=== PATIENT | male | born 1970 | race Caucasian/White ===

== ENCOUNTER 2019-07-16 05:51 | Inpatient (IN) ==
[2019-07-16 06:23] LABS: Basophils # (auto) 0.04 K/uL (0-0.2); Basophils % (auto) 0.3 %; Eosinophils # (auto) 0.34 K/uL (0-0.5); Eosinophils % (auto) 2.9 %; Hematocrit (blood only) 55.4 % (42-52); Hemoglobin 19.8 g/dL (14.0-18.0); Immature Granulocytes # (auto) 0.07 K/uL (0.00-0.02); Immature Granulocytes % (auto) 0.6 %; Lymphocytes # (auto) 2.91 K/uL (1.2-3.4); Lymphocytes % (auto) 24.9 %; Mean Corpuscular Hemoglobin 33.5 pg (25-34); Mean Corpuscular Volume 93.7 fL (80-100); Mean Platelet Volume 9.4 fL (7.4-10.4); Monocytes # (auto) 1.07 K/uL (0.11-0.59); Monocytes % (auto) 9.1 %; Neutrophils # (auto) 7.27 K/uL (1.4-6.5); Neutrophils % (auto) 62.2 %; Platelet Count 222 K/uL (130-400); RDW Coefficient of Variation 13.9 % (11.5-14.5); RDW Standard Deviation 47.1 fL (36.4-46.3); Red Blood Count 5.91 M/uL (4.7-6.1)
[2019-07-16 06:24] LABS: Mean Corpuscular Hgb Conc 35.7 g/dL (32-36)
[2019-07-16 06:27] LABS: iSTAT Creatinine 0.9 mg/dl (0.6-1.3); iSTAT Hemoglobin 20.1 g/dl (14.0-18.0); iSTAT Ionized Calcium 1.16 mmol/l (1.12-1.32); iSTAT Potassium 4.1 mEq/L (3.3-5.0)
[2019-07-16 06:34] LABS: Partial Thromboplastin Ratio 1.3; Partial Thromboplastin Time 36.1 Seconds (21.0-31.0); Prothrombin Time 10.1 Seconds (9.0-12.0)
--- NOTE | 2019-07-16 06:34 | CT Scan Report ---
CT head/brain wo con CLINICAL HISTORY: 48 years-old Male with Stroke evaluation . Acute strokelike symptoms TECHNIQUE: Multiple axial CT images of the head were obtained without contrast. A dose lowering tech nique was utilized adhering to the principles of ALARA. CT DOSE: 687.98 mGy.cm COMPARISON: Head CT 05/21/2019 FINDINGS: No acute intracranial hemorrhage, midline shift, intracranial mass, hydrocephalus, territorial ischem ia or abnormal extra-axial collection. Mild patchy white matter hypodensities are again noted within the subcortical and periventricular distributions. The calvarium is intact. The paranasal sinuses, mastoid air cells, and middle ear cavities are clear . IMPRESSION: 1. No acute intracranial abnormality. 2. Patchy white matter hypodensities may reflect chronic microvascular ischemic disease. Correlate cl inically. The above report was generated using voice recognition software. It may contain grammatical, syntax o r spelling errors. Electronically signed by: Uvaldo Diaz M.D. 07/16/2019 6:33 AM
[2019-07-16 06:46] LABS: Alanine Aminotransferase 22 U/L (12-78); Albumin Level 3.9 gm/dl (3.4-5.0); Aspartate Aminotransferase 23 U/L (15-37); BUN Creatinine Ratio 16.2 (10-20); Blood Urea Nitrogen 17 mg/dl (7-18); Calcium 8.8 mg/dl (8.5-10.1); Carbon Dioxide 26 mmol/L (21-32); Chloride 106 mmol/L (98-107); Creatinine Clr Calc Pharmacy 111.8 ml/min; Est GFR (Non-African American) 87.1; Glucose 102 mg/dl (70-99); Magnesium 1.9 mg/dl (1.8-2.4); Sodium 138 mmol/L (136-145)
[2019-07-16 06:51] LABS: Alkaline Phosphatase 75 U/L (45-117); Bilirubin,Total 0.6 mg/dl (0.2-1); Globulin 3.9 gm/dl (2.5-4.0); Total Protein 7.8 gm/dl (6.4-8.2); Troponin I < 0.015 ng/ml (0-0.045)
[2019-07-16] MEDS ORDERED: CLOPIDOGREL BISULFATE 300 MG TAB PO STA (07:03)
[2019-07-16] MEDS ORDERED: ASPIRIN 81 MG CHEW PO STA (07:03)
[2019-07-16] MEDS ORDERED: SODIUM CHLORIDE 0.9% 500 ML IV SCH (07:15)
--- NOTE | 2019-07-16 07:34 | Emergency Department Note ---
Entered by Skip Rhodes acting as a scribe for Soco Harvey DO History of Present Illness General Chief complaint: Neuro Symptoms/Deficit Stated complaint: NUMBNESS LFT SIDE,BALANCE OFF Time Seen by Provider: 07/16/19 06:01 Source: patient History of Present Illness Onset (ago): day(s) (today at 0500) Location: face Pain Consistency: + constant Quality: + other (facial droop) Associated symptoms: + other (Positive for left arm numbness/weakness and difficulty balancing. Negative for difficulty swallowing. ) The patient is a 48 year old male who presents to the emergency department with complaints of a constant facial droop beginning at 0500 today. The patient states that he developed left arm numbness and weakness at 1300 yesterday while he was at work. He notes that his left arm numbness and weakness improved by the time he went to bed last night at 2000. He reports that he woke up this morning at 0500 with a facial droop. The patient states that he also had difficulty balancing at that time. He denies any difficulty swallowing his saliva. He notes that he does not have a previous history of strokes, but he reports that he has a family history of strokes. The patient states that he takes a baby aspirin. Home Medications Home Medications Medication Instructions Recorded Confirmed Type aspirin 81 mg PO QAM 05/21/19 07/16/19 History atorvastatin 10 mg PO HS 05/21/19 07/16/19 History citalopram 20 mg PO QAM 05/21/19 07/16/19 History ibuprofen 200 mg PO Q6H PRN 05/21/19 07/16/19 History lisinopril 20 mg PO QAM 05/21/19 07/16/19 History trazodone 150 mg PO HS 05/21/19 07/16/19 History Allergies Allergy/AdvReac Type Severity Reaction Status Date / Time No Known Allergies Allergy Mild Verified 07/16/19 06:22 Past Med/Surg History Medical History History of ETOH abuse Tobacco abuse Depression with anxiety Insomnia Hyperlipidemia HTN (hypertension) Surgical History History of tonsillectomy and adenoidectomy History of esophagogastroduodenoscopy (EGD) Family History Father Stroke, Onset Age: 50 Coronary heart disease Diabetes Mother Cancer Social History Preferred Language: [place] Communication Ability: Effective City Library Director Required: No Beliefs That Will Affect Care: None marital status details: Engaged Current Living Situation: Significant Other current occupational status: 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 and A total of 10 systems reviewed and were otherwise negative Physical Exam Vital Signs Vital Signs - 24 hr 07/16/19 05:57 07/16/19 05:58 07/16/19 06:00 Temperature 36.6 C Temperature Source Oral Sepsis Recent Fever Within 48 Hours No Sepsis New/Unexplained Change in Mental Status No Sepsis Action Taken by Nursing No Action Required Pulse Rate 80 78 80 Pulse Rate [Bilateral] Pulse Rate from SpO2 Sensor 78 79 Pulse Rhythm Regular Pulse Rhythm [Bilateral] Pulse Strength Normal Pulse Strength [Bilateral] Respiratory Rate 18 23 20 Respiratory Effort / Characteristics Non-Labored Spontaneous Respiratory Depth Normal Respiratory Pattern Regular Blood Pressure 160/95 H 160/95 H 163/101 H Blood Pressure [Right Arm] Blood Pressure Mean 116 116 121 Blood Pressure Mean [Right Arm] Blood Pressure Position Lying Blood Pressure Position [Right Arm] Pulse Oximetry 98 96 97 Oxygen Delivery Method Room Air 07/16/19 06:01 07/16/19 06:21 07/16/19 06:30 Temperature Temperature Source Sepsis Recent Fever Within 48 Hours Sepsis New/Unexplained Change in Mental Status Sepsis Action Taken by Nursing Pulse Rate 83 79 90 Pulse Rate [Bilateral] Pulse Rate from SpO2 Sensor 81 81 89 Pulse Rhythm Pulse Rhythm [Bilateral] Pulse Strength Pulse Strength [Bilateral] Respiratory Rate 18 26 H 21 Respiratory Effort / Characteristics Respiratory Depth Respiratory Pattern Blood Pressure 171/102 H 165/142 H Blood Pressure [Right Arm] Blood Pressure Mean 125 149 Blood Pressure Mean [Right Arm] Blood Pressure Position Blood Pressure Position [Right Arm] Pulse Oximetry 97 96 96 Oxygen Delivery Method 07/16/19 06:31 07/16/19 06:32 07/16/19 07:00 Temperature Temperature Source Sepsis Recent Fever Within 48 Hours Sepsis New/Unexplained Change in Mental Status Sepsis Action Taken by Nursing Pulse Rate 83 88 Pulse Rate [Bilateral] 81 Pulse Rate from SpO2 Sensor 83 Pulse Rhythm Pulse Rhythm [Bilateral] Regular Pulse Strength Pulse Strength [Bilateral] Normal Respiratory Rate 19 18 20 Respiratory Effort / Characteristics Non-Labored Spontaneous Respiratory Depth Normal Respiratory Pattern Regular Blood Pressure 164/107 H Blood Pressure [Right Arm] 164/107 H Blood Pressure Mean 126 Blood Pressure Mean [Right Arm] 126 Blood Pressure Position Blood Pressure Position [Right Arm] Lying Pulse Oximetry 96 97 Oxygen Delivery Method Room Air 07/16/19 07:13 07/16/19 07:30 Temperature Temperature Source Sepsis Recent Fever Within 48 Hours Sepsis New/Unexplained Change in Mental Status Sepsis Action Taken by Nursing Pulse Rate 91 H 83 Pulse Rate [Bilateral] Pulse Rate from SpO2 Sensor 91 H 83 Pulse Rhythm Pulse Rhythm [Bilateral] Pulse Strength Pulse Strength [Bilateral] Respiratory Rate 16 15 Respiratory Effort / Characteristics Respiratory Depth Respiratory Pattern Blood Pressure 148/95 H 153/90 H Blood Pressure [Right Arm] Blood Pressure Mean 112 111 Blood Pressure Mean [Right Arm] Blood Pressure Position Blood Pressure Position [Right Arm] Pulse Oximetry 94 97 Oxygen Delivery Method HEENT: Head - normocephalic and atraumatic. Pupils are equal, round, and reactive to light. Extraocular eye muscles are intact and sclera are anicteric. Ears - bilaterally patent canals with noninjected tympanic membranes and no evidence of hemotympanum. Nose - moist nasal mucosa without discharge. Mouth - moist buccal mucosa. Oropharynx is nonerythematous and there is no tonsillar exudate or edema noted. Obvious droop to left side of mouth. Neck: Supple; no JVD, nuchal rigidity, cervical lymphadenopathy, or auscultated bruits. Heart: Regular rate and rhythm. There is a normal S1 and S2 with no murmurs, clicks, or gallops appreciated. Lungs: Clear to auscultation bilaterally with no wheezes, rales, or rhonchi. Abdomen: Soft, completely nontender, nondistended, with good bowel sounds. There are no palpable pulsatile masses or hepatosplenomegaly. There is no guarding, rigidity, or rebound noted. Extremities: No evidence of cyanosis, clubbing, or edema. There are easily palpable peripheral pulses. Neuro: The patient is awake and alert, oriented to day, time, and place. Cranial nerves 2-12 intact except for left-sided mouth droop. 4/5 muscle weakness in left arm and left leg. Pedal push and pull - left weaker than right. Course 0603: The patient was evaluated in room A9. A complete history and physical examination were performed. Nursing notes and previous electronic medical records were reviewed. IV lock was established and labs were drawn as above. A stroke alert was called. The patient went for a stat CAT scan of the brain. 0622: I discussed the patient's case with Hetal Olivas. 0645: The patient's last known well was 1999. The patient was evaluated by Dr. Kwan through the tele stroke cart. 0655: I rediscussed the patient's case with Dr. Kwan. She recommends oral Plavix, MRI, and admission. 0700: Upon reevaluation, the patient is stable. I discussed the findings and the treatment plan with the patient. He expresses agreement and understanding. I spoke with Dr. Trinidad of the [facility]. The patient will be evaluated for further management. 0702: I rediscussed the patient's case with Dr. Kwan. She recommends loading Plavix, continuing aspirin, and allowing the patient's blood pressure to be somewhat elevated. Consultations Consultation #1: I discussed the patient's case with Dr. Aquiles Limon Hetal. 0655: I rediscussed the patient's case with Dr. Kwan. She recommends oral Plavix, MRI, and admission. Time: 06:22 Consultation #2: I reviewed the patient's case with Dr. Trinidad - [facility]. He will evaluate the patient for further management. Time: 07:00 Administered Medications Atorvastatin Calcium (Lipitor) 80 mg PO HS CAIO Stop: 08/15/19 20:59 Last Admin: 07/16/19 20:38 Dose: 80 mg Documented by: [id number] Citalopram Hydrobromide (Celexa) 20 mg PO QAM CAIO Stop: 08/15/19 09:54 Last Admin: 07/16/19 11:26 Dose: Not Given Documented by: [id number] Ioversol (Optiray 320 125ml) 120 ml IV ONCE PRN PRN Reason: Interaction Checking Stop: 07/20/19 14:08 Last Admin: 07/16/19 14:10 Dose: 120 ml Documented by: [id number] Miscellaneous (Remove Nicoderm Patch) 1 ea N/A CAIO Stop: 08/15/19 20:59 Last Admin: 07/16/19 20:38 Dose: 1 ea Documented by: [id number] Nicotine (Nicoderm Cq) 21 mg TD QAM CAIO Stop: 08/15/19 09:54 Last Admin: 07/16/19 11:26 Dose: 21 mg Documented by: [id number] Trazodone HCl (Desyrel) 150 mg PO HS CAIO Stop: 08/15/19 20:59 Last Admin: 07/16/19 20:38 Dose: 150 mg Documented by: [id number] Discontinued Medications Aspirin (Aspirin Chew) 81 mg PO NOW STA Stop: 07/16/19 07:04 Last Admin: 07/16/19 07:22 Dose: 81 mg Documented by: [id number] Aspirin (Ecotrin Ectab) 81 mg PO QA CAIO Stop: 08/15/19 09:54 Last Admin: 07/16/19 10:24 Dose: Not Given Documented by: [id number] Clopidogrel Bisulfate (Plavix) 300 mg PO NOW STA Stop: 07/16/19 07:04 Last Admin: 07/16/19 07:25 Dose: 300 mg Documented by: [id number] Sodium Chloride (Nss) 500 mls @ 125 mls/hr IV .Q4H CAIO Stop: 08/15/19 07:14 Last Infusion: 07/16/19 10:24 Dose: 0 mls/hr Documented by: [id number] Admin: 07/16/19 07:24 Dose: 125 mls/hr Documented by: [id number] Medical Decision Making Differential Diagnosis Differential diagnoses include: TIA, CVA, and migraine. Medical Records Attestation: I reviewed the patient's medical records. Home Medications Current Medication List: was personally reviewed by me Laboratory Data Attestation: I reviewed the patient's lab results. Result diagrams: 07/16/19 15:56 07/16/19 06:09 Lab Results 07/16/19 07/16/19 07/16/19 Range/Units 06:07 06:09 06:09 WBC 11.70 H (4.8-10.8) K/uL RBC 5.91 (4.7-6.1) M/uL Hgb 19.8 H (14.0-18.0) g/dL POC Hgb (14.0-18.0) g/dl Hct 55.4 H (42-52) % POC Hct (42-52) % MCV 93.7 (80-100) fL MCH 33.5 (25-34) pg MCHC 35.7 (32-36) g/dL RDW Std Deviation 47.1 H (36.4-46.3) fL RDW Coeff of Chandra 13.9 (11.5-14.5) % Plt Count 222 (130-400) K/uL MPV 9.4 (7.4-10.4) fL Immature Gran % (Auto) 0.6 % Neut % (Auto) 62.2 % Lymph % (Auto) 24.9 % Banks % (Auto) 9.1 % Eos % (Auto) 2.9 % Baso % (Auto) 0.3 % Immature Gran # (Auto) 0.07 H (0.00-0.02) K/uL Neut # (Auto) 7.27 H (1.4-6.5) K/uL Lymph # (Auto) 2.91 (1.2-3.4) K/uL Banks # (Auto) 1.07 H (0.11-0.59) K/uL Eos # (Auto) 0.34 (0-0.5) K/uL Baso # (Auto) 0.04 (0-0.2) K/uL PT 10.1 (9.0-12.0) Seconds INR 1.0 (0.9-1.1) APTT 36.1 H (21.0-31.0) Seconds PTT Ratio 1.3 POC Sodium (135-144) mEq/L Sodium (136-145) mmol/L POC Potassium (3.3-5.0) mEq/L Potassium (3.5-5.1) mmol/L POC Chloride (101-112) mEq/L Chloride (98-107) mmol/L Carbon Dioxide (21-32) mmol/L POC Total CO2 (24-31) mEq/l Anion Gap (3-11) POC Anion Gap (16-25) mmol/L POC BUN (7-18) mg/dl BUN (7-18) mg/dl Creatinine (0.6-1.4) mg/dl POC Creatinine (0.6-1.3) mg/dl Est Cr Clr Drug Dosing ml/min Est GFR ( Amer) Est GFR (Non-Af Amer) BUN/Creatinine Ratio (10-20) Glucose (70-99) mg/dl POC Glucose 121 H (70-99) POC Glucose (other) (70-99) mg/dl Calcium (8.5-10.1) mg/dl POC Ioniz Calcium Leti (1.12-1.32) mmol/l Magnesium (1.8-2.4) mg/dl Total Bilirubin (0.2-1) mg/dl AST (15-37) U/L ALT (12-78) U/L Alkaline Phosphatase (45-117) U/L Troponin I (0-0.045) ng/ml Total Protein (6.4-8.2) gm/dl Albumin (3.4-5.0) gm/dl Globulin (2.5-4.0) gm/dl Albumin/Globulin Ratio (0.9-2) TSH (0.300-4.500) uIu/ml Blood Type Antibody Screen 07/16/19 07/16/19 07/16/19 Range/Units 06:09 06:09 06:15 WBC (4.8-10.8) K/uL RBC (4.7-6.1) M/uL Hgb (14.0-18.0) g/dL POC Hgb 20.1 H* (14.0-18.0) g/dl Hct (42-52) % POC Hct 59 H (42-52) % MCV (80-100) fL MCH (25-34) pg MCHC (32-36) g/dL RDW Std Deviation (36.4-46.3) fL RDW Coeff of Chandra (11.5-14.5) % Plt Count (130-400) K/uL MPV (7.4-10.4) fL Immature Gran % (Auto) % Neut % (Auto) % Lymph % (Auto) % Banks % (Auto) % Eos % (Auto) % Baso % (Auto) % Immature Gran # (Auto) (0.00-0.02) K/uL Neut # (Auto) (1.4-6.5) K/uL Lymph # (Auto) (1.2-3.4) K/uL Banks # (Auto) (0.11-0.59) K/uL Eos # (Auto) (0-0.5) K/uL Baso # (Auto) (0-0.2) K/uL PT (9.0-12.0) Seconds INR (0.9-1.1) APTT (21.0-31.0) Seconds PTT Ratio POC Sodium 140 (135-144) mEq/L Sodium 138 (136-145) mmol/L POC Potassium 4.1 (3.3-5.0) mEq/L Potassium 4.0 (3.5-5.1) mmol/L POC Chloride 103 (101-112) mEq/L Chloride 106 (98-107) mmol/L Carbon Dioxide 26 (21-32) mmol/L POC Total CO2 25 (24-31) mEq/l Anion Gap 6.0 (3-11) POC Anion Gap 17.0 (16-25) mmol/L POC BUN 18 (7-18) mg/dl BUN 17 (7-18) mg/dl Creatinine 1.02 (0.6-1.4) mg/dl POC Creatinine 0.9 (0.6-1.3) mg/dl Est Cr Clr Drug Dosing 111.8 ml/min Est GFR ( Amer) 101.0 Est GFR (Non-Af Amer) 87.1 BUN/Creatinine Ratio 16.2 (10-20) Glucose 102 H (70-99) mg/dl POC Glucose (70-99) POC Glucose (other) 107 H (70-99) mg/dl Calcium 8.8 (8.5-10.1) mg/dl POC Ioniz Calcium Leti 1.16 (1.12-1.32) mmol/l Magnesium 1.9 (1.8-2.4) mg/dl Total Bilirubin 0.6 (0.2-1) mg/dl AST 23 (15-37) U/L ALT 22 (12-78) U/L Alkaline Phosphatase 75 (45-117) U/L Troponin I < 0.015 (0-0.045) ng/ml Total Protein 7.8 (6.4-8.2) gm/dl Albumin 3.9 (3.4-5.0) gm/dl Globulin 3.9 (2.5-4.0) gm/dl Albumin/Globulin Ratio 1.0 (0.9-2) TSH 2.740 (0.300-4.500) uIu/ml Blood Type Antibody Screen 07/16/19 07/16/19 Range/Units 06:26 06:55 WBC (4.8-10.8) K/uL RBC (4.7-6.1) M/uL Hgb (14.0-18.0) g/dL POC Hgb (14.0-18.0) g/dl Hct (42-52) % POC Hct (42-52) % MCV (80-100) fL MCH (25-34) pg MCHC (32-36) g/dL RDW Std Deviation (36.4-46.3) fL RDW Coeff of Chandra (11.5-14.5) % Plt Count (130-400) K/uL MPV (7.4-10.4) fL Immature Gran % (Auto) % Neut % (Auto) % Lymph % (Auto) % Banks % (Auto) % Eos % (Auto) % Baso % (Auto) % Immature Gran # (Auto) (0.00-0.02) K/uL Neut # (Auto) (1.4-6.5) K/uL Lymph # (Auto) (1.2-3.4) K/uL Banks # (Auto) (0.11-0.59) K/uL Eos # (Auto) (0-0.5) K/uL Baso # (Auto) (0-0.2) K/uL PT (9.0-12.0) Seconds INR (0.9-1.1) APTT (21.0-31.0) Seconds PTT Ratio POC Sodium (135-144) mEq/L Sodium (136-145) mmol/L POC Potassium (3.3-5.0) mEq/L Potassium (3.5-5.1) mmol/L POC Chloride (101-112) mEq/L Chloride (98-107) mmol/L Carbon Dioxide (21-32) mmol/L POC Total CO2 (24-31) mEq/l Anion Gap (3-11) POC Anion Gap (16-25) mmol/L POC BUN (7-18) mg/dl BUN (7-18) mg/dl Creatinine (0.6-1.4) mg/dl POC Creatinine (0.6-1.3) mg/dl Est Cr Clr Drug Dosing ml/min Est GFR ( Amer) Est GFR (Non-Af Amer) BUN/Creatinine Ratio (10-20) Glucose (70-99) mg/dl POC Glucose (70-99) POC Glucose (other) (70-99) mg/dl Calcium (8.5-10.1) mg/dl POC Ioniz Calcium Leti (1.12-1.32) mmol/l Magnesium (1.8-2.4) mg/dl Total Bilirubin (0.2-1) mg/dl AST (15-37) U/L ALT (12-78) U/L Alkaline Phosphatase (45-117) U/L Troponin I (0-0.045) ng/ml Total Protein (6.4-8.2) gm/dl Albumin (3.4-5.0) gm/dl Globulin (2.5-4.0) gm/dl Albumin/Globulin Ratio (0.9-2) TSH (0.300-4.500) uIu/ml Blood Type Cancelled O Positive Antibody Screen Cancelled NEGATIVE Imaging Data Radiologist's Impression: Radiology results as stated below per my review and the radiologist's interpretation: CT HEAD: Left frontal white matter hypodensity possibly representing chronic small vessel ischemic change. No intracranial hemorrhage, mass effect, or edema. No evolving territorial infarction. Radiologist: Wilberto Redd MD. ECG Data Attestation: I personally reviewed and interpreted this ECG as follows: Indication: weakness Rate (beats per minute): 79 Rhythm: normal sinus Findings: no PAC and no PVC Additional Comments: Biphasic T wave in V6, no ischemia. Blood Pressure Blood Pressure Findings: Elevated blood pressure Blood Pressure Disposition: further management by hospitalist ROSEANNE Narrative The patient is a 48 year old male who presents to the emergency department with complaints of a constant facial droop beginning at 0500 when he woke up. Last known well time was 8 PM last night. The patient's neurological presentation is consistent with an acute stroke. Initial CT scan of the brain showed no obvious hemorrhage or stroke. The patient was outside the window for TPA use. [facility] tele-stroke recommended admission to the hospital with further MRI/MRA evaluation of the brain. They also suggested continuing oral low-dose aspirin along with Plavix. They also suggested IV hydration and allowing the patient's blood pressure to ride somewhat elevated. I discussed the case with the hospitalist and they will evaluate the patient for further management. Impression & Plan Stroke Critical Care Time Critical Care Time: Yes (I have personally spent greater than 30 minutes of critical care time in the direct management of this patient. This includes bedside care, interpretation of diagnostic studies, and testing, discussion with consultants, patient, and family members, and other required patient management activities. This 30 minutes is in excess of all separately billable procedures.) Total Critical Care Time: 30 I have personally spent greater than 30 minutes of critical care time in the direct management of this patient. This includes bedside care, interpretation of diagnostic studies, and testing, discussion with consultants, patient, and family members, and other required patient management activities. This 30 minutes is in excess of all separately billable procedures. Discharge Plan Visit Data *Final* Discharge Date/Time: 07/16/19 08:57 Chief Complaint: Neuro Symptoms/Deficit Stated Complaint: NUMBNESS LFT SIDE,BALANCE OFF ED Provider: Soco Harvey Discharge Problem: Stroke Patient Disposition: Admitted As Inpatient Discharge Instructions Interventions: ED Discharge Assessment Last Done: 07/16/19 08:57 Discharge Problem: Stroke Qualifiers: CVA mechanism: unspecified Qualified Code(s): I63.9 - Cerebral infarction, unspecified The scribe's documentation has been prepared under my direction and personally reviewed by me in its entirety. I confirm that the note above accurately reflects all work, treatment, procedures, and medical decision making performed by me.
--- NOTE | 2019-07-16 08:16 | History & Physical Report ---
Date of Service July 16, 2019 Assessment & Plan (1) Stroke-like symptoms: This is a 48-year-old male who has significant PMH of HTN, HLD, tobacco abuse, depression with anxiety, insomnia, history of alcohol abuse who presents to [facility] ED secondary to strokelike symptoms x12 hours. In ED initial work up revealed elevated H/H at 19.8 and 55.4, WBC 11.7 Pt with L sided facial droop, LUE/LLE weakness/numbness Stroke alert called CT head negative for acute abnormality but revealed patchy white matter hypodensities may reflect chronic microvascular ischemic disease Pt on ASA 81mg daily, plavix started admit to PCU obtain MRI w/o contrast echocardiogram to r/o PFO US of carotid fasting lipid panel and A1C neurology consulted continue ASA, Add plavix 75mg daily increased atorvastatin from 10mg daily to 40mg daily consider hypercoag panel, work up for PCV given elevated H/H will await neurology input PT/OT/ST encourage smoking cessation repeat cbc, retic ct and lyme screen at 3pm (2) HTN (hypertension): allow for permissive HTN initial 24-48hrs hold lisinopril for now (3) Hyperlipidemia: Increase atorvastatin from 10 mg daily to 40 mg daily Fasting lipid panel in a.m. (4) Tobacco abuse: Nicotine patch Smoking cessation encouraged (5) Depression with anxiety: Continue citalopram Mood stable (6) Insomnia: Continue trazodone at bedtime (7) DVT prophylaxis: SCD/TEDS for now Disposition: admit to PCU, case management consulted Follow up: PCP Dr. Stevenson upon discharge Patient was seen and examined in collaboration with Dr. Mejia, please see addendum History of Present Illness Chief Complaint: Strokelike symptoms x12 hours. Primary Care Provider: Dr. Stevenson This is a 48-year-old male who has significant PMH of HTN, HLD, tobacco abuse, depression with anxiety, insomnia, history of alcohol abuse who presents to [facility] ED secondary to strokelike symptoms x12 hours. Alicia is at bedside. Symptoms initially started last evening when he had sensation of left arm numbness. He proceeded to bed. When he woke up this morning and tried to get out of bed he stumbled and fell. No injuries. Had left-sided upper and lower extremity numbness along with weakness, noticed left facial droop and slurring of speech. Denies any recent illness, fever, chills, sweats, lightheadedness, dizziness, change in vision or hearing, chest pain, shortness of breath, palpitations, cough, nausea, vomiting, diarrhea, dysuria, increased urgency or frequency with urination, melena, hematochezia. He does have history of syncope in the past and was last seen in ED approximately 1 month ago. He also elicits he can cough so hard he just, "blacks out." Is outdoors, but denies any known tick bites. He is a current pack-a-day smoker for the past 30 years. He does drink a significant amount of caffeine starting with a monster energy drink in the morning along with multiple sweet teas throughout the day. He denies any illicit drug use. Denies any personal or family history of DVT/PE or clotting disorder. He does have family history of CVA in his father. His father had multiple CVAs starting in his 50s. He is unsure of cause of CVA. 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 Allergies Allergy/AdvReac Type Severity Reaction Status Date / Time No Known Allergies Allergy Mild Verified 07/16/19 06:22 Home Medications Home Medications Medication Instructions Recorded Confirmed Type aspirin 81 mg PO QAM 05/21/19 07/16/19 History atorvastatin 10 mg PO HS 05/21/19 07/16/19 History citalopram 20 mg PO QAM 05/21/19 07/16/19 History ibuprofen 200 mg PO Q6H PRN 05/21/19 07/16/19 History lisinopril 20 mg PO QAM 05/21/19 07/16/19 History trazodone 150 mg PO HS 05/21/19 07/16/19 History Past Med/Surg History Medical History History of ETOH abuse Tobacco abuse Depression with anxiety Insomnia Hyperlipidemia HTN (hypertension) Surgical History History of tonsillectomy and adenoidectomy History of esophagogastroduodenoscopy (EGD) Family History Father Stroke, Onset Age: 50 Coronary heart disease Diabetes Mother Cancer Social History Preferred Language: Sami Communication Ability: Effective Ware Dresser Required: No Beliefs That Will Affect Care: None marital status details: Engaged Current Living Situation: Significant Other current occupational status: 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 Other Information That Helps Us Care for You: No Feels Safe at Home: Yes Safety Concerns: Feels Safe At This Time Smoking Status: Current every day smoker Tobacco Type: cigarettes ; Years Smoked: 30 ; Cigarettes Per Day: 20 ; Tobacco Cessation Education Requested by Patient: No Hx Alcohol Use: Yes Alcohol Intake Frequency Comment: former hx of ETOH abuse, quit 2006 Hx Substance Use: No Review of Systems Review of Systems: All systems reviewed & are unremarkable except as noted in HPI & below Physical Exam Physical Exam: Constitutional: WD/WN, vitals as above, NAD, sitting up in bed, pleasant, conversing easily Head: Normocephalic, Atraumatic Eyes: PERRL, conjunctivae normal, anicteric sclerae ENMT: external ear and nose normal, oropharynx normal, patient with left tongue deviation Neck: trachea midline, no thyromegaly normal visual inspection Respiratory: normal respiratory effort, lungs clear to auscultation, no wheeze, rales, rhonchi. Normal insp/exp effort, no accessory muscle use Cardiovascular: RRR, no murmur, no edema Vessels: no JVD or carotid bruit Chest: normal inspection of chest Abdomen: Protuberant firm abdomen, normal bowel sounds, nontender, no hepatosplenomegaly Musculoskeletal: no cyanosis or clubbing, extremities motor strength 4/5 left upper and lower extremity, 5/5 right upper and lower extremity, wireline field operator strength diminished on the left Skin: no rashes, warm and dry normal turgor Neurologic: PERRL, EOMI, accommodation nl, left-sided facial droop, left tongue deviation but is able to return to midline, minimal dysarthria. Dysphagia screen passed. Psychiatric: A+Ox3, euthymic affect Lymphatic: no cervical or axillary lymphadenopathy : deferred Results & Data Vital Signs (Past 12 Hours) Vital Signs Temp Pulse Pulse Resp BP BP Pulse Ox 07/16/19 07:30 83 15 153/90 H 97 07/16/19 07:13 91 H 16 148/95 H 94 07/16/19 07:00 88 20 07/16/19 06:32 81 18 164/107 H 97 07/16/19 06:31 83 19 164/107 H 96 07/16/19 06:30 90 21 165/142 H 96 07/16/19 06:21 79 26 H 171/102 H 96 07/16/19 06:01 83 18 97 07/16/19 06:00 80 20 163/101 H 97 07/16/19 05:58 78 23 160/95 H 96 07/16/19 05:57 36.6 C 80 18 160/95 H 98 Laboratory Results Short CBC 07/16/19 Range/Units 06:09 WBC 11.70 H (4.8-10.8) K/uL Hgb 19.8 H (14.0-18.0) g/dL Hct 55.4 H (42-52) % Plt Count 222 (130-400) K/uL BMP 07/16/19 06:09 Sodium 138 Potassium 4.0 Chloride 106 Carbon Dioxide 26 BUN 17 Creatinine 1.02 Glucose 102 H Calcium 8.8 Cardiac Enzymes 07/16/19 Range/Units 06:09 Troponin I < 0.015 (0-0.045) ng/ml Liver Function 07/16/19 Range/Units 06:09 Total Bilirubin 0.6 (0.2-1) mg/dl AST 23 (15-37) U/L ALT 22 (12-78) U/L Alkaline Phosphatase 75 (45-117) U/L Albumin 3.9 (3.4-5.0) gm/dl Diagnostic Findings Head CT: IMPRESSION: 1. No acute intracranial abnormality. 2. Patchy white matter hypodensities may reflect chronic microvascular ischemic disease. Correlate clinically. Medications Administered Short CBC 07/16/19 Range/Units 06:09 WBC 11.70 H (4.8-10.8) K/uL Hgb 19.8 H (14.0-18.0) g/dL Hct 55.4 H (42-52) % Plt Count 222 (130-400) K/uL BMP 07/16/19 06:09 Sodium 138 Potassium 4.0 Chloride 106 Carbon Dioxide 26 BUN 17 Creatinine 1.02 Glucose 102 H Calcium 8.8 Cardiac Enzymes 07/16/19 Range/Units 06:09 Troponin I < 0.015 (0-0.045) ng/ml Liver Function 07/16/19 Range/Units 06:09 Total Bilirubin 0.6 (0.2-1) mg/dl AST 23 (15-37) U/L ALT 22 (12-78) U/L Alkaline Phosphatase 75 (45-117) U/L Albumin 3.9 (3.4-5.0) gm/dl ECG Rate (beats per minute): 79 Rhythm: normal sinus Code Status & VTE Plan Code Status Full Code VTE Prophylaxis Plan VTE Prophylaxis will be ordered: Yes Supervising Physician Co-Signing Physician Notes I have seen and examined the patient with physician judicial administrative assistant and would like to comment that this is a young 48 year old male with past medical history of father with stroke around age early 50s, and patient is a tobacco user, 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 patient was outside of the window for TPA. Initial head CT with No acute intracranial abnormality and Patchy white matter hypodensities may reflect chronic microvascular ischemic disease. but given on physical exam of left sided facial droop which is very apparent, and mild left upper/lower extremity weakness (other exam findings of normal extraoccular movements, normal pupils and normal reaction to light, no tongue deviations, clear lung auscultation, regular heart rate and rhythm), the patient's STROKE-LIKE SYMPTOMS is likely to be an actual STROKE. currently patient had echocardiogram performed in the ED with results pending to investigate whether there is atrial septal defect. patient is to get brain MRI being going up to [facility]. patient to get carotid imaging agree with patient being started on combination of clopidogrel with his home dose aspirin. will seen the lipid panels and HbA1c but atorvastatin to be increased from 10 mg daily to 40 mg for now monitor the blood pressure and allow for permissive hypertensive but will aim to get goal blood pressure of under 140/90 later in hospital stay in management f the HYPERTENSION discussed with patient about TOBACCO ABUSE and the need for patient to quit to prevent recurrent neurological symptoms of cardiac disease. patient offered nicotine patch will seek formal neurology consultation. patient will need also PT/OT evaluations agree with other assessment and plans as documented by physician asssitant
[2019-07-16] MEDS ORDERED: ONDANSETRON INJ 2 MG/ML 2 ML VIAL IV PRN (09:55)
[2019-07-16] MEDS ORDERED: ACETAMINOPHEN 325 MG TAB PO PRN ×2 (09:55→16:34)
[2019-07-16] MEDS ORDERED: MAGNESIUM HYDROXIDE SUSP 30 ML UDC PO PRN (09:55)
[2019-07-16] MEDS ORDERED: POLYETHYLENE (MIRALAX) 17 GM PACK PO PRN (09:55)
[2019-07-16] MEDS ORDERED: ALUMINUM/MAGNESIUM SUSP 30 ML UDC PO PRN (09:55)
[2019-07-16] MEDS ORDERED: PHARMACIST DISCHARGE MED REC CONSULT PRN (09:55)
[2019-07-16] MEDS ORDERED: ASPIRIN 81 MG ECTAB PO SCH (09:55)
--- NOTE | 2019-07-16 10:06 | Magnetic Resonance Report ---
MR brain wo con HISTORY: 48 years-old Male CVA . Strokelike symptoms with left-sided weakness COMPARISON: Head CT 07/16/2019 TECHNIQUE: Multiplanar multisequence MRI of the brain was obtained without the use of IV contrast FINDINGS: Microfiche Camera Operator localizer images demonstrate no gross extracranial abnormality. Motion degraded exam. Patchy sanchez bcentimeter foci of restricted diffusion noted within the watershed distribution of the right centrum semiovale, measuring up to approximately 3.6 cm in AP dimension with decreased signal on ADC map and slightly increased T2/flair signal. Linear focus of restricted diffusion is noted within the right p arieto-occipital distribution on image 11 of series 4. There is no acute intracranial hemorrhage, mid line shift, abnormal extra-axial collection, hydrocephalus or intracranial mass. Moderate patchy T2/F LAIR hyperintensities of the white matter are noted with cortically based increased T2/FLAIR signal n oted within the left frontal lobe suggestive of remote insult. Major flow voids at the level the skull base appear patent. Mastoid air cells are clear. Mild mucosal thickening of the paranasal sinuses. The skull, orbits and soft tissues are unremarkable. IMPRESSION: 1. Motion degraded exam. 2. Multiple foci of restricted diffusion within the right frontal lobe, predominantly involving the w atershed distribution of the centrum semiovale are noted with additional subcentimeter focus within t he right parieto-occipital distribution compatible with areas of acute infarct. 3. Moderate patchy T2/FLAIR hyperintensities of the white matter are suggestive of probable chronic m icrovascular ischemic disease, advanced for patient stated age. Underlying vasculitis or demyelinatin g process are also differential considerations. Correlate clinically. The above report was generated using voice recognition software. It may contain grammatical, syntax o r spelling errors. Electronically signed by: Uvaldo Diaz M.D. 07/16/2019 10:04 AM
--- NOTE | 2019-07-16 10:56 | Neurology Consultation ---
Date of Consultation July 16, 2019 Assessment & Plan (1) Hyperlipidemia: (2) Acute right MCA stroke: Mr. Moyer is a 48 year old male with Hx of HTN, HLD, and chronic smoker on ASA admitted with left sided weakness / facial droop, ataxia and dysarthria secondary to an acute embolic right hemispheric ischemic stroke in the setting of severe right carotid stenosis . CTA neck shows severe carotid stenosis bilateral at the carotid bulbs. - Patient outside the window for IV TPA. NIHSS 5. - Recommend ASA and PLavix 75 mg daily for now - Recommend Lipitor 80 mg daily - Permissive hypertension for now, Avoid hypotension - Vascular surgery consulted this afternoon. Appreciate input / recommendations. Will defer on transfer to tertiary facility at this time. - TTE showed Atrial septal aneurysm with small hemodynamically insignificant shunt. Closure not currently indicated per report. Cardiology recommends antiplatelet therapy for secondary stroke prevention. - Please check HA1c, TSH, and Lipid panel - Telemetry - PT/OT (3) Embolic stroke: (4) Left hemiparesis: (5) Dysarthria: (6) Carotid stenosis, bilateral: History of Present Illness Attending Physician: Mikal Mejia MD History of Present Illness Mr. Moyer is a 48 year old male with Hx of HTN, HLD, PPD smoker, history of alcohol abuse (remission) and anxiety/depression who presented to the ED with complaint left sided numbness and weakness and slurred speech. Symptoms started last evening prior to going to sleep with left arm numbness. He woke this morning and noted left upper and lower extremity weakness, facial droop, and slurred speech. No history of prior stroke or WI. No known Afib. He is a current pack-a-day smoker for the past 30 years. He denies any illicit drug use. Denies any personal or family history of DVT/PE or clotting disorder. He does have family history of CVA in his father. He is on ASA at home. Allergies Allergy/AdvReac Type Severity Reaction Status Date / Time No Known Allergies Allergy Mild Verified 07/16/19 06:22 Home Medications Home Medications Medication Instructions Recorded Confirmed Type aspirin 81 mg PO QAM 05/21/19 07/16/19 History atorvastatin 10 mg PO HS 05/21/19 07/16/19 History citalopram 20 mg PO QAM 05/21/19 07/16/19 History ibuprofen 200 mg PO Q6H PRN 05/21/19 07/16/19 History lisinopril 20 mg PO QAM 05/21/19 07/16/19 History trazodone 150 mg PO HS 05/21/19 07/16/19 History Patient History Medical History History of ETOH abuse Tobacco abuse Depression with anxiety Insomnia Hyperlipidemia HTN (hypertension) Surgical History History of tonsillectomy and adenoidectomy History of esophagogastroduodenoscopy (EGD) Family History Father Stroke, Onset Age: 50 Coronary heart disease Diabetes Mother Cancer Social History Preferred Language: Central African Communication Ability: Effective Clinical Statistics Manager Required: No Beliefs That Will Affect Care: None marital status details: Engaged Current Living Situation: Significant Other current occupational status: 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 Other Information That Helps Us Care for You: No Feels Safe at Home: Yes Safety Concerns: Feels Safe At This Time Smoking Status: Current every day smoker Tobacco Type: cigarettes ; Years Smoked: 30 ; Cigarettes Per Day: 20 ; Tobacco Cessation Education Requested by Patient: No Hx Alcohol Use: Yes Alcohol Intake Frequency Comment: former hx of ETOH abuse, quit 2006 Hx Substance Use: No Physical Exam Physical Exam: EXAM: Constitutional: appears acutely ill, older than stated age Head and Face: normocephalic and atraumatic Eyes: normal lids, normal conjunctiva Neck: supple Respiratory: normal effort Cardiovascular: normal pulses Abdomen: non distended Skin: no rashes, lesions, or ulcers noted Psychiatric: normal judgement and insight, normal mood and normal affect NEUROLOGIC EXAMINATION: Appearance: no acute distress Orientation: awake, alert and oriented x 3 Mental Status: alert Memory: registration 3/3 and recall 3/3 Attention: normal Knowledge: appropriate Language: no aphasia Speech: no dysarthria Cranial Nerves: CN 2 - no visual defect on confrontation and pupils round, equal, reactive to light CN 3, 4, 6 - extra-ocular movements intact and no nystagmus CN 5 - facial sensation intact CN 7 - left facial droop CN 8 - intact hearing CN 9, 10 - palate symmetric CN 11 - good shoulder shrug CN 12 - tongue deviates to the left Gait: deferred due to left sided weakness Coordination: mild ataxia with finger to nose on the left Sensory: sensory changes in left arm Muscle Tone: normal Muscle exam: 5/5 throughout except mild left bicep flexion weakness (4+/5) Reflexes: left toe is up going Results & Data Vital Signs (Past 12 Hours) Vital Signs Temp Pulse Pulse Resp BP BP Pulse Ox 07/16/19 09:55 36.3 C L 79 80 18 151/103 H 97 07/16/19 09:00 80 16 145/88 H 96 07/16/19 08:32 78 15 07/16/19 08:31 78 19 112/74 07/16/19 08:30 79 16 07/16/19 08:11 77 20 152/98 H 07/16/19 08:00 77 14 152/98 H 07/16/19 07:30 83 15 153/90 H 97 07/16/19 07:13 91 H 16 148/95 H 94 07/16/19 07:00 88 20 07/16/19 06:32 81 18 164/107 H 97 07/16/19 06:31 83 19 164/107 H 96 07/16/19 06:30 90 21 165/142 H 96 07/16/19 06:21 79 26 H 171/102 H 96 07/16/19 06:01 83 18 97 07/16/19 06:00 80 20 163/101 H 97 07/16/19 05:58 78 23 160/95 H 96 07/16/19 05:57 36.6 C 80 18 160/95 H 98 Laboratory Results BMP Normal UA - No UTI Diagnostic Findings MRI brain : Multiple foci of restricted diffusion within the right frontal lobe, predominantly involving the watershed distribution of the centrum semiovale are noted with additional subcentimeter focus within the right parieto-occipital distribution compatible with areas of acute infarct. Moderate patchy T2/FLAIR hyperintensities of the white matter are suggestive of probable chronic microvascular ischemic disease, advanced for patient stated age. Underlying vasculitis or demyelinating process are also differential considerations. Correlate clinically. CT head: No acute intracranial abnormality. Patchy white matter hypodensities may reflect chronic microvascular ischemic disease. CTA head and neck:1. Severe mixed plaque of the left carotid bulb results in greater than 90% luminal narrowing with only trickle flow noted within the proximal cervical segment left ICA with diminished flow throughout the remainder of the left ICA course. 2. Severe mixed plaque of the right carotid bulb results in occlusion versus greater than 90% luminal narrowing of the right ICA at its origin with scattered areas of trickle flow noted throughout the course of the right ICA. Reconstitution of flow at the cavernous segment. The above report was generated using voice recognition software. It may contain grammatical, syntax or spelling errors. TTE: LV is normal in size. EF>70%. Atrial septal aneurysm noted with small hemodynamically insignificant shunt. Closure not currently indicated. No valve abnormalities.
[2019-07-16] MEDS: NICOTINE 21 MG/24 HR TDSY TD SCH (11:26)
[2019-07-16] MEDS: CITALOPRAM 20 MG TAB PO SCH (11:26)
[2019-07-16] MEDS ORDERED: OPTIRAY 320 125ml IV PRN (14:09)
--- NOTE | 2019-07-16 14:41 | CT Scan Report ---
CT angio head w con, CT angio neck with con CLINICAL HISTORY: 48 years-old Male with right MCA stroke. Acute strokelike symptoms COMPARISON STUDY: Brain MRI of same day TECHNIQUE: Following the IV administration of 120 cc of Optiray 320, CT angiogram of the head and nec k was performed from the thoracic aortic arch to the skull apex. Images are reviewed in the axial, sa gittal, and coronal planes. 3-D MIPS images are created and assessed. IV contrast was administered wi thout complication. All measurements were obtained according to NASCET criteria. A dose lowering tech nique was utilized adhering to the principles of ALARA. CT DOSE: 784.69 mGy.cm FINDINGS: Imaged pulmonary arterial tree appears unremarkable. Mixed plaque of the thoracic aortic arch. Patenc y of the imaged bilateral subclavian arteries. Bilateral common carotid arteries are widely patent. S evere mixed plaque of the left carotid bulb results in greater than 90% luminal narrowing with only t rickle flow noted at the level the proximal left ICA, for example please see image 313 of series 4. T here is diminished flow throughout the remainder of the left ICA distal to the area of high-grade cristal nosis with multifocal areas of luminal narrowing seen within the cavernous and clinoid segments on th e left. The left external carotid artery is widely patent. Severe mixed plaque of the right carotid bulb results in high-grade stenosis versus occlusion at the origin of the external carotid artery with the remainder of the right external carotid artery appeari ng patent. There is occlusion versus greater than 90% luminal narrowing of the right ICA beginning at the level of the carotid bulb with a few minimal areas of trickle flow noted throughout the right IC A. Reconstitution of flow is noted within the cavernous segment right ICA with air is diminished flow . The bilateral middle and left anterior cerebral arteries are widely patent and unremarkable. Diminu tive right A1 segment is likely on a developmental basis. Dominant left vertebral artery is widely patent and unremarkable. Calcified plaque at the origin of t he right vertebral artery without high-grade stenosis. Patent basilar and bilateral posterior cerebra l arteries. No dissection or aneurysm identified. Cerebral venous sinuses are unremarkable and patent . Mild bilateral bronchial wall thickening with emphysema. Partial effacement of the left vallecula be secondary to secretions. There is no adenopathy. Bones appear intact. Multilevel degenerative changes of the spine. IMPRESSION: 1. Severe mixed plaque of the left carotid bulb results in greater than 90% luminal narrowing with on ly trickle flow noted within the proximal cervical segment left ICA with diminished flow throughout t he remainder of the left ICA course. 2. Severe mixed plaque of the right carotid bulb results in occlusion versus greater than 90% luminal narrowing of the right ICA at its origin with scattered areas of trickle flow noted throughout the c ourse of the right ICA. Reconstitution of flow at the cavernous segment. 3. Unremarkable vertebrobasilar system. 4. No aneurysm or dissection. 5. Emphysema. The above report was generated using voice recognition software. It may contain grammatical, syntax o r spelling errors. Electronically signed by: Uvaldo Diaz M.D. 07/16/2019 2:40 PM
--- NOTE | 2019-07-16 15:37 | Ultrasound Report ---
US carotid doppler BI CLINICAL HISTORY: 48 years-old Male presenting with CVA like sx, left-sided symptoms, CTA with high-g rade stenosis, evaluate for hemodynamic severity. TECHNIQUE: Real-time grayscale and color and spectral Doppler ultrasound imaging of the bilateral car otid arteries was performed. Stenosis measurements were based on NASCET-like criteria (distal lumen d iameter as the denominator for stenosis measurement). COMPARISON: CT neck from earlier today. FINDINGS: RIGHT: Common carotid artery (CCA): Severely diminished flow though the vessel appears patent. Loss of diast olic flow. Atherosclerosis at the carotid bulb. Peak systolic velocity (PSV) 35 cm/s. Internal carotid artery (ICA): Diffusely occluded. No demonstrable flow. PSV 0 cm/s. End diastolic ve locity (EDV) 0 cm/s. ICA/CCA (systolic) ratio: 0. External carotid artery (ECA): Hyperdynamic flow with a waveform that mirrors the expected internal c arotid artery distribution waveform. PSV 252 cm/s focally at the origin and PSV 80 cm/s immediately d istally. Reversal of flow is evident in a branch of the ECA. LEFT: CCA: Patent. PSV 73 cm/s. ICA: Diffusely occluded. PSV 0 cm/s. EDV 0 cm/s. ICA/CCA (systolic) ratio: 0. ECA: Proximal atherosclerotic plaque with focal stenosis. PSV 215 cm/s at the site of stenosis and PS V to 121 cm/s immediately distally. Bilateral antegrade flow within the vertebral arteries. Blood pressure: Brachial: Right: 153/90 mmHg, Left: 164/107 mmHg. Reference ranges: Stenosis measurements are compared to reference velocity parameters by the Society of Radiologists in Ultrasound (SRU) consensus and Sonographic NASCET index (S-NASCET). * SRU Primary parameters: ICA PSV <125 cm/s = normal or less than 50% stenosis; ICA PSV 125-230 cm/s = 50-69% stenosis; ICA PSV >230 cm/s = greater than or equal to 70% stenosis. * SRU Additional parameters: ICA/CCA PSV ratio <2 = normal or less than 50% stenosis; ratio 2-4 = 5 0-69% stenosis; ratio >4 = greater than or equal to 70% stenosis. ICA EDV <40 cm/s = normal or less t vela 50% stenosis; ICA EDV 40-100 cm/s = 50-69% stenosis; ICA EDV >100 cm/s = greater than or equal to 70% stenosis. * S-NASCET parameters: Deceleration spectral broadening + PSV <125 cm/s = less than 50% stenosis; pa nsystolic spectral broadening + PSV <125 cm/s = 16-49% stenosis; pansystolic spectral broadening + PS V >125 cm/s + EDV <110 cm/s or ICA/CCA PSV ratio 2-4 = 50-69% stenosis; pansystolic spectral broadeni ng + PSV >270 cm/s OR EDV >110 cm/s OR ICA/CCA PSV ratio >4 = 70-79% stenosis; EDV >140 cm/s = 80-99% stenosis. IMPRESSION: 1. Occluded internal carotid arteries bilaterally. 2. ICA-type waveform in the right ECA with reversal of flow in a branch vessel suggesting collateral ization/parasitization of a branch of the right ECA to supply the distal recannulated right ICA at th e level of the skull base as demonstrated on CTA neck. 3. Severe stenosis of the bilateral proximal/origins of the ECAs. This is more severe on the right. Electronically signed by: Cristóbal Jimenez M.D. 07/16/2019 3:35 PM
[2019-07-16 16:11] LABS: Basophils # (auto) 0.03 K/uL (0-0.2); Basophils % (auto) 0.3 %; Eosinophils # (auto) 0.35 K/uL (0-0.5); Eosinophils % (auto) 3.2 %; Hematocrit (blood only) 53.5 % (42-52); Hemoglobin 18.9 g/dL (14.0-18.0); Immature Granulocytes # (auto) 0.04 K/uL (0.00-0.02); Immature Granulocytes % (auto) 0.4 %; Lymphocytes # (auto) 3.07 K/uL (1.2-3.4); Lymphocytes % (auto) 28.2 %; Mean Corpuscular Hemoglobin 32.9 pg (25-34); Mean Corpuscular Hgb Conc 35.3 g/dL (32-36); Mean Corpuscular Volume 93.2 fL (80-100); Mean Platelet Volume 9.3 fL (7.4-10.4); Monocytes # (auto) 1.01 K/uL (0.11-0.59); Monocytes % (auto) 9.3 %; Neutrophils # (auto) 6.37 K/uL (1.4-6.5); Neutrophils % (auto) 58.6 %; Platelet Count 202 K/uL (130-400); RDW Coefficient of Variation 13.8 % (11.5-14.5); RDW Standard Deviation 46.8 fL (36.4-46.3); Red Blood Count 5.74 M/uL (4.7-6.1); Reticulocyte % 1.9 % (0.5-2.0); Reticulocytes # 0.11 10^6/uL (0.02-0.10); White Blood Count 10.87 K/uL (4.8-10.8)
--- NOTE | 2019-07-16 16:27 | Consultation ---
Date of Consultation July 16, 2019 Assessment & Plan (1) Carotid artery occlusion with cerebral infarction: In reviewing the CTA and ultrasound the right carotid artery appears to be occluded however there is notation in the report that there may be a trickle of flow through this area. The left carotid appears occluded on CTA. This point I believe better imaging is needed. I recommend a carotid arteriogram. This was discussed with the patient and his . I have discussed the risks options and benefits of the procedure with the patient. The patient understands the risks options and benefits and agrees to the procedure. We will plan on doing the carotid arteriogram in the a.m. Further treatment will be determined by the results of the angiogram peer Thank you very much for letting us participate in the care of this patient. History of Present Illness Reason for Consultation: Right hemispheric CVA Attending Physician: Mikal Mejia MD History of Present Illness This is a 48-year-old gentleman who was in his usual state of good health until yesterday when he developed paresthesias of the left arm and left leg. Today this progressed to weakness in his left arm left leg with slurred speech and facial droop. He claims this is the first time this is happened to his left arm and leg. He denies any previous instances of one-sided weakness slurred speech or paresthesias. He denies any symptoms like this involving his right side in the past. He is a smoker. He denies any cardiac history of arrhythmias. He does have a family history of CVA in his father. There are no clotting disorders in his family that he knows of. Allergies Allergy/AdvReac Type Severity Reaction Status Date / Time No Known Allergies Allergy Mild Verified 07/16/19 06:22 Home Medications Home Medications Medication Instructions Recorded Confirmed Type aspirin 81 mg PO QAM 05/21/19 07/16/19 History atorvastatin 10 mg PO HS 05/21/19 07/16/19 History citalopram 20 mg PO QAM 05/21/19 07/16/19 History ibuprofen 200 mg PO Q6H PRN 05/21/19 07/16/19 History lisinopril 20 mg PO QAM 05/21/19 07/16/19 History trazodone 150 mg PO HS 05/21/19 07/16/19 History Patient History Medical History History of ETOH abuse Tobacco abuse Depression with anxiety Insomnia Hyperlipidemia HTN (hypertension) Surgical History History of tonsillectomy and adenoidectomy History of esophagogastroduodenoscopy (EGD) Family History Father Stroke, Onset Age: 50 Coronary heart disease Diabetes Mother Cancer Social History Preferred Language: [place] Communication Ability: Effective Medical Laboratory Technical Officer Required: No Beliefs That Will Affect Care: None marital status details: Engaged Current Living Situation: Significant Other current occupational status: 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 Other Information That Helps Us Care for You: No Feels Safe at Home: Yes Safety Concerns: Feels Safe At This Time Smoking Status: Current every day smoker Tobacco Type: cigarettes ; Years Smoked: 30 ; Cigarettes Per Day: 20 ; Tobacco Cessation Education Requested by Patient: No Hx Alcohol Use: Yes Alcohol Intake Frequency Comment: former hx of ETOH abuse, quit 2006 Hx Substance Use: No Review of Systems Review of Systems: All systems reviewed & are unremarkable except as noted in HPI & below Physical Exam Constitutional: WD/WN, vitals as above Neck: trachea midline Respiratory: normal respiratory effort; no respiratory distress Cardiovascular: Rate/Rhythm: regular rate and regular rhythm Vessels: femoral pulses present, posterior tibial pulses present, dorsalis pedis pulses present and radial pulses present; no carotid bruit Extremities: normal capillary refill Gastrointestinal (Abdomen): Inspection/Auscultation: abdomen normal to inspection Percussion/Palpation: abdomen soft; abdomen nontender Musculoskeletal: Extremities: extremities normal to inspection and + abnormal strength (Is slight weakness to the left side when compared to the right.) Gait: normal gait Neurologic: CN's II-XI intact bilaterally, moves all extremities (Left is slightly weaker than the right.) and + focal motor deficit (Left side) Speech / Cognition: + abnormal speech (His speech is slightly abnormal according to his but is improved remarkably since his CVA this morning.) Motor/Sensory: normal movement Gait: no ataxic gait Psychiatric: Orientation: alert and oriented x 3 Results & Data Vital Signs (Past 12 Hours) Vital Signs Temp Pulse Pulse Resp BP BP Pulse Ox 07/16/19 15:33 36.5 C 80 20 144/94 H 96 07/16/19 12:26 36.4 C L 79 18 146/86 H 93 07/16/19 09:55 36.3 C L 79 80 18 151/103 H 97 07/16/19 09:00 80 16 145/88 H 96 07/16/19 08:32 78 15 07/16/19 08:31 78 19 112/74 07/16/19 08:30 79 16 07/16/19 08:11 77 20 152/98 H 07/16/19 08:00 77 14 152/98 H 07/16/19 07:30 83 15 153/90 H 97 07/16/19 07:13 91 H 16 148/95 H 94 07/16/19 07:00 88 20 07/16/19 06:32 81 18 164/107 H 97 07/16/19 06:31 83 19 164/107 H 96 07/16/19 06:30 90 21 165/142 H 96 07/16/19 06:21 79 26 H 171/102 H 96 07/16/19 06:01 83 18 97 07/16/19 06:00 80 20 163/101 H 97 07/16/19 05:58 78 23 160/95 H 96 07/16/19 05:57 36.6 C 80 18 160/95 H 98
[2019-07-16 17:02] LABS: Lyme Ab IgM w/WB Rflx Negative (Negative)
[2019-07-16 17:10] LABS: Lyme Ab IgG w/WB Rflx Positive (Negative)
[2019-07-16] MEDS: ATORVASTATIN 40 MG TAB PO SCH (20:38)
[2019-07-16] MEDS ORDERED: TRAZODONE HCL 50 MG TAB PO SCH (21:00)
[2019-07-16] MEDS ORDERED: ATORVASTATIN 40 MG TAB PO SCH (21:00)
[2019-07-17] MEDS ORDERED: CEFAZOLIN 2000MG 2,000 MG/15 ML SYR IV SCH (06:00)
[2019-07-17] MEDS ORDERED: SODIUM CHLORIDE 0.9% 1000ML 1,000 ML IV SCH ×2 (06:00→09:21)
[2019-07-17 06:36] LABS: Basophils # (auto) 0.03 K/uL (0-0.2); Basophils % (auto) 0.3 %; Eosinophils # (auto) 0.41 K/uL (0-0.5); Eosinophils % (auto) 3.5 %; Hematocrit (blood only) 54.4 % (42-52); Hemoglobin 19.8 g/dL (14.0-18.0); Immature Granulocytes # (auto) 0.05 K/uL (0.00-0.02); Immature Granulocytes % (auto) 0.4 %; Lymphocytes # (auto) 2.78 K/uL (1.2-3.4); Lymphocytes % (auto) 23.7 %; Mean Corpuscular Hemoglobin 33.4 pg (25-34); Mean Corpuscular Hgb Conc 36.4 g/dL (32-36); Mean Corpuscular Volume 91.9 fL (80-100); Mean Platelet Volume 9.2 fL (7.4-10.4); Monocytes # (auto) 0.97 K/uL (0.11-0.59); Monocytes % (auto) 8.3 %; Neutrophils # (auto) 7.47 K/uL (1.4-6.5); Neutrophils % (auto) 63.8 %; Platelet Count 211 K/uL (130-400); RDW Coefficient of Variation 13.6 % (11.5-14.5); RDW Standard Deviation 45.8 fL (36.4-46.3); Red Blood Count 5.92 M/uL (4.7-6.1); White Blood Count 11.71 K/uL (4.8-10.8)
[2019-07-17 07:12] LABS: BUN Creatinine Ratio 12.5 (10-20); Calcium 8.8 mg/dl (8.5-10.1); Creatinine Clr Calc Pharmacy 129.7 ml/min; Est GFR (Non-African American) 101.8; Potassium 4.2 mmol/L (3.5-5.1)
--- NOTE | 2019-07-17 07:20 | History & Physical Bridge Note ---
Date of Service July 17, 2019 History & Physical Bridge Note Patient for carotid angio today. I have discussed the risks options and benefits of the procedure with the patient. The patient understands the risks options and benefits and agrees to the procedure. I have examined the patient, reviewed the History & Physical and in the interval since the performance of the History & Physical I have noted the following changes of clinical significance: no changes noted
[2019-07-17 07:25] LABS: Estimated Average Glucose 114 mg/dl; Hemoglobin A1C 5.6 % (4.5-5.6)
[2019-07-17] MEDS ORDERED: LIDOCAINE HCL 1% 20 ML VIAL ONE (07:34)
[2019-07-17] MEDS ORDERED: HEPARIN SOD (PORCINE) 1000 UNIT/ML 10 ML VIAL ONE (08:10)
[2019-07-17] MEDS ORDERED: fentaNYL citrate 100 MCG/2 ML VIAL ONE (08:10)
[2019-07-17] MEDS ORDERED: MIDAZOLAM HCL 1 MG/ML 2ML VIAL ONE (08:10)
[2019-07-17] MEDS ORDERED: VISIPAQUE IV PRN (08:59)
[2019-07-17] MEDS ORDERED: CLOPIDOGREL BISULFATE 75 MG TAB PO SCH (09:00)
--- NOTE | 2019-07-17 09:05 | Post Operative Brief Note ---
Immediate Post Op Note v1 Date of Surgery July 17, 2019 Pre & Post Diagnosis Operation Date: 07/17/19 08:15 Pre-Op Diagnosis: Carotid artery occlusion with cerebral infarction Post-Op Diagnosis: Carotid artery occlusion with cerebral infarction I identified the patient and participated in the time-out.: Yes Procedure Operation Date: 07/17/19 08:15 Actual Procedures p Bilateral Carotid Angiogram,Arch Aortagram, Ultrasound Localization of Right Femoral Artery, Mechanical Closure of Right Femoral Artery(Bilateral) - Vaughn George MD Surgeon Vaughn George MD Halftone Operator MD Martina Estimated Blood Loss 10 Findings Consistent with Post-Op Diagnosis Anesthesia Type Local Complications none Disposition Accompanied Patient To Recovery: No Disposition: Recovery Room
--- NOTE | 2019-07-17 09:07 | Communication Note ---
Date of Service: July 17, 2019 Patient with bilateral internal carotid artery occlusion. No flow was seen into the internal caroitd from the common carotid on both sides. No intervention needed. Would treat with antiplatelets, statin, and smoking cessation.
[2019-07-17] MEDS: CITALOPRAM 20 MG TAB PO SCH (09:22)
[2019-07-17] MEDS: NICOTINE 21 MG/24 HR TDSY TD SCH (09:23)
--- NOTE | 2019-07-17 09:41 | Procedure Note ---
Angiogram Post Procedure Fluoroscopy Time (minutes): 2.5 Radiation (mGy): 98 Contrast: 40 Post Operative Report Pre & Post Diagnosis Operation Date: 07/17/19 08:15 Pre-Op Diagnosis: Carotid artery occlusion with cerebral infarction Post-Op Diagnosis: Carotid artery occlusion with cerebral infarction Procedure Operation Date: 07/17/19 08:15 Actual Procedures p Bilateral Carotid Angiogram,Arch Aortagram, Ultrasound Localization of Right Femoral Artery, Mechanical Closure of Right Femoral Artery - Vaughn George MD Surgeon Dr. Doris Dye MD Crop Or Grain Farmer MD Martina Estimated Blood Loss 10 Findings See Below Arch angiogram showed a patent innominate artery, left carotid artery and left subclavian artery. A right carotid angiogram revealed an occluded right internal carotid artery with a patent external carotid artery. A left carotid angiogram revealed an occluded left internal carotid artery with patent external carotid artery. Specimens None Anesthesia Type Local Complications none Disposition Accompanied Patient To Recovery: Yes Disposition: Recovery Room Indications Patient presented with a stroke and a CTA was inadequate to evaluate whether there is flow through the internal carotid arteries. Description of Procedure The patient was brought to the angio suite and correctly identified. The patient was placed supine on the angiography table. The right groin was prepped and draped in a sterile fashion. Following the administration of lidocaine , the right common femoral artery was accessed using a 18 gauge needle and ultrasound guidance. A J wire was threaded and the 11 blade was used to make a krishna in the skin. Following that a 5 Albanian sheath was advanced over the J-wire after the axis needle was removed. 035 angled glide wire was then advanced into the abdominal aorta and Taken all the way up into the aortic arch. The C arm was placed in a 19 degree EMA. A long pigtail catheter was then advanced over the wire into the aortic arch. A limited thoracic aortogram was completed. This thoracic aortogram revealed a patent innominate artery a patent left common carotid artery and a patent left subclavian artery. The angled glide wire was then reintroduced and the pigtail was exchanged with a JB2 catheter over the a ngled glide wire. The Glidewire was then removed. The JB2 catheter was then pulled back and allowed to select the innominate artery. The angled Glidewire was then advanced and selected the right common carotid artery. A right carotid angiogram was then completed. This showed flow in the right common carotid artery and right external carotid artery but no flow in the right internal carotid artery. The JB2 catheter was then pulled back into the aortic arch and selected the left common carotid artery. The JB2 catheter was then advanced over the angled Glidewire and advanced into the left common carotid artery. A left common carotid artery angiogram was then completed which revealed a patent left common carotid artery a patent left external carotid artery and a occluded left internal carotid artery. At this time the JB2 catheter was withdrawn out of the patient's body. Attention was then turned to the right groin. A right sheath a gram was obtained revealing the puncture was in the right common femoral artery over the right femoral head. Through the 5 Albanian sheath a short J-wire was introduced and the 5 Albanian sheath was exchanged with a 6 Albanian Star close dilator and sheath. The Star close device was then deployed. Following the 1 through 4 steps. Upon removal of the closure device the patient had a hemostatic right groin. Pressure was held over the right groin for 5 minutes. A sterile dressing was then applied over the right groin. The patient tolerated the procedure well and was taken back to recovery area in a flat position. Dr. George was present for the entirety of the procedure. I attest to the content of the Intraoperative Record and any orders documented therein. Any exceptions are noted below.
--- NOTE | 2019-07-17 11:25 | Hospitalist Progress Note ---
Date of Service July 17, 2019 Assessment & Plan (1) Acute right MCA stroke: 48 year old male admitted with left sided weakness / facial droop, ataxia and dysarthria secondary to an acute right hemispheric ischemic stroke in the setting of severe right carotid stenosis -patient was outside of the window for TPA -continue aspirin 81 mg daily and clopidogrel (Plavix) 75 mg daily, atorvastatin 80 mg daily -CTA neck suggested severe carotid stenosis bilateral at the carotid bulbs -Patient had angiogram performed by vascular surgery on 07/17/19 and No flow was seen into the internal carotid from the common carotid on both sides -Because of bilateral carotid artery occlusion rather than stenosis, patient is not candidate for vascular interventions such as Carotid endarterectomy -TTE showed Atrial septal aneurysm with small hemodynamically insignificant shunt and Closure not currently indicated per report. Cardiology recommends antiplatelet therapy for secondary stroke prevention. -at this point the evaluations suggest that the cause of the stroke is from hypoperfusion from lack of carotid blood flow rather than an embolic source -PT/OT evaluations -further neurology recommendations appreciated -Patient has appointments made for primary care doctor 07/24/2019 11:00 AM Pr bear Stevenson MD Department [facility] and neurology clinic 07/30/2019 1:40 PM Provider Keena Chandler MD Department Neurology [facility] (2) Carotid artery occlusion with cerebral infarction: -Patient had angiogram performed by vascular surgery on 07/17/19 and No flow was seen into the internal carotid from the common carotid on both sides -Because of bilateral carotid artery occlusion rather than stenosis, patient is not candidate for vascular interventions such as Carotid endarterectomy -Patient on IV fluids after angiogram -monitor renal function (3) HTN (hypertension): -lisinopril 20 mg daily resumed on 07/17/19 -will likely need further adjustments of anti-hypertensives once off IV fluids (4) Hyperlipidemia: -lipid panel with LDL of 94 -atorvastatin 80 mg daily as per recent neurology recommendations (5) Tobacco abuse: -counseled on smoking cessation -Nicotine patch (6) Depression with anxiety: -mood is stable -Continue home dose citalopram (7) Insomnia: -Continue home dose trazodone at bedtime DVT ppx: SCDs while inpatient Subjective Patient seen and examined laying flat on the bed and getting IV fluids after the angiogram of the neck. Patient's blood pressure noted to be elevated. no dizziness. no lightheadedness. no chest pain. no shortness of breath. no vomiting Physical Exam Constitutional: comfortable Eyes: PERRL, conjunctivae normal, anicteric sclerae EOM intact bilaterally ENMT: external ear and nose normal, oropharynx normal Neck: normal visual inspection Respiratory: normal respiratory effort, lungs clear to auscultation Cardiovascular: Rate/Rhythm: regular rate and regular rhythm Gastrointestinal (Abdomen): normal bowel sounds, soft, nontender, no hepatosplenomegaly Musculoskeletal: Head/Neck/Chest: normocephalic and head atraumatic Neurologic: PERRL, EOMI, accommodation nl, no face palsy, no dysarthria Psychiatric: A+Ox3, euthymic affect Results & Data Vital Signs (Past 12 Hours) Vital Signs Temp Pulse Pulse Resp BP Pulse Ox 07/17/19 11:23 36.4 C L 91 H 16 170/121 H 96 07/17/19 09:20 75 18 146/98 H 93 07/17/19 08:53 74 15 152/106 H 93 07/17/19 08:48 74 15 150/109 H 92 07/17/19 08:43 74 15 159/112 H 93 07/17/19 08:38 77 15 163/107 H 93 07/17/19 08:33 77 15 159/110 H 93 07/17/19 08:28 70 14 160/105 H 94 07/17/19 08:18 70 14 159/106 H 95 07/17/19 07:50 36.6 C 77 16 147/96 H 94 07/17/19 07:00 99 H 07/17/19 03:20 36.5 C 83 18 179/93 H 95 07/17/19 00:22 36.5 C 82 18 144/88 H 94
[2019-07-17] MEDS ORDERED: LISINOPRIL 20 MG TAB PO STA (12:03)
--- NOTE | 2019-07-17 14:09 | Neurology Progress Note ---
Date of Service July 17, 2019 Assessment & Plan (1) Carotid artery occlusion with cerebral infarction: 1. bilateral carotid stenosis - medical management 2. plavix 75 mg and aspirin 81 mg daily for now 3. arthrosclerotic plaque - Lipitor 80 mg daily 4. blood pressure - slowly reduce blood pressure to high normal tensive 5. life style changes discussed smoking cessation, caffeine use needs limited 6. PT/OT speech for discharge needs 7. referral as outpatient to neurovascular for 2nd opinion and options follow up neurology in 4-6 weeks Keena Auguste PAC schedule Supervising Physician Co-Signing Physician Notes I have seen and discussed above patient with Dr Keena Chandler, neurology. Pt seen and examined. Pt with angiographically proven bl carotid occlusion with R MCA-TANNER watershed infarct, intact post circ and COW on CTA Exam notable for flattened L NLF, mild L arm weakness.. Imp R MCA/TANNER infarct. REc risk mod, smoking cessation, avoidance of hypotension, dual antiplt tx. I doubt that vascu lar interventional NS would offer a vascular bypass but consider and opinion post-dc provided pt remains without recurrent events. LEO Chandler MD Parmjit Ward is a 48 year old male with PMH -HTN, HLD, tobacco abuse, depression with anxiety, insomnia, history of alcohol abuse who presented with stroke-like symptoms x12 hours. The symptoms started in his left arm with numbness the night prior to arrival. The next morning he woke and was unable to get himself out of bed. he then had left-sided upper and lower extremity numbness along with weakness, noticed left facial droop and slurring of speech. He can cough so hard he just, "blacks out." He is a at least a PPD smoker for the past 30 years. He does drink a significant amount of caffeine starting with a monster energy drink in the morning along with multiple sweet teas throughout the day. His father has a history of CVA with started in his 50s. Yesterday he had a angiogram by Dr George which revealed a bilateral ICA occlusion. Today he is doing better. He states he has been up and walking around. he states he is planning on stopping cigarette smoking. denies CP, SOB, abdominal pain, +improving one sided weakness, and slurred speech. Physical Exam Physical Exam: Gen: alert NAD lungs course breath sounds CV RRR left sided facial droop left tongue deviation, slurring of speech slight pronator drift on left hand operations engineer biceps triceps right 5/5, left 4+/5, able to tandem walk without assistance dysmetric left with rapid movements Results & Data Vital Signs (Past 12 Hours) Vital Signs Temp Pulse Pulse Resp BP Pulse Ox 07/17/19 11:23 36.4 C L 91 H 16 170/121 H 96 07/17/19 09:20 75 18 146/98 H 93 07/17/19 09:19 71 07/17/19 08:53 74 15 152/106 H 93 07/17/19 08:48 74 15 150/109 H 92 07/17/19 08:43 74 15 159/112 H 93 07/17/19 08:38 77 15 163/107 H 93 07/17/19 08:33 77 15 159/110 H 93 07/17/19 08:28 70 14 160/105 H 94 07/17/19 08:18 70 14 159/106 H 95 07/17/19 07:50 36.6 C 77 16 147/96 H 94 07/17/19 07:00 99 H 07/17/19 03:20 36.5 C 83 18 179/93 H 95 Laboratory Results Abnormal lab results 07/16/19 07/16/19 07/17/19 Range/Units 15:56 15:56 06:28 WBC 10.87 H 11.71 H (4.8-10.8) K/uL Hgb 18.9 H 19.8 H (14.0-18.0) g/dL Hct 53.5 H 54.4 H (42-52) % MCHC 36.4 H (32-36) g/dL RDW Std Deviation 46.8 H (36.4-46.3) fL Immature Gran # (Auto) 0.04 H 0.05 H (0.00-0.02) K/uL Neut # (Auto) 7.47 H (1.4-6.5) K/uL Evans # (Auto) 1.01 H 0.97 H (0.11-0.59) K/uL Reticulocyte # 0.11 H (0.02-0.10) 10^6/uL Glucose (70-99) mg/dl Lyme Disease IgG Ab Positive A (Negative) 07/17/19 Range/Units 06:28 WBC (4.8-10.8) K/uL Hgb (14.0-18.0) g/dL Hct (42-52) % MCHC (32-36) g/dL RDW Std Deviation (36.4-46.3) fL Immature Gran # (Auto) (0.00-0.02) K/uL Neut # (Auto) (1.4-6.5) K/uL Evans # (Auto) (0.11-0.59) K/uL Reticulocyte # (0.02-0.10) 10^6/uL Glucose 101 H (70-99) mg/dl Lyme Disease IgG Ab (Negative) Diagnostic Findings MRI brain - Multiple foci of restricted diffusion within the right frontal lobe, predominantly involving the watershed distribution of the centrum semiovale are noted with additional subcentimeter focus within the right parieto-occipital distribution compatible with areas of acute infarct. Moderate patchy T2/FLAIR hyperintensities of the white matter are suggestive of probable chronic microvascular ischemic disease, advanced for patient stated age. Underlying vasculitis or demyelinating process are also differential considerations. CTA head/neck - Severe mixed plaque of the left carotid bulb results in greater than 90% luminal narrowing with only trickle flow noted within the proximal cervical segment left ICA with diminished flow throughout the remainder of the left ICA course. . Severe mixed plaque of the right carotid bulb results in occlusion versus greater than 90% luminal narrowing of the right ICA at its origin with scattered areas of trickle flow noted throughout the course of the right ICA. Reconstitution of flow at the cavernous segment. Unremarkable vertebrobasilar system. No aneurysm or dissection. Emphysema.
[2019-07-17 16:40] LABS: BUN Creatinine Ratio 11.8 (10-20); Calcium 8.6 mg/dl (8.5-10.1); Creatinine Clr Calc Pharmacy 121.5 ml/min; Est GFR (Non-African American) 94.9; Potassium 3.7 mmol/L (3.5-5.1)
[2019-07-17] MEDS: ATORVASTATIN 40 MG TAB PO SCH (17:20)
[2019-07-17] MEDS ORDERED: STROKE PATIENT DISCHARGE STA (17:31)
--- NOTE | 2019-07-17 17:33 | Discharge Summary ---
Date of Service July 17, 2019 Admission HPI Per Admitting Provider This is a 48-year-old male who has significant PMH of HTN, HLD, tobacco abuse, depression with anxiety, insomnia, history of alcohol abuse who presents to [facility] ED secondary to strokelike symptoms x12 hours. Alicia is at bedside. Symptoms initially started last evening when he had sensation of left arm numbness. He proceeded to bed. When he woke up this morning and tried to get out of bed he stumbled and fell. No injuries. Had left-sided upper and lower extremity numbness along with weakness, noticed left facial droop and slurring of speech. Denies any recent illness, fever, chills, sweats, lightheadedness, dizziness, change in vision or hearing, chest pain, shortness of breath, palpitations, cough, nausea, vomiting, diarrhea, dysuria, increased urgency or frequency with urination, melena, hematochezia. He does have history of syncope in the past and was last seen in ED approximately 1 month ago. He also elicits he can cough so hard he just, "blacks out." Is outdoors, but denies any known tick bites. He is a current pack-a-day smoker for the past 30 years. He does drink a significant amount of caffeine starting with a monster energy drink in the morning along with multiple sweet teas throughout the day. He denies any illicit drug use. Denies any personal or family history of DVT/PE or clotting disorder. He does have family history of CVA in his father. His father had multiple CVAs starting in his 50s. He is unsure of cause of CVA. 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 Admission Exam Per Admitting Provider Constitutional: WD/WN, vitals as above, NAD, sitting up in bed, pleasant, conversing easily Head: Normocephalic, Atraumatic Eyes: PERRL, conjunctivae normal, anicteric sclerae ENMT: external ear and nose normal, oropharynx normal, patient with left tongue deviation Neck: trachea midline, no thyromegaly normal visual inspection Respiratory: normal respiratory effort, lungs clear to auscultation, no wheeze, rales, rhonchi. Normal insp/exp effort, no accessory muscle use Cardiovascular: RRR, no murmur, no edema Vessels: no JVD or carotid bruit Chest: normal inspection of chest Abdomen: Protuberant firm abdomen, normal bowel sounds, nontender, no hepatosplenomegaly Musculoskeletal: no cyanosis or clubbing, extremities motor strength 4/5 left upper and lower extremity, 5/5 right upper and lower extremity, cutch cleaner strength diminished on the left Skin: no rashes, warm and dry normal turgor Neurologic: PERRL, EOMI, accommodation nl, left-sided facial droop, left tongue deviation but is able to return to midline, minimal dysarthria. Dysphagia screen passed. Psychiatric: A+Ox3, euthymic affect Lymphatic: no cervical or axillary lymphadenopathy : deferred Principal Diagnosis Acute right MCA stroke (residual left sided facial droop and weakness of extremities), Carotid artery occlusion with cerebral infarction (bilateral carotid artery occlusion), Hypertension, Hyperlipidemia, Polycythemia Discharge Exam Constitutional comfortable Eyes PERRL, conjunctivae normal, anicteric sclerae EOM intact bilaterally ENMT external ear and nose normal, oropharynx normal Neck normal visual inspection Respiratory normal respiratory effort, lungs clear to auscultation Cardiovascular Rate/Rhythm: regular rate and regular rhythm Gastrointestinal (Abdomen) normal bowel sounds, soft, nontender, no hepatosplenomegaly Musculoskeletal Head/Neck/Chest: normocephalic and head atraumatic Neurologic CN's II-XI intact bilaterally (residual left sided facial droop and weakness of extremities) Psychiatric A+Ox3, euthymic affect Discharge Data Allergies Allergy/AdvReac Type Severity Reaction Status Date / Time No Known Allergies Allergy Mild Verified 07/16/19 06:22 Consultations 07/16/19 07:02 ED Decision to Admit Stat 07/16/19 07:56 Consult Neurology Routine 07/16/19 09:55 Consult Case Management - Discharge Planning Routine 07/16/19 14:49 Consult Vascular Surgery Routine Procedures Performed Operation Date: 07/17/19 08:15 Actual Procedures p Bilateral Carotid Angiogram,Arch Aortagram, Ultrasound Localization of Right Femoral Artery, Mechanical Closure of Right Femoral Artery(Bilateral) - Vaughn George MD Ordered Studies 07/16/19 06:12 CT head/brain wo con Urgent 07/16/19 07:56 US carotid doppler BI Routine 07/16/19 07:57 MR brain wo con Urgent 07/16/19 11:14 CT angio head w con Routine CT angio neck with con Routine 07/16/19 16:38 EV angio carotid cereb BI Routine 07/17/19 07:23 US guide vascular access Routine 07/17/19 08:00 EV angio aortic arch Routine Hospital Course (1) Acute right MCA stroke: 48 year old male admitted with left sided weakness / facial droop, ataxia and dysarthria secondary to an acute right hemispheric ischemic stroke in the setting of severe right carotid stenosis -patient was outside of the window for TPA -continue aspirin 81 mg daily and clopidogrel (Plavix) 75 mg daily, atorvastatin 80 mg daily -CTA neck suggested severe carotid stenosis bilateral at the carotid bulbs -Patient had angiogram performed by vascular surgery on 07/17/19 and No flow was seen into the internal carotid from the common carotid on both sides -Because of bilateral carotid artery occlusion rather than stenosis, patient is not candidate for vascular interventions such as Carotid endarterectomy -TTE showed Atrial septal aneurysm with small hemodynamically insignificant shunt and Closure not currently indicated per report. Cardiology recommends antiplatelet therapy for secondary stroke prevention. -at this point the evaluations suggest that the cause of the stroke is from hypoperfusion from lack of carotid blood flow rather than an embolic source -PT/OT evaluations were completed -patient's blood pressure were elevated with IV fluids after angiogram with improvements of blood pressure with lisinopril 10 mg and off IV fluids -neurology recommendations of maintaining high normotensive blood pressures -Discharge Instructions were discussed extensively with patient (Patient diagnosed with acute right MCA stroke and has residual left sided facial droop and weakness of extremities. Patient does not have swallowing problems and able to ambulate. Patient will be given outpatient Physical therapy, occupational therapy, and speech therapy prescriptions Patient may request outpatient referral from primary care doctor if any second opinion sought for the bilateral artery occlusion (such as neurovascular for 2nd opinion and options) but vascular Dr. George does not recommend any surgical interventions at this time given complete occlusions as confirmed by angiogram and recommended medical management. Discharge Medication of atorvastatin 80 mg daily and nicotine patch, and lisinopril 10 mg daily, aspirin 81 mg daily, clopidogrel 75 mg daily (Plavix) sent electronically to [facility] [address], [place] [address] Patient recommended to monitor blood pressure and keep it high normotensive. He was explained that by most medical guidelines a normal blood pressure is 140/90. Patient reports he has blood pressure cuff at home for self monitoring Patient has Polycythemia (high hematocrit in the 50s) likely from smoking. Patient advised to quit smoking and use nicotine patch for stroke recurrence prevention Patient has appointments made for primary care doctor 07/24/2019 11:00 AM Provider Kris Stevenson MD Department [facility] and neurology clinic 07/30/2019 1:40 PM Provider Keena Chandler MD Department Neurology [facility] Risk Factors for Stroke: You can reduce your chances of stroke by working with your medical provider to adopt a healthy lifestyle. Some specific ways to lower your chance of stroke are: * If you are a smoker, now is the time to stop smoking cigarettes * If you are diabetic, improve the control of your blood sugars * Avoid excessive amounts of alcohol * Control high blood pressure * Lose weight if you are overweight * Be sure to lead an active lifestyle * Eat a healthy diet low in salt, cholesterol and fat You should know about other risk factors for stroke that you are unable to control. These include: * Age 55 years or older * Male gender * Certain racial groups: , or / * Family History of Stroke, Mini stroke or Heart Attack * Sickle Cell Disease Follow Up: It is important for you to keep your follow up appointments with your medical provider. Who to Call and When: Medical Emergencies: Call 911 immediately if you experience any of the following warning signs and symptoms of Stroke: * Sudden numbness or weakness of the face, arm or leg, especially on one side of the body * Sudden confusion, trouble speaking or understanding * Sudden trouble seeing in one or both eyes * Sudden trouble walking, dizziness, loss of balance or coordination * Sudden severe headache with no cause Do not delay calling 911 if you experience any warning signs or symptoms of a stroke. Delay in seeking medical attention may affect what treatments can be given to you.) . (2) Carotid artery occlusion with cerebral infarction: -Patient had angiogram performed by vascular surgery on 07/17/19 and No flow was seen into the internal carotid from the common carotid on both sides -Because of bilateral carotid artery occlusion rather than stenosis, patient is not candidate for vascular interventions such as Carotid endarterectomy (3) HTN (hypertension): -on admission, blood pressure medications wer held to maintain good cerebral perfusion after stroke diagnosis -patient's blood pressure were elevated with IV fluids after angiogram with improvements of blood pressure with lisinopril 10 mg and off IV fluids -neurology recommendations of maintaining high normotensive blood pressures -discharge on lisinopril 10 mg daily (4) Hyperlipidemia: -lipid panel with LDL of 94 -atorvastatin 80 mg daily as per recent neurology recommendations (5) Tobacco abuse: -counseled on smoking cessation -Nicotine patch (6) Polycythemia: -Patient has Polycythemia (high hematocrit in the 50s) likely from smoking. Patient advised to quit smoking and use nicotine patch for stroke recurrence prevention (7) Depression with anxiety: -mood is stable -Continue home dose citalopram (8) Insomnia: -Continue home dose trazodone at bedtime DVT ppx: SCDs while inpatient Total Time Total Time Spent Total Time Spent (In Minutes): 40 minutes Total Time Includes: Examination of the Patient, Discharge Planning, Medication Reconciliation and Communication With Other Providers Discharge Plan Discharge Items Patient Disposition: Home - Self-Care Reason For Visit: CVA LIKE SX Discharge Diagnosis: Acute right MCA stroke (residual left sided facial droop and weakness of ex tremities), Carotid artery occlusion with cerebral infarction (bilateral carotid artery occlusion), Hypertension, Hyperlipidemia, Polycythemia Condition on Discharge: Good Activity: Per Instructions section Lifting: Gradually increase as tolerated Exercise/Sports: Gradually increase as tolerated Weightbearing: Full weightbearing Non-emergency contact: Primary Care Provider and Neurologist Call non-emergency contact if: you have any medication questions Follow-up/Referrals: PCP,NO [Primary Care Provider] - Diet: Heart Healthy Addtl Attending Provider Instructions: Patient diagnosed with acute right MCA stroke and has residual left sided facial droop and weakness of extremities. Patient does not have swallowing problems and able to ambulate. Patient will be given outpatient Physical therapy, occupational therapy, and speech therapy prescriptions Patient may request outpatient referral from primary care doctor if any second opinion sought for the bilateral artery occlusion (such as neurovascular for 2nd opinion and options) but vascular Dr. George does not recommend any surgical interventions at this time given complete occlusions as confirmed by angiogram and recommended medical management. Discharge Medication of atorvastatin 80 mg daily and nicotine patch, and lisinopril 10 mg daily, aspirin 81 mg daily, clopidogrel 75 mg daily (Plavix) sent electronically to [facility] [id number], [place] [address] Patient recommended to monitor blood pressure and keep it high normotensive. He was explained that by most medical guidelines a normal blood pressure is 140/90. Patient reports he has blood pressure cuff at home for self monitoring Patient has Polycythemia (high hematocrit in the 50s) likely from smoking. Patient advised to quit smoking and use nicotine patch for stroke recurrence prevention Patient has appointments made for primary care doctor 07/24/2019 11:00 AM Provider Kris Stevenson MD Department [facility] and neurology clinic 07/30/2019 1:40 PM Provider Keena Chandler MD Department Neurology [facility] [employer] Provider Instructions: Discharge Stroke Instructions Risk Factors for Stroke: You can reduce your chances of stroke by working with your medical provider to adopt a healthy lifestyle. Some specific ways to lower your chance of stroke are: * If you are a smoker, now is the time to stop smoking cigarettes * If you are diabetic, improve the control of your blood sugars * Avoid excessive amounts of alcohol * Control high blood pressure * Lose weight if you are overweight * Be sure to lead an active lifestyle * Eat a healthy diet low in salt, cholesterol and fat You should know about other risk factors for stroke that you are unable to control. These include: * Age 55 years or older * Male gender * Certain racial groups: , or / * Family History of Stroke, Mini stroke or Heart Attack * Sickle Cell Disease Follow Up: It is important for you to keep your follow up appointments with your medical provider. Who to Call and When: Medical Emergencies: Call 911 immediately if you experience any of the following warning signs and symptoms of Stroke: * Sudden numbness or weakness of the face, arm or leg, especially on one side of the body * Sudden confusion, trouble speaking or understanding * Sudden trouble seeing in one or both eyes * Sudden trouble walking, dizziness, loss of balance or coordination * Sudden severe headache with no cause Do not delay calling 911 if you experience any warning signs or symptoms of a stroke. Delay in seeking medical attention may affect what treatments can be given to you. . Pending Studies at Discharge: No Stand-Alone Forms: Medications to Prevent Stroke, [facility] Medications and DC Order Prescriptions: New nicotine [Nicoderm CQ] 21 mg/24 hr Patch 24 Hour 21 mg transdermal QAM 30 Days Qty: 30 RF: 0 atorvastatin 40 mg Tablet 80 mg PO DAILY 30 Days Qty: 60 RF: 0 lisinopril 10 mg Tablet 10 mg PO QAM 30 Days Qty: 30 RF: 0 clopidogrel 75 mg Tablet 75 mg PO QAM 30 Days Qty: 30 RF: 0 aspirin 81 mg tablet,delayed release (DR/EC) 81 mg PO DAILY 30 Days Qty: 30 RF: 0 Continued citalopram 20 mg tablet 20 mg PO QAM RF: 0 trazodone 150 mg tablet 150 mg PO HS RF: 0 ibuprofen 200 mg Tablet 200 mg PO Q6H PRN (Reason: Pain) RF: 0 Discontinued atorvastatin 10 mg tablet 10 mg PO HS RF: 0 lisinopril 20 mg tablet 20 mg PO QAM RF: 0 aspirin 81 mg Tablet,Delayed Release (Dr/Ec) 81 mg PO QAM RF: 0 Discharge Orders: Discharge Order (Routine); Ordered 07/17/19 Ordered By: Mikal Mejia Admission Data Admit Date/Time: 07/16/19 07:56 Attending Provider: Mikal Mejia Admit Provider: Mikal Mejia Primary Care Provider: PCP,NO Other Providers: Alphonso Trinidad ; Juwan Preciado Eugene J
--- NOTE | 2019-07-17 20:58 | Pharmacy Report ---
Pharmacist Stroke Counseling - Date of Service July 17, 2019 - Scope: Pharmacy has been consulted to provide medication discharge counseling for this patient admitted with [ischemic stroke] [hemorrhagic stroke] [transient ischemic attack] as per the Pharmacist Discharge Counseling for Stroke Patients Prot ocol. - Medications on Discharge: Home Medications Medication Instructions Recorded Confirmed citalopram 20 mg PO QAM 05/21/19 07/16/19 ibuprofen 200 mg PO Q6H PRN 05/21/19 07/16/19 trazodone 150 mg PO HS 05/21/19 07/16/19 New Rx's Medication Instructions Recorded aspirin 81 mg PO DAILY 30 Days #30 tab 07/17/19 atorvastatin 80 mg PO DAILY 30 Days #60 tab 07/17/19 clopidogrel 75 mg PO QAM 30 Days #30 tab 07/17/19 lisinopril 10 mg PO QAM 30 Days #30 tab 07/17/19 nicotine [Nicoderm CQ] 21 mg TRANSDERMAL QAM 30 Days #30 07/17/19 ea - Action: The above medications, specifically ones for stroke treatment/prophylaxis, have been reviewed in detail with the patient and/or patient denial management representative(s) prior to discharge. This includes indication, common adverse reactions, drug interactions, and medication administration. Medication counseling has been employed using the teach-back method to ensure understanding. - Outcome: The patient and/or patient denial management representative(s) have demonstrated understanding of the medications. Please note, they are aware that the pharmacist will call them within 72 hours post-discharge to confirm that the appropriate medications are being taken and answer any further medication related questions the patient might have at that time. Contact information Individual to be contacted: Ed Phone number: [phone] Best time to call: anytime Additional comments: I reviewed new medication doses and side effects. Patient has taken both aspirin and atorvastatin in the past without any problems. Advised him about increased risk of bleeding if he is to have a dental or medical procedure in the future and reinforced the importance of discussing these medications with the interventionalist at the time of the procedure. Also advised the patient that his lisinopril dose was reduced from 20 mg to 10 mg daily. Patient denied having questions. Thank you for allowing pharmacy to be involved in the care of this patient. Please call [phone] with any additional questions
[2019-07-18] MEDS ORDERED: ASPIRIN 81 MG ECTAB PO SCH (09:00)
[2019-07-18] MEDS ORDERED: LISINOPRIL 10 MG TAB PO SCH (09:00)
[2019-07-18] MEDS ORDERED: LISINOPRIL 20 MG TAB PO SCH (09:00)
--- NOTE | 2019-07-20 13:51 | Pharmacy Report ---
Pharmacist Post D/C Phone Note - Phone Note: Date of phone call: July 20, 2019. Individual with whom pharmacist spoke to: JESSENIA MATHEWS The following questions were reviewed during the phone call with responses listed below each: Can you tell me the medications that you are currently taking as well as when and how you take each medication? -See Table Below When have you missed any doses of your medications? - Only missed nicotine patch b/c he has yet to pick this up What side effects are you having from your medications, specifically, the new medications you were started on? - None. No bleeding noted. No muscle pains. He has not been checking his BP so I advised him to do so with the change in his BP medication. What questions do you have about your medications? - Patient asked if he should increase his dose of CoQ10 (which he was taking while on a statin but not listed on his med list). I advised him that there would be no need to increase. What problems are you having obtaining your medications? - None. Will plan to garbage pick up man nicotine patch When is your next appointment with your primary care doctor? - Saturday, 07/22 Additional comments: - Patient reports weakness is improving - I discussed minimizing ibuprofen usage since he's on 2 antiplatelet medications. He only takes this prn. I also discussed that APAP would be a safer alternative. As per the Pharmacist Discharge Counseling for Stroke Patients Protocol, this phone call has been completed within 72 hours of discharge. Thank you for allowing us to be involved in the care of this patient. - Home Medications: Home Medications Medication Instructions Recorded Confirmed citalopram 20 mg PO QAM 05/21/19 07/16/19 ibuprofen 200 mg PO Q6H PRN 05/21/19 07/16/19 trazodone 150 mg PO HS 05/21/19 07/16/19 New Rx's Medication Instructions Recorded aspirin 81 mg PO DAILY 30 Days #30 tab 07/17/19 atorvastatin 80 mg PO DAILY 30 Days #60 tab 07/17/19 clopidogrel 75 mg PO QAM 30 Days #30 tab 07/17/19 lisinopril 10 mg PO QAM 30 Days #30 tab 07/17/19 nicotine [Nicoderm CQ] 21 mg TRANSDERMAL QAM 30 Days #30 07/17/19 ea Note: patient also takes CoQ10 daily
[2019-07-22 09:36] LABS: 18KDIGG Band NONREACTIVE (NONREACTIVE); 23KDIGG Band NONREACTIVE (NONREACTIVE); 23KDIGM Band NONREACTIVE (NONREACTIVE); 28KDIGG Band REACTIVE (NONREACTIVE); 30KDIGG Band NONREACTIVE (NONREACTIVE); 39KDIGG Band NONREACTIVE (NONREACTIVE); 39KDIGM Band NONREACTIVE (NONREACTIVE); 41KDIGG Band REACTIVE (NONREACTIVE); 41KDIGM Band NONREACTIVE (NONREACTIVE); 45KDIGG Band REACTIVE (NONREACTIVE); 58KDIGG Band NONREACTIVE (NONREACTIVE); 66KDIGG Band REACTIVE (NONREACTIVE); 93KDIGG Band NONREACTIVE (NONREACTIVE); Lyme Antibodies, WB IgG NEGATIVE (NEGATIVE); Lyme Antibodies, WB IgM NEGATIVE (NEGATIVE)
== END 2019-07-17 18:30 | disposition home or self-care (01) | DRG 64 ==
LOC: ED 05:51 → 2S 07:56

== ENCOUNTER 2021-12-05 10:58 | Inpatient (IN) ==
[2021-12-05] MEDS ORDERED: SODIUM CHLORIDE 0.9% 1000ML 2,000 ML IV ONE (11:26)
--- NOTE | 2021-12-05 11:35 | Emergency Department Note ---
Impression & Plan Dizziness, Acute hypotension, Tachycardia, Acute hyponatremia ED Provider Note NAME: JESSENIA MATHEWS Jr AGE: 51 SEX: M : 1970 ARRIVES VIA: Walk-In INFORMANT: Patient ED PROVIDER(S): Jayesh Hinojosa DO CHIEF COMPLAINT: dizzy with leg cramps HPI: Patient is a 51-year-old male who presents to the ER for feeling dizzy for the past month off and on. He notes this generally occurs when he is up standing. He is also having cramps in his bilateral calves the past several weeks. Over the past 24 to 48 hours she started having chest pain on the left side of his chest when he gets these dizzy episodes. He does not believe he gets short of breath. No belly pain, nausea, vomiting, and diarrhea. He just has chronic abdominal achiness secondary to his ulcerative colitis. He recently just got back to work. Patient denies swelling of calves, recent trips, history of immobilization or recent surgery, prior history of DVT, hemoptysis, history of malignancy, and history of smoking. ROS: See above HPI for pertinent positives & negatives. A total of 10 systems reviewed and were otherwise negative. PAST MEDICAL HISTORY:See Below PAST SURGICAL HISTORY:See Below FAMILY HISTORY:See Below SOCIAL HISTORY:See Below HOME MEDICATIONS:See Below ALLERGIES:See Below VITALS:See Below PHYSICAL EXAMINATION: GENERAL: Sitting up in bed, alert, well appearing, well nourished, no distress, non-toxic EYE EXAM: normal conjunctiva. PERRL and EOM's grossly intact. OROPHARYNX: no exudate, no erythema, lips, buccal mucosa, and tongue normal and mucous membranes are moist NECK: supple, no nuchal rigidity, no adenopathy, non-tender LUNGS: Clear to auscultation. Normal chest wall mechanics HEART: tachy, S1 normal and S2 normal ABDOMEN: abdomen soft, non-tender, normo-active bowel sounds, no masses, no rebound or guarding. UPPER EXTREMITIES: upper extremities are grossly normal. LOWER EXTREMITIES: No pitting edema. NEURO EXAM: Normal sensorium, cranial nerves II-XII grossly intact, normal speech, no gross weakness of arms, no gross weakness of legs. MEDICAL DECISION MAKING: Patient is a 51-year-old male who presents the ER for the above-stated complaint. IV was established blood was obtained. Labs show no significant leukocytosis. Mild anemia at 11.2 which is actually better than previous. Sodium was low at 128. LFTs bilirubin was unremarkable. Troponin negative. TSH was unremarkable. UA was clean. CT angio of the chest was performed due to the tachycardia and hypotension was unremarkable. He was given 2 L IV fluids. Systolic pressures trended up and heart rate trended down to low 100s. Due to the symptomatic dizziness, atrial tachycardia as well as hypertension he was discussed with the hospitalist for further evaluation. Triage Nursing notes reviewed. Limited review of prior medical records performed Vital Signs: reviewed and remarkable for hypotension and tachy Differential diagnosis: Differential diagnosis includes etiologies such as benign positional vertigo, dehydration, hypovolemia, anemia, tumor, infection, hypoglycemia, electrolyte abnormalities, cardiac sources, intracerebral event, toxicologic, neurological, as well as others were entertained. ER treatment provided: See below Diagnostics interpreted by me: ECG: Sinus rhythm rate of 115 Left axis No PVCs QTC 420 T wave flattening in aVL Q wave in lead III Cardiac Monitoring: An order was placed for continuous cardiac monitoring. The monitor shows a rate of 110 with sinus rhythm. Laboratory studies: As stated above and show below. Imaging studies: CT angio of the chest was negative CT abdomen pelvis showed possible ileus D/w hospitalist for further evaluation Procedures: none Critical Care: None Past Med/Surg History Medical History (Updated 12/05/21 @ 16:47 by Jayesh Hinojosa DO) Anxiety Blood in stool Colitis History of COVID-19 10/17/21 AT [place] ([place] SYMPTOMS) ED FOR BLOOD IN STOOL History of stroke History of tobacco use 30 pack years, quit in 2019 HTN (hypertension) Hyperlipidemia Insomnia Stroke X 2 IN 2019>TREATED AT [facility]>MINOR SPEECH DEFECITS Ulcerative colitis Dx in Sep 2021 Surgical History H/O carotid endarterectomy RT/LEFT History of esophagogastroduodenoscopy (EGD) History of tonsillectomy and adenoidectomy History of tooth extraction Family History Father Diabetes Coronary heart disease Stroke, Onset Age: 50 Mother Cancer Other No family history of adverse response to anesthesia Denies family history of History of blood clotting disorder Social History Smoking Status: Never smoker Tobacco Type: Cigarettes Years Smoked: 30; Cigarettes Per Day: 20; Number of Years Since Quit: 2; Second Hand Exposure: No; Hx Alcohol Use: No (H/o alcohol dependence; quit in 2006) Hx Substance Use: No Preferred Language: Turkmen Communication Ability: Effective Music Director Required: No Beliefs That Will Affect Care: None marital status details: Engaged Current Living Situation: Significant Other current occupational status: 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 Feels Safe at Home: Yes Assistive Devices: Denture - Upper and Denture - Lower Allergies Allergies Allergy/AdvReac Type Severity Reaction Status Date / Time No Known Allergies Allergy Mild Verified 12/05/21 12:57 Home Meds Home Medications Medication Instructions Recorded Confirmed citalopram 20 mg tablet 40 mg PO QAM 05/21/19 12/05/21 trazodone 150 mg tablet 150 mg PO HS 05/21/19 12/05/21 aspirin 81 mg tablet,delayed 81 mg PO QAM 10/30/21 12/05/21 release atorvastatin 40 mg tablet 40 mg PO HS 10/30/21 12/05/21 lisinopril 10 mg tablet 10 mg PO QAM 10/30/21 12/05/21 buspirone 5 mg tablet 5 mg PO BID 12/05/21 12/05/21 dicyclomine 10 mg capsule 10 mg PO TID 12/05/21 12/05/21 ergocalciferol (vitamin D2) 1,250 50,000 unit PO WK 12/05/21 12/05/21 mcg (50,000 unit) capsule mesalamine 800 mg tablet,delayed 1,600 mg PO TID 12/05/21 12/05/21 release prednisone 10 mg tablet 10 mg PO .TAPER 12/05/21 12/05/21 Previous Rx's Medication Instructions Recorded Saccharomyces boulardii 250 mg 250 mg PO BID #20 cap 10/17/21 capsule (Florastor) Results & Data (ED) Vital Signs Vital Signs - 24 hr 12/05/21 11:01 12/05/21 11:28 12/05/21 11:29 Temperature 36.9 C Temperature Source Temporal Artery Scan Pulse Rate 128 H 111 H 107 H Pulse Rate [Radial] Pulse Rate from SpO2 Sensor 112 H 107 H Respiratory Rate 18 21 18 Blood Pressure 79/52 L 76/55 L 73/49 L Blood Pressure [Right Arm] Blood Pressure Mean 61 62 57 Blood Pressure Mean [Right Arm] Blood Pressure Position [Right Arm] Pulse Oximetry 96 97 96 Oxygen Delivery Method Room Air Room Air Sepsis Recent Fever Within 48 Hours No Sepsis New/Unexplained Change in Mental Status No Sepsis Action Taken by Nursing No Action Required 12/05/21 11:30 12/05/21 11:48 12/05/21 11:52 Temperature Temperature Source Pulse Rate 107 H 101 H Pulse Rate [Radial] Pulse Rate from SpO2 Sensor 107 H 102 H 102 H Respiratory Rate 16 Blood Pressure 87/50 L 81/55 L 93/58 L Blood Pressure [Right Arm] Blood Pressure Mean 62 63 69 Blood Pressure Mean [Right Arm] Blood Pressure Position [Right Arm] Pulse Oximetry 96 95 95 Oxygen Delivery Method Room Air Room Air Room Air Sepsis Recent Fever Within 48 Hours Sepsis New/Unexplained Change in Mental Status Sepsis Action Taken by Nursing 12/05/21 11:53 12/05/21 12:00 12/05/21 12:29 Temperature Temperature Source Pulse Rate 100 H 107 H Pulse Rate [Radial] 103 H Pulse Rate from SpO2 Sensor 101 H Respiratory Rate 20 22 Blood Pressure 94/56 L 114/63 Blood Pressure [Right Arm] 93/58 L Blood Pressure Mean 68 80 Blood Pressure Mean [Right Arm] 69 Blood Pressure Position [Right Arm] Lying Pulse Oximetry 95 92 99 Oxygen Delivery Method Room Air Room Air Room Air Sepsis Recent Fever Within 48 Hours Sepsis New/Unexplained Change in Mental Status Sepsis Action Taken by Nursing 12/05/21 13:00 12/05/21 13:15 12/05/21 13:30 Temperature Temperature Source Pulse Rate 109 H 111 H 109 H Pulse Rate [Radial] Pulse Rate from SpO2 Sensor 107 H 112 H 111 H Respiratory Rate 13 15 22 Blood Pressure 105/52 L 100/69 119/80 Blood Pressure [Right Arm] Blood Pressure Mean 69 79 93 Blood Pressure Mean [Right Arm] Blood Pressure Position [Right Arm] Pulse Oximetry 94 97 92 Oxygen Delivery Method Room Air Room Air Room Air Sepsis Recent Fever Within 48 Hours Sepsis New/Unexplained Change in Mental Status Sepsis Action Taken by Nursing 12/05/21 13:45 12/05/21 14:00 12/05/21 14:15 Temperature Temperature Source Pulse Rate 111 H 111 H 109 H Pulse Rate [Radial] Pulse Rate from SpO2 Sensor 108 H 110 H 108 H Respiratory Rate 16 18 12 Blood Pressure 110/61 130/72 106/68 Blood Pressure [Right Arm] Blood Pressure Mean 77 91 80 Blood Pressure Mean [Right Arm] Blood Pressure Position [Right Arm] Pulse Oximetry 92 92 95 Oxygen Delivery Method Room Air Room Air Room Air Sepsis Recent Fever Within 48 Hours Sepsis New/Unexplained Change in Mental Status Sepsis Action Taken by Nursing Laboratory Data Result diagrams: 12/05/21 11:30 12/05/21 11:30 Lab Results 12/05/21 12/05/21 12/05/21 Range/Units 11:30 11:30 11:30 WBC 7.47 (4.8-10.8) K/uL RBC 3.92 L (4.7-6.1) M/uL Hgb 11.2 L (14.0-18.0) g/dL POC Hgb (14.0-18.0) g/dl Hct 36.2 L (42-52) % POC Hct (42-52) % MCV 92.3 (80-100) fL MCH 28.6 (25-34) pg MCHC 30.9 L (32-36) g/dL RDW Std Deviation 61.2 H (36.4-46.3) fL RDW Coeff of Chandra 18.0 H (11.5-14.5) % Plt Count 370 (130-400) K/uL MPV 8.1 (7.4-10.4) fL Immature Gran % (Auto) 0.3 % Neut % (Auto) 64.9 % Lymph % (Auto) 16.7 % [place] % (Auto) 17.7 % Eos % (Auto) 0.4 % Baso % (Auto) 0.0 % Neut # (Auto) 4.85 (1.4-6.5) K/uL Lymph # (Auto) 1.25 (1.2-3.4) K/uL [place] # (Auto) 1.32 H (0.11-0.59) K/uL Eos # (Auto) 0.03 (0-0.5) K/uL Baso # (Auto) 0.00 (0-0.2) K/uL Immature Gran # (Auto) 0.02 (0.00-0.02) K/uL POC Sodium (135-144) mmol/L Sodium 128 L (136-145) mmol/L POC Potassium (3.3-5.0) mmol/L Potassium 4.4 (3.5-5.1) mmol/L POC Chloride (101-112) mmol/L Chloride 92 L (98-107) mmol/L Carbon Dioxide 26 (21-32) mmol/L POC Total CO2 (24-31) mmol/L Anion Gap 10 (3-11) POC Anion Gap (16-25) mmol/L POC BUN (7-18) mg/dl BUN 22 (6-23) mg/dl Creatinine 1.45 H (0.6-1.4) mg/dl POC Creatinine (0.6-1.3) mg/dl Est Cr Clr Drug Dosing 76.0 ml/min Est GFR ( Amer) 64.6 ml/min Est GFR (Non-Af Amer) 55.8 ml/min BUN/Creatinine Ratio 15.2 (10-20) Glucose 96 (70-99(Fasting)) mg/dl POC Glucose (other) (70-99) mg/dl Osmolality (280-300) mOsm/kg POC Lactic Acid Pipe (0.90-1.70) mmol/L Lactate (0.4-2.0) mmol/L Calcium 8.4 L (8.5-10.1) mg/dl POC Ioniz Calcium Leti (1.12-1.32) mmol/l Magnesium 1.7 (1.7-2.4) mg/dl Total Bilirubin 0.5 (0.2-1.0) mg/dl AST 16 (13-39) U/L ALT 12 (7-52) U/L Alkaline Phosphatase 54 (34-104) U/L Troponin I < 0.03 (0-0.04) ng/ml Total Protein 7.0 (6.0-8.3) gm/dl Albumin 3.5 (3.4-5.0) gm/dl Globulin 3.5 (2.5-4.0) gm/dl Albumin/Globulin Ratio 1.0 (0.9-2) Lipase 11 (11-82) U/L Procalcitonin (0-0.5) ng/ml TSH (0.300-4.500) uIu/ml Urine Color Urine Appearance (Clear) Urine pH (4.5-7.5) Ur Specific [place] (1.000-1.030) Urine Protein (Negative) Urine Glucose (UA) (Negative) Urine Ketones (Negative) Urine Blood (Negative) Urine Nitrite (Negative) Urine Bilirubin (Negative) Urine Urobilinogen (Negative) Ur Leukocyte Esterase (Negative) Urine Osmolality (500-800) mOsm/kg Ur Random Sodium mmol/L SARS-CoV-2, RNA, NAAT (NEGATIVE) 12/05/21 12/05/21 12/05/21 Range/Units 11:37 11:43 12:39 WBC (4.8-10.8) K/uL RBC (4.7-6.1) M/uL Hgb (14.0-18.0) g/dL POC Hgb 13.3 L (14.0-18.0) g/dl Hct (42-52) % POC Hct 39 L (42-52) % MCV (80-100) fL MCH (25-34) pg MCHC (32-36) g/dL RDW Std Deviation (36.4-46.3) fL RDW Coeff of Chandra (11.5-14.5) % Plt Count (130-400) K/uL MPV (7.4-10.4) fL Immature Gran % (Auto) % Neut % (Auto) % Lymph % (Auto) % [place] % (Auto) % Eos % (Auto) % Baso % (Auto) % Neut # (Auto) (1.4-6.5) K/uL Lymph # (Auto) (1.2-3.4) K/uL [place] # (Auto) (0.11-0.59) K/uL Eos # (Auto) (0-0.5) K/uL Baso # (Auto) (0-0.2) K/uL Immature Gran # (Auto) (0.00-0.02) K/uL POC Sodium 128 L (135-144) mmol/L Sodium (136-145) mmol/L POC Potassium 4.5 (3.3-5.0) mmol/L Potassium (3.5-5.1) mmol/L POC Chloride 93 L (101-112) mmol/L Chloride (98-107) mmol/L Carbon Dioxide (21-32) mmol/L POC Total CO2 30 (24-31) mmol/L Anion Gap (3-11) POC Anion Gap 11.0 L (16-25) mmol/L POC BUN 26 H (7-18) mg/dl BUN (6-23) mg/dl Creatinine (0.6-1.4) mg/dl POC Creatinine 1.5 H (0.6-1.3) mg/dl Est Cr Clr Drug Dosing ml/min Est GFR ( Amer) ml/min Est GFR (Non-Af Amer) ml/min BUN/Creatinine Ratio (10-20) Glucose (70-99(Fasting)) mg/dl POC Glucose (other) 103 H (70-99) mg/dl Osmolality (280-300) mOsm/kg POC Lactic Acid Pipe 4.36 H (0.90-1.70) mmol/L Lactate (0.4-2.0) mmol/L Calcium (8.5-10.1) mg/dl POC Ioniz Calcium Leti 1.16 (1.12-1.32) mmol/l Magnesium (1.7-2.4) mg/dl Total Bilirubin (0.2-1.0) mg/dl AST (13-39) U/L ALT (7-52) U/L Alkaline Phosphatase (34-104) U/L Troponin I (0-0.04) ng/ml Total Protein (6.0-8.3) gm/dl Albumin (3.4-5.0) gm/dl Globulin (2.5-4.0) gm/dl Albumin/Globulin Ratio (0.9-2) Lipase (11-82) U/L Procalcitonin (0-0.5) ng/ml TSH (0.300-4.500) uIu/ml Urine Color Urine Appearance (Clear) Urine pH (4.5-7.5) Ur Specific [place] (1.000-1.030) Urine Protein (Negative) Urine Glucose (UA) (Negative) Urine Ketones (Negative) Urine Blood (Negative) Urine Nitrite (Negative) Urine Bilirubin (Negative) Urine Urobilinogen (Negative) Ur Leukocyte Esterase (Negative) Urine Osmolality (500-800) mOsm/kg Ur Random Sodium mmol/L SARS-CoV-2, RNA, NAAT NEGATIVE (NEGATIVE) 12/05/21 12/05/21 12/05/21 Range/Units 14:04 14:04 14:04 WBC (4.8-10.8) K/uL RBC (4.7-6.1) M/uL Hgb (14.0-18.0) g/dL POC Hgb (14.0-18.0) g/dl Hct (42-52) % POC Hct (42-52) % MCV (80-100) fL MCH (25-34) pg MCHC (32-36) g/dL RDW Std Deviation (36.4-46.3) fL RDW Coeff of Chandra (11.5-14.5) % Plt Count (130-400) K/uL MPV (7.4-10.4) fL Immature Gran % (Auto) % Neut % (Auto) % Lymph % (Auto) % [place] % (Auto) % Eos % (Auto) % Baso % (Auto) % Neut # (Auto) (1.4-6.5) K/uL Lymph # (Auto) (1.2-3.4) K/uL [place] # (Auto) (0.11-0.59) K/uL Eos # (Auto) (0-0.5) K/uL Baso # (Auto) (0-0.2) K/uL Immature Gran # (Auto) (0.00-0.02) K/uL POC Sodium (135-144) mmol/L Sodium (136-145) mmol/L POC Potassium (3.3-5.0) mmol/L Potassium (3.5-5.1) mmol/L POC Chloride (101-112) mmol/L Chloride (98-107) mmol/L Carbon Dioxide (21-32) mmol/L POC Total CO2 (24-31) mmol/L Anion Gap (3-11) POC Anion Gap (16-25) mmol/L POC BUN (7-18) mg/dl BUN (6-23) mg/dl Creatinine (0.6-1.4) mg/dl POC Creatinine (0.6-1.3) mg/dl Est Cr Clr Drug Dosing ml/min Est GFR ( Amer) ml/min Est GFR (Non-Af Amer) ml/min BUN/Creatinine Ratio (10-20) Glucose (70-99(Fasting)) mg/dl POC Glucose (other) (70-99) mg/dl Osmolality (280-300) mOsm/kg POC Lactic Acid Pipe (0.90-1.70) mmol/L Lactate 1.2 (0.4-2.0) mmol/L Calcium (8.5-10.1) mg/dl POC Ioniz Calcium Leti (1.12-1.32) mmol/l Magnesium (1.7-2.4) mg/dl Total Bilirubin (0.2-1.0) mg/dl AST (13-39) U/L ALT (7-52) U/L Alkaline Phosphatase (34-104) U/L Troponin I (0-0.04) ng/ml Total Protein (6.0-8.3) gm/dl Albumin (3.4-5.0) gm/dl Globulin (2.5-4.0) gm/dl Albumin/Globulin Ratio (0.9-2) Lipase (11-82) U/L Procalcitonin 0.10 (0-0.5) ng/ml TSH 1.579 (0.300-4.500) uIu/ml Urine Color Urine Appearance (Clear) Urine pH (4.5-7.5) Ur Specific [place] (1.000-1.030) Urine Protein (Negative) Urine Glucose (UA) (Negative) Urine Ketones (Negative) Urine Blood (Negative) Urine Nitrite (Negative) Urine Bilirubin (Negative) Urine Urobilinogen (Negative) Ur Leukocyte Esterase (Negative) Urine Osmolality (500-800) mOsm/kg Ur Random Sodium mmol/L SARS-CoV-2, RNA, NAAT (NEGATIVE) 12/05/21 12/05/21 12/05/21 Range/Units 14:04 14:04 14:04 WBC (4.8-10.8) K/uL RBC (4.7-6.1) M/uL Hgb (14.0-18.0) g/dL POC Hgb (14.0-18.0) g/dl Hct (42-52) % POC Hct (42-52) % MCV (80-100) fL MCH (25-34) pg MCHC (32-36) g/dL RDW Std Deviation (36.4-46.3) fL RDW Coeff of Chandra (11.5-14.5) % Plt Count (130-400) K/uL MPV (7.4-10.4) fL Immature Gran % (Auto) % Neut % (Auto) % Lymph % (Auto) % [place] % (Auto) % Eos % (Auto) % Baso % (Auto) % Neut # (Auto) (1.4-6.5) K/uL Lymph # (Auto) (1.2-3.4) K/uL [place] # (Auto) (0.11-0.59) K/uL Eos # (Auto) (0-0.5) K/uL Baso # (Auto) (0-0.2) K/uL Immature Gran # (Auto) (0.00-0.02) K/uL POC Sodium (135-144) mmol/L Sodium (136-145) mmol/L POC Potassium (3.3-5.0) mmol/L Potassium (3.5-5.1) mmol/L POC Chloride (101-112) mmol/L Chloride (98-107) mmol/L Carbon Dioxide (21-32) mmol/L POC Total CO2 (24-31) mmol/L Anion Gap (3-11) POC Anion Gap (16-25) mmol/L POC BUN (7-18) mg/dl BUN (6-23) mg/dl Creatinine (0.6-1.4) mg/dl POC Creatinine (0.6-1.3) mg/dl Est Cr Clr Drug Dosing ml/min Est GFR ( Amer) ml/min Est GFR (Non-Af Amer) ml/min BUN/Creatinine Ratio (10-20) Glucose (70-99(Fasting)) mg/dl POC Glucose (other) (70-99) mg/dl Osmolality 279 L (280-300) mOsm/kg POC Lactic Acid Pipe (0.90-1.70) mmol/L Lactate (0.4-2.0) mmol/L Calcium (8.5-10.1) mg/dl POC Ioniz Calcium Leti (1.12-1.32) mmol/l Magnesium (1.7-2.4) mg/dl Total Bilirubin (0.2-1.0) mg/dl AST (13-39) U/L ALT (7-52) U/L Alkaline Phosphatase (34-104) U/L Troponin I (0-0.04) ng/ml Total Protein (6.0-8.3) gm/dl Albumin (3.4-5.0) gm/dl Globulin (2.5-4.0) gm/dl Albumin/Globulin Ratio (0.9-2) Lipase (11-82) U/L Procalcitonin (0-0.5) ng/ml TSH (0.300-4.500) uIu/ml Urine Color Urine Appearance (Clear) Urine pH (4.5-7.5) Ur Specific [place] (1.000-1.030) Urine Protein (Negative) Urine Glucose (UA) (Negative) Urine Ketones (Negative) Urine Blood (Negative) Urine Nitrite (Negative) Urine Bilirubin (Negative) Urine Urobilinogen (Negative) Ur Leukocyte Esterase (Negative) Urine Osmolality 200 L (500-800) mOsm/kg Ur Random Sodium 36 mmol/L SARS-CoV-2, RNA, NAAT (NEGATIVE) 12/05/21 Range/Units 14:04 WBC (4.8-10.8) K/uL RBC (4.7-6.1) M/uL Hgb (14.0-18.0) g/dL POC Hgb (14.0-18.0) g/dl Hct (42-52) % POC Hct (42-52) % MCV (80-100) fL MCH (25-34) pg MCHC (32-36) g/dL RDW Std Deviation (36.4-46.3) fL RDW Coeff of Chandra (11.5-14.5) % Plt Count (130-400) K/uL MPV (7.4-10.4) fL Immature Gran % (Auto) % Neut % (Auto) % Lymph % (Auto) % [place] % (Auto) % Eos % (Auto) % Baso % (Auto) % Neut # (Auto) (1.4-6.5) K/uL Lymph # (Auto) (1.2-3.4) K/uL [place] # (Auto) (0.11-0.59) K/uL Eos # (Auto) (0-0.5) K/uL Baso # (Auto) (0-0.2) K/uL Immature Gran # (Auto) (0.00-0.02) K/uL POC Sodium (135-144) mmol/L Sodium (136-145) mmol/L POC Potassium (3.3-5.0) mmol/L Potassium (3.5-5.1) mmol/L POC Chloride (101-112) mmol/L Chloride (98-107) mmol/L Carbon Dioxide (21-32) mmol/L POC Total CO2 (24-31) mmol/L Anion Gap (3-11) POC Anion Gap (16-25) mmol/L POC BUN (7-18) mg/dl BUN (6-23) mg/dl Creatinine (0.6-1.4) mg/dl POC Creatinine (0.6-1.3) mg/dl Est Cr Clr Drug Dosing ml/min Est GFR ( Amer) ml/min Est GFR (Non-Af Amer) ml/min BUN/Creatinine Ratio (10-20) Glucose (70-99(Fasting)) mg/dl POC Glucose (other) (70-99) mg/dl Osmolality (280-300) mOsm/kg POC Lactic Acid Pipe (0.90-1.70) mmol/L Lactate (0.4-2.0) mmol/L Calcium (8.5-10.1) mg/dl POC Ioniz Calcium Leti (1.12-1.32) mmol/l Magnesium (1.7-2.4) mg/dl Total Bilirubin (0.2-1.0) mg/dl AST (13-39) U/L ALT (7-52) U/L Alkaline Phosphatase (34-104) U/L Troponin I (0-0.04) ng/ml Total Protein (6.0-8.3) gm/dl Albumin (3.4-5.0) gm/dl Globulin (2.5-4.0) gm/dl Albumin/Globulin Ratio (0.9-2) Lipase (11-82) U/L Procalcitonin (0-0.5) ng/ml TSH (0.300-4.500) uIu/ml Urine Color Yellow Urine Appearance Clear (Clear) Urine pH 6.0 (4.5-7.5) Ur Specific [place] 1.018 (1.000-1.030) Urine Protein Negative (Negative) Urine Glucose (UA) Negative (Negative) Urine Ketones Negative (Negative) Urine Blood Negative (Negative) Urine Nitrite Negative (Negative) Urine Bilirubin Negative (Negative) Urine Urobilinogen Negative (Negative) Ur Leukocyte Esterase Negative (Negative) Urine Osmolality (500-800) mOsm/kg Ur Random Sodium mmol/L SARS-CoV-2, RNA, NAAT (NEGATIVE) Administered Medications Discontinued Medications Sodium Chloride (Nss 1000ml) 2,000 mls @ 999 mls/hr IV .Q2H1M ONE Stop: 12/05/21 13:26 Last Infusion: 12/05/21 13:47 Dose: 0 mls/hr Documented by: [id number] Admin: 12/05/21 11:46 Dose: 999 mls/hr Documented by: [id number] Ioversol (Optiray 320 125ml) 119 ml IV ONCE ONE Stop: 12/05/21 12:24 Last Admin: 12/05/21 12:23 Dose: 119 ml Documented by: [id number] Ioversol (Optiray 320 125ml) 120 ml IV ONCE ONE Stop: 12/05/21 12:31 Last Admin: 12/05/21 12:25 Dose: 120 ml Documented by: [id number] Imaging Data Radiologist's Impression: Chest CTA 12/05/21 11:26 CT angio chest PE protocol CLINICAL HISTORY: near syn syncope hypertension and tachycardia TECHNIQUE: Multidetector row helical CT of the chest was performed with angiographic protocol. Coronal and sagittal reformations were obtained. Coronal and sagittal MIPS were obtained from the axial data set and were submitted for review. Automated dose lowering techniques and/or adjustment according to patient size were utilized for this exam. Comparison: Comparison is made to chest one view 12/17/2021 FINDINGS: Lungs and pleura: Atelectasis versus scarring is seen in the dependent portions of the lungs. Heart and pericardium: Heart size is normal. No pericardial effusion. Vessels: The pulmonary trunk is enlarged measuring 31 mm. Moderate atherosclerotic disease is seen. Mediastinum and lauro: Unremarkable. Chest wall and lower neck: Unremarkable. Abdomen: A hypodensity is seen in the liver which may represent a cyst. Bones: Degenerative changes in the thoracic spine. IMPRESSION: No evidence of pulmonary embolism. ACT 112: Negative or not required by law. Electronically signed by: Carlos You M.D. 12/05/2021 12:39 PM Chest X-Ray 12/05/21 11:26 XR chest 1V portable HISTORY: 51 years-old Male Chest Pain acute atypical chest pain with sepsis COMPARISON: Chest radiograph 05/21/2019 TECHNIQUE: Portable AP view of the chest FINDINGS: The cardiac mediastinal and hilar silhouettes are within normal limits. No pneumothorax, pleural effusion, overt pulmonary edema or airspace consolidation typical for pneumonia. Mild chronic interstitial coarsening of the lung bases. The bones appear grossly intact. Partially imaged surgical clips of the right neck. IMPRESSION: No acute process. ACT 112: Negative or not required by law. The above report was generated using voice recognition software. It may contain grammatical, syntax or spelling errors. Electronically signed by: Zhao Diaz M.D. 12/05/2021 12:01 PM Abdomen/Pelvis CT 12/05/21 11:[address] WITH IV CONTRAST HISTORY: Acute abdominal pain with hypotension hypotension and tachy TECHNIQUE: Multiaxial CT images of the abdomen and pelvis were performed following the IV administration of 120 cc of Optiray, A dose lowering technique was utilized adhering to the principles of ALARA. COMPARISON STUDY: CTA chest of same day, CT abdomen pelvis 10/17/2021, 10/05/2006. FINDINGS: Coronary artery calcifications. Trace pericardial effusion. Mild bibasilar atelectasis. No pneumatosis or pneumoperitoneum. Unremarkable spleen, pancreas, gallbladder and adrenal glands. Patent portal vein. Focal fatty infiltration of the central liver is new from the comparison study. 4 mm nonobstructing calculus of the inferior pole right kidney. Additional 4 mm nonobstructing calculus is noted within the inferior pole left kidney. Bilateral renal cysts measure up to 7.2 cm. No ureteral calculi or hydronephrosis. Bladder wall thickening with partial distention. Calcifications of the prostate. A fat filled right inguinal hernia is suggested. Atherosclerosis of the aorta without aneurysm. No pathologically enlarged lymph nodes. No bowel obstruction. Circumferential wall thickening with mucosal hyperemia and pericolonic stranding is again noted which extends from the cecum through the rectum. The fragments are noted within the right hemicolon. Noninflamed appendix. A few mildly dilated loops of small bowel are noted within central abdomen with air-fluid levels measuring up to 3.67 m. No transition point. Tiny fat filled periumbilical hernia. Degenerative changes of the spine, pelvis and hips. IMPRESSION: 1. Circumferential wall thickening is again noted extending from the cecum through the rectum compatible with a nonspecific pancolitis with proctitis. Similar findings have been present on numerous prior studies dating back to 2006. Chronic inflammatory bowel disease such as ulcerative colitis is the primary differential consideration. 2. Scattered small bowel air-fluid levels with a few mildly dilated small bowel loops are suggestive of ileus. Partial small bowel obstruction considered less likely. 3. Normal appendix. 4. Nonobstructing bilateral nephrolithiasis. 5. Additional findings as above. ACT 112: Negative or not required by law. The above report was generated using voice recognition software. It may contain grammatical, syntax or spelling errors. Electronically signed by: Zhao Diaz M.D. 12/05/2021 1:11 PM Discharge Plan Visit Data Chief Complaint: Dizziness Stated Complaint: LIGHTHEADED, DIZZY ED Provider: Jayesh Hinojosa Discharge Problem: Dizziness, Acute hypotension, Tachycardia, Acute hyponatremia Patient Disposition: Admitted As Inpatient Discharge Instructions Interventions: ED Discharge Assessment Last Done: 12/05/21 15:24
[2021-12-05 11:54] LABS: Hematocrit (blood only) 36.2 % (42-52); Hemoglobin 11.2 g/dL (14.0-18.0); Mean Corpuscular Hemoglobin 28.6 pg (25-34); Mean Corpuscular Hgb Conc 30.9 g/dL (32-36); Mean Corpuscular Volume 92.3 fL (80-100); Mean Platelet Volume 8.1 fL (7.4-10.4); Platelet Count 370 K/uL (130-400); RDW Standard Deviation 61.2 fL (36.4-46.3); Red Blood Count 3.92 M/uL (4.7-6.1); White Blood Count 7.47 K/uL (4.8-10.8)
[2021-12-05 11:56] LABS: iSTAT Creatinine 1.5 mg/dl (0.6-1.3); iSTAT Hemoglobin 13.3 g/dl (14.0-18.0); iSTAT Ionized Calcium 1.16 mmol/l (1.12-1.32); iSTAT Potassium 4.5 mmol/L (3.3-5.0)
--- NOTE | 2021-12-05 12:03 | XRay Report ---
XR chest 1V portable HISTORY: 51 years-old Male Chest Pain acute atypical chest pain with sepsis COMPARISON: Chest radiograph 05/21/2019 TECHNIQUE: Portable AP view of the chest FINDINGS: The cardiac mediastinal and hilar silhouettes are within normal limits. No pneumothorax, pleural effu jack, overt pulmonary edema or airspace consolidation typical for pneumonia. Mild chronic interstitia l coarsening of the lung bases. The bones appear grossly intact. Partially imaged surgical clips of t he right neck. IMPRESSION: No acute process. ACT 112: Negative or not required by law. The above report was generated using voice recognition software. It may contain grammatical, syntax o r spelling errors. Electronically signed by: Zhao Diaz M.D. 12/05/2021 12:01 PM
[2021-12-05 12:13] LABS: Eosinophils # (auto) 0.03 K/uL (0-0.5); Eosinophils % (auto) 0.4 %; Immature Granulocytes # (auto) 0.02 K/uL (0.00-0.02); Immature Granulocytes % (auto) 0.3 %; Lymphocytes # (auto) 1.25 K/uL (1.2-3.4); Lymphocytes % (auto) 16.7 %; Monocytes # (auto) 1.32 K/uL (0.11-0.59); Monocytes % (auto) 17.7 %; Neutrophils # (auto) 4.85 K/uL (1.4-6.5); Neutrophils % (auto) 64.9 %
[2021-12-05 12:18] LABS: Alanine Aminotransferase 12 U/L (7-52); Albumin Level 3.5 gm/dl (3.4-5.0); Alkaline Phosphatase 54 U/L (34-104); Anion Gap 10 (3-11); Aspartate Aminotransferase 16 U/L (13-39); BUN Creatinine Ratio 15.2 (10-20); Bilirubin,Total 0.5 mg/dl (0.2-1.0); Blood Urea Nitrogen 22 mg/dl (6-23); Calcium 8.4 mg/dl (8.5-10.1); Carbon Dioxide 26 mmol/L (21-32); Chloride 92 mmol/L (98-107); Est GFR (African American) 64.6 ml/min; Est GFR (Non-African American) 55.8 ml/min; Globulin 3.5 gm/dl (2.5-4.0); Glucose 96 mg/dl (70-99(Fasting)); Lipase 11 U/L (11-82); Potassium 4.4 mmol/L (3.5-5.1); Sodium 128 mmol/L (136-145)
[2021-12-05 12:19] LABS: Troponin I < 0.03 ng/ml (0-0.04)
[2021-12-05] MEDS ORDERED: OPTIRAY 320 125ml IV ONE ×2 (12:23→12:30)
--- NOTE | 2021-12-05 12:40 | CT Scan Report ---
CT angio chest PE protocol CLINICAL HISTORY: near syn syncope hypertension and tachycardia TECHNIQUE: Multidetector row helical CT of the chest was performed with angiographic protocol. Nguyễn l and sagittal reformations were obtained. Coronal and sagittal MIPS were obtained from the axial mariya a set and were submitted for review. Automated dose lowering techniques and/or adjustment according to patient size were utilized for this exam. Comparison: Comparison is made to chest one view 12/17/2021 FINDINGS: Lungs and pleura: Atelectasis versus scarring is seen in the dependent portions of the lungs. Heart and pericardium: Heart size is normal. No pericardial effusion. Vessels: The pulmonary trunk is enlarged measuring 31 mm. Moderate atherosclerotic disease is seen. Mediastinum and lauro: Unremarkable. Chest wall and lower neck: Unremarkable. Abdomen: A hypodensity is seen in the liver which may represent a cyst. Bones: Degenerative changes in the thoracic spine. IMPRESSION: No evidence of pulmonary embolism. ACT 112: Negative or not required by law. Electronically signed by: Carlos You M.D. 12/05/2021 12:39 PM
--- NOTE | 2021-12-05 13:12 | CT Scan Report ---
ABDOMEN AND PELVIS CT WITH IV CONTRAST HISTORY: Acute abdominal pain with hypotension hypotension and tachy TECHNIQUE: Multiaxial CT images of the abdomen and pelvis were performed following the IV administrat ion of 120 cc of Optiray, A dose lowering technique was utilized adhering to the principles of ALARA . COMPARISON STUDY: CTA chest of same day, CT abdomen pelvis 10/17/2021, 10/05/2006. FINDINGS: Coronary artery calcifications. Trace pericardial effusion. Mild bibasilar atelectasis. No pneumatosi s or pneumoperitoneum. Unremarkable spleen, pancreas, gallbladder and adrenal glands. Patent portal v ein. Focal fatty infiltration of the central liver is new from the comparison study. 4 mm nonobstructing calculus of the inferior pole right kidney. Additional 4 mm nonobstructing calcul us is noted within the inferior pole left kidney. Bilateral renal cysts measure up to 7.2 cm. No uret eral calculi or hydronephrosis. Bladder wall thickening with partial distention. Calcifications of th e prostate. A fat filled right inguinal hernia is suggested. Atherosclerosis of the aorta without ane urysm. No pathologically enlarged lymph nodes. No bowel obstruction. Circumferential wall thickening with mucosal hyperemia and pericolonic strandin g is again noted which extends from the cecum through the rectum. The fragments are noted within the right hemicolon. Noninflamed appendix. A few mildly dilated loops of small bowel are noted within julian tral abdomen with air-fluid levels measuring up to 3.67 m. No transition point. Tiny fat filled periu mbilical hernia. Degenerative changes of the spine, pelvis and hips. IMPRESSION: 1. Circumferential wall thickening is again noted extending from the cecum through the rectum compati ble with a nonspecific pancolitis with proctitis. Similar findings have been present on numerous prio r studies dating back to 2006. Chronic inflammatory bowel disease such as ulcerative colitis is the p rimary differential consideration. 2. Scattered small bowel air-fluid levels with a few mildly dilated small bowel loops are suggestive of ileus. Partial small bowel obstruction considered less likely. 3. Normal appendix. 4. Nonobstructing bilateral nephrolithiasis. 5. Additional findings as above. ACT 112: Negative or not required by law. The above report was generated using voice recognition software. It may contain grammatical, syntax o r spelling errors. Electronically signed by: Zhao Diaz M.D. 12/05/2021 1:11 PM
--- NOTE | 2021-12-05 13:43 | History & Physical Report ---
Date of Service December 05, 2021 Assessment & Plan (1) Dizziness: Plan: This is a 51yo M with a PMH of HTN, dyslipidemia, ulcerative colitis, alcohol dependence in remission, depression, history of tobacco use and other medical problems who presents with dizziness and near syncope x 2 days. In setting of diarrhea, dehydration and deconditioning from recent illness Obtain orthostatics, fall precautions, continue IV fluid resuscitation, PT/OT eval when appropriate (2) SIRS (systemic inflammatory response syndrome): Plan: Hypotensive, tachycardic in setting of inflammatory response 2/2 UC, recent c diff infection Afebrile, no leukocytosis, lactate WNL, procal pending CTA chest without evidence of PE. CXR without acute abdnormality. CT a/p re- demonstrating pancolitis Vital signs improving with IV fluids. Continue to monitor (3) Ulcerative colitis: Plan: Diagnosed with Ulcerative Colitis 2 months ago and is following with [facility] Current regimen is prednisone 30 mg daily and mesalamine 1600 mg TID. Also dx and treated for CMV infection and C diff within last 6 weeks Repeat stool culture and c diff pending Discussed with GI, who will evaluate patient. Recommend bowel rest. Appreciate recs for IV steroids and abx (4) Hyponatremia: Plan: Initial sodium 128 in setting of hypotonic hypovolemia.Serum osm low. Awaiting urine osm and sodium - follow (5) Acute kidney injury: Plan: Cr 1.45 (baseline ~ 0.9) in setting of dehydration, recent vanco course for c diff Holding lisinopril, continue volume resuscitation Daily BMP (6) Clostridium difficile colitis: Plan: Dx in mid-October, completed 10 d treatment. Continuing to have diarrhea. Repeat c diff pending. Contact precautions for now (7) History of stroke: Plan: In 2019. Mild residual dysphagia. Patient currently on aspirin and statin (8) Depression with anxiety: Plan: Continue buspar, citalopram, trazodone (9) HTN (hypertension): Plan: Holding lisinopril in setting of hypotension, MARIANELA (10) Hyperlipidemia: Plan: Continue statin DVT Ppx: SCDs for now in setting of rectal bleeding Code status: FULL PCP: Aleta Dispo: Admitted to [facility] Patient seen in collaboration with Dr. Pappas. Please see addendum. History of Present Illness Chief Complaint: dizziness Primary Care Provider: Mallory River DO This is a 51yo M with a PMH of HTN, dyslipidemia, ulcerative colitis, alcohol dependence in remission, depression, history of tobacco use and other medical problems who presents with dizziness and near syncope x 2 days. Was diagnosed with Ulcerative Colitis 2 months ago and is following with [facility]. Current regimen is prednisone 30 mg daily and mesalamine 1600 mg TID. Underwent colonoscopy Nov 03 of this year demonstrating UC with pathology showing CMV that was treated with anti-viral. Also found to be c diff positive in mid- October and prescribed 10 day course of PO vanc. Has continued to have loose stool but improved until 2 days ago, when he endorses 4-5 episodes of bloody diarrhea. Recently returned to work at [employer] 2 days ago after a few weeks off and has become dizzy with prolonged standing. First notes lightheadedness followed by visual changes particularly in left eye for a few minutes before resolving. Also endorses associated central chest pressure described as tightness that last for a few minutes and resolves when he sits down. Denies any radiation of chest pain to jaw or arms. No diaphoresis, nausea or vomiting. No focal weakness,speech or swallowing issues or difficulty with ambulation. Does endorse 4-5 episodes of bloody diarrhea yesterday prior to feeling lightheaded at work. Has been drinking [employer] life water. Only other new medication is BuSpar 5 mg twice daily. Does endorse episode of unwitnessed syncope 2 weeks ago at home. Denies any head trauma. Has not recurred. No fever, chills, headache, palpitations, shortness of breath, nausea, vomiting, abdominal pain, dysuria or constipation. Allergies Allergy/AdvReac Type Severity Reaction Status Date / Time No Known Allergies Allergy Mild Verified 12/05/21 12:57 Home Medications Medication Instructions Recorded Confirmed Type citalopram 20 mg tablet 40 mg PO QAM 05/21/19 12/05/21 History trazodone 150 mg tablet 150 mg PO HS 05/21/19 12/05/21 History Saccharomyces boulardii 250 mg 250 mg PO BID #20 cap 10/17/21 12/05/21 Rx capsule (Florastor) aspirin 81 mg tablet,delayed 81 mg PO QAM 10/30/21 12/05/21 History release atorvastatin 40 mg tablet 40 mg PO HS 10/30/21 12/05/21 History lisinopril 10 mg tablet 10 mg PO QAM 10/30/21 12/05/21 History buspirone 5 mg tablet 5 mg PO BID 12/05/21 12/05/21 History dicyclomine 10 mg capsule 10 mg PO TID 12/05/21 12/05/21 History ergocalciferol (vitamin D2) 1,250 50,000 unit PO WK 12/05/21 12/05/21 History mcg (50,000 unit) capsule mesalamine 800 mg tablet,delayed 1,600 mg PO TID 12/05/21 12/05/21 History release prednisone 10 mg tablet 10 mg PO .TAPER 12/05/21 12/05/21 History Past Med/Surg History Medical History (Updated 12/05/21 @ 14:49 by Yesi Rodriguez PA-C) Anxiety Blood in stool Colitis History of COVID-19 10/17/21 AT [facility] (NO SYMPTOMS) ED FOR BLOOD IN STOOL History of stroke History of tobacco use 30 pack years, quit in 2019 HTN (hypertension) Hyperlipidemia Insomnia Stroke X 2 IN 2019>TREATED AT [facility]>MINOR SPEECH DEFECITS Ulcerative colitis Dx in Sep 2021 Surgical History H/O carotid endarterectomy RT/LEFT History of esophagogastroduodenoscopy (EGD) History of tonsillectomy and adenoidectomy History of tooth extraction Family History Father Diabetes Coronary heart disease Stroke, Onset Age: 50 Mother Cancer Other No family history of adverse response to anesthesia Denies family history of History of blood clotting disorder Social History Smoking Status: Never smoker Tobacco Type: Cigarettes Years Smoked: 30; Cigarettes Per Day: 20; Number of Years Since Quit: 2; Second Hand Exposure: No; Hx Alcohol Use: No (H/o alcohol dependence; quit in 2006) Hx Substance Use: No Preferred Language: Maori Communication Ability: Effective Language Arts Teacher Required: No Beliefs That Will Affect Care: None marital status details: Engaged Current Living Situation: Significant Other current occupational status: 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 Physical Exam Physical Exam: Please see Dr. Pappas's addendum for physical exam details. Results & Data Results & Data ([facility]) Vital Signs (Past 12 Hours) Vital Signs Temp Pulse Pulse Resp BP BP Pulse Ox 12/05/21 12:29 107 H 114/63 99 12/05/21 12:00 100 H 22 94/56 L 92 12/05/21 11:53 103 H 20 93/58 L 95 12/05/21 11:52 101 H 93/58 L 95 12/05/21 11:48 81/55 L 95 12/05/21 11:30 107 H 16 87/50 L 96 12/05/21 11:29 107 H 18 73/49 L 96 12/05/21 11:28 111 H 21 76/55 L 97 12/05/21 11:01 36.9 C 128 H 18 79/52 L 96 Laboratory Results Short CBC 12/05/21 Range/Units 11:30 WBC 7.47 (4.8-10.8) K/uL Hgb 11.2 L (14.0-18.0) g/dL Hct 36.2 L (42-52) % Plt Count 370 (130-400) K/uL BMP 12/05/21 11:30 Sodium 128 L Potassium 4.4 Chloride 92 L Carbon Dioxide 26 BUN 22 Creatinine 1.45 H Glucose 96 Calcium 8.4 L Cardiac Enzymes 12/05/21 Range/Units 11:30 Troponin I < 0.03 (0-0.04) ng/ml Liver Function 12/05/21 Range/Units 11:30 Total Bilirubin 0.5 (0.2-1.0) mg/dl AST 16 (13-39) U/L ALT 12 (7-52) U/L Alkaline Phosphatase 54 (34-104) U/L Albumin 3.5 (3.4-5.0) gm/dl Urine 12/05/21 Range/Units 14:04 Urine Color Yellow Urine Appearance Clear (Clear) Urine pH 6.0 (4.5-7.5) Ur Specific [place] 1.018 (1.000-1.030) Urine Protein Negative (Negative) Urine Glucose (UA) Negative (Negative) Diagnostic Findings Chest CTA 12/05/21 11:26 CT angio chest PE protocol CLINICAL HISTORY: near syn syncope hypertension and tachycardia TECHNIQUE: Multidetector row helical CT of the chest was performed with angiographic protocol. Coronal and sagittal reformations were obtained. Coronal and sagittal MIPS were obtained from the axial data set and were submitted for review. Automated dose lowering techniques and/or adjustment according to patient size were utilized for this exam. Comparison: Comparison is made to chest one view 12/17/2021 FINDINGS: Lungs and pleura: Atelectasis versus scarring is seen in the dependent portions of the lungs. Heart and pericardium: Heart size is normal. No pericardial effusion. Vessels: The pulmonary trunk is enlarged measuring 31 mm. Moderate atherosclerotic disease is seen. Mediastinum and lauro: Unremarkable. Chest wall and lower neck: Unremarkable. Abdomen: A hypodensity is seen in the liver which may represent a cyst. Bones: Degenerative changes in the thoracic spine. IMPRESSION: No evidence of pulmonary embolism. ACT 112: Negative or not required by law. Electronically signed by: Carlos You M.D. 12/05/2021 12:39 PM Chest X-Ray 12/05/21 11:26 XR chest 1V portable HISTORY: 51 years-old Male Chest Pain acute atypical chest pain with sepsis COMPARISON: Chest radiograph 05/21/2019 TECHNIQUE: Portable AP view of the chest FINDINGS: The cardiac mediastinal and hilar silhouettes are within normal limits. No pneumothorax, pleural effusion, overt pulmonary edema or airspace consolidation typical for pneumonia. Mild chronic interstitial coarsening of the lung bases. The bones appear grossly intact. Partially imaged surgical clips of the right neck. IMPRESSION: No acute process. ACT 112: Negative or not required by law. The above report was generated using voice recognition software. It may contain grammatical, syntax or spelling errors. Electronically signed by: Zhao Diaz M.D. 12/05/2021 12:01 PM Abdomen/Pelvis CT 12/05/21 11:[address] WITH IV CONTRAST HISTORY: Acute abdominal pain with hypotension hypotension and tachy TECHNIQUE: Multiaxial CT images of the abdomen and pelvis were performed following the IV administration of 120 cc of Optiray, A dose lowering technique was utilized adhering to the principles of ALARA. COMPARISON STUDY: CTA chest of same day, CT abdomen pelvis 10/17/2021, 10/05/2006. FINDINGS: Coronary artery calcifications. Trace pericardial effusion. Mild bibasilar atelectasis. No pneumatosis or pneumoperitoneum. Unremarkable spleen, pancreas, gallbladder and adrenal glands. Patent portal vein. Focal fatty infiltration of the central liver is new from the comparison study. 4 mm nonobstructing calculus of the inferior pole right kidney. Additional 4 mm nonobstructing calculus is noted within the inferior pole left kidney. Bilateral renal cysts measure up to 7.2 cm. No ureteral calculi or hydronephrosis. Bladder wall thickening with partial distention. Calcifications of the prostate. A fat filled right inguinal hernia is suggested. Atherosclerosis of the aorta without aneurysm. No pathologically enlarged lymph nodes. No bowel obstruction. Circumferential wall thickening with mucosal hyperemia and pericolonic stranding is again noted which extends from the cecum through the rectum. The fragments are noted within the right hemicolon. Noninflamed appendix. A few mildly dilated loops of small bowel are noted within central abdomen with air-fluid levels measuring up to 3.67 m. No transition point. Tiny fat filled periumbilical hernia. Degenerative changes of the spine, pelvis and hips. IMPRESSION: 1. Circumferential wall thickening is again noted extending from the cecum through the rectum compatible with a nonspecific pancolitis with proctitis. Similar findings have been present on numerous prior studies dating back to 2006. Chronic inflammatory bowel disease such as ulcerative colitis is the primary differential consideration. 2. Scattered small bowel air-fluid levels with a few mildly dilated small bowel loops are suggestive of ileus. Partial small bowel obstruction considered less likely. 3. Normal appendix. 4. Nonobstructing bilateral nephrolithiasis. 5. Additional findings as above. ACT 112: Negative or not required by law. The above report was generated using voice recognition software. It may contain grammatical, syntax or spelling errors. Electronically signed by: Zhao Diaz M.D. 12/05/2021 1:11 PM Supervising Physician Co-Signing Physician Notes Attending addendum: The patient was seen and examined in emergency room. He has been complaining of diarrhea with occasional bleeding and dizziness cathy ecially with ambulation for about 1 week. He also complains to have some visual symptoms involving left eye and very nonspecific weakness involving the right upper extremity for about same period of time. He was noted to have CT findings of ulcerative colitis and the findings were noted to be in 2006 but the patient says that he is ulcerative colitis was diagnosed in September and he has been on mesalamine and prednisone. He was recently diagnosed with CMV colitis and treated with antiviral and also has C. difficile colitis with ongoing treatment with vancomycin. In the ER he was noted to be hypotensive with tachycardia and elevated lactate and sodium level is noted to be 128. He received intravenous fluid and has been feeling better. On examination Lying in bed with minimal distress Hemodynamically stable with tachycardia at around 107 Chestclear to auscultate bilaterally HeartS1, S2, regular Abdomendistended, soft, mildly tender with normal bowel sound Extremitiesno edema. No evidence of arthritis CNSalert, awake and oriented x3. No focal sensory or motor deficit appreciated No extra intestinal findings on examination His admission labs, imaging studies reviewed Has flareup of ulcerative colitis with hyponatremia and dizziness secondary to hypotension Recent C. difficile colitis we will recheck C. difficile toxins and stool culture GI consulted Agree with assessment and plan as outlined above by TREMAYNE Haque Dr
[2021-12-05 14:24] LABS: Appearance Urine Clear (Clear); Bilirubin Urine Negative (Negative); Blood Urine Negative (Negative); Color Urine Yellow; Glucose Urine UA Negative (Negative); Ketones Urine Negative (Negative); Leukocyte Esterase Urine Negative (Negative); Nitrite Urine Negative (Negative); Protein Urine Negative (Negative); Specific Gravity Urine 1.018 (1.000-1.030); Urobilinogen Urine Negative (Negative)
--- NOTE | 2021-12-05 15:51 | Electrocardiogram Report ---
Test Reason : Blood Pressure : / mmHG Vent. Rate : 115 BPM Atrial Rate : 115 BPM P-R Int : 146 ms QRS Dur : 088 ms QT Int : 304 ms P-R-T Axes : 067 006 066 degrees QTc Int : 420 ms Sinus tachycardia Left atrial enlargement Low voltage QRS Borderline ECG When compared with ECG of 30-OCT-2021 07:03, Nonspecific T wave abnormality no longer evident in Lateral leads Confirmed by Misbah Seymour ([id number]) on 12/05/2021 3:51:20 PM Referred By: ED Confirmed By:Misbah Seymour
[2021-12-05] MEDS ORDERED: ONDANSETRON INJ 2 MG/ML 2 ML VIAL IV PRN (15:53)
[2021-12-05] MEDS: SODIUM CHLORIDE 0.9% 1000ML 1,000 ML IV SCH (16:30)
[2021-12-05] MEDS ORDERED: methylPREDNISolone 20 MG in SYRINGE 0 ML IV ONE (16:45)
[2021-12-05] MEDS: DICYCLOMINE HCL 10 MG CAP PO SCH (16:56)
[2021-12-05 18:37] LABS: BUN Creatinine Ratio 16.9 (10-20); Calcium 8.8 mg/dl (8.5-10.1); Creatinine Clr Calc Pharmacy 123.9 ml/min; Est GFR (African American) 115.6 ml/min; Est GFR (Non-African American) 99.7 ml/min; Magnesium 1.7 mg/dl (1.7-2.4); Phosphorus 4.5 mg/dl (2.5-4.9); Potassium 4.2 mmol/L (3.5-5.1)
[2021-12-05] MEDS: SACCHAROMYCES BOULARDII 250 MG CAP PO SCH (22:05)
[2021-12-05] MEDS: traZODone HCL 50 MG TAB PO SCH (22:06)
[2021-12-05] MEDS: MESALAMINE 800 MG TABCR PO SCH (22:06)
[2021-12-05] MEDS: ATORVASTATIN 40 MG TAB PO SCH (22:07)
[2021-12-05] MEDS: busPIRone 5 MG TAB PO SCH (22:07)
[2021-12-05 22:49] LABS: Cdiff Antigen Negative; Cdiff Toxin A+B Negative Cdiff Toxin (Negative)
[2021-12-06] MEDS: SODIUM CHLORIDE 0.9% 1000ML 1,000 ML IV SCH ×2 (00:10→14:28)
[2021-12-06 03:51] LABS: Adenovirus F 40/41 PCR Not Detected (NotDetected); Astrovirus PCR Not Detected (NotDetected); Campylobacter PCR Not Detected (NotDetected); Cryptosporidium PCR Not Detected (NotDetected); Cyclospora cayetanensis PCR Not Detected (NotDetected); Entamoeba histolytica PCR Not Detected (NotDetected); Enteroaggregative E.coli(EAEC) Not Detected (NotDetected); Enteropathogenic E.coli (EPEC) Not Detected (NotDetected); Enterotoxigenic E.coli (ETEC) Not Detected (NotDetected); Giardia lamblia PCR Not Detected (NotDetected); Plesiomonas shigelloides PCR Not Detected (NotDetected); Rotavirus A PCR Not Detected (NotDetected); Salmonella PCR Not Detected (NotDetected); Sapovirus PCR Not Detected (NotDetected); Shiga-like Toxin E.coli (STEC) Not Detected (NotDetected); Shigella/Enteroinvasive E.coli Not Detected (NotDetected); Vibrio cholerae PCR Not Detected (NotDetected); Vibrio species PCR Not Detected (NotDetected); Yersinia enterocolitica PCR Not Detected (NotDetected)
[2021-12-06 05:07] LABS: Cdiff Antigen Positive; Cdiff Toxin A+B Negative Cdiff Toxin (Negative)
[2021-12-06 05:09] LABS: Norovirus GI/GII PCR DETECTED (NotDetected)
[2021-12-06 08:15] LABS: Hematocrit (blood only) 36.1 % (42-52); Hemoglobin 11.1 g/dL (14.0-18.0); Mean Corpuscular Hemoglobin 28.8 pg (25-34); Mean Corpuscular Hgb Conc 30.7 g/dL (32-36); Mean Corpuscular Volume 93.5 fL (80-100); Mean Platelet Volume 8.1 fL (7.4-10.4); Platelet Count 335 K/uL (130-400); RDW Coefficient of Variation 18.3 % (11.5-14.5); RDW Standard Deviation 63.1 fL (36.4-46.3); Red Blood Count 3.86 M/uL (4.7-6.1); White Blood Count 7.07 K/uL (4.8-10.8)
[2021-12-06] MEDS: busPIRone 5 MG TAB PO SCH ×2 (08:21→20:50)
[2021-12-06] MEDS: ASPIRIN 81 MG ECTAB PO SCH (08:21)
[2021-12-06] MEDS: CITALOPRAM 40 MG TAB PO SCH (08:22)
[2021-12-06] MEDS: DICYCLOMINE HCL 10 MG CAP PO SCH ×3 (08:22→16:24)
[2021-12-06] MEDS: SACCHAROMYCES BOULARDII 250 MG CAP PO SCH ×2 (08:23→20:50)
[2021-12-06] MEDS: MESALAMINE 800 MG TABCR PO SCH ×3 (08:23→20:50)
[2021-12-06 08:32] LABS: BUN Creatinine Ratio 17.7 (10-20); Calcium 8.2 mg/dl (8.5-10.1); Creatinine Clr Calc Pharmacy 137.3 ml/min; Est GFR (African American) 121.4 ml/min; Est GFR (Non-African American) 104.7 ml/min
--- NOTE | 2021-12-06 10:27 | Gastrointestinal Consultation ---
Date of Consultation December 06, 2021 Assessment & Plan (1) Ulcerative colitis: (2) Clostridium difficile colitis: (3) Norovirus: 51-year-old male recently diagnosed with severe ulcerative with pancolitis, on prednisone taper and mesalamine 3 times daily, also had positive CMV treated with Valcyte, and C. difficile treated with 10 days of vancomycin last month. He had been improving clinically, however worsened earlier this week with more diarrhea, bloody bowel movements, also developed dizziness, presyncope and chest discomfort. Admitted yesterday, had hypotension, tachycardia in the ER, has improved clinically with IVF. Labs are stable today. Overnight found to be positive for both C. difficile and norovirus. Pt feels better today; is hungry and would like to eat something. On exam abd soft, nontender, nondistended. - Can start clear liquids as tolerated - Will need to treat C. difficile with prolonged taper of vancomycin as follows: 125 mg orally 4 times daily for 10 to 14 days, then 125 mg orally 2 times daily for 7 days, then 125 mg orally once daily for 7 days, then 125 mg orally every 2 to 3 days for 6 weeks Recommend supportive care for norovirus symptoms - Continue prednisone 30 mg dose, continue taper as prescribed Continue mesalamine 3 times daily Follow-up with GI as planned on 12/22/2021. Thank you for allowing us to participate in the care of this patient. Please call with any acute changes, questions or concerns. Please see addendum below with additional recommendation from my supervising physician. Supervising Physician Co-Signing Physician Notes I have seen and examined the patient with Kelsey Layton PA-C whose note reflects our findings except as noted. Patient with UC and history of recent C diff. Now gene positive, toxin negative for C diff. Norovirus is positive. Continue with steroid taper and supportive care. History of Present Illness Reason for Consultation: UC Requesting Physician: Yesi Rodriguez PA-C Attending Physician: Cristopher Bennett MD History of Present Illness This is a 51-year-old male with history of HTN, EtOH dependence in remission, carotid artery occlusion with cerebral infarction 2018, TALI, dyslipidemia, tobacco use, recently diagnosed severe ulcerative pancolitis by colonoscopy on 11/03/2021, also had positive CMV treated with Valcyte at that time, and also was positive for C. difficile on 11/17, completed 10 days of vancomycin therapy as an outpatient. He has been started on mesalamine 1600 mg 3 times daily and is also on a prednisone taper, currently on 30 mg daily p.o. as an outpatient. He had noticed improve in his GI symptoms - not as severe as they were; was having approximately 3 BMs per day (improved from 6+), they were loose/maybe semiformed, bleeding was improving. Earlier this week he began to notice dizziness, lightheadedness, was having some chest discomfort at work. He also noticed his bowel movements got worse, with more frequent diarrhea, hematochezia , and stool was very foul-smelling. On arrival to the ER, was noted to be hypotensive with systolics in the 70s, tachycardic, labs with hyponatremia and MARIANELA. No leukocytosis or drop in hemoglobin. He improved with IVF. CTAP with pancolitis as demonstrated on previous imaging, possible mild ileus. Given dose of IV steroids. Overnight, stool positive for C. difficile and norovirus. He feels better with the IVF. Had about 3 loose, bloody BMs overnight. Na improved to 133, HGB stable at 11.1. Still has mild tachycardia, normal BP. Denies lightheadedness, dizziness, presyncope or chest pain. He has general abd achiness from UC but denies abd pain, n/v, GERD, melena, hematemesis, fever, chills, CP today, cough. He is compliant w/ OP regimen of steroid + Mesalamine. Allergies Allergy/AdvReac Type Severity Reaction Status Date / Time No Known Allergies Allergy Mild Verified 12/05/21 12:57 Home Medications Medication Instructions Recorded Confirmed Type citalopram 20 mg tablet 40 mg PO QAM 05/21/19 12/05/21 History trazodone 150 mg tablet 150 mg PO HS 05/21/19 12/05/21 History Saccharomyces boulardii 250 mg 250 mg PO BID #20 cap 10/17/21 12/05/21 Rx capsule (Florastor) aspirin 81 mg tablet,delayed 81 mg PO QAM 10/30/21 12/05/21 History release atorvastatin 40 mg tablet 40 mg PO HS 10/30/21 12/05/21 History lisinopril 10 mg tablet 10 mg PO QAM 10/30/21 12/05/21 History buspirone 5 mg tablet 5 mg PO BID 12/05/21 12/05/21 History dicyclomine 10 mg capsule 10 mg PO TID 12/05/21 12/05/21 History ergocalciferol (vitamin D2) 1,250 50,000 unit PO WK 12/05/21 12/05/21 History mcg (50,000 unit) capsule mesalamine 800 mg tablet,delayed 1,600 mg PO TID 12/05/21 12/05/21 History release prednisone 10 mg tablet 10 mg PO .TAPER 12/05/21 12/05/21 History Patient History Medical History (Updated 12/06/21 @ 10:22 by Hermila Layton PA-C) Anxiety Blood in stool Colitis History of COVID-19 10/17/21 AT [facility] (NO SYMPTOMS) ED FOR BLOOD IN STOOL History of stroke History of tobacco use 30 pack years, quit in 2019 HTN (hypertension) Hyperlipidemia Insomnia Stroke X 2 IN 2019>TREATED AT [facility]>MINOR SPEECH DEFECITS Ulcerative colitis Dx in Sep 2021 Surgical History H/O carotid endarterectomy RT/LEFT History of esophagogastroduodenoscopy (EGD) History of tonsillectomy and adenoidectomy History of tooth extraction Family History Father Diabetes Coronary heart disease Stroke, Onset Age: 50 Mother Cancer Other No family history of adverse response to anesthesia Denies family history of History of blood clotting disorder Social History Smoking Status: Former smoker Tobacco Type: Cigarettes Years Smoked: 30; Cigarettes Per Day: 20; Number of Years Since Quit: 2; Second Hand Exposure: No; Do You Dip or Chew Tobacco: No; Tobacco Cessation Education Requested by Patient: No Hx Alcohol Use: No Hx Substance Use: No Preferred Language: Hungarian Communication Ability: Effective Child Care Center Administrator Required: No Beliefs That Will Affect Care: None marital status details: Engaged Current Living Situation: Significant Other current occupational status: 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 Other Information That Helps Us Care for You: No Feels Safe at Home: Yes Safety Concerns: Feels Safe At This Time Assistive Devices: None Review of Systems Review of Systems: All systems reviewed & are unremarkable except as noted in HPI & below Physical Exam Constitutional: WD/WN, vitals as above Respiratory: normal respiratory effort, lungs clear to auscultation Cardiovascular: RRR, no murmur, no edema Gastrointestinal (Abdomen): + hyperactive BS, soft, nontender, nondistended Skin: no rashes, warm and dry Psychiatric: A+Ox3, euthymic affect Results & Data ([facility]) Vital Signs (Past 12 Hours) Vital Signs Temp Pulse Pulse Resp BP Pulse Ox 12/06/21 07:17 37.0 C 110 H 16 140/88 92 12/06/21 07:00 95 H 12/06/21 03:09 37.1 C 91 H 18 104/64 95 12/06/21 00:00 93 H 12/05/21 22:40 37.2 C 97 H 18 115/72 95 Laboratory Results 12/06/21 12/06/21 12/06/21 Range/Units 07:48 07:48 02:20 WBC 7.07 (4.8-10.8) K/uL RBC 3.86 L (4.7-6.1) M/uL Hgb 11.1 L (14.0-18.0) g/dL POC Hgb (14.0-18.0) g/dl Hct 36.1 L (42-52) % POC Hct (42-52) % MCV 93.5 (80-100) fL MCH 28.8 (25-34) pg MCHC 30.7 L (32-36) g/dL RDW Std Deviation 63.1 H (36.4-46.3) fL RDW Coeff of Chandra 18.3 H (11.5-14.5) % Plt Count 335 (130-400) K/uL MPV 8.1 (7.4-10.4) fL Immature Gran % (Auto) % Neut % (Auto) % Lymph % (Auto) % Bath % (Auto) % Eos % (Auto) % Baso % (Auto) % Neut # (Auto) (1.4-6.5) K/uL Lymph # (Auto) (1.2-3.4) K/uL Bath # (Auto) (0.11-0.59) K/uL Eos # (Auto) (0-0.5) K/uL Baso # (Auto) (0-0.2) K/uL Immature Gran # (Auto) (0.00-0.02) K/uL POC Sodium (135-144) mmol/L Sodium 133 L (136-145) mmol/L POC Potassium (3.3-5.0) mmol/L Potassium 4.0 (3.5-5.1) mmol/L POC Chloride (101-112) mmol/L Chloride 98 (98-107) mmol/L Carbon Dioxide 30 (21-32) mmol/L POC Total CO2 (24-31) mmol/L Anion Gap 5 (3-11) POC Anion Gap (16-25) mmol/L POC BUN (7-18) mg/dl BUN 14 (6-23) mg/dl Creatinine 0.79 (0.6-1.4) mg/dl POC Creatinine (0.6-1.3) mg/dl Est Cr Clr Drug Dosing 137.3 ml/min Est GFR ( Amer) 121.4 ml/min Est GFR (Non-Af Amer) 104.7 ml/min BUN/Creatinine Ratio 17.7 (10-20) Glucose 77 (70-99(Fasting)) mg/dl POC Glucose (other) (70-99) mg/dl Osmolality (280-300) mOsm/kg POC Lactic Acid Pipe (0.90-1.70) mmol/L Lactate (0.4-2.0) mmol/L Calcium 8.2 L (8.5-10.1) mg/dl POC Ioniz Calcium Leti (1.12-1.32) mmol/l Phosphorus (2.5-4.9) mg/dl Magnesium (1.7-2.4) mg/dl Total Bilirubin (0.2-1.0) mg/dl AST (13-39) U/L ALT (7-52) U/L Alkaline Phosphatase (34-104) U/L Troponin I (0-0.04) ng/ml Total Protein (6.0-8.3) gm/dl Albumin (3.4-5.0) gm/dl Globulin (2.5-4.0) gm/dl Albumin/Globulin Ratio (0.9-2) Lipase (11-82) U/L Procalcitonin (0-0.5) ng/ml TSH (0.300-4.500) uIu/ml Urine Color Urine Appearance (Clear) Urine pH (4.5-7.5) Ur Specific [place] (1.000-1.030) Urine Protein (Negative) Urine Glucose (UA) (Negative) Urine Ketones (Negative) Urine Blood (Negative) Urine Nitrite (Negative) Urine Bilirubin (Negative) Urine Urobilinogen (Negative) Ur Leukocyte Esterase (Negative) Urine Osmolality (500-800) mOsm/kg Ur Random Sodium mmol/L Stl C. cayetanensis PCR Not Detected (NotDetected) Stool Rotavirus A PCR Not Detected (NotDetected) Stl Adenov F 40/41 PCR Not Detected (NotDetected) Stool Astrovirus (PCR) Not Detected (NotDetected) Stool Campylobacter PCR Not Detected (NotDetected) Stl C. diff Tox B Gene (Neg) Stl C.difficile Tox A&B Negative Cdiff Toxin (Negative) Stl C. diff Tox A/B PCR C.diff Gene Detected A (NotDetected) Stool Cryptosporidium PCR Not Detected (NotDetected) Stl E.coli Shiga Tox PCR Not Detected (NotDetected) Stl Enterotoxigenic E PCR Not Detected (NotDetected) Stool EPEC (PCR) Not Detected (NotDetected) Stool EAEC (PCR) Not Detected (NotDetected) Stl E. histolytica PCR Not Detected (NotDetected) Stool Giardia Lamblia PCR Not Detected (NotDetected) Stool Salmonella PCR Not Detected (NotDetected) Stool Sapovirus (PCR) Not Detected (NotDetected) Stl P. shigelloides PCR Not Detected (NotDetected) Stl Shigella/EIEC PCR Not Detected (NotDetected) St Y.enterocolitica PCR Not Detected (NotDetected) Stool Vibrio (PCR) Not Detected (NotDetected) Stl Vibrio cholerae PCR Not Detected (NotDetected) Stl Norovirus GI/GII PCR DETECTED A* (NotDetected) SARS-CoV-2, RNA, NAAT (NEGATIVE) 12/05/21 12/05/21 12/05/21 Range/Units 20:15 17:53 17:53 WBC (4.8-10.8) K/uL RBC (4.7-6.1) M/uL Hgb (14.0-18.0) g/dL POC Hgb (14.0-18.0) g/dl Hct (42-52) % POC Hct (42-52) % MCV (80-100) fL MCH (25-34) pg MCHC (32-36) g/dL RDW Std Deviation (36.4-46.3) fL RDW Coeff of Chandra (11.5-14.5) % Plt Count (130-400) K/uL MPV (7.4-10.4) fL Immature Gran % (Auto) % Neut % (Auto) % Lymph % (Auto) % Bath % (Auto) % Eos % (Auto) % Baso % (Auto) % Neut # (Auto) (1.4-6.5) K/uL Lymph # (Auto) (1.2-3.4) K/uL Bath # (Auto) (0.11-0.59) K/uL Eos # (Auto) (0-0.5) K/uL Baso # (Auto) (0-0.2) K/uL Immature Gran # (Auto) (0.00-0.02) K/uL POC Sodium (135-144) mmol/L Sodium Cancelled 132 L (136-145) mmol/L POC Potassium (3.3-5.0) mmol/L Potassium Cancelled 4.2 (3.5-5.1) mmol/L POC Chloride (101-112) mmol/L Chloride Cancelled 97 L (98-107) mmol/L Carbon Dioxide Cancelled 28 (21-32) mmol/L POC Total CO2 (24-31) mmol/L Anion Gap Cancelled 7 (3-11) POC Anion Gap (16-25) mmol/L POC BUN (7-18) mg/dl BUN Cancelled 15 (6-23) mg/dl Creatinine Cancelled 0.89 D (0.6-1.4) mg/dl POC Creatinine (0.6-1.3) mg/dl Est Cr Clr Drug Dosing Cancelled 123.9 ml/min Est GFR ( Amer) Cancelled 115.6 ml/min Est GFR (Non-Af Amer) Cancelled 99.7 ml/min BUN/Creatinine Ratio Cancelled 16.9 (10-20) Glucose Cancelled 88 (70-99(Fasting)) mg/dl POC Glucose (other) (70-99) mg/dl Osmolality (280-300) mOsm/kg POC Lactic Acid Pipe (0.90-1.70) mmol/L Lactate (0.4-2.0) mmol/L Calcium Cancelled 8.8 (8.5-10.1) mg/dl POC Ioniz Calcium Leti (1.12-1.32) mmol/l Phosphorus 4.5 (2.5-4.9) mg/dl Magnesium 1.7 (1.7-2.4) mg/dl Total Bilirubin (0.2-1.0) mg/dl AST (13-39) U/L ALT (7-52) U/L Alkaline Phosphatase (34-104) U/L Troponin I (0-0.04) ng/ml Total Protein (6.0-8.3) gm/dl Albumin (3.4-5.0) gm/dl Globulin (2.5-4.0) gm/dl Albumin/Globulin Ratio (0.9-2) Lipase (11-82) U/L Procalcitonin (0-0.5) ng/ml TSH (0.300-4.500) uIu/ml Urine Color Urine Appearance (Clear) Urine pH (4.5-7.5) Ur Specific [place] (1.000-1.030) Urine Protein (Negative) Urine Glucose (UA) (Negative) Urine Ketones (Negative) Urine Blood (Negative) Urine Nitrite (Negative) Urine Bilirubin (Negative) Urine Urobilinogen (Negative) Ur Leukocyte Esterase (Negative) Urine Osmolality (500-800) mOsm/kg Ur Random Sodium mmol/L Stl C. cayetanensis PCR (NotDetected) Stool Rotavirus A PCR (NotDetected) Stl Adenov F 40/41 PCR (NotDetected) Stool Astrovirus (PCR) (NotDetected) Stool Campylobacter PCR (NotDetected) Stl C. diff Tox B Gene Positive Cdiff Gene H (Neg) Stl C.difficile Tox A&B Negative Cdiff Toxin (Negative) Stl C. diff Tox A/B PCR (NotDetected) Stool Cryptosporidium PCR (NotDetected) Stl E.coli Shiga Tox PCR (NotDetected) Stl Enterotoxigenic E PCR (NotDetected) Stool EPEC (PCR) (NotDetected) Stool EAEC (PCR) (NotDetected) Stl E. histolytica PCR (NotDetected) Stool Giardia Lamblia PCR (NotDetected) Stool Salmonella PCR (NotDetected) Stool Sapovirus (PCR) (NotDetected) Stl P. shigelloides PCR (NotDetected) Stl Shigella/EIEC PCR (NotDetected) St Y.enterocolitica PCR (NotDetected) Stool Vibrio (PCR) (NotDetected) Stl Vibrio cholerae PCR (NotDetected) Stl Norovirus GI/GII PCR (NotDetected) SARS-CoV-2, RNA, NAAT (NEGATIVE) 12/05/21 12/05/21 12/05/21 Range/Units 14:04 14:04 14:04 WBC (4.8-10.8) K/uL RBC (4.7-6.1) M/uL Hgb (14.0-18.0) g/dL POC Hgb (14.0-18.0) g/dl Hct (42-52) % POC Hct (42-52) % MCV (80-100) fL MCH (25-34) pg MCHC (32-36) g/dL RDW Std Deviation (36.4-46.3) fL RDW Coeff of Chandra (11.5-14.5) % Plt Count (130-400) K/uL MPV (7.4-10.4) fL Immature Gran % (Auto) % Neut % (Auto) % Lymph % (Auto) % Bath % (Auto) % Eos % (Auto) % Baso % (Auto) % Neut # (Auto) (1.4-6.5) K/uL Lymph # (Auto) (1.2-3.4) K/uL Bath # (Auto) (0.11-0.59) K/uL Eos # (Auto) (0-0.5) K/uL Baso # (Auto) (0-0.2) K/uL Immature Gran # (Auto) (0.00-0.02) K/uL POC Sodium (135-144) mmol/L Sodium (136-145) mmol/L POC Potassium (3.3-5.0) mmol/L Potassium (3.5-5.1) mmol/L POC Chloride (101-112) mmol/L Chloride (98-107) mmol/L Carbon Dioxide (21-32) mmol/L POC Total CO2 (24-31) mmol/L Anion Gap (3-11) POC Anion Gap (16-25) mmol/L POC BUN (7-18) mg/dl BUN (6-23) mg/dl Creatinine (0.6-1.4) mg/dl POC Creatinine (0.6-1.3) mg/dl Est Cr Clr Drug Dosing ml/min Est GFR ( Amer) ml/min Est GFR (Non-Af Amer) ml/min BUN/Creatinine Ratio (10-20) Glucose (70-99(Fasting)) mg/dl POC Glucose (other) (70-99) mg/dl Osmolality (280-300) mOsm/kg POC Lactic Acid Pipe (0.90-1.70) mmol/L Lactate (0.4-2.0) mmol/L Calcium (8.5-10.1) mg/dl POC Ioniz Calcium Elti (1.12-1.32) mmol/l Phosphorus (2.5-4.9) mg/dl Magnesium (1.7-2.4) mg/dl Total Bilirubin (0.2-1.0) mg/dl AST (13-39) U/L ALT (7-52) U/L Alkaline Phosphatase (34-104) U/L Troponin I (0-0.04) ng/ml Total Protein (6.0-8.3) gm/dl Albumin (3.4-5.0) gm/dl Globulin (2.5-4.0) gm/dl Albumin/Globulin Ratio (0.9-2) Lipase (11-82) U/L Procalcitonin (0-0.5) ng/ml TSH (0.300-4.500) uIu/ml Urine Color Yellow Urine Appearance Clear (Clear) Urine pH 6.0 (4.5-7.5) Ur Specific [place] 1.018 (1.000-1.030) Urine Protein Negative (Negative) Urine Glucose (UA) Negative (Negative) Urine Ketones Negative (Negative) Urine Blood Negative (Negative) Urine Nitrite Negative (Negative) Urine Bilirubin Negative (Negative) Urine Urobilinogen Negative (Negative) Ur Leukocyte Esterase Negative (Negative) Urine Osmolality 200 L (500-800) mOsm/kg Ur Random Sodium 36 mmol/L Stl C. cayetanensis PCR (NotDetected) Stool Rotavirus A PCR (NotDetected) Stl Adenov F 40/41 PCR (NotDetected) Stool Astrovirus (PCR) (NotDetected) Stool Campylobacter PCR (NotDetected) Stl C. diff Tox B Gene (Neg) Stl C.difficile Tox A&B (Negative) Stl C. diff Tox A/B PCR (NotDetected) Stool Cryptosporidium PCR (NotDetected) Stl E.coli Shiga Tox PCR (NotDetected) Stl Enterotoxigenic E PCR (NotDetected) Stool EPEC (PCR) (NotDetected) Stool EAEC (PCR) (NotDetected) Stl E. histolytica PCR (NotDetected) Stool Giardia Lamblia PCR (NotDetected) Stool Salmonella PCR (NotDetected) Stool Sapovirus (PCR) (NotDetected) Stl P. shigelloides PCR (NotDetected) Stl Shigella/EIEC PCR (NotDetected) St Y.enterocolitica PCR (NotDetected) Stool Vibrio (PCR) (NotDetected) Stl Vibrio cholerae PCR (NotDetected) Stl Norovirus GI/GII PCR (NotDetected) SARS-CoV-2, RNA, NAAT (NEGATIVE) 12/05/21 12/05/21 12/05/21 Range/Units 14:04 14:04 14:04 WBC (4.8-10.8) K/uL RBC (4.7-6.1) M/uL Hgb (14.0-18.0) g/dL POC Hgb (14.0-18.0) g/dl Hct (42-52) % POC Hct (42-52) % MCV (80-100) fL MCH (25-34) pg MCHC (32-36) g/dL RDW Std Deviation (36.4-46.3) fL RDW Coeff of Chandra (11.5-14.5) % Plt Count (130-400) K/uL MPV (7.4-10.4) fL Immature Gran % (Auto) % Neut % (Auto) % Lymph % (Auto) % Bath % (Auto) % Eos % (Auto) % Baso % (Auto) % Neut # (Auto) (1.4-6.5) K/uL Lymph # (Auto) (1.2-3.4) K/uL Bath # (Auto) (0.11-0.59) K/uL Eos # (Auto) (0-0.5) K/uL Baso # (Auto) (0-0.2) K/uL Immature Gran # (Auto) (0.00-0.02) K/uL POC Sodium (135-144) mmol/L Sodium (136-145) mmol/L POC Potassium (3.3-5.0) mmol/L Potassium (3.5-5.1) mmol/L POC Chloride (101-112) mmol/L Chloride (98-107) mmol/L Carbon Dioxide (21-32) mmol/L POC Total CO2 (24-31) mmol/L Anion Gap (3-11) POC Anion Gap (16-25) mmol/L POC BUN (7-18) mg/dl BUN (6-23) mg/dl Creatinine (0.6-1.4) mg/dl POC Creatinine (0.6-1.3) mg/dl Est Cr Clr Drug Dosing ml/min Est GFR ( Amer) ml/min Est GFR (Non-Af Amer) ml/min BUN/Creatinine Ratio (10-20) Glucose (70-99(Fasting)) mg/dl POC Glucose (other) (70-99) mg/dl Osmolality 279 L (280-300) mOsm/kg POC Lactic Acid Pipe (0.90-1.70) mmol/L Lactate (0.4-2.0) mmol/L Calcium (8.5-10.1) mg/dl POC Ioniz Calcium Leti (1.12-1.32) mmol/l Phosphorus (2.5-4.9) mg/dl Magnesium (1.7-2.4) mg/dl Total Bilirubin (0.2-1.0) mg/dl AST (13-39) U/L ALT (7-52) U/L Alkaline Phosphatase (34-104) U/L Troponin I (0-0.04) ng/ml Total Protein (6.0-8.3) gm/dl Albumin (3.4-5.0) gm/dl Globulin (2.5-4.0) gm/dl Albumin/Globulin Ratio (0.9-2) Lipase (11-82) U/L Procalcitonin 0.10 (0-0.5) ng/ml TSH 1.579 (0.300-4.500) uIu/ml Urine Color Urine Appearance (Clear) Urine pH (4.5-7.5) Ur Specific [place] (1.000-1.030) Urine Protein (Negative) Urine Glucose (UA) (Negative) Urine Ketones (Negative) Urine Blood (Negative) Urine Nitrite (Negative) Urine Bilirubin (Negative) Urine Urobilinogen (Negative) Ur Leukocyte Esterase (Negative) Urine Osmolality (500-800) mOsm/kg Ur Random Sodium mmol/L Stl C. cayetanensis PCR (NotDetected) Stool Rotavirus A PCR (NotDetected) Stl Adenov F 40/41 PCR (NotDetected) Stool Astrovirus (PCR) (NotDetected) Stool Campylobacter PCR (NotDetected) Stl C. diff Tox B Gene (Neg) Stl C.difficile Tox A&B (Negative) Stl C. diff Tox A/B PCR (NotDetected) Stool Cryptosporidium PCR (NotDetected) Stl E.coli Shiga Tox PCR (NotDetected) Stl Enterotoxigenic E PCR (NotDetected) Stool EPEC (PCR) (NotDetected) Stool EAEC (PCR) (NotDetected) Stl E. histolytica PCR (NotDetected) Stool Giardia Lamblia PCR (NotDetected) Stool Salmonella PCR (NotDetected) Stool Sapovirus (PCR) (NotDetected) Stl P. shigelloides PCR (NotDetected) Stl Shigella/EIEC PCR (NotDetected) St Y.enterocolitica PCR (NotDetected) Stool Vibrio (PCR) (NotDetected) Stl Vibrio cholerae PCR (NotDetected) Stl Norovirus GI/GII PCR (NotDetected) SARS-CoV-2, RNA, NAAT (NEGATIVE) 12/05/21 12/05/21 12/05/21 Range/Units 14:04 12:39 11:43 WBC (4.8-10.8) K/uL RBC (4.7-6.1) M/uL Hgb (14.0-18.0) g/dL POC Hgb 13.3 L (14.0-18.0) g/dl Hct (42-52) % POC Hct 39 L (42-52) % MCV (80-100) fL MCH (25-34) pg MCHC (32-36) g/dL RDW Std Deviation (36.4-46.3) fL RDW Coeff of Chandra (11.5-14.5) % Plt Count (130-400) K/uL MPV (7.4-10.4) fL Immature Gran % (Auto) % Neut % (Auto) % Lymph % (Auto) % Bath % (Auto) % Eos % (Auto) % Baso % (Auto) % Neut # (Auto) (1.4-6.5) K/uL Lymph # (Auto) (1.2-3.4) K/uL Bath # (Auto) (0.11-0.59) K/uL Eos # (Auto) (0-0.5) K/uL Baso # (Auto) (0-0.2) K/uL Immature Gran # (Auto) (0.00-0.02) K/uL POC Sodium 128 L (135-144) mmol/L Sodium (136-145) mmol/L POC Potassium 4.5 (3.3-5.0) mmol/L Potassium (3.5-5.1) mmol/L POC Chloride 93 L (101-112) mmol/L Chloride (98-107) mmol/L Carbon Dioxide (21-32) mmol/L POC Total CO2 30 (24-31) mmol/L Anion Gap (3-11) POC Anion Gap 11.0 L (16-25) mmol/L POC BUN 26 H (7-18) mg/dl BUN (6-23) mg/dl Creatinine (0.6-1.4) mg/dl POC Creatinine 1.5 H (0.6-1.3) mg/dl Est Cr Clr Drug Dosing ml/min Est GFR ( Amer) ml/min Est GFR (Non-Af Amer) ml/min BUN/Creatinine Ratio (10-20) Glucose (70-99(Fasting)) mg/dl POC Glucose (other) 103 H (70-99) mg/dl Osmolality (280-300) mOsm/kg POC Lactic Acid Pipe (0.90-1.70) mmol/L Lactate 1.2 (0.4-2.0) mmol/L Calcium (8.5-10.1) mg/dl POC Ioniz Calcium Leti 1.16 (1.12-1.32) mmol/l Phosphorus (2.5-4.9) mg/dl Magnesium (1.7-2.4) mg/dl Total Bilirubin (0.2-1.0) mg/dl AST (13-39) U/L ALT (7-52) U/L Alkaline Phosphatase (34-104) U/L Troponin I (0-0.04) ng/ml Total Protein (6.0-8.3) gm/dl Albumin (3.4-5.0) gm/dl Globulin (2.5-4.0) gm/dl Albumin/Globulin Ratio (0.9-2) Lipase (11-82) U/L Procalcitonin (0-0.5) ng/ml TSH (0.300-4.500) uIu/ml Urine Color Urine Appearance (Clear) Urine pH (4.5-7.5) Ur Specific [place] (1.000-1.030) Urine Protein (Negative) Urine Glucose (UA) (Negative) Urine Ketones (Negative) Urine Blood (Negative) Urine Nitrite (Negative) Urine Bilirubin (Negative) Urine Urobilinogen (Negative) Ur Leukocyte Esterase (Negative) Urine Osmolality (500-800) mOsm/kg Ur Random Sodium mmol/L Stl C. cayetanensis PCR (NotDetected) Stool Rotavirus A PCR (NotDetected) Stl Adenov F 40/41 PCR (NotDetected) Stool Astrovirus (PCR) (NotDetected) Stool Campylobacter PCR (NotDetected) Stl C. diff Tox B Gene (Neg) Stl C.difficile Tox A&B (Negative) Stl C. diff Tox A/B PCR (NotDetected) Stool Cryptosporidium PCR (NotDetected) Stl E.coli Shiga Tox PCR (NotDetected) Stl Enterotoxigenic E PCR (NotDetected) Stool EPEC (PCR) (NotDetected) Stool EAEC (PCR) (NotDetected) Stl E. histolytica PCR (NotDetected) Stool Giardia Lamblia PCR (NotDetected) Stool Salmonella PCR (NotDetected) Stool Sapovirus (PCR) (NotDetected) Stl P. shigelloides PCR (NotDetected) Stl Shigella/EIEC PCR (NotDetected) St Y.enterocolitica PCR (NotDetected) Stool Vibrio (PCR) (NotDetected) Stl Vibrio cholerae PCR (NotDetected) Stl Norovirus GI/GII PCR (NotDetected) SARS-CoV-2, RNA, NAAT NEGATIVE (NEGATIVE) 12/05/21 12/05/21 12/05/21 Range/Units 11:37 11:30 11:30 WBC (4.8-10.8) K/uL RBC (4.7-6.1) M/uL Hgb (14.0-18.0) g/dL POC Hgb (14.0-18.0) g/dl Hct (42-52) % POC Hct (42-52) % MCV (80-100) fL MCH (25-34) pg MCHC (32-36) g/dL RDW Std Deviation (36.4-46.3) fL RDW Coeff of Chandra (11.5-14.5) % Plt Count (130-400) K/uL MPV (7.4-10.4) fL Immature Gran % (Auto) % Neut % (Auto) % Lymph % (Auto) % Bath % (Auto) % Eos % (Auto) % Baso % (Auto) % Neut # (Auto) (1.4-6.5) K/uL Lymph # (Auto) (1.2-3.4) K/uL Bath # (Auto) (0.11-0.59) K/uL Eos # (Auto) (0-0.5) K/uL Baso # (Auto) (0-0.2) K/uL Immature Gran # (Auto) (0.00-0.02) K/uL POC Sodium (135-144) mmol/L Sodium 128 L (136-145) mmol/L POC Potassium (3.3-5.0) mmol/L Potassium 4.4 (3.5-5.1) mmol/L POC Chloride (101-112) mmol/L Chloride 92 L (98-107) mmol/L Carbon Dioxide 26 (21-32) mmol/L POC Total CO2 (24-31) mmol/L Anion Gap 10 (3-11) POC Anion Gap (16-25) mmol/L POC BUN (7-18) mg/dl BUN 22 (6-23) mg/dl Creatinine 1.45 H (0.6-1.4) mg/dl POC Creatinine (0.6-1.3) mg/dl Est Cr Clr Drug Dosing 76.0 ml/min Est GFR ( Amer) 64.6 ml/min Est GFR (Non-Af Amer) 55.8 ml/min BUN/Creatinine Ratio 15.2 (10-20) Glucose 96 (70-99(Fasting)) mg/dl POC Glucose (other) (70-99) mg/dl Osmolality (280-300) mOsm/kg POC Lactic Acid Pipe 4.36 H (0.90-1.70) mmol/L Lactate (0.4-2.0) mmol/L Calcium 8.4 L (8.5-10.1) mg/dl POC Ioniz Calcium Leti (1.12-1.32) mmol/l Phosphorus (2.5-4.9) mg/dl Magnesium 1.7 (1.7-2.4) mg/dl Total Bilirubin 0.5 (0.2-1.0) mg/dl AST 16 (13-39) U/L ALT 12 (7-52) U/L Alkaline Phosphatase 54 (34-104) U/L Troponin I < 0.03 (0-0.04) ng/ml Total Protein 7.0 (6.0-8.3) gm/dl Albumin 3.5 (3.4-5.0) gm/dl Globulin 3.5 (2.5-4.0) gm/dl Albumin/Globulin Ratio 1.0 (0.9-2) Lipase 11 (11-82) U/L Procalcitonin (0-0.5) ng/ml TSH (0.300-4.500) uIu/ml Urine Color Urine Appearance (Clear) Urine pH (4.5-7.5) Ur Specific [place] (1.000-1.030) Urine Protein (Negative) Urine Glucose (UA) (Negative) Urine Ketones (Negative) Urine Blood (Negative) Urine Nitrite (Negative) Urine Bilirubin (Negative) Urine Urobilinogen (Negative) Ur Leukocyte Esterase (Negative) Urine Osmolality (500-800) mOsm/kg Ur Random Sodium mmol/L Stl C. cayetanensis PCR (NotDetected) Stool Rotavirus A PCR (NotDetected) Stl Adenov F 40/41 PCR (NotDetected) Stool Astrovirus (PCR) (NotDetected) Stool Campylobacter PCR (NotDetected) Stl C. diff Tox B Gene (Neg) Stl C.difficile Tox A&B (Negative) Stl C. diff Tox A/B PCR (NotDetected) Stool Cryptosporidium PCR (NotDetected) Stl E.coli Shiga Tox PCR (NotDetected) Stl Enterotoxigenic E PCR (NotDetected) Stool EPEC (PCR) (NotDetected) Stool EAEC (PCR) (NotDetected) Stl E. histolytica PCR (NotDetected) Stool Giardia Lamblia PCR (NotDetected) Stool Salmonella PCR (NotDetected) Stool Sapovirus (PCR) (NotDetected) Stl P. shigelloides PCR (NotDetected) Stl Shigella/EIEC PCR (NotDetected) St Y.enterocolitica PCR (NotDetected) Stool Vibrio (PCR) (NotDetected) Stl Vibrio cholerae PCR (NotDetected) Stl Norovirus GI/GII PCR (NotDetected) SARS-CoV-2, RNA, NAAT (NEGATIVE) 12/05/21 Range/Units 11:30 WBC 7.47 (4.8-10.8) K/uL RBC 3.92 L (4.7-6.1) M/uL Hgb 11.2 L (14.0-18.0) g/dL POC Hgb (14.0-18.0) g/dl Hct 36.2 L (42-52) % POC Hct (42-52) % MCV 92.3 (80-100) fL MCH 28.6 (25-34) pg MCHC 30.9 L (32-36) g/dL RDW Std Deviation 61.2 H (36.4-46.3) fL RDW Coeff of Chandra 18.0 H (11.5-14.5) % Plt Count 370 (130-400) K/uL MPV 8.1 (7.4-10.4) fL Immature Gran % (Auto) 0.3 % Neut % (Auto) 64.9 % Lymph % (Auto) 16.7 % Bath % (Auto) 17.7 % Eos % (Auto) 0.4 % Baso % (Auto) 0.0 % Neut # (Auto) 4.85 (1.4-6.5) K/uL Lymph # (Auto) 1.25 (1.2-3.4) K/uL Bath # (Auto) 1.32 H (0.11-0.59) K/uL Eos # (Auto) 0.03 (0-0.5) K/uL Baso # (Auto) 0.00 (0-0.2) K/uL Immature Gran # (Auto) 0.02 (0.00-0.02) K/uL POC Sodium (135-144) mmol/L Sodium (136-145) mmol/L POC Potassium (3.3-5.0) mmol/L Potassium (3.5-5.1) mmol/L POC Chloride (101-112) mmol/L Chloride (98-107) mmol/L Carbon Dioxide (21-32) mmol/L POC Total CO2 (24-31) mmol/L Anion Gap (3-11) POC Anion Gap (16-25) mmol/L POC BUN (7-18) mg/dl BUN (6-23) mg/dl Creatinine (0.6-1.4) mg/dl POC Creatinine (0.6-1.3) mg/dl Est Cr Clr Drug Dosing ml/min Est GFR ( Amer) ml/min Est GFR (Non-Af Amer) ml/min BUN/Creatinine Ratio (10-20) Glucose (70-99(Fasting)) mg/dl POC Glucose (other) (70-99) mg/dl Osmolality (280-300) mOsm/kg POC Lactic Acid Pipe (0.90-1.70) mmol/L Lactate (0.4-2.0) mmol/L Calcium (8.5-10.1) mg/dl POC Ioniz Calcium Leti (1.12-1.32) mmol/l Phosphorus (2.5-4.9) mg/dl Magnesium (1.7-2.4) mg/dl Total Bilirubin (0.2-1.0) mg/dl AST (13-39) U/L ALT (7-52) U/L Alkaline Phosphatase (34-104) U/L Troponin I (0-0.04) ng/ml Total Protein (6.0-8.3) gm/dl Albumin (3.4-5.0) gm/dl Globulin (2.5-4.0) gm/dl Albumin/Globulin Ratio (0.9-2) Lipase (11-82) U/L Procalcitonin (0-0.5) ng/ml TSH (0.300-4.500) uIu/ml Urine Color Urine Appearance (Clear) Urine pH (4.5-7.5) Ur Specific [place] (1.000-1.030) Urine Protein (Negative) Urine Glucose (UA) (Negative) Urine Ketones (Negative) Urine Blood (Negative) Urine Nitrite (Negative) Urine Bilirubin (Negative) Urine Urobilinogen (Negative) Ur Leukocyte Esterase (Negative) Urine Osmolality (500-800) mOsm/kg Ur Random Sodium mmol/L Stl C. cayetanensis PCR (NotDetected) Stool Rotavirus A PCR (NotDetected) Stl Adenov F 40/41 PCR (NotDetected) Stool Astrovirus (PCR) (NotDetected) Stool Campylobacter PCR (NotDetected) Stl C. diff Tox B Gene (Neg) Stl C.difficile Tox A&B (Negative) Stl C. diff Tox A/B PCR (NotDetected) Stool Cryptosporidium PCR (NotDetected) Stl E.coli Shiga Tox PCR (NotDetected) Stl Enterotoxigenic E PCR (NotDetected) Stool EPEC (PCR) (NotDetected) Stool EAEC (PCR) (NotDetected) Stl E. histolytica PCR (NotDetected) Stool Giardia Lamblia PCR (NotDetected) Stool Salmonella PCR (NotDetected) Stool Sapovirus (PCR) (NotDetected) Stl P. shigelloides PCR (NotDetected) Stl Shigella/EIEC PCR (NotDetected) St Y.enterocolitica PCR (NotDetected) Stool Vibrio (PCR) (NotDetected) Stl Vibrio cholerae PCR (NotDetected) Stl Norovirus GI/GII PCR (NotDetected) SARS-CoV-2, RNA, NAAT (NEGATIVE) Diagnostic Findings CTAP: Coronary artery calcifications. Trace pericardial effusion. Mild bibasilar atelectasis. No pneumatosis or pneumoperitoneum. Unremarkable spleen, pancreas, gallbladder and adrenal glands. Patent portal vein. Focal fatty infiltration of the central liver is new from the comparison study. 4 mm nonobstructing calculus of the inferior pole right kidney. Additional 4 mm nonobstructing calculus is noted within the inferior pole left kidney. Bilateral renal cysts measure up to 7.2 cm. No ureteral calculi or hydronephrosis. Bladder wall thickening with partial distention. Calcifications of the prostate. A fat filled right inguinal hernia is suggested. Atherosclerosis of the aorta without aneurysm. No pathologically enlarged lymph nodes. No bowel obstruction. Circumferential wall thickening with mucosal hyperemia and pericolonic stranding is again noted which extends from the cecum through the rectum. The fragments are noted within the right hemicolon. Noninflamed appendix. A few mildly dilated loops of small bowel are noted within central abdomen with air-fluid levels measuring up to 3.67 m. No transition point. Tiny fat filled periumbilical hernia. Degenerative changes of the spine, pelvis and hips. IMPRESSION: 1. Circumferential wall thickening is again noted extending from the cecum through the rectum compatible with a nonspecific pancolitis with proctitis. Similar findings have been present on numerous prior studies dating back to 2006. Chronic inflammatory bowel disease such as ulcerative colitis is the primary differential consideration. 2. Scattered small bowel air-fluid levels with a few mildly dilated small bowel loops are suggestive of ileus. Partial small bowel obstruction considered less likely. 3. Normal appendix. 4. Nonobstructing bilateral nephrolithiasis. 5. Additional findings as above. CTA: CLINICAL HISTORY: near syn syncope hypertension and tachycardia TECHNIQUE: Multidetector row helical CT of the chest was performed with angiographic protocol. Coronal and sagittal reformations were obtained. Coronal and sagittal MIPS were obtained from the axial data set and were submitted for review. Automated dose lowering techniques and/or adjustment according to patient size were utilized for this exam. Comparison: Comparison is made to chest one view 12/17/2021 FINDINGS: Lungs and pleura: Atelectasis versus scarring is seen in the dependent portions of the lungs. Heart and pericardium: Heart size is normal. No pericardial effusion. Vessels: The pulmonary trunk is enlarged measuring 31 mm. Moderate atherosclerotic disease is seen. Mediastinum and lauro: Unremarkable. Chest wall and lower neck: Unremarkable. Abdomen: A hypodensity is seen in the liver which may represent a cyst. Bones: Degenerative changes in the thoracic spine. IMPRESSION: No evidence of pulmonary embolism. CXR: The cardiac mediastinal and hilar silhouettes are within normal limits. No pneumothorax, pleural effusion, overt pulmonary edema or airspace consolidation typical for pneumonia. Mild chronic interstitial coarsening of the lung bases. The bones appear grossly intact. Partially imaged surgical clips of the right neck. IMPRESSION: No acute process.
[2021-12-06] MEDS ORDERED: predniSONE 10 MG TABLET PO SCH (11:00)
[2021-12-06] MEDS: ACETAMINOPHEN 325 MG TAB PO PRN ×2 (13:10→20:54)
[2021-12-06] MEDS ORDERED: MAGNESIUM SULFATE / D5W 1 GM/100 ML BAG IV ONE (14:00)
--- NOTE | 2021-12-06 14:12 | Hospitalist Progress Note ---
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 Dizziness #. Hyponatremia : Likely secondary to diarrhea and decreased p.o. intake #. Norovirus associated diarrhea Dizziness in the setting of diarrhea, dehydration and deconditioning from recent illness. Does not meet Sirs or sepsis criteria at presentation. Pro-José Miguel negative at presentation. Admitting sodium of 128. 12/06 orthostatic blood pressure positive. Patient reports improving diarrhea. Sodium level improving. Expect to improve with better p.o. intake. Pedialyte. IV fluid. Fall precaution. PT/OT when appropriate. Patient tachycardic secondary to volume depletion, continue telemetry, as needed metoprolol Patient is started on clear liquid diet, advance as tolerated. Continue to monitor electrolytes. #. Ulcerative colitis #. Presumed C. difficile: Patient positive for gene and negative for toxin, discussed with GI, no treatment for C. difficile at this time. Patient has history of ulcerative colitis, diagnosed 2 months ago. Follows [facility]. Is status post colonoscopy and biopsy November 03: Ulcerative colitis plus CMV infection, status post antiviral treatment. Found to be C. difficile positive in mid October and treated with 10-day course of p.o. Vanco. 12/06 stool studies reviewed. Admitting CTAP: Suggestive of nonspecific pancolitis with proctitis, similar to numerous prior studies dating back to 2006. Nonobstructing bilateral nephrolithiasis. Patient started on steroid taper regimen a month ago, continue with the same. Continue with mesalamine home dose. GI on board: Follow-up with GI as planned on 12/22/2021. Appreciate recommendations. #. Acute kidney injury Admitting creatinine of 1.45, in the setting of dehydration, resolved. #. Other chronic medical conditions: History of stroke [2019] with mild residual dysphagia, depression with anxiety, HTN, HLD Hold on HTN medication, resume when vitally stable. Continue with/resume home medication as and when appropriate. DVT Ppx: Heparin. Code status: FULL PCP: Aleta Dispo: Continue with med telemetry, expect discharge in next 2 days pending improvement in his vital status. Admission and Anticipated Discharge Date Admission Date: December 05, 2021 Subjective Patient seen and examined at bedside as a follow-up of hyponatremia, acute kidney injury and norovirus associated diarrhea. Patient lying in bed, NAD, no new acute events overnight. Patient remains tachycardic. Afebrile. Patient reports loose bowel movements improving. Denies any belly pain. Patient denies any fever/headache/chills/chest pain/palpitation/other review of symptoms. Patient will be started on clear liquid diet, advance as tolerated. Physical Exam Physical Exam: GENERAL: Alert and oriented x3. NAD, on RA. HEENT: No pallor, no icterus. Pupils equal, round and reactive to light. Oral mucosa moist. NECK: No JVD, no neck masses. HEART: S1 and S2 heard. Regular rhythm. Tachycardic. No murmur, no gallop. RESPIRATORY SYSTEM: Normal AP diameter. No accessory muscle use. No wheezing, no crackles. ABDOMEN: Soft, bowel sounds present, nontender, no distention. CENTRAL NERVOUS SYSTEM: No facial droop. Speech is clear. Obeys simple commands. Moves extremities. EXTREMITIES: No edema, no erythema seen. Results & Data Results & Data ([facility]) Vital Signs (Past 12 Hours) Vital Signs Temp Pulse Pulse Resp BP Pulse Ox 12/06/21 12:27 37.9 C H 139 H 20 122/82 95 12/06/21 07:17 37.0 C 110 H 16 140/88 92 12/06/21 07:00 95 H 12/06/21 03:09 37.1 C 91 H 18 104/64 95
[2021-12-06] MEDS: METOPROLOL TARTRATE 25 MG TAB PO PRN (15:35)
[2021-12-06] MEDS: ATORVASTATIN 40 MG TAB PO SCH (20:50)
[2021-12-06] MEDS: traZODone HCL 50 MG TAB PO SCH (20:50)
[2021-12-07] MEDS: SODIUM CHLORIDE 0.9% 1000ML 1,000 ML IV SCH ×2 (03:00→13:39)
[2021-12-07 07:30] LABS: Hematocrit (blood only) 34.3 % (42-52); Hemoglobin 10.4 g/dL (14.0-18.0); Mean Corpuscular Hemoglobin 28.3 pg (25-34); Mean Corpuscular Hgb Conc 30.3 g/dL (32-36); Mean Corpuscular Volume 93.2 fL (80-100); Mean Platelet Volume 8.2 fL (7.4-10.4); Platelet Count 306 K/uL (130-400); RDW Coefficient of Variation 17.4 % (11.5-14.5); RDW Standard Deviation 59.5 fL (36.4-46.3); Red Blood Count 3.68 M/uL (4.7-6.1); White Blood Count 5.66 K/uL (4.8-10.8)
[2021-12-07 07:59] LABS: Calcium 7.6 mg/dl (8.5-10.1); Creatinine Clr Calc Pharmacy 148.8 ml/min; Est GFR (African American) 125.4 ml/min; Est GFR (Non-African American) 108.2 ml/min; Magnesium 1.7 mg/dl (1.7-2.4); Phosphorus 3.2 mg/dl (2.5-4.9); Potassium 3.6 mmol/L (3.5-5.1)
[2021-12-07] MEDS: SACCHAROMYCES BOULARDII 250 MG CAP PO SCH ×2 (08:11→20:36)
[2021-12-07] MEDS: ASPIRIN 81 MG ECTAB PO SCH (08:12)
[2021-12-07] MEDS: MESALAMINE 800 MG TABCR PO SCH ×3 (08:12→20:36)
[2021-12-07] MEDS: busPIRone 5 MG TAB PO SCH ×2 (08:12→20:37)
[2021-12-07] MEDS: DICYCLOMINE HCL 10 MG CAP PO SCH ×3 (08:13→16:06)
[2021-12-07] MEDS: CITALOPRAM 40 MG TAB PO SCH (08:13)
[2021-12-07] MEDS ORDERED: POTASSIUM CHLORIDE CRTAB 20 MEQ TABCR PO STA (09:02)
[2021-12-07] MEDS ORDERED: MAGNESIUM SULFATE / D5W 1 GM/100 ML BAG IV ONE (09:15)
--- NOTE | 2021-12-07 09:32 | Gastroenterology Progress Note ---
Date of Service December 07, 2021 Assessment & Plan (1) Ulcerative colitis: (2) Norovirus: Plan: 51-year-old male recently diagnosed with severe ulcerative with pancolitis, on prednisone taper and mesalamine, positive CMV treated with Valcyte, and recent C. difficile treated with 10 days of vancomycin last month. Admitted after presenting w/ worsening diarrhea and presyncope; had tachycardia, hypotension. + For Norovirus. He is C diff gene positive, toxin negative. Labs are stable today, has hyponatremia and this appears chronic, anemia is stable. Pt feels slightly better today; tolerating clears; is hungry and would like to more. On exam abd soft, nontender. - Can advance to full liquids -> low-fiber/low residue as tolerated Recommend supportive care for norovirus symptoms - continue hydration - Continue prednisone 30 mg dose, continue taper as prescribed Continue mesalamine 3 times daily Follow-up with GI as planned on 12/22/2021. Thank you for allowing us to participate in the care of this patient. Please call with any acute changes, questions or concerns. Please see addendum below with additional recommendation from my supervising physician. Admission and Anticipated Discharge Date Admission Date: December 05, 2021 Subjective Patient seen and examined, chart reviewed. No acute events overnight. Had a slight temp of 37.9C and given dose of APAP at 8 PM, today is afebrile. He had 3 small bloody BMs overnight. Tolerating clears; hungry; wants to eat more. No change in chronic abd discomfort, no n/v, melena, bloating, chills, CP, SOB. + passing flatus. Review of Systems Review of Systems: All systems reviewed & are unremarkable except as noted in HPI & below Physical Exam Constitutional: WD/WN, vitals as above Respiratory: normal respiratory effort, lungs clear to auscultation Cardiovascular: RRR, no murmur, no edema Gastrointestinal (Abdomen): normal bowel sounds, soft, nontender, no hepatosplenomegaly Skin: no rashes, warm and dry Psychiatric: A+Ox3, euthymic affect Results & Data ([place]) Vital Signs (Past 12 Hours) Vital Signs Temp Pulse Pulse Pulse Resp BP Pulse Ox 12/07/21 07:02 37.2 C 108 H 16 129/77 93 12/07/21 03:05 37.3 C 94 H 18 107/66 96 12/07/21 00:00 108 H 12/06/21 23:10 37 C 103 H 16 108/67 92 Laboratory Results 12/07/21 12/07/21 12/07/21 Range/Units 07:08 07:08 07:08 WBC 5.66 (4.8-10.8) K/uL RBC 3.68 L (4.7-6.1) M/uL Hgb 10.4 L (14.0-18.0) g/dL Hct 34.3 L (42-52) % MCV 93.2 (80-100) fL MCH 28.3 (25-34) pg MCHC 30.3 L (32-36) g/dL RDW Std Deviation 59.5 H (36.4-46.3) fL RDW Coeff of Chandra 17.4 H (11.5-14.5) % Plt Count 306 (130-400) K/uL MPV 8.2 (7.4-10.4) fL Sodium 130 L (136-145) mmol/L Potassium 3.6 (3.5-5.1) mmol/L Chloride 97 L (98-107) mmol/L Carbon Dioxide 25 (21-32) mmol/L Anion Gap 8 (3-11) BUN 8 (6-23) mg/dl Creatinine 0.73 (0.6-1.4) mg/dl Est Cr Clr Drug Dosing 148.8 ml/min Est GFR ( Amer) 125.4 ml/min Est GFR (Non-Af Amer) 108.2 ml/min BUN/Creatinine Ratio 11.0 (10-20) Glucose 94 (70-99(Fasting)) mg/dl Calcium 7.6 L (8.5-10.1) mg/dl Phosphorus 3.2 D (2.5-4.9) mg/dl Magnesium 1.7 (1.7-2.4) mg/dl Procalcitonin Pending
--- NOTE | 2021-12-07 16:35 | Hospitalist Progress Note ---
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 Dizziness #. Hyponatremia : Likely secondary to diarrhea and decreased p.o. intake #. Norovirus associated diarrhea Dizziness in the setting of diarrhea, dehydration and deconditioning from recent illness. Does not meet Sirs or sepsis criteria at presentation. Pro-José Miguel negative at presentation. Admitting sodium of 128. 12/06 orthostatic blood pressure positive. Patient reports improving diarrhea. Sodium level slightly went down today. Expect to improve with better p.o. intake. Pedialyte. IV fluid. Fall precaution. PT/OT when appropriate. Patient tachycardic secondary to volume depletion, continue telemetry, as needed metoprolol Patient tolerating clear liquid, full liquid diet today, advance as tolerated. Continue to monitor electrolytes. #. Ulcerative colitis #. Presumed C. difficile: Patient positive for gene and negative for toxin, discussed with GI, no treatment for C. difficile at this time. Patient has history of ulcerative colitis, diagnosed 2 months ago. Follows [facility] GI. Is status post colonoscopy and biopsy November 03: Ulcerative colitis plus CMV infection, status post antiviral treatment. Found to be C. difficile positive in mid October and treated with 10-day course of p.o. Vanco. 12/06 stool studies reviewed. Admitting CTAP: Suggestive of nonspecific pancolitis with proctitis, similar to numerous prior studies dating back to 2006. Nonobstructing bilateral nephrolithiasis. Patient started on steroid taper regimen a month ago, continue with the same. Continue with mesalamine home dose. GI on board: Follow-up with GI as planned on 12/22/2021. Appreciate recommendations. #. Acute kidney injury Admitting creatinine of 1.45, in the setting of dehydration, resolved. #. Other chronic medical conditions: History of stroke [2019] with mild residual dysphagia, depression with anxiety, HTN, HLD Hold on HTN medication, resume when vitally stable. Continue with/resume home medication as and when appropriate. DVT Ppx: Heparin. Code status: FULL PCP: Aleta Dispo: Continue with med telemetry, expect discharge in next 2 days pending improvement in his vital status and diarrhea. Admission and Anticipated Discharge Date Admission Date: December 05, 2021 Subjective Patient seen and examined at bedside as a follow-up of hyponatremia, acute kidney injury and norovirus associated diarrhea. Patient lying in bed, NAD, no new acute events overnight. Patient had 3 diarrheal bowel movements overnight. Patient remains tachycardic. Afebrile. Loose bowel movement seems to be improving. Denies any belly pain, reports some belly discomfort which is chronic. Patient tolerating clear diet, will advance to full liquid. Patient denies any fever/headache/chills/chest pain/palpitation/other review of symptoms. Physical Exam Physical Exam: GENERAL: Alert and oriented x3. NAD, on RA. HEENT: No pallor, no icterus. Pupils equal, round and reactive to light. Oral mucosa moist. NECK: No JVD, no neck masses. HEART: S1 and S2 heard. Regular rhythm. Tachycardic. No murmur, no gallop. RESPIRATORY SYSTEM: Normal AP diameter. No accessory muscle use. No wheezing, no crackles. ABDOMEN: Soft, bowel sounds present, nontender, no distention. CENTRAL NERVOUS SYSTEM: No facial droop. Speech is clear. Obeys simple commands. Moves extremities. EXTREMITIES: No edema, no erythema seen. Results & Data Results & Data ([facility]) Vital Signs (Past 12 Hours) Vital Signs Temp Pulse Pulse Pulse Resp BP BP 12/07/21 16:19 113 H 12/07/21 16:00 36.5 C 115 H 18 128/81 12/07/21 12:00 37.7 C H 109 H 18 139/80 12/07/21 08:00 110 H 12/07/21 07:02 37.2 C 108 H 16 129/77 Pulse Ox 12/07/21 16:19 12/07/21 16:00 95 12/07/21 12:00 93 12/07/21 08:00 12/07/21 07:02 93
[2021-12-07] MEDS: ACETAMINOPHEN 325 MG TAB PO PRN (19:25)
[2021-12-07] MEDS: traZODone HCL 50 MG TAB PO SCH (20:35)
[2021-12-07] MEDS: HEPARIN SOD 5,000 UNIT/0.5 ML VIAL SQ SCH (20:37)
[2021-12-07] MEDS: ATORVASTATIN 40 MG TAB PO SCH (20:37)
[2021-12-08] MEDS: METOPROLOL TARTRATE 25 MG TAB PO PRN ×2 (00:51→08:32)
[2021-12-08] MEDS: SODIUM CHLORIDE 0.9% 1000ML 1,000 ML IV SCH ×2 (01:59→14:51)
[2021-12-08] MEDS: ASPIRIN 81 MG ECTAB PO SCH (08:31)
[2021-12-08] MEDS: CITALOPRAM 40 MG TAB PO SCH (08:31)
[2021-12-08] MEDS: SACCHAROMYCES BOULARDII 250 MG CAP PO SCH ×2 (08:31→20:15)
[2021-12-08] MEDS: HEPARIN SOD 5,000 UNIT/0.5 ML VIAL SQ SCH ×3 (08:31→20:16)
[2021-12-08] MEDS: ACETAMINOPHEN 325 MG TAB PO PRN ×2 (08:31→20:13)
[2021-12-08] MEDS: DICYCLOMINE HCL 10 MG CAP PO SCH ×3 (08:32→17:09)
[2021-12-08] MEDS: MESALAMINE 800 MG TABCR PO SCH ×3 (08:32→20:15)
[2021-12-08] MEDS: busPIRone 5 MG TAB PO SCH ×2 (08:32→20:16)
[2021-12-08 08:33] LABS: Hematocrit (blood only) 35.1 % (42-52); Hemoglobin 10.7 g/dL (14.0-18.0); Mean Corpuscular Hemoglobin 28.3 pg (25-34); Mean Corpuscular Hgb Conc 30.5 g/dL (32-36); Mean Corpuscular Volume 92.9 fL (80-100); Mean Platelet Volume 8.6 fL (7.4-10.4); Platelet Count 332 K/uL (130-400); RDW Coefficient of Variation 16.7 % (11.5-14.5); RDW Standard Deviation 56.8 fL (36.4-46.3); Red Blood Count 3.78 M/uL (4.7-6.1); White Blood Count 10.24 K/uL (4.8-10.8)
--- NOTE | 2021-12-08 08:48 | Gastroenterology Progress Note ---
Date of Service December 08, 2021 Assessment & Plan (1) Ulcerative colitis: (2) Norovirus: Plan: 51-year-old male recently diagnosed with severe ulcerative with pancolitis, on prednisone taper and mesalamine, was positive CMV treated with Valcyte, and recent C. difficile treated with 10 days of vancomycin last month. Admitted after presenting w/ worsening diarrhea and presyncope; had tachycardia, hypotension. + For Norovirus. He is C diff gene positive, toxin negative. Labs are stable today, has hyponatremia and this appears chronic, anemia is stable. Tolerating full liquids. On exam abd soft, nontender. Has had persistent low- grade temp, no leukocytosis. He has a mild tachycardia but this appears to be chronic going back to around Sep 2021. UC/BC pending. - C diff attempted to re-order however I am not able to given constraints of the computer; will add Flagyl 500 mg TID to cover for underlying secondary bacterial involvement given his temps and ongoing prednisone use (immunosuppressed) - Await UC/BC - Can continue full liquids -> then low-fiber/low residue as tolerated Continue IV hydration - Continue prednisone 30 mg dose, continue taper as prescribed Continue mesalamine 3 times daily Follow-up with GI as planned on 12/22/2021. Thank you for allowing us to participate in the care of this patient. Please call with any acute changes, questions or concerns. Please see addendum below with additional recommendation from my supervising physician. Admission and Anticipated Discharge Date Admission Date: December 05, 2021 Supervising Physician Co-Signing Physician Notes I performed a history and physical examination of the patient today, including specifically on physical exam - soft abdomen. I have discussed the patient's management with the advanced practitioner. Please refer to the nurse practitioner's note for the documented findings and plan of care. Patient with UC pancolitis on Steroids and Mesalamine, had CMV treated and now has Norovirus. Clinically improving. Would cover with Flagyl for now given pancolitis. Recall GI if needed. Subjective Patient seen and examined, chart reviewed. Pt w/ persistent low grade temps. No leukocytosis. Stools about the same, having loose stools mixed w/ blood. No worse than before. Chronic abd discomfort no worse. He is tolerating full liquid diet; needs lactose-free diet. No vomiting, nausea, hematemesis, melena, CP, SOB. Quit tobacco 2 years ago. No ETOH in > 10 years. Review of Systems Review of Systems: All systems reviewed & are unremarkable except as noted in HPI & below Physical Exam Constitutional: WD/WN, vitals as above Respiratory: normal respiratory effort, lungs clear to auscultation Cardiovascular: RRR, no murmur, no edema Gastrointestinal (Abdomen): normal bowel sounds, soft, nontender, no hepatospl enomegaly Skin: no rashes, warm and dry Psychiatric: A+Ox3, euthymic affect Results & Data ([facility]) Vital Signs (Past 12 Hours) Vital Signs Temp Pulse Pulse Resp BP BP Pulse Ox 12/08/21 08:00 39.5 C H 121 H 18 120/73 95 12/08/21 03:37 107 H 12/08/21 02:58 37.8 C H 110 H 18 122/80 92 12/08/21 00:51 128 H 155/90 H Laboratory Results 12/08/21 12/08/21 12/08/21 Range/Units 10:32 09:35 08:02 WBC 10.24 (4.8-10.8) K/uL RBC 3.78 L (4.7-6.1) M/uL Hgb 10.7 L (14.0-18.0) g/dL Hct 35.1 L (42-52) % MCV 92.9 (80-100) fL MCH 28.3 (25-34) pg MCHC 30.5 L (32-36) g/dL RDW Std Deviation 56.8 H (36.4-46.3) fL RDW Coeff of Chandra 16.7 H (11.5-14.5) % Plt Count 332 (130-400) K/uL MPV 8.6 (7.4-10.4) fL Sodium (136-145) mmol/L Potassium (3.5-5.1) mmol/L Chloride (98-107) mmol/L Carbon Dioxide (21-32) mmol/L Anion Gap (3-11) BUN (6-23) mg/dl Creatinine (0.6-1.4) mg/dl Est Cr Clr Drug Dosing ml/min Est GFR ( Amer) ml/min Est GFR (Non-Af Amer) ml/min BUN/Creatinine Ratio (10-20) Glucose (70-99(Fasting)) mg/dl Calcium (8.5-10.1) mg/dl Phosphorus (2.5-4.9) mg/dl Magnesium (1.7-2.4) mg/dl Procalcitonin 0.36 (0-0.5) ng/ml Urine Color Dark Yellow Urine Appearance Cloudy A (Clear) Urine pH 5.0 (4.5-7.5) Ur Specific Argyle 1.021 (1.000-1.030) Urine Protein Trace H (Negative) Urine Glucose (UA) 2+ H (Negative) Urine Ketones Trace H (Negative) Urine Blood Negative (Negative) Urine Nitrite Negative (Negative) Urine Bilirubin Negative (Negative) Urine Urobilinogen Negative (Negative) Ur Leukocyte Esterase 2+ H (Negative) Urine WBC (Auto) >30 H (0-5) /hpf Urine RBC (Auto) 0-4 (0-4) /hpf U Hyaline Cast (Auto) >30 H (0-5) /lpf U Epithel Cells (Auto) 0-5 (0-5) /lpf Urine Bacteria (Auto) Negative (Negative) Urine Mucus Present A (None Prsent) 12/08/21 Range/Units 08:02 WBC (4.8-10.8) K/uL RBC (4.7-6.1) M/uL Hgb (14.0-18.0) g/dL Hct (42-52) % MCV (80-100) fL MCH (25-34) pg MCHC (32-36) g/dL RDW Std Deviation (36.4-46.3) fL RDW Coeff of Chandra (11.5-14.5) % Plt Count (130-400) K/uL MPV (7.4-10.4) fL Sodium 129 L (136-145) mmol/L Potassium 3.6 (3.5-5.1) mmol/L Chloride 95 L (98-107) mmol/L Carbon Dioxide 27 (21-32) mmol/L Anion Gap 7 (3-11) BUN 5 L (6-23) mg/dl Creatinine 0.76 (0.6-1.4) mg/dl Est Cr Clr Drug Dosing 142.4 ml/min Est GFR ( Amer) 123.3 ml/min Est GFR (Non-Af Amer) 106.4 ml/min BUN/Creatinine Ratio 6.6 L (10-20) Glucose 115 H (70-99(Fasting)) mg/dl Calcium 7.8 L (8.5-10.1) mg/dl Phosphorus 2.7 (2.5-4.9) mg/dl Magnesium 1.7 (1.7-2.4) mg/dl Procalcitonin (0-0.5) ng/ml Urine Color Urine Appearance (Clear) Urine pH (4.5-7.5) Ur Specific Argyle (1.000-1.030) Urine Protein (Negative) Urine Glucose (UA) (Negative) Urine Ketones (Negative) Urine Blood (Negative) Urine Nitrite (Negative) Urine Bilirubin (Negative) Urine Urobilinogen (Negative) Ur Leukocyte Esterase (Negative) Urine WBC (Auto) (0-5) /hpf Urine RBC (Auto) (0-4) /hpf U Hyaline Cast (Auto) (0-5) /lpf U Epithel Cells (Auto) (0-5) /lpf Urine Bacteria (Auto) (Negative) Urine Mucus (None Prsent)
[2021-12-08 09:07] LABS: BUN Creatinine Ratio 6.6 (10-20); Calcium 7.8 mg/dl (8.5-10.1); Creatinine Clr Calc Pharmacy 142.4 ml/min; Est GFR (African American) 123.3 ml/min; Est GFR (Non-African American) 106.4 ml/min; Magnesium 1.7 mg/dl (1.7-2.4); Phosphorus 2.7 mg/dl (2.5-4.9); Potassium 3.6 mmol/L (3.5-5.1)
[2021-12-08] MEDS ORDERED: POTASSIUM CHLORIDE CRTAB 20 MEQ TABCR PO STA (09:24)
[2021-12-08] MEDS: SODIUM CHLORIDE 1 GM TABLET PO SCH ×2 (10:31→20:14)
[2021-12-08] MEDS: metroNIDAZOLE 500 MG TAB PO SCH ×3 (10:31→20:15)
[2021-12-08 10:59] LABS: Appearance Urine Cloudy (Clear); Bacteria Urine Automated Negative (Negative); Bilirubin Urine Negative (Negative); Blood Urine Negative (Negative); Color Urine Dark Yellow; Epithelial Cell Urine Auto 0-5 /lpf (0-5); Glucose Urine UA 2+ (Negative); Ketones Urine Trace (Negative); Leukocyte Esterase Urine 2+ (Negative); Nitrite Urine Negative (Negative); Protein Urine Trace (Negative); Specific Gravity Urine 1.021 (1.000-1.030); Urobilinogen Urine Negative (Negative); WBC Urine Automated >30 /hpf (0-5)
[2021-12-08 11:20] LABS: Cast Urine Automated >30 /lpf (0-5)
[2021-12-08 11:43] LABS: Mucus Urine Present (None Prsent)
[2021-12-08 11:44] LABS: RBC Urine Automated 0-4 /hpf (0-4)
--- NOTE | 2021-12-08 16:58 | Hospitalist Progress Note ---
Date of Service December 08, 2021 Assessment & Plan (1) Dizziness: (2) Norovirus: (3) Tachycardia: Plan: 51yo M with a PMH of HTN, dyslipidemia, ulcerative colitis, alcohol dependence in remission, depression, history of tobacco presented 12/05 with dizziness and near syncope x 2 days [employer]. He is being managed for the following: #. Dizziness #. Hyponatremia : Likely secondary to diarrhea and decreased p.o. intake #. Norovirus associated diarrhea Dizziness in the setting of diarrhea, dehydration and deconditioning from recent illness. Does not meet Sirs or sepsis criteria at presentation. Pro-José Miguel negative at presentation. Admitting sodium of 128. 12/06 orthostatic blood pressure positive. Patient reports improving diarrhea. Sodium level again went down today. Salt tab. Expect to improve with better p.o. intake. Pedialyte. IV fluid. Fall precaution. PT/OT when appropriate. Patient tachycardic secondary to volume depletion, continue telemetry, as needed metoprolol Patient tolerating full liquid diet today, advance as tolerated. Continue to monitor electrolytes. #. Likely Acute UTI Pt febrile over 12/06-12/07 12/08 UA s/o UTI, await Urine culture 12/08 blood culture, pending c/w rocephin 12/08 #. Ulcerative colitis #. Presumed C. difficile: Patient positive for gene and negative for toxin, discussed with GI, no treatment for C. difficile at this time. Patient has history of ulcerative colitis, diagnosed 2 months ago. Follows [facility] GI. Is status post colonoscopy and biopsy November 03: Ulcerative colitis plus CMV infection, status post antiviral treatment. Found to be C. difficile positive in mid October and treated with 10-day course of p.o. Vanco. 12/06 stool studies reviewed. Admitting CTAP: Suggestive of nonspecific pancolitis with proctitis, similar to numerous prior studies dating back to 2006. Nonobstructing bilateral nephrolithiasis. Patient started on steroid taper regimen a month ago, continue with the same. Continue with mesalamine home dose. GI on board: Follow-up with GI as planned on 12/22/2021. Appreciate recommendations. Flagyl initiated 12/08 #. Acute kidney injury Admitting creatinine of 1.45, in the setting of dehydration, resolved. #. Other chronic medical conditions: History of stroke [2019] with mild residual dysphagia, depression with anxiety, HTN, HLD Hold on HTN medication, resume when vitally stable. Continue with/resume home medication as and when appropriate. DVT Ppx: Heparin. Code status: FULL PCP: Aleta Dispo: Continue with med telemetry, expect discharge in next 2 days pending improvement in his vital status and diarrhea. Admission and Anticipated Discharge Date Admission Date: December 05, 2021 Subjective Patient seen and examined at bedside as a follow-up of hyponatremia, acute kidney injury and norovirus associated diarrhea. Patient lying in bed, NAD, no new acute events overnight. Patient had 3-4 diarrheal bowel movements overnight. Patient remains tachycardic. Febrile overnight Denies any belly pain, reports some belly discomfort which is chronic. Patient tolerating full liquid diet. Patient denies any fever/headache/chills/chest pain/palpitation/other review of symptoms. Physical Exam Physical Exam: GENERAL: Alert and oriented x3. NAD, on RA. HEENT: No pallor, no icterus. Pupils equal, round and reactive to light. Oral mucosa moist. NECK: No JVD, no neck masses. HEART: S1 and S2 heard. Regular rhythm. Tachycardic. No murmur, no gallop. RESPIRATORY SYSTEM: Normal AP diameter. No accessory muscle use. No wheezing, no crackles. ABDOMEN: Soft, bowel sounds present, nontender, no distention. CENTRAL NERVOUS SYSTEM: No facial droop. Speech is clear. Obeys simple commands. Moves extremities. EXTREMITIES: No edema, no erythema seen. Results & Data Results & Data ([facility]) Vital Signs (Past 12 Hours) Vital Signs Temp Pulse Resp BP Pulse Ox 12/08/21 15:27 36.9 C 97 H 18 136/87 95 12/08/21 11:38 37.6 C H 92 H 20 101/64 91 12/08/21 08:00 39.5 C H 121 H 18 120/73 95
[2021-12-08] MEDS: traZODone HCL 50 MG TAB PO SCH (20:14)
[2021-12-08] MEDS: ATORVASTATIN 40 MG TAB PO SCH (20:16)
[2021-12-09] MEDS: SODIUM CHLORIDE 0.9% 1000ML 1,000 ML IV SCH (03:14)
[2021-12-09 06:03] LABS: Hematocrit (blood only) 30.9 % (42-52); Hemoglobin 9.5 g/dL (14.0-18.0); Mean Corpuscular Hemoglobin 28.3 pg (25-34); Mean Corpuscular Hgb Conc 30.7 g/dL (32-36); Mean Platelet Volume 8.3 fL (7.4-10.4); Platelet Count 316 K/uL (130-400); RDW Coefficient of Variation 16.6 % (11.5-14.5); RDW Standard Deviation 55.6 fL (36.4-46.3); Red Blood Count 3.36 M/uL (4.7-6.1); White Blood Count 9.61 K/uL (4.8-10.8)
[2021-12-09 06:23] LABS: BUN Creatinine Ratio 7.2 (10-20); Calcium 8.3 mg/dl (8.5-10.1); Creatinine Clr Calc Pharmacy 156.8 ml/min; Est GFR (African American) 128.3 ml/min; Est GFR (Non-African American) 110.7 ml/min; Magnesium 1.7 mg/dl (1.7-2.4); Phosphorus 2.4 mg/dl (2.5-4.9); Potassium 3.3 mmol/L (3.5-5.1)
[2021-12-09] MEDS ORDERED: MAGNESIUM SULFATE / D5W 1 GM/100 ML BAG IV ONE (07:45)
[2021-12-09] MEDS: METOPROLOL TARTRATE 25 MG TAB PO PRN (08:55)
[2021-12-09] MEDS: POT PHOSPHATE MONOBASIC W/ SOD TAB PO SCH ×3 (08:55→16:48)
[2021-12-09] MEDS: MESALAMINE 800 MG TABCR PO SCH ×3 (08:56→20:50)
[2021-12-09] MEDS: POTASSIUM CHLORIDE CRTAB 20 MEQ TABCR PO SCH ×2 (08:56→09:56)
[2021-12-09] MEDS: busPIRone 5 MG TAB PO SCH ×2 (08:56→20:51)
[2021-12-09] MEDS: SACCHAROMYCES BOULARDII 250 MG CAP PO SCH ×2 (08:57→20:53)
[2021-12-09] MEDS: DICYCLOMINE HCL 10 MG CAP PO SCH ×3 (08:57→16:48)
[2021-12-09] MEDS: metroNIDAZOLE 500 MG TAB PO SCH ×3 (08:57→20:50)
[2021-12-09] MEDS: SODIUM CHLORIDE 1 GM TABLET PO SCH ×2 (08:57→20:49)
[2021-12-09] MEDS: ASPIRIN 81 MG ECTAB PO SCH (08:58)
[2021-12-09] MEDS: CITALOPRAM 40 MG TAB PO SCH (08:58)
[2021-12-09] MEDS: HEPARIN SOD 5,000 UNIT/0.5 ML VIAL SQ SCH ×2 (08:58→20:52)
[2021-12-09] MEDS: cefTRIAXone SODIUM 2,000 MG in DEXTROSE 5% 50 ML IV SCH (09:00)
[2021-12-09] MEDS: ACETAMINOPHEN 325 MG TAB PO PRN (11:47)
--- NOTE | 2021-12-09 19:30 | Hospitalist Progress Note ---
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 Dizziness #. Hyponatremia : Likely secondary to diarrhea and decreased p.o. intake #. Norovirus associated diarrhea Dizziness in the setting of diarrhea, dehydration and deconditioning from recent illness. Does not meet Sirs or sepsis criteria at presentation. Pro-José Miguel negative at presentation. Admitting sodium of 128. 12/06 orthostatic blood pressure positive. Patient reports improving diarrhea. Sodium level still low. Salt tab. Expect to improve with better p.o. intake. Pedialyte. ADAT. Fall precaution. PT/OT when appropriate. Patient tachycardic secondary to volume depletion, continue telemetry, as needed metoprolol Patient tolerating full liquid diet today, advance as tolerated. Continue to monitor electrolytes. #. Likely Acute UTI Pt febrile over 12/06-12/07 12/08 UA s/o UTI, await Urine culture 12/08 blood culture, pending c/w rocephin 12/09 #. Ulcerative colitis #. Presumed C. difficile: Patient positive for gene and negative for toxin, discussed with GI, no treatment for C. difficile at this time. Patient has history of ulcerative colitis, diagnosed 2 months ago. Follows [facility] GI. Is status post colonoscopy and biopsy November 03: Ulcerative colitis plus CMV infection, status post antiviral treatment. Found to be C. difficile positive in mid October and treated with 10-day course of p.o. Vanco. 12/06 stool studies reviewed. Admitting CTAP: Suggestive of nonspecific pancolitis with proctitis, similar to numerous prior studies dating back to 2006. Nonobstructing bilateral nephrolithiasis. Patient started on steroid taper regimen a month ago, continue with the same. Continue with mesalamine home dose. GI on board: Follow-up with GI as planned on 12/22/2021. Appreciate recommendations. Flagyl initiated 12/08 #. Acute kidney injury Admitting creatinine of 1.45, in the setting of dehydration, resolved. #. Other chronic medical conditions: History of stroke [2019] with mild residual dysphagia, depression with anxiety, HTN, HLD Hold on HTN medication, resume when vitally stable. Continue with/resume home medication as and when appropriate. DVT Ppx: Heparin. Code status: FULL PCP: Aleta Dispo: Continue with med telemetry, expect discharge in next 2 days pending improvement in his vital status and diarrhea. Admission and Anticipated Discharge Date Admission Date: December 05, 2021 Subjective Patient seen and examined at bedside as a follow-up of hyponatremia, acute kidn ey injury and norovirus associated diarrhea. Patient lying in bed, NAD, no new acute events overnight. Patient had 3-4 diarrheal bowel movements overnight with on/off blood which seems to be his bas vern per patient after diagnosis of UC. Patient remains tachycardic. Febrile overnight. Denies any belly pain, reports some belly discomfort which is chronic. Patient tolerating full liquid diet. Advance as tolerated. Patient denies any headache/chills/chest pain/palpitation/other review of symptoms. Physical Exam Physical Exam: GENERAL: Alert and oriented x3. NAD, on RA. HEENT: No pallor, no icterus. Pupils equal, round and reactive to light. Oral mucosa moist. NECK: No JVD, no neck masses. HEART: S1 and S2 heard. Regular rhythm. Tachycardic. No murmur, no gallop. RESPIRATORY SYSTEM: Normal AP diameter. No accessory muscle use. No wheezing, no crackles. ABDOMEN: Soft, bowel sounds present, nontender, no distention. CENTRAL NERVOUS SYSTEM: No facial droop. Speech is clear. Obeys simple commands. Moves extremities. EXTREMITIES: No edema, no erythema seen. Results & Data Results & Data ([facility]) Vital Signs (Past 12 Hours) Vital Signs Temp Pulse Pulse Resp BP Pulse Ox 12/09/21 18:32 36.9 C 85 22 107/68 95 12/09/21 15:24 36.6 C 93 H 20 106/70 96 12/09/21 12:28 38.1 C H 94 H 20 99/68 L 97 12/09/21 09:36 113 H 12/09/21 07:54 37.4 C 108 H 20 129/77 95
[2021-12-09] MEDS: traZODone HCL 50 MG TAB PO SCH (20:48)
[2021-12-09] MEDS: ATORVASTATIN 40 MG TAB PO SCH (20:52)
[2021-12-10 07:12] LABS: Hematocrit (blood only) 31.1 % (42-52); Hemoglobin 9.5 g/dL (14.0-18.0); Mean Corpuscular Hemoglobin 27.9 pg (25-34); Mean Corpuscular Hgb Conc 30.5 g/dL (32-36); Mean Corpuscular Volume 91.2 fL (80-100); Mean Platelet Volume 8.4 fL (7.4-10.4); Platelet Count 344 K/uL (130-400); RDW Coefficient of Variation 16.8 % (11.5-14.5); RDW Standard Deviation 57.1 fL (36.4-46.3); Red Blood Count 3.41 M/uL (4.7-6.1); White Blood Count 9.19 K/uL (4.8-10.8)
[2021-12-10 07:35] LABS: BUN Creatinine Ratio 8.5 (10-20); Calcium 7.3 mg/dl (8.5-10.1); Creatinine Clr Calc Pharmacy 152.7 ml/min; Est GFR (African American) 126.8 ml/min; Est GFR (Non-African American) 109.4 ml/min; Magnesium 1.8 mg/dl (1.7-2.4); Phosphorus 2.6 mg/dl (2.5-4.9); Potassium 3.1 mmol/L (3.5-5.1)
[2021-12-10] MEDS: SACCHAROMYCES BOULARDII 250 MG CAP PO SCH ×2 (07:39→20:05)
[2021-12-10] MEDS: busPIRone 5 MG TAB PO SCH ×2 (07:39→20:05)
[2021-12-10] MEDS: metroNIDAZOLE 500 MG TAB PO SCH ×3 (07:40→20:07)
[2021-12-10] MEDS: MESALAMINE 800 MG TABCR PO SCH ×3 (07:40→20:05)
[2021-12-10] MEDS: CITALOPRAM 40 MG TAB PO SCH (07:40)
[2021-12-10] MEDS: SODIUM CHLORIDE 1 GM TABLET PO SCH ×2 (07:40→20:07)
[2021-12-10] MEDS: METOPROLOL TARTRATE 25 MG TAB PO PRN (07:40)
[2021-12-10] MEDS: ASPIRIN 81 MG ECTAB PO SCH (07:41)
[2021-12-10] MEDS: DICYCLOMINE HCL 10 MG CAP PO SCH ×3 (07:41→15:46)
[2021-12-10] MEDS: cefTRIAXone SODIUM 2,000 MG in DEXTROSE 5% 50 ML IV SCH (07:42)
[2021-12-10] MEDS: HEPARIN SOD 5,000 UNIT/0.5 ML VIAL SQ SCH ×2 (07:42→20:07)
[2021-12-10] MEDS: POTASSIUM CHLORIDE CRTAB 20 MEQ TABCR PO SCH ×2 (10:40→12:31)
--- NOTE | 2021-12-10 17:28 | Hospitalist Progress Note ---
Date of Service December 10, 2021 Assessment & Plan (1) Dizziness: (2) Norovirus: (3) Tachycardia: Plan: 51yo M with a PMH of HTN, dyslipidemia, ulcerative colitis, alcohol dependence in remission, depression, history of tobacco presented 12/05 with dizziness and near syncope x 2 days [employer]. He is being managed for the following: #. Dizziness #. Hyponatremia : Likely secondary to diarrhea and decreased p.o. intake #. Norovirus associated diarrhea Dizziness in the setting of diarrhea, dehydration and deconditioning from recent illness. Does not meet Sirs or sepsis criteria at presentation. Pro-José Miguel negative at presentation. Admitting sodium of 128. 12/06 orthostatic blood pressure positive. Patient reports improving diarrhea. Sodium level still low, closer to his baseline. Salt tab. Pedialyte. Fall precaution. PT/OT when appropriate. Patient tolerating regular diet. Continue to monitor electrolytes. #. Likely Acute UTI Pt febrile over 12/06-12/07 12/08 UA s/o UTI, await Urine culture 12/08 blood culture, pending c/w rocephin 12/09 #. Ulcerative colitis #. Presumed C. difficile: Patient positive for gene and negative for toxin, discussed with GI, no treatment for C. difficile at this time. Patient has history of ulcerative colitis, diagnosed 2 months ago. Follows [facility] GI. Is status post colonoscopy and biopsy November 03: Ulcerative colitis plus CMV infection, status post antiviral treatment. Found to be C. difficile positive in mid October and treated with 10-day course of p.o. Vanco. 12/06 stool studies reviewed. Admitting CTAP: Suggestive of nonspecific pancolitis with proctitis, similar to numerous prior studies dating back to 2006. Nonobstructing bilateral nephrolithiasis. Patient started on steroid taper regimen a month ago, continue with the same. Continue with mesalamine home dose. GI on board: Follow-up with GI as planned on 12/22/2021. Appreciate recommendations. Flagyl initiated 12/08 #. Acute kidney injury Admitting creatinine of 1.45, in the setting of dehydration, resolved. #. Other chronic medical conditions: History of stroke [2019] with mild residual dysphagia, depression with anxiety, HTN, HLD Hold on HTN medication, resume when vitally stable. Continue with/resume home medication as and when appropriate. DVT Ppx: Heparin. Code status: FULL PCP: Aleta Dispo: Continue with med telemetry, expect discharge in next 2 days pending improvement in his vital status and diarrhea. Admission and Anticipated Discharge Date Admission Date: December 05, 2021 Subjective Patient seen and examined at bedside as a follow-up of hyponatremia, acute kidney injury and norovirus associated diarrhea. Patient lying in bed, NAD, no new acute events overnight. Patient had 3-4 diarrheal bowel movements overnight with on/off blood which seems to be his baseline per patient after diagnosis of UC. Patient remains tachycardic. temperature getting better. Denies any belly pain, reports some belly discom fort which is chronic. Patient tolerating regular diet Patient denies any headache/chills/chest pain/palpitation/other review of symptoms. Physical Exam Physical Exam: GENERAL: Alert and oriented x3. NAD, on RA. HEENT: No pallor, no icterus. Pupils equal, round and reactive to light. Oral mucosa moist. NECK: No JVD, no neck masses. HEART: S1 and S2 heard. Regular rhythm. Tachycardic. No murmur, no gallop. RESPIRATORY SYSTEM: Normal AP diameter. No accessory muscle use. No wheezing, no crackles. ABDOMEN: Soft, bowel sounds present, nontender, no distention. CENTRAL NERVOUS SYSTEM: No facial droop. Speech is clear. Obeys simple commands. Moves extremities. EXTREMITIES: No edema, no erythema seen. Results & Data Results & Data ([facility]) Vital Signs (Past 12 Hours) Vital Signs Temp Pulse Pulse Resp BP BP Pulse Ox 12/10/21 15:13 36.9 C 96 H 20 113/73 96 12/10/21 15:10 103 H 12/10/21 12:10 37.1 C 98 H 20 123/72 92 12/10/21 07:31 107 H 12/10/21 05:44 37.1 C 107 H 18 125/82 96
[2021-12-10] MEDS: ACETAMINOPHEN 325 MG TAB PO PRN (19:20)
[2021-12-10] MEDS: traZODone HCL 50 MG TAB PO SCH (20:06)
[2021-12-10] MEDS: ATORVASTATIN 40 MG TAB PO SCH (20:06)
[2021-12-11] MEDS: SODIUM CHLORIDE 1 GM TABLET PO SCH ×2 (07:25→20:25)
[2021-12-11] MEDS: metroNIDAZOLE 500 MG TAB PO SCH ×3 (07:26→20:27)
[2021-12-11] MEDS: busPIRone 5 MG TAB PO SCH ×2 (07:26→20:26)
[2021-12-11] MEDS: MESALAMINE 800 MG TABCR PO SCH ×3 (07:27→20:29)
[2021-12-11] MEDS: ASPIRIN 81 MG ECTAB PO SCH (07:28)
[2021-12-11] MEDS: CITALOPRAM 40 MG TAB PO SCH (07:28)
[2021-12-11] MEDS: METOPROLOL TARTRATE 25 MG TAB PO PRN (07:30)
[2021-12-11] MEDS: DICYCLOMINE HCL 10 MG CAP PO SCH ×3 (07:32→16:47)
[2021-12-11] MEDS: SACCHAROMYCES BOULARDII 250 MG CAP PO SCH ×2 (07:33→20:26)
[2021-12-11] MEDS: HEPARIN SOD 5,000 UNIT/0.5 ML VIAL SQ SCH ×2 (07:33→20:31)
[2021-12-11] MEDS: cefTRIAXone SODIUM 2,000 MG in DEXTROSE 5% 50 ML IV SCH (07:34)
[2021-12-11 07:55] LABS: Hematocrit (blood only) 31.2 % (42-52); Hemoglobin 9.4 g/dL (14.0-18.0)
[2021-12-11 08:23] LABS: BUN Creatinine Ratio 8.3 (10-20); Calcium 7.3 mg/dl (8.5-10.1); Creatinine Clr Calc Pharmacy 180.7 ml/min; Est GFR (African American) 135.9 ml/min; Est GFR (Non-African American) 117.2 ml/min; Magnesium 1.6 mg/dl (1.7-2.4); Phosphorus 2.3 mg/dl (2.5-4.9); Potassium 3.4 mmol/L (3.5-5.1)
[2021-12-11] MEDS ORDERED: ERGOCALCIFEROL 50,000 UNITS 1250 MCG CAP PO SCH (09:00)
[2021-12-11] MEDS: POTASSIUM CHLORIDE CRTAB 20 MEQ TABCR PO SCH (10:39)
[2021-12-11] MEDS: MAGNESIUM OXIDE 400 MG TAB PO SCH ×2 (10:39→20:30)
--- NOTE | 2021-12-11 11:56 | Gastroenterology Progress Note ---
Date of Service December 11, 2021 Assessment & Plan (1) Ulcerative colitis: Plan: 51 year old male w/ severe ulcerative with pancolitis, on prednisone taper and mesalamine recent treated for CMV, c.diff and norovirus who notes about 5-7 loose, bloody BMs daily which is back to his baseline. Continue management per past consultations notes Can use 2g questran daily Updated his OP GI team who will discuss escalation of therapy next week at office appt Admission and Anticipated Discharge Date Admission Date: December 05, 2021 Supervising Physician Co-Signing Physician Notes Eating lunch Abd soft Agree with further plan of care as a drea. Subjective GI asked to re-evaluate for diarrhea. History of recently diagnosed UC, CMV colitis, C.diff colitis, admitted with norovirus. He has slowly improved but notes not full resolution of his symptoms. Denies abd pain but notes ongoing diarrhea, frequency and urgency. No black stools but persistent bloody stools. No fever, chills, CP, SOB Review of Systems Review of Systems: All systems reviewed & are unremarkable except as noted in HPI & below Physical Exam Constitutional: WD/WN, vitals as above Neck: trachea midline, no thyromegaly Respiratory: normal respiratory effort, lungs clear to auscultation Cardiovascular: Rate/Rhythm: regular rate and regular rhythm Gastrointestinal (Abdomen): normal bowel sounds, soft, nontender, no hepatosplenomegaly Skin: no rashes, warm and dry Results & Data ([facility]) Vital Signs (Past 12 Hours) Vital Signs Temp Pulse Pulse Pulse Resp BP Pulse Ox 12/11/21 07:40 37.3 C 98 H 20 128/80 96 12/11/21 06:55 112 H 12/11/21 03:50 37.4 C 98 H 20 144/79 H 96 Laboratory Results 12/11/21 12/11/21 Range/Units 07:28 07:28 Hgb 9.4 L (14.0-18.0) g/dL Hct 31.2 L (42-52) % Sodium 133 L (136-145) mmol/L Potassium 3.4 L (3.5-5.1) mmol/L Chloride 102 (98-107) mmol/L Carbon Dioxide 25 (21-32) mmol/L Anion Gap 6 (3-11) BUN 5 L (6-23) mg/dl Creatinine 0.60 (0.6-1.4) mg/dl Est Cr Clr Drug Dosing 180.7 ml/min Est GFR ( Amer) 135.9 ml/min Est GFR (Non-Af Amer) 117.2 ml/min BUN/Creatinine Ratio 8.3 L (10-20) Glucose 117 H (70-99(Fasting)) mg/dl Calcium 7.3 L (8.5-10.1) mg/dl Phosphorus 2.3 L (2.5-4.9) mg/dl Magnesium 1.6 L (1.7-2.4) mg/dl
[2021-12-11] MEDS: POT PHOSPHATE MONOBASIC W/ SOD TAB PO SCH ×3 (12:25→20:25)
[2021-12-11] MEDS ORDERED: POTASSIUM CHLORIDE CRTAB 20 MEQ TABCR PO ONE (13:00)
--- NOTE | 2021-12-11 17:32 | Hospitalist Progress Note ---
Date of Service December 11, 2021 Assessment & Plan (1) Dizziness: (2) Norovirus: (3) Tachycardia: Plan: 51yo M with a PMH of HTN, dyslipidemia, ulcerative colitis, alcohol dependence in remission, depression, history of tobacco presented 12/05 with dizziness and near syncope x 2 days [employer]. He is being managed for the following: #. Dizziness #. Hyponatremia : Likely secondary to diarrhea and decreased p.o. intake #. Norovirus associated diarrhea Dizziness in the setting of diarrhea, dehydration and deconditioning from recent illness. Does not meet Sirs or sepsis criteria at presentation. Pro-José Miguel negative at presentation. Admitting sodium of 128. 12/06 orthostatic blood pressure positive. Patient reports diarrhea closer to his baseline after diagnosis of UC. Sodium level improving, closer to his baseline. Salt tab. Pedialyte. Fall precaution. PT/OT when appropriate. Patient tolerating regular diet. Continue to monitor electrolytes. #. Likely Acute UTI Pt febrile over 12/06-12/07 12/08 UA s/o UTI, await Urine culture 12/08 blood culture, pending c/w rocephin 12/09 #. Ulcerative colitis #. Presumed C. difficile: Patient positive for gene and negative for toxin, discussed with GI, no treatment for C. difficile at this time. Patient has history of ulcerative colitis, diagnosed 2 months ago. Follows [facility] GI. Is status post colonoscopy and biopsy November 03: Ulcerative colitis plus CMV infection, status post antiviral treatment. Found to be C. difficile positive in mid October and treated with 10-day course of p.o. Vanco. 12/06 stool studies reviewed. Admitting CTAP: Suggestive of nonspecific pancolitis with proctitis, similar to numerous prior studies dating back to 2006. Nonobstructing bilateral nephrolithiasis. Patient started on steroid taper regimen a month ago, continue with the same. Continue with mesalamine home dose. GI on board: Follow-up with GI as planned on 12/22/2021. Appreciate recomme ndations. Flagyl initiated 12/08 D/W gi, c/w recent UC Mx recs, use questran, OP GI visit for eval of escalation of UC Mx. Quesetran 2 g/d #. Acute kidney injury Admitting creatinine of 1.45, in the setting of dehydration, resolved. #. Other chronic medical conditions: History of stroke [2019] with mild residual dysphagia, depression with anxiety, HTN, HLD Hold on HTN medication, resume when vitally stable. Continue with/resume home medication as and when appropriate. DVT Ppx: Heparin. Code status: FULL PCP: Aleta Dispo: Continue with med telemetry, likely DC collin. Admission and Anticipated Discharge Date Admission Date: December 05, 2021 Subjective Patient seen and examined at bedside as a follow-up of hyponatremia, acute kidney injury and norovirus associated diarrhea. Patient lying in bed, NAD, no new acute events overnight. Patient had 3-4 diarrheal bowel movements overnight with on/off blood which seems to be his baseline per patient after diagnosis of UC. Patient remains tachycardic. temperature getting better. Denies any belly pain, reports some belly discomfort which is chronic. Patient tolerating regular diet Patient denies any headache/chills/chest pain/palpitation/other review of symptoms. Physical Exam Physical Exam: GENERAL: Alert and oriented x3. NAD, on RA. HEENT: No pallor, no icterus. Pupils equal, round and reactive to light. Oral mucosa moist. NECK: No JVD, no neck masses. HEART: S1 and S2 heard. Regular rhythm. Tachycardic. No murmur, no gallop. RESPIRATORY SYSTEM: Normal AP diameter. No accessory muscle use. No wheezing, no crackles. ABDOMEN: Soft, bowel sounds present, nontender, no distention. CENTRAL NERVOUS SYSTEM: No facial droop. Speech is clear. Obeys simple commands. Moves extremities. EXTREMITIES: No edema, no erythema seen. Results & Data Results & Data ([facility]) Vital Signs (Past 12 Hours) Vital Signs Temp Pulse Pulse Resp BP Pulse Ox 12/11/21 15:41 37 C 96 H 18 130/83 93 12/11/21 15:18 94 H 12/11/21 12:00 37.5 C 96 H 20 117/79 95 12/11/21 07:40 37.3 C 98 H 20 128/80 96 12/11/21 06:55 112 H
[2021-12-11] MEDS: CHOLESTYRAMINE LIGHT 4 GM PKT PO SCH (18:41)
[2021-12-11] MEDS: traZODone HCL 50 MG TAB PO SCH (20:24)
[2021-12-11] MEDS: METOPROLOL TARTRATE 25 MG TAB PO SCH (20:27)
[2021-12-11] MEDS: ATORVASTATIN 40 MG TAB PO SCH (20:30)
[2021-12-12 07:39] LABS: Hematocrit (blood only) 29.4 % (42-52); Hemoglobin 9.2 g/dL (14.0-18.0)
[2021-12-12] MEDS: CHOLESTYRAMINE LIGHT 4 GM PKT PO SCH (07:56)
[2021-12-12] MEDS: SACCHAROMYCES BOULARDII 250 MG CAP PO SCH (07:57)
[2021-12-12] MEDS: MESALAMINE 800 MG TABCR PO SCH (07:57)
[2021-12-12] MEDS: HEPARIN SOD 5,000 UNIT/0.5 ML VIAL SQ SCH (07:57)
[2021-12-12] MEDS: METOPROLOL TARTRATE 25 MG TAB PO SCH (07:57)
[2021-12-12] MEDS: POTASSIUM CHLORIDE CRTAB 20 MEQ TABCR PO SCH (07:57)
[2021-12-12] MEDS: DICYCLOMINE HCL 10 MG CAP PO SCH (07:57)
[2021-12-12] MEDS: SODIUM CHLORIDE 1 GM TABLET PO SCH (07:57)
[2021-12-12] MEDS: ASPIRIN 81 MG ECTAB PO SCH (07:58)
[2021-12-12] MEDS: POT PHOSPHATE MONOBASIC W/ SOD TAB PO SCH (07:58)
[2021-12-12] MEDS: busPIRone 5 MG TAB PO SCH (07:58)
[2021-12-12] MEDS: MAGNESIUM OXIDE 400 MG TAB PO SCH (07:58)
[2021-12-12] MEDS: metroNIDAZOLE 500 MG TAB PO SCH (07:58)
[2021-12-12] MEDS: CITALOPRAM 40 MG TAB PO SCH (07:58)
[2021-12-12] MEDS: cefTRIAXone SODIUM 2,000 MG in DEXTROSE 5% 50 ML IV SCH (07:59)
[2021-12-12 08:42] LABS: BUN Creatinine Ratio 7.7 (10-20); Calcium 7.6 mg/dl (8.5-10.1); Creatinine Clr Calc Pharmacy 166.5 ml/min; Est GFR (African American) 131.5 ml/min; Est GFR (Non-African American) 113.4 ml/min; Magnesium 1.7 mg/dl (1.7-2.4); Phosphorus 2.4 mg/dl (2.5-4.9); Potassium 3.9 mmol/L (3.5-5.1)
--- NOTE | 2021-12-12 10:34 | Discharge Summary ---
Date of Service December 12, 2021 Admission HPI Per Admitting Provider This is a 51yo M with a PMH of HTN, dyslipidemia, ulcerative colitis, alcohol dependence in remission, depression, history of tobacco use and other medical problems who presents with dizziness and near syncope x 2 days. Was diagnosed with Ulcerative Colitis 2 months ago and is following with [facility] GI. Current regimen is prednisone 30 mg daily and mesalamine 1600 mg TID. Underwent colonoscopy Nov 03 of this year demonstrating UC with pathology showing CMV that was treated with anti-viral. Also found to be c diff positive in mid- October and prescribed 10 day course of PO vanc. Has continued to have loose st ool but improved until 2 days ago, when he endorses 4-5 episodes of bloody diarrhea. Recently returned to work at [employer] 2 days ago after a few weeks off and has become dizzy with prolonged standing. First notes lightheadedness followed by visual changes particularly in left eye for a few minutes before resolving. Also endorses associated central chest pressure described as tightness that last for a few minutes and resolves when he sits down. Denies any radiation of chest pain to jaw or arms. No diaphoresis, nausea or vomiting. No focal weakness,speech or swallowing issues or difficulty with ambulation. Does endorse 4-5 episodes of bloody diarrhea yesterday prior to feeling lightheaded at work. Has been drinking S[employer] life water. Only other new medication is BuSpar 5 mg twice daily. Does endorse episode of unwitnessed syncope 2 weeks ago at home. Denies any head trauma. Has not recurred. No fever, chills, headache, palpitations, shortness of breath, nausea, vomiting, abdominal pain, dysuria or constipation. Admission Exam Per Admitting Provider Lying in bed with minimal distress Hemodynamically stable with tachycardia at around 107 Chestclear to auscultate bilaterally HeartS1, S2, regular Abdomendistended, soft, mildly tender with normal bowel sound Extremitiesno edema. No evidence of arthritis CNSalert, awake and oriented x3. No focal sensory or motor deficit appreciated No extra intestinal findings on examination Principal Diagnosis Norovirus associated diarrhea Acute UTI Ulcerative colitis Discharge Exam GENERAL: Alert and oriented x3. NAD, on RA. HEENT: No pallor, no icterus. Pupils equal, round and reactive to light. Oral mucosa moist. NECK: No JVD, no neck masses. HEART: S1 and S2 heard. Regular rhythm and rate. No murmur, no gallop. RESPIRATORY SYSTEM: Normal AP diameter. No accessory muscle use. No wheezing, no crackles. ABDOMEN: Soft, bowel sounds present, nontender, no distention. CENTRAL NERVOUS SYSTEM: No facial droop. Speech is clear. Obeys simple commands. Moves extremities. EXTREMITIES: No edema, no erythema seen. 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 He was managed for the following: #. Dizziness #. Hyponatremia : Likely secondary to diarrhea and decreased p.o. intake #. Norovirus associated diarrhea Dizziness in the setting of diarrhea, dehydration and deconditioning from recent illness. Does not meet Sirs or sepsis criteria at presentation. Pro-José Miguel negative at presentation. Admitting sodium of 128. 12/06 orthostatic blood pressure positive. Patient reports diarrhea closer to his baseline after diagnosis of UC. Today reports not passing BM while passing urine, so pt feels better. Sodium level improving, closer to his baseline. Salt tab. Pedialyte. Fall precaution. Patient tolerating regular diet. Continue to monitor electrolytes as OP as discussed at the bedside. #. Likely Acute UTI Pt febrile over 12/06-12/07 12/08 UA s/o UTI, await Urine culture 12/08 blood culture, pending c/w rocephin 12/09 --> still with some pain when passing urine --> 2 more days of antibiotic upon DC, pyridium added. #. Ulcerative colitis #. Presumed C. difficile: Patient positive for gene and negative for toxin, discussed with GI, no treatment for C. difficile at this time. Patient has history of ulcerative colitis, diagnosed 2 months ago. Follows [facility] GI. Is status post colonoscopy and biopsy November 03: Ulcerative colitis plus CMV infection, status post antiviral treatment. Found to be C. difficile positive in mid October and treated with 10-day course of p.o. Vanco. 12/06 stool studies reviewed. Admitting CTAP: Suggestive of nonspecific pancolitis with proctitis, similar to numerous prior studies dating back to 2006. Nonobstructing bilateral nephrolithiasis. Patient started on steroid taper regimen a month ago, continue with the same. Continue with mesalamine home dose. GI on board: Follow-up with GI as planned on 12/22/2021. Appreciate recommendations. Flagyl initiated 12/08 D/W gi 12/11, c/w recent UC Mx recs, use questran, OP GI visit for eval of escalation of UC Mx. Quesetran 2 g/d #. Acute kidney injury Admitting creatinine of 1.45, in the setting of dehydration, resolved. #. Other chronic medical conditions: History of stroke [2019] with mild residual dysphagia, depression with anxiety, HTN, HLD Hold on HTN medication, resume when vitally stable. Continue with/resume home medication as and when appropriate. Code status: FULL PCP: Aleta Patient is being discharged to home with following instructions at the point of discharge: Follow-up with your PCP within a week time. Follow-up with your GI doctor next week for possible discussion of/evaluation of escalating your ulcerative colitis treatment. Continue with your steroid taper as discussed at the bedside which was recommended by your outpatient GI doctor. As discussed at the bedside, get your blood work CBC, BMP, magnesium and phosphorus done at day 3 and at day 7 upon discharge. You are being discharged with some magnesium/phosphorus and a small dose of potassium supplement. You will need to get in touch with your PCP for further evaluation/dose adjustment of the supplements as an outpatient. Since your heart rate was always elevated requiring multiple doses of as needed metoprolol, you have been started on a small dose of metoprolol. Since your sodium level was low during the hospital stay and you needed to be on sodium tablet, you are being discharged on sodium tablet, discuss with your primary care as an outpatient for further continuation/adjustment of your sodium tablet. Close follow-up with PCP for further evaluation of your supplements is necessary as their need might change with improvement in your diarrheal episodes/ulcerative colitis. You are being discharged on antibiotics for few days, probiotics added for the same duration. Take your medications as prescribed. Total Time Total Time Spent Total Time Spent (In Minutes): 40 Discharge Plan Discharge Items Patient Disposition: Home - Self-Care Reason For Visit: NEAR SYNCOPE, MARIANELA, HYPONATREMIA, UC Discharge Diagnosis: Norovirus associated diarrhea Acute UTI Ulcerative colitis Activity: Resume your previous activity Non-emergency contact: Primary Care Provider Call non-emergency contact if: you have any medication questions, your symptoms worsen and your temperature is above 101 Follow-up/Referrals: Mallory River DO [Primary Care Provider] - (Date & Time 12/14/2021 2:20 PM Provider Mallory River DO Department [facility] ) Bhakti Jacobson CRNP [Nurse Practitioner] - (Date & Time 12/22/2021 8:00 AM Provider AVINASH Scruggs Department Gastroenterology, [facility] ) Diet: Regular Addtl Attending Provider Instructions: Follow-up with your PCP within a week time. Follow-up with your GI doctor next week for possible discussion of/evaluation of escalating your ulcerative colitis treatment. Continue with your steroid taper as discussed at the bedside which was recommended by your outpatient GI doctor. As discussed at the bedside, get your blood work CBC, BMP, magnesium and phosphorus done at day 3 and at day 7 upon discharge. You are being discharged with some magnesium/phosphorus and a small dose of po tassium supplement. You will need to get in touch with your PCP for further evaluation/dose adjustment of the supplements as an outpatient. Since your heart rate was always elevated requiring multiple doses of as needed metoprolol, you have been started on a small dose of metoprolol. Since your sodium level was low during the hospital stay and you needed to be on sodium tablet, you are being discharged on sodium tablet, discuss with your primary care as an outpatient for further continuation/adjustment of your sodium tablet. Close follow-up with PCP for further evaluation of your supplements is necessary as their need might change with improvement in your diarrheal episodes/ulcerative colitis. You are being discharged on antibiotics for few days, probiotics added for the same duration. Take your medications as prescribed. Pending Studies at Discharge: Yes (12/08 blood culture final results.) Stand-Alone Forms: My [facility], Smoking Cessation Medications and DC Order Prescriptions: New metronidazole 500 mg Tablet 500 mg PO TID 3 Days Qty: 9 RF: 0 cholestyramine-aspartame [Cholestyramine Light] 4 gram Powder In Packet 2 g PO DAILY 15 Days Qty: 15 RF: 0 potassium chloride 20 mEq Tablet,Er Particles/Crystals 10 meq PO QAM 30 Days Qty: 15 RF: 0 Phospha 250 Neutral 250 mg Tablet 1 tab PO QID 15 Days Qty: 60 RF: 0 sodium chloride 1 gram Tablet 1 g PO BID 15 Days Qty: 30 RF: 0 magnesium oxide 400 mg (241.3 mg magnesium) Tablet 400 mg PO BID Qty: 60 RF: 0 metoprolol tartrate 25 mg tablet 12.5 mg PO BID Qty: 30 RF: 0 cefdinir 300 mg capsule 300 mg PO BID 2 Days Qty: 4 RF: 0 phenazopyridine [Pyridium] 100 mg tablet 100 mg PO PC Qty: 6 RF: 0 Continued citalopram 20 mg tablet 40 mg PO QAM RF: 0 trazodone 150 mg tablet 150 mg PO HS RF: 0 Saccharomyces boulardii [Florastor] 250 mg capsule 250 mg PO BID Qty: 20 RF: 0 atorvastatin 40 mg tablet 40 mg PO HS RF: 0 aspirin 81 mg Tablet,Delayed Release (Dr/Ec) 81 mg PO QAM RF: 0 lisinopril 10 mg tablet 10 mg PO QAM RF: 0 buspirone 5 mg tablet 5 mg PO BID RF: 0 prednisone 10 mg tablet 10 mg PO .TAPER RF: 0 ergocalciferol (vitamin D2) 1,250 mcg (50,000 unit) capsule 50,000 unit PO WK RF: 0 dicyclomine 10 mg capsule 10 mg PO TID RF: 0 mesalamine 800 mg tablet,delayed release (DR/EC) 1,600 mg PO TID RF: 0 Discharge Orders: Discharge Order (Routine); Ordered 12/12/21 Ordered By: Cristopher Bennett Admission Data Admit Date/Time: 12/05/21 14:18 Attending Provider: Cristopher Bennett Admit Provider: Andre Pappas Primary Care Provider: Mallory River Other Providers: Andre Pappas ; Lily Marie
== END 2021-12-12 10:55 | disposition home or self-care (01) | DRG 392 ==
LOC: ED 10:58 → 2W 14:18 → SUATTDRO 14:18 → 2W 15:24
DX: E87.1 Hypo-osmolality and hyponatremia; A08.11 Acute gastroenteropathy due to Norwalk agent; F41.8 Other specified anxiety disorders; I10 Essential (primary) hypertension; N39.0 Urinary tract infection, site not specified; E86.0 Dehydration; Z87.891 Personal history of nicotine dependence; Z83.3 Family history of diabetes mellitus; F10.21 Alcohol dependence, in remission; G47.00 Insomnia, unspecified; Z86.16 Personal history of COVID-19; E78.5 Hyperlipidemia, unspecified; N17.9 Acute kidney failure, unspecified; I69.391 Dysphagia following cerebral infarction; Z79.82 Long term (current) use of aspirin; K92.1 Melena; K51.90 Ulcerative colitis, unspecified, without complications

== ENCOUNTER 2022-12-12 14:52 | Inpatient (IN) ==
[2022-12-12] MEDS ORDERED: SODIUM CHLORIDE 0.9% 1000ML 1,000 ML IV STA (15:04)
--- NOTE | 2022-12-12 15:20 | Emergency Department Note ---
Impression & Plan Ulcerative colitis, Anemia, Acute GI bleeding, Near syncope, Hyponatremia ED Provider Note NAME: JESSENIA MATHEWS Jr AGE: 52 SEX: M : 1970 ARRIVES VIA: Ambulance INFORMANT: Patient, ED PROVIDER(S): Colten Meredith DO CHIEF COMPLAINT: GI bleed HPI: The patient is a 52-year-old male who presented to the emergency department for an evaluation of GI bleeding. The patient has a long history of ulcerative colitis. He was recently admitted to our facility for similar complaints. He did have stool studies. He is currently taking steroids. He also takes Humira. The patient was going to a follow-up appointment today when he had a syncopal episode. It is unclear if he completely lost consciousness but became very weak and dizzy. His blood pressure reportedly was 70 systolic. He was sent to the emergency department by ambulance for further evaluation. ROS: See above HPI for pertinent positives & negatives. A total of 10 systems reviewed and were otherwise negative. PAST MEDICAL HISTORY: See Below PAST SURGICAL HISTORY: See Below FAMILY HISTORY: See Below SOCIAL HISTORY: See Below HOME MEDICATIONS: See Below ALLERGIES: See Below VITALS: See Below PHYSICAL EXAMINATION: GENERAL: Patient is awake alert in no acute distress patient is resting comfortably and showing no signs of anxiety EYES: The conjunctivae are clear. The pupils are round and reactive. EARS, NOSE, MOUTH AND THROAT: The nose is without any evidence of any deformity. Mucous membranes are moist. Tongue is midline. NECK: The neck is nontender and supple. RESPIRATORY: Normal respiratory effort is noted there is no evidence of wheezing rhonchi or rales CARDIOVASCULAR: Regular rate and rhythm noted there no murmurs rubs or gallops normal S1 normal S2. GASTROINTESTINAL: The abdomen is soft and mildly distended. There is no specific guarding rigidity. Stool was grossly bloody. MUSCULOSKELETAL/EXTREMITIES: There is no evidence of gross deformity full range of motion is noted in the hips and shoulders. SKIN: There is no obvious evidence of any rash. There are no petechiae, pallor or cyanosis noted. NEUROLOGIC: Patient is awake alert and oriented x3 MEDICAL DECISION MAKING: The patient is a 52-year-old male who presented to the emergency department for an evaluation of GI bleeding as well as near syncope. The patient has a history of ulcerative colitis. He is on steroids as well as Humira. He had a recent admission at our facility. The patient went for a follow-up appointment with his GI doctor and was experiencing worsening symptoms. He had a near syncopal episode as well as significant GI bleeding. He was brought to the emergency department by ambulance. He did have initial hypotension reported by the prehospital personnel as well as initially in the emergency department. I discussed the patient's laboratory and radiographic studies with him. I discussed his condition with the on-call [facility] hospitalist. They have agreed to evaluate the patient in the emergency department for further management and disposition. The patient was typed and screened for possible blood transfusion. His hemoglobin did drop compared to his discharge hemoglobin but he did respond well to IV fluid resuscitation in the emergency department. Triage Nursing notes reviewed. Prior medical records reviewed Vital Signs: reviewed and remarkable for no significant abnormalities Differential diagnosis: Diverticulosis, AVM, coagulopathy, colitis, inflammatory bowel disease, malignancy, Bridget-Gaines tear, esophagitis, peptic ulcer disease, variceal bleed, gastritis, epistaxis, fissure, hemorrhoids, as well as other pathologies. ER treatment provided: See below Diagnostics interpreted by me: ECG: EKG was obtained in the emergency department. My interpretation is normal sinus rhythm at 96 bpm. There is no ectopy. There is no acute ST segment abnormalities noted. This was compared to a tracing from December 11, 2022. No changes were noted. Cardiac Monitoring: An order was placed for continuous cardiac monitoring. The monitor shows a rate of 90 bpm with sinus rhythm. Laboratory studies: As stated above and show below. Imaging studies: See below. Radiographic imaging was reviewed by myself Consultation(s): I discussed this case with Briseyda who is on-call for the Past Med/Surg History Medical History Anxiety Blood in stool Colitis History of COVID-19 10/17/21 AT [place] (NO SYMPTOMS) ED FOR BLOOD IN STOOL History of stroke History of tobacco use 30 pack years, quit in 2019 HTN (hypertension) Hyperlipidemia Insomnia Stroke X 2 IN 2019>TREATED AT [facility]>MINOR SPEECH DEFECITS Ulcerative colitis Dx in Sep 2021 Surgical History H/O carotid endarterectomy RT/LEFT History of esophagogastroduodenoscopy (EGD) History of tonsillectomy and adenoidectomy History of tooth extraction Family History Father Diabetes Coronary heart disease Stroke, Onset Age: 50 Mother Cancer Other No family history of adverse response to anesthesia Denies family history of History of blood clotting disorder Social History Smoking Status: Former smoker Tobacco Type: Cigarettes Cigarettes Per Day: 20; Second Hand Exposure: No; Hx Alcohol Use: No Hx Substance Use: No Preferred Language: Maldivian Communication Ability: Effective Electric Range Assembler Required: No Beliefs That Will Affect Care: None marital status details: Engaged Current Living Situation: Significant Other current occupational status: 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 Feels Safe at Home: Yes Assistive Devices: None Allergies Allergies Allergy/AdvReac Type Severity Reaction Status Date / Time No Known Allergies Allergy Mild Verified 12/12/22 16:46 Home Meds Home Medications Medication Instructions Recorded Confirmed trazodone 150 mg tablet 150 mg PO 05/21/19 12/12/22 aspirin 81 mg tablet,delayed 81 mg PO [facility] 10/30/21 12/12/22 release atorvastatin 40 mg tablet 40 mg PO 10/30/21 12/12/22 lisinopril 10 mg tablet 10 mg PO [facility] 10/30/21 12/12/22 buspirone 5 mg tablet 5 mg PO [facility] 12/05/21 12/12/22 dicyclomine 10 mg capsule 10 mg PO TID 12/05/21 12/12/22 adalimumab 40 mg/0.8 mL 40 mg subcut .EVERY 2 WEEKS 09/16/22 12/12/22 subcutaneous pen kit (Humira Pen) cholestyramine (with sugar) 4 gram 1 ea PO DAILY 09/16/22 12/12/22 powder for susp in a packet [id number] acid 300 1 tab PO DAILY 09/16/22 12/12/22 mcg-lycopene 600 mcg-lutein 300 mcg tablet (Centrum Silver Men) Lactobacillus acidophilus 10 10,000 mmu cells PO DAILY 12/12/22 12/12/22 billion cell capsule (Probiotic) citalopram 40 mg tablet 40 mg PO QAM 12/12/22 12/12/22 ferrous sulfate 325 mg (65 mg 325 mg PO DAILY 12/12/22 12/12/22 iron) tablet mesalamine 800 mg tablet,delayed 1,600 mg PO TID 12/12/22 12/12/22 release vancomycin 125 mg capsule See Rx Instructions .Route .COMPLEX 12/12/22 12/12/22 Results & Data (ED) Vital Signs Vital Signs - 24 hr 12/12/22 15:04 12/12/22 15:12 12/12/22 14:44 Temperature 36.9 C Temperature Source Oral Pulse Rate 98 H 98 H Pulse Rate [Apical] Pulse Rhythm Regular Pulse Rhythm [Apical] Pulse Strength Normal Pulse Strength [Apical] Respiratory Rate 15 Respiratory Effort / Characteristics Non-Labored Respiratory Depth Normal Respiratory Pattern Regular Blood Pressure 94/50 L Blood Pressure [Right Arm] Blood Pressure Mean 64 Blood Pressure Mean [Right Arm] Pulse Oximetry 100 99 Oxygen Delivery Method Room Air Room Air Sepsis Recent Fever Within 48 Hours No Sepsis New/Unexplained Change in Mental Status No Sepsis Action Taken by Nursing No Action Required 12/12/22 14:44 12/12/22 15:30 12/12/22 18:00 Temperature Temperature Source Pulse Rate 90 105 H Pulse Rate [Apical] 98 H Pulse Rhythm Pulse Rhythm [Apical] Regular Pulse Strength Pulse Strength [Apical] Normal Respiratory Rate 15 21 18 Respiratory Effort / Characteristics Non-Labored Respiratory Depth Normal Respiratory Pattern Regular Blood Pressure 101/84 99/57 L Blood Pressure [Right Arm] 94/50 L Blood Pressure Mean 89 71 Blood Pressure Mean [Right Arm] 64 Pulse Oximetry 99 100 Oxygen Delivery Method Room Air Room Air Sepsis Recent Fever Within 48 Hours Sepsis New/Unexplained Change in Mental Status Sepsis Action Taken by Nursing 12/12/22 18:58 Temperature Temperature Source Pulse Rate Pulse Rate [Apical] Pulse Rhythm Pulse Rhythm [Apical] Pulse Strength Pulse Strength [Apical] Respiratory Rate Respiratory Effort / Characteristics Respiratory Depth Respiratory Pattern Blood Pressure Blood Pressure [Right Arm] Blood Pressure Mean Blood Pressure Mean [Right Arm] Pulse Oximetry Oxygen Delivery Method Room Air Sepsis Recent Fever Within 48 Hours Sepsis New/Unexplained Change in Mental Status Sepsis Action Taken by Correction Medications Current Medication List: was personally reviewed by me Laboratory Data Attestation: I reviewed the patient's lab results. 12/12/22 15:10 12/12/22 15:10 Lab Results 12/12/22 12/12/22 12/12/22 Range/Units 15:04 15:04 15:07 WBC (4.8-10.8) K/ul RBC (4.70-6.10) M/uL Hgb (14.0-18.0) g/dl Hct (42.0-52.0) % MCV (80.0-100.0) fL MCH (25.0-34.0) pg MCHC (32.0-36.0) g/dL RDW Std Deviation (36.4-46.3) fL RDW Coeff of Chandra (11.5-14.5) % Plt Count (130-400) K/uL MPV (9.4-12.4) fL Immature Gran % (Auto) % Neut % (Auto) % Lymph % (Auto) % [place] % (Auto) % Eos % (Auto) % Baso % (Auto) % Neut # (Auto) (1.40-6.50) K/uL Lymph # (Auto) (1.2-3.4) K/uL [place] # (Auto) (0.11-0.59) K/uL Eos # (Auto) (0-0.50) K/uL Baso # (Auto) (0-0.2) K/uL Immature Gran # (Auto) (0.01-0.20) K/uL PT (9.0-12.0) Seconds INR (0.9-1.1) APTT (21.0-31.0) Seconds PTT Ratio Sodium (136-145) mmol/L Potassium Chloride (98-107) mmol/L Carbon Dioxide (21-32) mmol/L Anion Gap (3-11) BUN (6-23) mg/dl Creatinine (0.6-1.4) mg/dl Est Cr Clr Drug Dosing ml/min Est GFR ( Amer) ml/min Est GFR (Non-Af Amer) ml/min BUN/Creatinine Ratio (10-20) Glucose (70-99(Fasting)) mg/dl Calcium (8.5-10.1) mg/dl Total Bilirubin (0.2-1.0) mg/dl AST ALT (7-52) U/L Alkaline Phosphatase (34-104) U/L Troponin I High Sens (0-20) pg/ml Total Protein (6.0-8.3) gm/dl Albumin (3.4-5.0) gm/dl Globulin (2.5-4.0) gm/dl Albumin/Globulin Ratio (0.9-2) Lipase (11-82) U/L Stl C. cayetanensis PCR Not Detected (NotDetected) Stool Rotavirus A PCR Not Detected (NotDetected) Stl Adenov F 40/41 PCR Not Detected (NotDetected) Stool Astrovirus (PCR) Not Detected (NotDetected) Stool Campylobacter PCR Not Detected (NotDetected) Stl C. diff Tox B Gene Negative Cdiff Gene (Neg) Stool Cryptosporidium PCR Not Detected (NotDetected) Stl E.coli Shiga Tox PCR Not Detected (NotDetected) Stl Enterotoxigenic E PCR Not Detected (NotDetected) Stool EPEC (PCR) Not Detected (NotDetected) Stool EAEC (PCR) Not Detected (NotDetected) Stl E. histolytica PCR Not Detected (NotDetected) Stool Giardia Lamblia PCR Not Detected (NotDetected) Stool Salmonella PCR Not Detected (NotDetected) Stool Sapovirus (PCR) Not Detected (NotDetected) Stl P. shigelloides PCR Not Detected (NotDetected) Stl Shigella/EIEC PCR Not Detected (NotDetected) St Y.enterocolitica PCR Not Detected (NotDetected) Stool Vibrio (PCR) Not Detected (NotDetected) Stl Vibrio cholerae PCR Not Detected (NotDetected) Stl Norovirus GI/GII PCR Not Detected (NotDetected) SARS-CoV-2, RNA, NAAT NEGATIVE (NEGATIVE) Blood Type Antibody Screen 12/12/22 12/12/22 12/12/22 Range/Units 15:10 15:10 15:10 WBC 10.98 H (4.8-10.8) K/ul RBC 3.47 L (4.70-6.10) M/uL Hgb 8.3 L (14.0-18.0) g/dl Hct 28.5 L (42.0-52.0) % MCV 82.1 (80.0-100.0) fL MCH 23.9 L (25.0-34.0) pg MCHC 29.1 L (32.0-36.0) g/dL RDW Std Deviation 42.8 (36.4-46.3) fL RDW Coeff of Chandra 14.4 (11.5-14.5) % Plt Count 582 H (130-400) K/uL MPV 8.1 L (9.4-12.4) fL Immature Gran % (Auto) 0.4 % Neut % (Auto) 75.1 % Lymph % (Auto) 9.1 % [place] % (Auto) 13.8 % Eos % (Auto) 1.1 % Baso % (Auto) 0.5 % Neut # (Auto) 8.26 H (1.40-6.50) K/uL Lymph # (Auto) 1.00 L (1.2-3.4) K/uL [place] # (Auto) 1.51 H (0.11-0.59) K/uL Eos # (Auto) 0.12 (0-0.50) K/uL Baso # (Auto) 0.05 (0-0.2) K/uL Immature Gran # (Auto) 0.04 (0.01-0.20) K/uL PT 11.0 (9.0-12.0) Seconds INR 1.0 (0.9-1.1) APTT 24.6 (21.0-31.0) Seconds PTT Ratio 0.9 Sodium (136-145) mmol/L Potassium Chloride (98-107) mmol/L Carbon Dioxide (21-32) mmol/L Anion Gap (3-11) BUN (6-23) mg/dl Creatinine (0.6-1.4) mg/dl Est Cr Clr Drug Dosing ml/min Est GFR ( Amer) ml/min Est GFR (Non-Af Amer) ml/min BUN/Creatinine Ratio (10-20) Glucose (70-99(Fasting)) mg/dl Calcium (8.5-10.1) mg/dl Total Bilirubin (0.2-1.0) mg/dl AST ALT (7-52) U/L Alkaline Phosphatase (34-104) U/L Troponin I High Sens (0-20) pg/ml Total Protein (6.0-8.3) gm/dl Albumin (3.4-5.0) gm/dl Globulin (2.5-4.0) gm/dl Albumin/Globulin Ratio (0.9-2) Lipase (11-82) U/L Stl C. cayetanensis PCR (NotDetected) Stool Rotavirus A PCR (NotDetected) Stl Adenov F 40/41 PCR (NotDetected) Stool Astrovirus (PCR) (NotDetected) Stool Campylobacter PCR (NotDetected) Stl C. diff Tox B Gene (Neg) Stool Cryptosporidium PCR (NotDetected) Stl E.coli Shiga Tox PCR (NotDetected) Stl Enterotoxigenic E PCR (NotDetected) Stool EPEC (PCR) (NotDetected) Stool EAEC (PCR) (NotDetected) Stl E. histolytica PCR (NotDetected) Stool Giardia Lamblia PCR (NotDetected) Stool Salmonella PCR (NotDetected) Stool Sapovirus (PCR) (NotDetected) Stl P. shigelloides PCR (NotDetected) Stl Shigella/EIEC PCR (NotDetected) St Y.enterocolitica PCR (NotDetected) Stool Vibrio (PCR) (NotDetected) Stl Vibrio cholerae PCR (NotDetected) Stl Norovirus GI/GII PCR (NotDetected) SARS-CoV-2, RNA, NAAT (NEGATIVE) Blood Type O Positive Antibody Screen NEGATIVE 12/12/22 12/12/22 Range/Units 15:10 16:46 WBC (4.8-10.8) K/ul RBC (4.70-6.10) M/uL Hgb (14.0-18.0) g/dl Hct (42.0-52.0) % MCV (80.0-100.0) fL MCH (25.0-34.0) pg MCHC (32.0-36.0) g/dL RDW Std Deviation (36.4-46.3) fL RDW Coeff of Chandra (11.5-14.5) % Plt Count (130-400) K/uL MPV (9.4-12.4) fL Immature Gran % (Auto) % Neut % (Auto) % Lymph % (Auto) % [place] % (Auto) % Eos % (Auto) % Baso % (Auto) % Neut # (Auto) (1.40-6.50) K/uL Lymph # (Auto) (1.2-3.4) K/uL [place] # (Auto) (0.11-0.59) K/uL Eos # (Auto) (0-0.50) K/uL Baso # (Auto) (0-0.2) K/uL Immature Gran # (Auto) (0.01-0.20) K/uL PT (9.0-12.0) Seconds INR (0.9-1.1) APTT (21.0-31.0) Seconds PTT Ratio Sodium 129 L (136-145) mmol/L Potassium TNP 4.3 Chloride 98 (98-107) mmol/L Carbon Dioxide 21 (21-32) mmol/L Anion Gap 10 (3-11) BUN 6 (6-23) mg/dl Creatinine 1.20 (0.6-1.4) mg/dl Est Cr Clr Drug Dosing 90.7 ml/min Est GFR ( Amer) 80.7 ml/min Est GFR (Non-Af Amer) 69.6 ml/min BUN/Creatinine Ratio 5.0 L (10-20) Glucose 98 (70-99(Fasting)) mg/dl Calcium 8.7 (8.5-10.1) mg/dl Total Bilirubin 0.3 (0.2-1.0) mg/dl AST TNP 12 L ALT 10 (7-52) U/L Alkaline Phosphatase 53 (34-104) U/L Troponin I High Sens 10.2 (0-20) pg/ml Total Protein 7.2 (6.0-8.3) gm/dl Albumin 3.3 L (3.4-5.0) gm/dl Globulin 3.9 (2.5-4.0) gm/dl Albumin/Globulin Ratio 0.8 L (0.9-2) Lipase 4 L (11-82) U/L Stl C. cayetanensis PCR (NotDetected) Stool Rotavirus A PCR (NotDetected) Stl Adenov F 40/41 PCR (NotDetected) Stool Astrovirus (PCR) (NotDetected) Stool Campylobacter PCR (NotDetected) Stl C. diff Tox B Gene (Neg) Stool Cryptosporidium PCR (NotDetected) Stl E.coli Shiga Tox PCR (NotDetected) Stl Enterotoxigenic E PCR (NotDetected) Stool EPEC (PCR) (NotDetected) Stool EAEC (PCR) (NotDetected) Stl E. histolytica PCR (NotDetected) Stool Giardia Lamblia PCR (NotDetected) Stool Salmonella PCR (NotDetected) Stool Sapovirus (PCR) (NotDetected) Stl P. shigelloides PCR (NotDetected) Stl Shigella/EIEC PCR (NotDetected) St Y.enterocolitica PCR (NotDetected) Stool Vibrio (PCR) (NotDetected) Stl Vibrio cholerae PCR (NotDetected) Stl Norovirus GI/GII PCR (NotDetected) SARS-CoV-2, RNA, NAAT (NEGATIVE) Blood Type Antibody Screen Administered Medications Discontinued Medications Sodium Chloride (Nss 1000ml) 1,000 mls @ 999 mls/hr IV .Q1H1M STA Stop: 12/12/22 16:04 Last Infusion: 12/12/22 16:13 Dose: 0 mls/hr Documented By: OAPool Admin: 12/12/22 15:09 Dose: 999 mls/hr Documented By: OA Imaging Data Attestation: I personally reviewed and interpreted this imaging study as follows: My Impression: 1 view chest x-ray was obtained in the emergency department. My interpretation is no free air, no definite filtrate KUB was obtained in the emergency department. There were multiple dilated loops of small bowel. There is no definite obstruction or free air. Final report pending. Radiologist's Impression: Chest X-Ray 12/12/22 15:04 SINGLE VIEW CHEST CLINICAL HISTORY: GI bleeding. Atypical chest pain. FINDINGS: 2 AP, portable, supine chest radiographs are compared to study dated 12/11/2022 and correlated with chest CT dated 12/05/2021. The examination is d egraded by portable technique and apical lordotic positioning. The heart is enlarged note atherosclerotic calcification of the thoracic aorta. The pulmonary vasculature is noncongested. Emphysema and chronic interstitial thickening is similar to previous. There is mild bibasilar scarring/atelectasis. No airspace consolidation or large pleural effusion is identified. No pneumothorax is seen. The bony thorax is grossly intact. Surgical clips are seen in the right lower neck. IMPRESSION: Cardiomegaly and emphysema with no active disease in the chest. ACT 112: Negative or not required by law. Electronically signed by: Hernán Chi M.D. 12/12/2022 4:13 PM KUB X-Ray 12/12/22 15:04 KUB CLINICAL HISTORY: GI bleeding. Generalized abdominal pain. FINDINGS: 4 AP supine abdominal radiographs are correlated with abdominal CT dated 12/05/2021. Findings the colitis seen on the 12/05/2021 CT scan are not well visualized by x-ray. There is gaseous distention of the small bowel loops which measure up to 3.4 cm in diameter. This is similar to previous. No evidence of intraperitoneal free air is seen on these supine images. There are no abnormal abdominal calcifications. The bony structures appear intact. IMPRESSION: 1. Findings of a nonspecific colitis seen by CT on 12/05/2021 are not appreciated by x-ray. 2. There is gaseous distention of the small bowel loops. This is similar to previous and likely represents ileus. Obstruction is considered less likely and clinical correlation will be required. Electronically signed by: Hernán Chi M.D. 12/12/2022 4:23 PM Discharge Plan Visit Data Chief Complaint: Rectal Bleed Stated Complaint: RECTAL BLEED ED Provider: Colten Meredith Discharge Problem: Ulcerative colitis, Anemia, Acute GI bleeding, Near syncope, Hyponatremia Patient Disposition: Being Evaluated by Hospitalist Discharge Instructions Interventions: ED Discharge Assessment Last Done: 12/12/22 18:58 Forms Stand Alone Forms: My [facility] [employer] Prescriptions Prescriptions: No Action trazodone 150 mg tablet 150 mg PO HS atorvastatin 40 mg tablet 40 mg PO HS aspirin 81 mg Tablet,Delayed Release (Dr/Ec) 81 mg PO QAM Patient Comments: CURRENTLY ON HOLD lisinopril 10 mg tablet 10 mg PO QAM buspirone 5 mg tablet 5 mg PO AMHS dicyclomine 10 mg capsule 10 mg PO TID cholestyramine (with sugar) 4 gram powder in packet 1 ea PO DAILY Humira Pen 40 mg/0.8 mL Pen Injector Kit 40 mg SUBCUT .EVERY 2 WEEKS Rx Instructions: inject one - 40 mg/0.8 mL pen every 2 weeks Centrum Silver Men 300-600-300 mcg Tablet 1 tab PO DAILY citalopram 40 mg tablet 40 mg PO QAM vancomycin 125 mg capsule See Rx Instructions .ROUTE .COMPLEX Rx Instructions: 1 cap by mouth 4 times a day for 14 days,then take 1 cap for twice a day for 7 days,then 1 capsule daily for 7 days, then 1 capsule every other day for 14 days mesalamine 800 mg tablet,delayed release (DR/EC) 1,600 mg PO TID ferrous sulfate 325 mg (65 mg iron) Tablet 325 mg PO DAILY Probiotic 10 billion cell Capsule 10,000 mmu cells PO DAILY Referrals Referrals: Kris Stevenson MD [Primary Care Provider] -
[2022-12-12 15:38] LABS: Basophils # (auto) 0.05 K/uL (0-0.2); Basophils % (auto) 0.5 %; Eosinophils # (auto) 0.12 K/uL (0-0.50); Eosinophils % (auto) 1.1 %; Hematocrit (blood only) 28.5 % (42.0-52.0); Hemoglobin 8.3 g/dl (14.0-18.0); Immature Granulocytes # (auto) 0.04 K/uL (0.01-0.20); Immature Granulocytes % (auto) 0.4 %; Lymphocytes % (auto) 9.1 %; Mean Corpuscular Hemoglobin 23.9 pg (25.0-34.0); Mean Corpuscular Hgb Conc 29.1 g/dL (32.0-36.0); Mean Corpuscular Volume 82.1 fL (80.0-100.0); Mean Platelet Volume 8.1 fL (9.4-12.4); Monocytes # (auto) 1.51 K/uL (0.11-0.59); Monocytes % (auto) 13.8 %; Neutrophils # (auto) 8.26 K/uL (1.40-6.50); Neutrophils % (auto) 75.1 %; Platelet Count 582 K/uL (130-400); RDW Coefficient of Variation 14.4 % (11.5-14.5); RDW Standard Deviation 42.8 fL (36.4-46.3); Red Blood Count 3.47 M/uL (4.70-6.10); White Blood Count 10.98 K/ul (4.8-10.8)
[2022-12-12 16:01] LABS: Alanine Aminotransferase 10 U/L (7-52); Albumin Globulin Ratio 0.8 (0.9-2); Albumin Level 3.3 gm/dl (3.4-5.0); Alkaline Phosphatase 53 U/L (34-104); Anion Gap 10 (3-11); Bilirubin,Total 0.3 mg/dl (0.2-1.0); Blood Urea Nitrogen 6 mg/dl (6-23); Calcium 8.7 mg/dl (8.5-10.1); Carbon Dioxide 21 mmol/L (21-32); Chloride 98 mmol/L (98-107); Creatinine Clr Calc Pharmacy 90.7 ml/min; Est GFR (African American) 80.7 ml/min; Est GFR (Non-African American) 69.6 ml/min; Globulin 3.9 gm/dl (2.5-4.0); Glucose 98 mg/dl (70-99(Fasting)); Lipase 4 U/L (11-82); Sodium 129 mmol/L (136-145); Total Protein 7.2 gm/dl (6.0-8.3); Troponin I High Sensitivity 10.2 pg/ml (0-20)
[2022-12-12 16:06] LABS: Partial Thromboplastin Ratio 0.9; Partial Thromboplastin Time 24.6 Seconds (21.0-31.0)
--- NOTE | 2022-12-12 16:15 | XRay Report ---
SINGLE VIEW CHEST CLINICAL HISTORY: GI bleeding. Atypical chest pain. FINDINGS: 2 AP, portable, supine chest radiographs are compared to study dated 12/11/2022 and correlat ed with chest CT dated 12/05/2021. The examination is degraded by portable technique and apical lordoti c positioning. The heart is enlarged note atherosclerotic calcification of the thoracic aorta. The pu lmonary vasculature is noncongested. Emphysema and chronic interstitial thickening is similar to prev ious. There is mild bibasilar scarring/atelectasis. No airspace consolidation or large pleural effusi on is identified. No pneumothorax is seen. The bony thorax is grossly intact. Surgical clips are seen in the right lower neck. IMPRESSION: Cardiomegaly and emphysema with no active disease in the chest. ACT 112: Negative or not required by law. Electronically signed by: Hernán Chi M.D. 12/12/2022 4:13 PM
--- NOTE | 2022-12-12 16:24 | XRay Report ---
KUB CLINICAL HISTORY: GI bleeding. Generalized abdominal pain. FINDINGS: 4 AP supine abdominal radiographs are correlated with abdominal CT dated 12/05/2021. Findings the colitis seen on the 12/05/2021 CT scan are not well visualized by x-ray. There is gaseous distenti on of the small bowel loops which measure up to 3.4 cm in diameter. This is similar to previous. No e vidence of intraperitoneal free air is seen on these supine images. There are no abnormal abdominal c alcifications. The bony structures appear intact. IMPRESSION: 1. Findings of a nonspecific colitis seen by CT on 12/05/2021 are not appreciated by x-ray. 2. There is gaseous distention of the small bowel loops. This is similar to previous and likely repre sents ileus. Obstruction is considered less likely and clinical correlation will be required. Electronically signed by: Hernán Chi M.D. 12/12/2022 4:23 PM
[2022-12-12 16:52] LABS: Adenovirus F 40/41 PCR Not Detected (NotDetected); Astrovirus PCR Not Detected (NotDetected); Campylobacter PCR Not Detected (NotDetected); Cryptosporidium PCR Not Detected (NotDetected); Cyclospora cayetanensis PCR Not Detected (NotDetected); Entamoeba histolytica PCR Not Detected (NotDetected); Enteroaggregative E.coli(EAEC) Not Detected (NotDetected); Enteropathogenic E.coli (EPEC) Not Detected (NotDetected); Enterotoxigenic E.coli (ETEC) Not Detected (NotDetected); Giardia lamblia PCR Not Detected (NotDetected); Norovirus GI/GII PCR Not Detected (NotDetected); Plesiomonas shigelloides PCR Not Detected (NotDetected); Rotavirus A PCR Not Detected (NotDetected); Salmonella PCR Not Detected (NotDetected); Sapovirus PCR Not Detected (NotDetected); Shiga-like Toxin E.coli (STEC) Not Detected (NotDetected); Shigella/Enteroinvasive E.coli Not Detected (NotDetected); Vibrio cholerae PCR Not Detected (NotDetected); Vibrio species PCR Not Detected (NotDetected); Yersinia enterocolitica PCR Not Detected (NotDetected)
--- NOTE | 2022-12-12 17:22 | History & Physical Report ---
Date of Service December 12, 2022 Assessment & Plan (1) Ulcerative colitis: (2) Diarrhea: (3) Anemia: Plan: -Admit to PCU -KUB showing nonspecific colitis, gaseous distension of the small bowel, ? ileus? -Type and cross, blood consent obtained at bedside -Hemoglobin of 9.4 yesterday dropped 1 unit in 24 hours to 8.3 today. Recheck H&H at 2100. Last Hgb in Aug 2022 was > 12 -Stool PCR showed positive norovirus on 12/11, today is negative -C. difficile is negative, will continue p.o. vancomycin to complete the course. 125 mg daily until 12/15, then switch to every other day dosing times total of 7 doses to complete the course. -Continue mesalamine, cholecystectomy, Bentyl -Treat with 1 dose budesonide 9 mg now for acute flair. Pt is on humira as outpatient and started in Sep - last dose was 12/01, due again on 12/15 -Last colonoscopy was in Oct 2021 - will make NPO at midnight in case needs for scope, right now will allow clear liquid diet -GI consulted, patient was in their clinic when he had near syncopal event earlier today -Hold on antibiotics at this time due to currently treating c-diff (4) Dehydration: (5) Hyponatremia: Plan: -Noted hyponatremia, chronically like this, sodium 133, per outpatient med rec it appears that he should be on sodium chloride tabs twice daily however reports that he is not taking it. History of alcoholism, sober x15 years. - Continue NSS at 125 ml/hr (6) HTN (hypertension): Plan: - Hold BP medications (7) Hyperlipidemia: Plan: - Cont statin therapy (8) History of stroke: Plan: - in 2019, on baby aspirin daily which will hold in the setting of acute GI bleed DVT ppx: - teds, scds, no chemical anticoagulation in the setting of acute GI bleed CODE: Full code Dispo: From home, likely to remain in the hospital x 1-2 days A total of 77 minutes were spent with greater than 50% of that time face to face with the patient, personally reviewing all current laboratories, imaging studies, past medication reconciliation, outpatient chart review, and discussion with specialists to collaborate care for the patient with attending. Please see attending documentation for corrections and/or additions. History of Present Illness Chief Complaint: Lightheadedness, hypotensive, sent from GI clinic Primary Care Provider: Kris Stevenson MD This is a 52-year-old male with PMHx of CVA in 2019, no residual deficits, s/p bilateral carotid endarterectomy, kumar ulcerative colitis originally diagnosed in October 2021, history of C. difficile, HLD, HTN, psoriasis who presents to the ER after being seen in the GI clinic earlier this afternoon. He was recently seen in the ER yesterday due to increased loose diarrhea and bloody bowel movements, abdominal pain. Due to being mildly tachycardic HR 110, hypotensive 110/53, he was transferred by EMS to [facility] for treatment. His hemog lobin here is 8.3, and typically is above 12. SBP was initially in the 90s, and improved to 101/84 with 1 L NSS in the ER. Patient reports that he has never had any abdominal pain associated with ulcerative colitis issues. In the past few days he has had bowel movements which are bright red and bloody every 2 hours even throughout the night. He denies any nausea or vomiting. His p.o. intake has been very poor, last ate yesterday at lunchtime as he is fearful to eat anything due to quick GI output. He notes that he is even seeing mesalamine capsules in his stool. Admits to having lightheadedness whenever going from sitting to standing position, specifically today he was over in the GI clinic and attempted to get up from the waiting room and walked to the exam room however caught himself getting lightheaded and quickly sat down towards the ground and recovered. No LOC, no fall. He has never received a blood transfusion in the past and is agreeable to 1 today if needed. He did take his blood pressure medication this morning. Patient notes having some blurry vision earlier today. He admits to approximately losing 20 pounds in the past 1 year since ulcerative colitis diagnosis Social history: Quit smoking 3 years, smoked since age 17 x 2 ppd until he had a stroke. Alcohol use previously, 15 year sober in March 2023 Works at [employer] Hx: 3 uncles on his mother side from cancers, Fathers side with significant heart disease Allergies Allergy/AdvReac Type Severity Reaction Status Date / Time No Known Allergies Allergy Mild Verified 12/12/22 16:46 Home Medications Medication Instructions Recorded Confirmed Type trazodone 150 mg tablet 150 mg PO HS 05/21/19 12/12/22 History aspirin 81 mg tablet,delayed 81 mg PO QAM 10/30/21 12/12/22 History release atorvastatin 40 mg tablet 40 mg PO HS 10/30/21 12/12/22 History lisinopril 10 mg tablet 10 mg PO QAM 10/30/21 12/12/22 History buspirone 5 mg tablet 5 mg PO AMHS 12/05/21 12/12/22 History dicyclomine 10 mg capsule 10 mg PO TID 12/05/21 12/12/22 History adalimumab 40 mg/0.8 mL 40 mg subcut .EVERY 2 WEEKS 09/16/22 12/12/22 History subcutaneous pen kit (Humira Pen) cholestyramine (with sugar) 4 gram 1 ea PO DAILY 09/16/22 12/12/22 History powder for susp in a packet uslxsevt-[id number]-iutus acid 300 1 tab PO DAILY 09/16/22 12/12/22 History mcg-lycopene 600 mcg-lutein 300 mcg tablet (Centrum Silver Men) Lactobacillus acidophilus 10 10,000 mmu cells PO DAILY 12/12/22 12/12/22 History billion cell capsule (Probiotic) citalopram 40 mg tablet 40 mg PO QAM 12/12/22 12/12/22 History ferrous sulfate 325 mg (65 mg 325 mg PO DAILY 12/12/22 12/12/22 History iron) tablet mesalamine 800 mg tablet,delayed 1,600 mg PO TID 12/12/22 12/12/22 History release vancomycin 125 mg capsule See Rx Instructions .Route .COMPLEX 12/12/22 12/12/22 History Past Med/Surg History Medical History Anxiety Blood in stool Colitis History of COVID-19 10/17/21 AT [facility] (NO SYMPTOMS) ED FOR BLOOD IN STOOL History of stroke History of tobacco use 30 pack years, quit in 2019 HTN (hypertension) Hyperlipidemia Insomnia Stroke X 2 IN 2019>TREATED AT [facility]>MINOR SPEECH DEFECITS Ulcerative colitis Dx in Sep 2021 Surgical History H/O carotid endarterectomy RT/LEFT History of esophagogastroduodenoscopy (EGD) History of tonsillectomy and adenoidectomy History of tooth extraction Family History Father Diabetes Coronary heart disease Stroke, Onset Age: 50 Mother Cancer Other No family history of adverse response to anesthesia Denies family history of History of blood clotting disorder Social History Smoking Status: Former smoker Tobacco Type: Cigarettes Cigarettes Per Day: 20; Second Hand Exposure: No; Hx Alcohol Use: Yes Hx Substance Use: No Preferred Language: Bulgarian Communication Ability: Effective Honey Extractor Required: No Beliefs That Will Affect Care: None marital status details: Engaged Current Living Situation: Significant Other current occupational status: 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 Other Information That Helps Us Care for You: No Feels Safe at Home: Yes Safety Concerns: Feels Safe At This Time Assistive Devices: None Review of Systems Review of Systems: Constitutional: No fever, sweats or chills Eyes: No diplopia, + admits to occasional blurred vision recently ENT: normal hearing, no trouble swallowing Respiratory: No cough, sputum, dyspnea at rest or on exertion Cardiovascular: No chest pain, tightness or palpitations Abdomen: As per HPI Musculoskeletal: No joint pain, calf pain, swelling Neurologic: No weakness, numbness/tingling, or balance problems Psychiatric: No anxiety or depression Skin: No rash or itch Physical Exam Physical Exam: General: awake, alert, no apparent distress, BMI 31 Head: Normocephalic, atraumatic ENT: PERRL, EOMI, no pharyngeal exudate, + dentures, mucous membranes dry Chest: Clear to auscultation, on room air, no adventitious breath sounds Cardiac: Regular rate and rhythm, no murmur, no JVD, normal peripheral pulses, good capillary refill Abdominal: Hypoactive BS x 4 quadrants, soft, nondistended, nontender to palpation, no rebound or guarding Extremities: Normal inspection, no peripheral edema or erythema, calfs nontender to palpation Psych: Normal mood and affect Neuro: AAO x 3, strength intact bilaterally and rated 5/5, no motor deficits, speech is clear, no peripheral sensory deficits Results & Data Results & Data Vital Signs (Past 12 Hours) Vital Signs Temp Pulse Pulse Resp BP BP Pulse Ox 12/12/22 15:30 90 21 101/84 100 12/12/22 14:44 98 H 15 94/50 L 99 12/12/22 14:44 36.9 C 98 H 15 94/50 L 99 12/12/22 15:12 98 H 12/12/22 15:04 100 O2 Del Method 12/12/22 15:30 12/12/22 14:44 Room Air 12/12/22 14:44 Room Air 12/12/22 15:12 12/12/22 15:04 Room Air Laboratory Results 12/12/22 12/12/22 12/12/22 16:46 15:10 15:10 WBC RBC Hgb Hct MCV MCH MCHC RDW Std Deviation RDW Coeff of Chandra Plt Count MPV Immature Gran % (Auto) Neut % (Auto) Lymph % (Auto) [place] % (Auto) Eos % (Auto) Baso % (Auto) Neut # (Auto) Lymph # (Auto) [place] # (Auto) Eos # (Auto) Baso # (Auto) Immature Gran # (Auto) PT 11.0 INR 1.0 APTT 24.6 PTT Ratio 0.9 Sodium 129 L Potassium 4.3 TNP Chloride 98 Carbon Dioxide 21 Anion Gap 10 BUN 6 Creatinine 1.20 Est Cr Clr Drug Dosing 90.7 Est GFR ( Amer) 80.7 Est GFR (Non-Af Amer) 69.6 BUN/Creatinine Ratio 5.0 L Glucose 98 Calcium 8.7 Total Bilirubin 0.3 AST 12 L TNP ALT 10 Alkaline Phosphatase 53 Troponin I High Sens 10.2 Total Protein 7.2 Albumin 3.3 L Globulin 3.9 Albumin/Globulin Ratio 0.8 L Lipase 4 L Stl C. cayetanensis PCR Stool Rotavirus A PCR Stl Adenov F 40/41 PCR Stool Astrovirus (PCR) Stool Campylobacter PCR Stl C. diff Tox B Gene Stool Cryptosporidium PCR Stl E.coli Shiga Tox PCR Stl Enterotoxigenic E PCR Stool EPEC (PCR) Stool EAEC (PCR) Stl E. histolytica PCR Stool Giardia Lamblia PCR Stool Salmonella PCR Stool Sapovirus (PCR) Stl P. shigelloides PCR Stl Shigella/EIEC PCR St Y.enterocolitica PCR Stool Vibrio (PCR) Stl Vibrio cholerae PCR Stl Norovirus GI/GII PCR SARS-CoV-2, RNA, NAAT Blood Type Antibody Screen 12/12/22 12/12/22 12/12/22 15:10 15:10 15:07 WBC 10.98 H RBC 3.47 L Hgb 8.3 L Hct 28.5 L MCV 82.1 MCH 23.9 L MCHC 29.1 L RDW Std Deviation 42.8 RDW Coeff of Chandra 14.4 Plt Count 582 H MPV 8.1 L Immature Gran % (Auto) 0.4 Neut % (Auto) 75.1 Lymph % (Auto) 9.1 [place] % (Auto) 13.8 Eos % (Auto) 1.1 Baso % (Auto) 0.5 Neut # (Auto) 8.26 H Lymph # (Auto) 1.00 L [place] # (Auto) 1.51 H Eos # (Auto) 0.12 Baso # (Auto) 0.05 Immature Gran # (Auto) 0.04 PT INR APTT PTT Ratio Sodium Potassium Chloride Carbon Dioxide Anion Gap BUN Creatinine Est Cr Clr Drug Dosing Est GFR ( Amer) Est GFR (Non-Af Amer) BUN/Creatinine Ratio Glucose Calcium Total Bilirubin AST ALT Alkaline Phosphatase Troponin I High Sens Total Protein Albumin Globulin Albumin/Globulin Ratio Lipase Stl C. cayetanensis PCR Stool Rotavirus A PCR Stl Adenov F 40/41 PCR Stool Astrovirus (PCR) Stool Campylobacter PCR Stl C. diff Tox B Gene Stool Cryptosporidium PCR Stl E.coli Shiga Tox PCR Stl Enterotoxigenic E PCR Stool EPEC (PCR) Stool EAEC (PCR) Stl E. histolytica PCR Stool Giardia Lamblia PCR Stool Salmonella PCR Stool Sapovirus (PCR) Stl P. shigelloides PCR Stl Shigella/EIEC PCR St Y.enterocolitica PCR Stool Vibrio (PCR) Stl Vibrio cholerae PCR Stl Norovirus GI/GII PCR SARS-CoV-2, RNA, NAAT NEGATIVE Blood Type O Positive Antibody Screen NEGATIVE 12/12/22 12/12/22 15:04 15:04 WBC RBC Hgb Hct MCV MCH MCHC RDW Std Deviation RDW Coeff of Chandra Plt Count MPV Immature Gran % (Auto) Neut % (Auto) Lymph % (Auto) [place] % (Auto) Eos % (Auto) Baso % (Auto) Neut # (Auto) Lymph # (Auto) [place] # (Auto) Eos # (Auto) Baso # (Auto) Immature Gran # (Auto) PT INR APTT PTT Ratio Sodium Potassium Chloride Carbon Dioxide Anion Gap BUN Creatinine Est Cr Clr Drug Dosing Est GFR ( Amer) Est GFR (Non-Af Amer) BUN/Creatinine Ratio Glucose Calcium Total Bilirubin AST ALT Alkaline Phosphatase Troponin I High Sens Total Protein Albumin Globulin Albumin/Globulin Ratio Lipase Stl C. cayetanensis PCR Not Detected Stool Rotavirus A PCR Not Detected Stl Adenov F 40/41 PCR Not Detected Stool Astrovirus (PCR) Not Detected Stool Campylobacter PCR Not Detected Stl C. diff Tox B Gene Negative Cdiff Gene Stool Cryptosporidium PCR Not Detected Stl E.coli Shiga Tox PCR Not Detected Stl Enterotoxigenic E PCR Not Detected Stool EPEC (PCR) Not Detected Stool EAEC (PCR) Not Detected Stl E. histolytica PCR Not Detected Stool Giardia Lamblia PCR Not Detected Stool Salmonella PCR Not Detected Stool Sapovirus (PCR) Not Detected Stl P. shigelloides PCR Not Detected Stl Shigella/EIEC PCR Not Detected St Y.enterocolitica PCR Not Detected Stool Vibrio (PCR) Not Detected Stl Vibrio cholerae PCR Not Detected Stl Norovirus GI/GII PCR Not Detected SARS-CoV-2, RNA, NAAT Blood Type Antibody Screen Diagnostic Findings Chest X-Ray 12/12/22 15:04 SINGLE VIEW CHEST CLINICAL HISTORY: GI bleeding. Atypical chest pain. FINDINGS: 2 AP, portable, supine chest radiographs are compared to study dated 12/11/2022 and correlated with chest CT dated 12/05/2021. The examination is degraded by portable technique and apical lordotic positioning. The heart is enlarged note atherosclerotic calcification of the thoracic aorta. The pulmonary vasculature is noncongested. Emphysema and chronic interstitial thickening is similar to previous. There is mild bibasilar scarring/atelectasis. No airspace consolidation or large pleural effusion is identified. No pneumothorax is seen. The bony thorax is grossly intact. Surgical clips are seen in the right lower neck. IMPRESSION: Cardiomegaly and emphysema with no active disease in the chest. ACT 112: Negative or not required by law. Electronically signed by: Hernán hCi M.D. 12/12/2022 4:13 PM KUB X-Ray 12/12/22 15:04 KUB CLINICAL HISTORY: GI bleeding. Generalized abdominal pain. FINDINGS: 4 AP supine abdominal radiographs are correlated with abdominal CT dated 12/05/2021. Findings the colitis seen on the 12/05/2021 CT scan are not well visualized by x-ray. There is gaseous distention of the small bowel loops which measure up to 3.4 cm in diameter. This is similar to previous. No evidence of intraperitoneal free air is seen on these supine images. There are no abnormal abdominal calcifications. The bony structures appear intact. IMPRESSION: 1. Findings of a nonspecific colitis seen by CT on 12/05/2021 are not appreciated by x-ray. 2. There is gaseous distention of the small bowel loops. This is similar to previous and likely represents ileus. Obstruction is considered less likely and clinical correlation will be required. Electronically signed by: Hernán Chi M.D. 12/12/2022 4:23 PM Code Status & VTE Plan Code Status Full code-discussed with patient at bedside Supervising Physician Co-Signing Physician Notes Patient is a 52-year-old male with history of ulcerative colitis, C. difficile infection, CVA and other medical problems presents with history of worsening bloody diarrhea, abdominal pain. He was evaluated in GI clinic today for ongoing symptoms and was recommended to go to ED for further evaluation. Patie nt denied any chest pain, shortness of breath, fever, chills. He has been having recurrent bloody bowel movements every 2 hours. Please review HPI for complete details of presentation. He was found to be hypotensive while in ED, blood pressure improved with IV fluids. Chronic hyponatremia noted at 129. Imaging studies suggestive of possible ileus. Stool studies negative for C. difficile, PCR negative. On exam patient is moderately built and nourished, no apparent distress, normocephalic atraumatic, EOMI, normal breath sounds, clear to auscultation, S1-S2, no murmur, no pedal edema, abdomen soft, tender generalized, normal bowel sounds, alert, awake, oriented, grossly no focal deficits. Patient is admitted for management of ulcerative colitis flare, dehydration, chronic hyponatremia and, possible ileus. Stool studies negative for acute infection. Type and cross, hold PRBCs. Will monitor H&H and transfuse PRBCs as needed. Gentle IV fluids. Continue home p.o. vancomycin, mesalamine. Given a dose of budesonide. Consulted GI for further recommendations. Monitor sodium levels. I personally reviewed the record. Patient is interviewed and examined at bedside. Patient's care is coordinated with Emily Simeon PA-C. Please refer to the documentation above for details of patient's presentation and for discussion of other issues. (1) Ulcerative colitis Digestive disease complication type: with rectal bleeding Ulcerative colitis location: unspecified ulcerative colitis location Qualified Code(s): K51.911 - Ulcerative colitis, unspecified with rectal bleeding
[2022-12-12 17:39] LABS: Potassium 4.3 mmol/L (3.5-5.1)
[2022-12-12] MEDS ORDERED: ONDANSETRON INJ 2 MG/ML 2 ML VIAL IV PRN (19:36)
[2022-12-12] MEDS ORDERED: ACETAMINOPHEN 325 MG TAB PO PRN (19:36)
[2022-12-12] MEDS ORDERED: BUDESONIDE EC 3 MG CAP PO ONE (19:36)
[2022-12-12] MEDS ORDERED: SODIUM CHLORIDE 0.9% 250 ML IV PRN (19:36)
[2022-12-12] MEDS: SODIUM CHLORIDE 0.9% 1000ML 1,000 ML IV SCH (20:47)
[2022-12-12] MEDS: traZODone HCL 50 MG TAB PO SCH (20:48)
[2022-12-12] MEDS: ATORVASTATIN 40 MG TAB PO SCH (20:48)
[2022-12-12] MEDS: busPIRone 5 MG TAB PO SCH (20:48)
[2022-12-12] MEDS: MESALAMINE 800 MG TABCR PO SCH (20:49)
[2022-12-12] MEDS: DICYCLOMINE HCL 10 MG CAP PO SCH (21:14)
[2022-12-12 22:02] LABS: BUN Creatinine Ratio 5.8 (10-20); Calcium 8.4 mg/dl (8.5-10.1); Creatinine Clr Calc Pharmacy 102.7 ml/min; Est GFR (African American) 95.9 ml/min; Est GFR (Non-African American) 82.7 ml/min; Potassium 4.2 mmol/L (3.5-5.1)
[2022-12-12 22:05] LABS: Hematocrit (blood only) 27.9 % (42.0-52.0); Hemoglobin 8.3 g/dl (14.0-18.0)
[2022-12-13] MEDS: SODIUM CHLORIDE 0.9% 1000ML 1,000 ML IV SCH ×3 (04:27→22:04)
[2022-12-13 04:39] LABS: Hematocrit (blood only) 27.5 % (42.0-52.0); Hemoglobin 8.2 g/dl (14.0-18.0); Mean Corpuscular Hemoglobin 23.6 pg (25.0-34.0); Mean Corpuscular Hgb Conc 29.8 g/dL (32.0-36.0); Mean Corpuscular Volume 79.3 fL (80.0-100.0); Mean Platelet Volume 8.3 fL (9.4-12.4); Platelet Count 514 K/uL (130-400); RDW Coefficient of Variation 14.2 % (11.5-14.5); RDW Standard Deviation 40.6 fL (36.4-46.3); Red Blood Count 3.47 M/uL (4.70-6.10); White Blood Count 8.93 K/ul (4.8-10.8)
[2022-12-13 05:18] LABS: BUN Creatinine Ratio 5.6 (10-20); Calcium 8.3 mg/dl (8.5-10.1); Est GFR (African American) 114.7 ml/min; Phosphorus 4.1 mg/dl (2.5-4.9); Potassium 4.2 mmol/L (3.5-5.1)
[2022-12-13] MEDS: DICYCLOMINE HCL 10 MG CAP PO SCH ×3 (08:08→19:56)
--- NOTE | 2022-12-13 08:27 | Gastrointestinal Consultation ---
Date of Consultation December 13, 2022 Assessment & Plan (1) Ulcerative colitis: (2) Clostridium difficile colitis: Plan 1. CTAP w IV/oral contrast. 2. Solumedrol 20mg Q8hrs. Continue cholestyramine, mesalamine, vancomycin 125mg QD (tapering). 3. Appreciate primary hospitalists management of hypotension, tachycardia, hyponatremia. 4. OP colonoscopy for restaging - I spoke w our imaging scheduler today and was able to schedule this for SaturdayDecember 17 at [facility] OP endoscopy w Dr. Marie. Pt aware, given prep instructions and number to call if needs to reschedule. Supervising Physician Co-Signing Physician Notes I have seen and examined the patient with AVINASH Metcalf whose note reflects our findings and plan. patient with UC and recent C diff (treated with vanco taper) now admitted with significant diarrhea. C diff is negative ut NOROVIRUS is positive. Supportive care. Received a dose of IV steroids. Would treat now with IVF hydration and continue IBD medications. History of Present Illness Reason for Consultation: UC flare Requesting Physician: Briseyda Simeon PA-C Attending Physician: Ki Lentz MD History of Present Illness Mr. Ed Moyer is a 52 yr old male pt of Dr. Stevenson w a hx of HTN, Hyperlipidemia, CVA (2019, on [id number]), who was dx'ed with moderately severe UC in 2021 most recent scope at that time and is maintained on Humira, mesalamine, also w recurrent C-diff, most recently (+) in Oct 2022 on a long taper, then tested (-) x3 since that time, but diarrhea has persisted, passing liquid BMs w small amts of blood about every 2 hrs for a week. Mild diffuse abd pain. +Nausea/no vomiting. No fevers. Yesterday, in the GI office he was pale, tachycardic, hypotensive and EMS transported him to [facility] ED and he admitted to the ICU. Currently HR 100 - 110, anemic at 8.2, down from 9.1 earlier this month and 11 a year ago. he is mildly hyponatremic at 132, normotensive, receiving IV fluid, no CP or SOB, no O2 requirements. KUB w colitis, gaseous distention of the small bowel. Allergies Allergy/AdvReac Type Severity Reaction Status Date / Time No Known Allergies Allergy Mild Verified 12/12/22 16:46 Home Medications Medication Instructions Recorded Confirmed Type trazodone 150 mg tablet 150 mg PO HS 05/21/19 12/12/22 History aspirin 81 mg tablet,delayed 81 mg PO QAM 10/30/21 12/12/22 History release atorvastatin 40 mg tablet 40 mg PO HS 10/30/21 12/12/22 History lisinopril 10 mg tablet 10 mg PO QAM 10/30/21 12/12/22 History buspirone 5 mg tablet 5 mg PO AMHS 12/05/21 12/12/22 History dicyclomine 10 mg capsule 10 mg PO TID 12/05/21 12/12/22 History adalimumab 40 mg/0.8 mL 40 mg subcut .EVERY 2 WEEKS 09/16/22 12/12/22 History subcutaneous pen kit (Humira Pen) cholestyramine (with sugar) 4 gram 1 ea PO DAILY 09/16/22 12/12/22 History powder for susp in a packet iuboimto-buh-gitvd acid 300 1 tab PO DAILY 09/16/22 12/12/22 History mcg-lycopene 600 mcg-lutein 300 mcg tablet (Centrum Silver Men) Lactobacillus acidophilus 10 10,000 mmu cells PO DAILY 12/12/22 12/12/22 History billion cell capsule (Probiotic) citalopram 40 mg tablet 40 mg PO QAM 12/12/22 12/12/22 History ferrous sulfate 325 mg (65 mg 325 mg PO DAILY 12/12/22 12/12/22 History iron) tablet mesalamine 800 mg tablet,delayed 1,600 mg PO TID 12/12/22 12/12/22 History release vancomycin 125 mg capsule See Rx Instructions .Route .COMPLEX 12/12/22 12/12/22 History Patient History Medical History Anxiety Blood in stool Colitis History of COVID-19 10[place]17/21 AT [facility] ([place] [facility]MPTOMS) ED FOR BLOOD IN STOOL History of stroke History of tobacco use 30 pack years, quit in 2019 HTN (hypertension) Hyperlipidemia Insomnia Stroke X 2 IN 2019>TREATED AT [facility]>MINOR SPEECH DEFECITS Ulcerative colitis Dx in Sep 2021 Surgical History H/O carotid endarterectomy RT/LEFT History of esophagogastroduodenoscopy (EGD) History of tonsillectomy and adenoidectomy History of tooth extraction Family History Father Diabetes Coronary heart disease Stroke, Onset Age: 50 Mother Cancer Other No family history of adverse response to anesthesia Denies family history of History of blood clotting disorder Social History Smoking Status: Former smoker Tobacco Type: Cigarettes Cigarettes Per Day: 20; Second Hand Exposure: No; Hx Alcohol Use: Yes Hx Substance Use: No Preferred Language: Albanian Communication Ability: Effective Garment Form Assembler Required: No Beliefs That Will Affect Care: None marital status details: Engaged Current Living Situation: Significant Other current occupational status: 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 Other Information That Helps Us Care for You: No Feels Safe at Home: Yes Safety Concerns: Feels Safe At This Time Assistive Devices: None Review of Systems Review of Systems: ROS: Gen: +weakness, + weight loss No fevers Eyes: No eye redness, or pain, no recent vision changes Resp: No SOB, no cough Cardio: + rapid HRs; No irregular beats, no chest pain GI: As per HPI, otherwise (-) : Denies pain on urination Skin: No jaundice, itching or new rashes Physical Exam Constitutional: well developed, + ill appearing and cooperative; no acute distress Eyes: PERRL, conjunctivae normal, anicteric sclerae ENMT: external ear and nose normal, oropharynx normal Neck: trachea midline, no thyromegaly Respiratory: normal respiratory effort, lungs clear to auscultation Cardiovascular: RRR, no murmur, no edema Gastrointestinal (Abdomen): Inspection/Auscultation: abdomen normal to inspection and normal bowel sounds; abdomen not distended Percussion/Palpation: + abdomen tender (mild/diffuse) and abdomen soft; no guarding and no hepatosplenomegaly Musculoskeletal: no cyanosis or clubbing, extremities motor strength 5/5 Skin: no rashes, warm and dry Neurologic: PERRL, EOMI, accommodation nl, no face palsy, no dysarthria Psychiatric: A+Ox3, euthymic affect Lymphatic: no cervical or axillary lymphadenopathy Results & Data Vital Signs (Past 12 Hours) Vital Signs Temp Pulse Pulse Resp BP Pulse Ox O2 Del Method 12/13/22 07:41 Room Air 12/13/22 03:47 36.8 C 85 18 112/64 97 Room Air 12/13/22 00:29 102 H 12/12/22 21:36 37.0 C 96 H 18 110/60 98 Room Air Laboratory Results WBC 8.9, Hb 8.2, Hct 27, plts 514, Na 132, K 4.2, Cl 102, CO2 25, BUN 5, Cr 0.89, glucose 87 Diagnostic Findings KUB 12/12 1. Findings of a nonspecific colitis seen by CT on 12/05/2021 are not appreciated by x-ray. 2. There is gaseous distention of the small bowel loops. This is similar to previous and likely represents ileus. Obstruction is considered less likely and clinical correlation will be required. (1) Ulcerative colitis Digestive disease complication type: with rectal bleeding Ulcerative colitis location: unspecified ulcerative colitis location Qualified Code(s): K51.911 - Ulcerative colitis, unspecified with rectal bleeding
[2022-12-13] MEDS ORDERED: CHOLESTYRAMINE LIGHT 4 GM PKT PO SCH (09:00)
[2022-12-13] MEDS: MESALAMINE 800 MG TABCR PO SCH ×3 (09:24→19:55)
[2022-12-13] MEDS: busPIRone 5 MG TAB PO SCH ×2 (09:24→19:55)
[2022-12-13] MEDS: CEROVITE ADV FORMULA TAB PO SCH (09:24)
[2022-12-13] MEDS: CITALOPRAM 40 MG TAB PO SCH (09:24)
[2022-12-13] MEDS: FERROUS SULFATE 325 MG TAB PO SCH (09:25)
[2022-12-13] MEDS: RASPBERRY SYRUP 5 ML UDP PO SCH (09:25)
[2022-12-13] MEDS: ADVANCED PROBIOTIC 1250 MG CAPSULE PO SCH (09:25)
[2022-12-13] MEDS: VANCOMYCIN HCL 125 MG/2.5ML SOLN PO SCH (09:25)
[2022-12-13] MEDS ORDERED: OPTIRAY 350 100ml IV ONE (10:11)
--- NOTE | 2022-12-13 10:37 | Hospitalist Progress Note ---
Date of Service December 13, 2022 Assessment & Plan (1) Ulcerative colitis: (2) Diarrhea: (3) Anemia: Plan: Past medical history of kumar ulcerative colitis diagnosed in October 2021 on Humira every other week. History of C. difficile on tapering dose of vancomycin Sent from GI clinic due to lightheadedness. Symptoms of bloody bowel movements since last 2 to 3 weeks which increased recently. Hypotensive on presentation in ED; responded to fluids Hemoglobin 8.2 down from 9.7 on December 11. No leukocytosis PCR panel recently positive for norovirus on 12/11; GI PCR panel currently negative. Plan; Started on IV methylprednisolone 20 mg 3 times daily for ulcerative colitis flareup. CT abdomen and pelvis with IV/oral contrast Continue cholestyramine, mesalamine, vancomycin 125mg QD (tapering). Currently on vancomycin 125 mg daily until 12/15, then switch to every other day dosing times total of 7 doses to complete the course OP colonoscopy for restaging; is scheduled for December 17 at [facility]. (4) Dehydration: (5) Hyponatremia: Plan: -Noted hyponatremia, chronically like this, sodium 133, per outpatient med rec it appears that he should be on sodium chloride tabs twice daily however reports that he is not taking it. History of alcoholism, sober x15 years. - Continue NSS at 100ml/hr (6) HTN (hypertension): Plan: - Hold BP medications (7) Hyperlipidemia: Plan: - Cont statin therapy (8) History of stroke: Plan: - in 2019, on baby aspirin daily which will hold in the setting of acute GI bleed DVT ppx: - teds, scds, no chemical anticoagulation in the setting of acute GI bleed CODE: Full code Dispo: From home Admission and Anticipated Discharge Date Admission Date: December 12, 2022 Subjective Patient seen and examined at bedside. He is lying down on the bed comfortably; not in distress. He reports multiple bloody bowel movement overnight every 2 hours. Review of Systems Review of Systems: All systems reviewed & are unremarkable except as noted in Subjective Physical Exam Physical Exam: Constitutional: WD/WN, vitals as above, NAD, sitting up in bed, pleasant, conversing easily Respiratory: normal respiratory effort, lungs clear to auscultation, no wheeze, rales, rhonchi. Normal insp/exp effort, no accessory muscle use Cardiovascular: RRR, no murmur, no edema Vessels: no JVD or carotid bruit Chest: normal inspection of chest Abdomen: Mild tenderness present in periumbilical region. Musculoskeletal: no cyanosis or clubbing, extremities motor strength 5/5 Skin: no rashes, warm and dry normal turgor Neurologic: PERRL, EOMI, accommodation nl, no face palsy, no dysarthria CN's II- XI intact bilaterally and moves all extremities Psychiatric: A+Ox3, euthymic affect Lymphatic: no cervical or axillary lymphadenopathy : deferred Results & Data Results & Data Vital Signs (Past 12 Hours) Vital Signs Temp Pulse Pulse Resp BP Pulse Ox O2 Del Method 12/13/22 07:41 Room Air 12/13/22 03:47 36.8 C 85 18 112/64 97 Room Air 12/13/22 00:29 102 H Laboratory Results Laboratory Results WBC 8.93 K/ul (4.8-10.8) 12/13/22 04:19 RBC 3.47 M/uL (4.70-6.10) L 12/13/22 04:19 Hgb 8.2 g/dl (14.0-18.0) L 12/13/22 04:19 Hct 27.5 % (42.0-52.0) L 12/13/22 04:19 MCV 79.3 fL (80.0-100.0) L 12/13/22 04:19 MCH 23.6 pg (25.0-34.0) L 12/13/22 04:19 MCHC 29.8 g/dL (32.0-36.0) L 12/13/22 04:19 RDW Std Deviation 40.6 fL (36.4-46.3) 12/13/22 04:19 RDW Coeff of Chandra 14.2 % (11.5-14.5) 12/13/22 04:19 Plt Count 514 K/uL (130-400) H 12/13/22 04:19 MPV 8.3 fL (9.4-12.4) L 12/13/22 04:19 Immature Gran % (Auto) 0.4 % 12/12/22 15:10 Neut % (Auto) 75.1 % 12/12/22 15:10 Lymph % (Auto) 9.1 % 12/12/22 15:10 [place] % (Auto) 13.8 % 12/12/22 15:10 Eos % (Auto) 1.1 % 12/12/22 15:10 Baso % (Auto) 0.5 % 12/12/22 15:10 Neut # (Auto) 8.26 K/uL (1.40-6.50) H 12/12/22 15:10 Lymph # (Auto) 1.00 K/uL (1.2-3.4) L 12/12/22 15:10 [place] # (Auto) 1.51 K/uL (0.11-0.59) H 12/12/22 15:10 Eos # (Auto) 0.12 K/uL (0-0.50) 12/12/22 15:10 Baso # (Auto) 0.05 K/uL (0-0.2) 12/12/22 15:10 Immature Gran # (Auto) 0.04 K/uL (0.01-0.20) 12/12/22 15:10 PT 11.0 Seconds (9.0-12.0) 12/12/22 15:10 INR 1.0 (0.9-1.1) 12/12/22 15:10 APTT 24.6 Seconds (21.0-31.0) 12/12/22 15:10 PTT Ratio 0.9 12/12/22 15:10 Sodium 132 mmol/L (136-145) L 12/13/22 04:19 Potassium 4.2 mmol/L (3.5-5.1) 12/13/22 04:19 Chloride 102 mmol/L (98-107) 12/13/22 04:19 Carbon Dioxide 25 mmol/L (21-32) 12/13/22 04:19 Anion Gap 5 (3-11) 12/13/22 04:19 BUN 5 mg/dl (6-23) L 12/13/22 04:19 Creatinine 0.89 mg/dl (0.6-1.4) 12/13/22 04:19 Est Cr Clr Drug Dosing 120.0 ml/min 12/13/22 04:19 Est GFR ( Amer) 114.7 ml/min 12/13/22 04:19 Est GFR (Non-Af Amer) 99.0 ml/min 12/13/22 04:19 BUN/Creatinine Ratio 5.6 (10-20) L 12/13/22 04:19 Glucose 87 mg/dl (70-99(Fasting)) 12/13/22 04:19 Calcium 8.3 mg/dl (8.5-10.1) L 12/13/22 04:19 Phosphorus 4.1 mg/dl (2.5-4.9) 12/13/22 04:19 Magnesium 2.0 mg/dl (1.7-2.4) 12/13/22 04:19 Total Bilirubin 0.3 mg/dl (0.2-1.0) 12/12/22 15:10 AST 12 U/L (13-39) L 12/12/22 16:46 ALT 10 U/L (7-52) 12/12/22 15:10 Alkaline Phosphatase 53 U/L (34-104) 12/12/22 15:10 Troponin I High Sens 10.2 pg/ml (0-20) 12/12/22 15:10 Total Protein 7.2 gm/dl (6.0-8.3) 12/12/22 15:10 Albumin 3.3 gm/dl (3.4-5.0) L 12/12/22 15:10 Globulin 3.9 gm/dl (2.5-4.0) 12/12/22 15:10 Albumin/Globulin Ratio 0.8 (0.9-2) L 12/12/22 15:10 Lipase 4 U/L (11-82) L 12/12/22 15:10 Nasal Screen MRSA (PCR) Negative (Negative) 12/12/22 19:30 Stl C. cayetanensis PCR Not Detected (NotDetected) 12/12/22 15:04 Stool Rotavirus A PCR Not Detected (NotDetected) 12/12/22 15:04 Stl Adenov F 40/41 PCR Not Detected (NotDetected) 12/12/22 15:04 Stool Astrovirus (PCR) Not Detected (NotDetected) 12/12/22 15:04 Stool Campylobacter PCR Not Detected (NotDetected) 12/12/22 15:04 Stl C. diff Tox B Gene Negative Cdiff Gene (Neg) 12/12/22 15:04 Stool Cryptosporidium PCR Not Detected (NotDetected) 12/12/22 15:04 Stl E.coli Shiga Tox PCR Not Detected (NotDetected) 12/12/22 15:04 Stl Enterotoxigenic E PCR Not Detected (NotDetected) 12/12/22 15:04 Stool EPEC (PCR) Not Detected (NotDetected) 12/12/22 15:04 Stool EAEC (PCR) Not Detected (NotDetected) 12/12/22 15:04 Stl E. histolytica PCR Not Detected (NotDetected) 12/12/22 15:04 Stool Giardia Lamblia PCR Not Detected (NotDetected) 12/12/22 15:04 Stool Salmonella PCR Not Detected (NotDetected) 12/12/22 15:04 Stool Sapovirus (PCR) Not Detected (NotDetected) 12/12/22 15:04 Stl P. shigelloides PCR Not Detected (NotDetected) 12/12/22 15:04 Stl Shigella/EIEC PCR Not Detected (NotDetected) 12/12/22 15:04 St Y.enterocolitica PCR Not Detected (NotDetected) 12/12/22 15:04 Stool Vibrio (PCR) Not Detected (NotDetected) 12/12/22 15:04 Stl Vibrio cholerae PCR Not Detected (NotDetected) 12/12/22 15:04 Stl Norovirus GI/GII PCR Not Detected (NotDetected) 12/12/22 15:04 SARS-CoV-2, RNA, NAAT NEGATIVE (NEGATIVE) 12/12/22 15:07 Blood Type O Positive 12/12/22 15:10 Antibody Screen NEGATIVE 12/12/22 15:10 Impressions Chest X-Ray 12/12/22 15:04 SINGLE VIEW CHEST CLINICAL HISTORY: GI bleeding. Atypical chest pain. FINDINGS: 2 AP, portable, supine chest radiographs are compared to study dated 12/11/2022 and correlated with chest CT dated 12/05/2021. The examination is degraded by portable technique and apical lordotic positioning. The heart is enlarged note atherosclerotic calcification of the thoracic aorta. The pulmonary vasculature is noncongested. Emphysema and chronic interstitial thickening is similar to previous. There is mild bibasilar scarring/atelectasis. No airspace consolidation or large pleural effusion is identified. No pneumothorax is seen. The bony thorax is grossly intact. Surgical clips are seen in the right lower neck. IMPRESSION: Cardiomegaly and emphysema with no active disease in the chest. ACT 112: Negative or not required by law. Electronically signed by: Hernán Chi M.D. 12/12/2022 4:13 PM KUB X-Ray 12/12/22 15:04 KUB CLINICAL HISTORY: GI bleeding. Generalized abdominal pain. FINDINGS: 4 AP supine abdominal radiographs are correlated with abdominal CT dated 12/05/2021. Findings the colitis seen on the 12/05/2021 CT scan are not well visualized by x-ray. There is gaseous distention of the small bowel loops which measure up to 3.4 cm in diameter. This is similar to previous. No evidence of intraperitoneal free air is seen on these supine images. There are no abnormal abdominal calcifications. The bony structures appear intact. IMPRESSION: 1. Findings of a nonspecific colitis seen by CT on 12/05/2021 are not appreciated by x-ray. 2. There is gaseous distention of the small bowel loops. This is similar to previous and likely represents ileus. Obstruction is considered less likely and clinical correlation will be required. Electronically signed by: Hernán Chi M.D. 12/12/2022 4:23 PM (1) Ulcerative colitis Digestive disease complication type: with rectal bleeding Ulcerative colitis location: unspecified ulcerative colitis location Qualified Code(s): K51.911 - Ulcerative colitis, unspecified with rectal bleeding
--- NOTE | 2022-12-13 11:02 | CT Scan Report ---
ABDOMEN AND PELVIS CT WITH IV AND ORAL CONTRAST CT DOSE: 844.72 mGy.cm HISTORY: diarrhea, hx UC and C-diff TECHNIQUE: Multiaxial CT images of the abdomen and pelvis were performed following the use of intrave nous and oral contrast. A dose lowering technique was utilized adhering to the principles of ALARA. COMPARISON STUDY: Abdomen and pelvis CT 12/05/2021. FINDINGS: The lung bases are clear. No pneumoperitoneum. No pneumatosis. No acute fractures identifie d. The liver, pancreas, spleen, gallbladder, and adrenal glands unremarkable. The main portal vein is patent. Normal caliber abdominal aorta with moderate calcified plaque. There is a 4 mm stone within the lower pole of the right kidney, unchanged. No ureteral stones. No hydronephrosis. Bilateral renal hypodense lesions remain stable and likely represent cysts. The largest in the lower pole the left k idney measures 6.2 cm. No retroperitoneal or pelvic lymphadenopathy. The bladder is unremarkable. Mod erate circumferential thickening throughout the colon with pericolonic fat stranding and engorgement of the adjacent mesenteric vessels. This has slightly progressed in the interval and is consistent wi th a pancolitis. No evidence for a bowel obstruction. Normal appendix. IMPRESSION: 1. Progressive circumferential wall thickening seen throughout the colon consistent with a pancolitis . This likely corresponds to the patient's known history of ulcerative colitis. A superimposed infect ion would be difficult to exclude. 2. Normal appendix. 3. Stable right-sided nephrolithiasis. No hydronephrosis. ACT 112: Negative or not required by law. Electronically signed by: Dewayne Contreras M.D. 12/13/2022 11:00 AM
[2022-12-13] MEDS: CHOLESTYRAMINE LIGHT 4 GM PKT PO SCH (13:04)
[2022-12-13] MEDS ORDERED: methylPREDNISolone 20 MG in SYRINGE 0 ML IV SCH (14:00)
[2022-12-13] MEDS: traZODone HCL 50 MG TAB PO SCH (19:55)
[2022-12-13] MEDS: ATORVASTATIN 40 MG TAB PO SCH (19:55)
[2022-12-13 22:38] LABS: Appearance Urine Clear (Clear); Bilirubin Urine Negative (Negative); Blood Urine Negative (Negative); Color Urine Yellow; Glucose Urine UA Negative (Negative); Ketones Urine Negative (Negative); Leukocyte Esterase Urine Negative (Negative); Nitrite Urine Negative (Negative); Protein Urine Negative (Negative); Specific Gravity Urine 1.004 (1.000-1.030); Urobilinogen Urine Negative (Negative); pH Urine 5.5 (4.5-7.5)
[2022-12-14 06:43] LABS: Albumin Globulin Ratio 0.8 (0.9-2); Albumin Level 2.8 gm/dl (3.4-5.0); BUN Creatinine Ratio 4.7 (10-20); Bilirubin,Total 0.2 mg/dl (0.2-1.0); Calcium 8.1 mg/dl (8.5-10.1); Creatinine Clr Calc Pharmacy 126.9 ml/min; Est GFR (African American) 116.9 ml/min; Est GFR (Non-African American) 100.9 ml/min; Globulin 3.5 gm/dl (2.5-4.0); Potassium 3.7 mmol/L (3.5-5.1); Total Protein 6.3 gm/dl (6.0-8.3)
[2022-12-14 07:11] LABS: Basophils # (auto) 0.03 K/uL (0-0.2); Basophils % (auto) 0.4 %; Eosinophils # (auto) 0.23 K/uL (0-0.50); Eosinophils % (auto) 3.2 %; Hematocrit (blood only) 27.3 % (42.0-52.0); Hemoglobin 7.9 g/dl (14.0-18.0); Hypochromasia Present; Immature Granulocytes # (auto) 0.03 K/uL (0.01-0.20); Immature Granulocytes % (auto) 0.4 %; Lymphocytes # (auto) 1.37 K/uL (1.2-3.4); Lymphocytes % (auto) 19.3 %; Mean Corpuscular Hemoglobin 23.4 pg (25.0-34.0); Mean Corpuscular Hgb Conc 28.9 g/dL (32.0-36.0); Mean Corpuscular Volume 80.8 fL (80.0-100.0); Mean Platelet Volume 8.3 fL (9.4-12.4); Monocytes # (auto) 1.12 K/uL (0.11-0.59); Monocytes % (auto) 15.8 %; Neutrophils # (auto) 4.33 K/uL (1.40-6.50); Neutrophils % (auto) 60.9 %; Platelet Count 510 K/uL (130-400); Polychromasia 1+; RDW Coefficient of Variation 14.1 % (11.5-14.5); RDW Standard Deviation 41.4 fL (36.4-46.3); Red Blood Count 3.38 M/uL (4.70-6.10); White Blood Count 7.11 K/ul (4.8-10.8)
[2022-12-14] MEDS: RASPBERRY SYRUP 5 ML UDP PO SCH (09:05)
[2022-12-14] MEDS: FERROUS SULFATE 325 MG TAB PO SCH (09:06)
[2022-12-14] MEDS: CEROVITE ADV FORMULA TAB PO SCH (09:06)
[2022-12-14] MEDS: busPIRone 5 MG TAB PO SCH ×2 (09:06→19:39)
[2022-12-14] MEDS: CITALOPRAM 40 MG TAB PO SCH (09:06)
[2022-12-14] MEDS: ADVANCED PROBIOTIC 1250 MG CAPSULE PO SCH (09:06)
[2022-12-14] MEDS: MESALAMINE 800 MG TABCR PO SCH ×3 (09:07→19:40)
[2022-12-14] MEDS: DICYCLOMINE HCL 10 MG CAP PO SCH ×3 (09:07→19:39)
[2022-12-14] MEDS: CHOLESTYRAMINE LIGHT 4 GM PKT PO SCH (09:08)
[2022-12-14] MEDS: VANCOMYCIN HCL 125 MG/2.5ML SOLN PO SCH (09:10)
[2022-12-14] MEDS: SODIUM CHLORIDE 0.9% 1000ML 1,000 ML IV SCH (09:11)
[2022-12-14] MEDS ORDERED: methylPREDNISolone 20 MG in SYRINGE 0 ML IV SCH (10:00)
[2022-12-14] MEDS: methylPREDNISolone 20 MG in SYRINGE 0 ML IV SCH ×3 (10:25→21:21)
--- NOTE | 2022-12-14 12:13 | Gastroenterology Progress Note ---
Date of Service December 14, 2022 Assessment & Plan (1) Ulcerative colitis: Plan: Colitis more likely secondary to UC flare versus norovirus or C. difficile. (2) Clostridium difficile colitis: Plan 1. CTAP w IV/oral contrast. 2. Solumedrol 20mg Q8hrs. Continue cholestyramine, mesalamine, vancomycin 125mg QD (tapering). 3. At the time of discharge, please provide patient with a prescription for prednisone 40 mg daily for a week then 30 mg daily for a week then 25 mg daily for a week. Further prescription for the prednisone tapering can be given at the time of his office follow-up. 4. Continue vancomycin taper as previously prescribed. 5. 3. OP office visit w James Jacobson in the next month. Our machine silver stripper reach out to the patient to arrange. Initially at the time of this patient's admission, we had scheduled a colonoscopy for December 17, however because norovirus was positive and was canceled we will allow time for resolution of that issue then consider colonoscopy for restaging at the time of the outpatient office visit. Admission and Anticipated Discharge Date Admission Date: December 12, 2022 Supervising Physician Co-Signing Physician Notes I performed a history and physical examination of the patient today, including specifically on physical exam - soft abdomen. I have discussed the patient's management with the advanced practitioner. Please refer to the nurse practitioner's note for the documented findings and plan of care. Last yr had positive Norovirus and repeat now initially positive then negative. I highly doubt this is Norovirus related as it is not typically an enteroinvasive infection and should not cause rectal bleeding. This is likely a UC flare. Treat with IV steroids. Subjective 52 yr male UC since 2021, maintained on Humira/mesalamine. Admitted on 12/12 from the GI office for hypotension, tachycardia - resolved w IV fluids. In flare for approx 2 wks, passing a BM every 2-3 hrs, liquid w blood. Norovirus + on 12/12, (-) on 12/11. Of note also positive at time of dx in November 2022. Sl improvement in number and volume of BMs after receiving one dose of IV steroids yesterday. Review of Systems Review of Systems: ROS: Gen: +weakness (improving), + weight loss No fevers Eyes: No eye redness, or pain, no recent vision changes Resp: No SOB, no cough Cardio: No palpitations; No irregular beats, no chest pain GI: As per HPI, otherwise (-) : Denies pain on urination Skin: No jaundice, itching or new rashes Physical Exam Constitutional: well developed, + ill appearing and cooperative; no acute distress Eyes: PERRL, conjunctivae normal, anicteric sclerae ENMT: external ear and nose normal, oropharynx normal Neck: trachea midline, no thyromegaly Respiratory: normal respiratory effort, lungs clear to auscultation Cardiovascular: RRR, no murmur, no edema Gastrointestinal (Abdomen): Inspection/Auscultation: abdomen normal to inspection and normal bowel sounds; abdomen not distended Percussion/Palpation: + abdomen tender (mild/diffuse) and abdomen soft; no guarding and no hepatosplenomegaly Musculoskeletal: no cyanosis or clubbing, extremities motor strength 5/5 Skin: no rashes, warm and dry Neurologic: PERRL, EOMI, accommodation nl, no face palsy, no dysarthria Psychiatric: A+Ox3, euthymic affect Lymphatic: no cervical or axillary lymphadenopathy Results & Data Vital Signs (Past 12 Hours) Vital Signs Temp Pulse Pulse Resp BP Pulse Ox O2 Del Method 12/14/22 11:00 37.4 C 90 18 116/74 94 Room Air 12/14/22 08:00 96 H 12/14/22 08:46 37.0 C 104 H 19 126/75 95 Room Air 12/14/22 03:40 36.5 C 84 18 114/70 99 Room Air Laboratory Results WBC 7.11 Hb 7.9, HCT 27.3, PLT S510, NA 134, K3.7, Cl 102, CO2 22, BUN 4, CR 0.8. Diagnostic Findings CTAP w IV, oral 12/12/22: 1. Progressive circumferential wall thickening seen throughout the colon consistent with a pancolitis. This likely corresponds to the patient's known history of ulcerative colitis. A superimposed infection would be difficult to exclude. 2. Normal appendix. 3. Stable right-sided nephrolithiasis. No hydronephrosis. (1) Ulcerative colitis Digestive disease complication type: with rectal bleeding Ulcerative colitis location: unspecified ulcerative colitis location Qualified Code(s): K51.911 - Ulcerative colitis, unspecified with rectal bleeding
--- NOTE | 2022-12-14 15:18 | Hospitalist Progress Note ---
Date of Service December 14, 2022 Assessment & Plan (1) Ulcerative colitis: (2) Diarrhea: (3) Acute blood loss anemia: Plan: Past medical history of kumar ulcerative colitis diagnosed in October 2021 on Humira every other week. History of C. difficile on tapering dose of vancomycin Sent from GI clinic due to lightheadedness. Symptoms of bloody bowel movements since last 2 to 3 weeks which increased recently. Hypotensive on presentation in ED; responded to fluids downtrending hemoglobin No leukocytosis PCR panel recently positive for norovirus on 12/11; GI PCR panel currently negative. CT abdomen pelvis shows progressive circumferential wall thickening seen t hroughout the colon consistent with pancolitis Plan; Continue on on IV methylprednisolone 20 mg 3 times daily for ulcerative colitis flareup. As per GI, at the time of discharge patient to be placed on tapering dose of prednisone starting at 40 mg daily. Continue cholestyramine, mesalamine, vancomycin 125mg QD (tapering). Currently on vancomycin 125 mg daily until 12/15, then switch to every other day dosing times total of 7 doses to complete the course OP colonoscopy for restaging (4) Dehydration: (5) Hyponatremia: Plan: -Noted hyponatremia, chronically like this, sodium 133, per outpatient med rec it appears that he should be on sodium chloride tabs twice daily however reports that he is not taking it. History of alcoholism, sober x15 years. -Encourage oral fluid; restart IV fluids. (6) HTN (hypertension): Plan: - Hold BP medications (7) Hyperlipidemia: Plan: - Cont statin therapy (8) History of stroke: Plan: - in 2019, on baby aspirin daily which will hold in the setting of acute GI bleed DVT ppx: - teds, scds, no chemical anticoagulation in the setting of acute GI bleed CODE: Full code Dispo: From home Admission and Anticipated Discharge Date Admission Date: December 12, 2022 Subjective Patient seen and examined at bedside. He reports slight improvement in frequency of bowel movement. No complaints of abdominal pain at the present time. Hemodynamically stable; afebrile and saturating well on room air. Review of Systems Review of Systems: All systems reviewed & are unremarkable except as noted in Subjective Physical Exam Physical Exam: Constitutional: WD/WN, vitals as above, NAD, sitting up in bed, pleasant, conversing easily Respiratory: normal respiratory effort, lungs clear to auscultation, no wheeze, rales, rhonchi. Normal insp/exp effort, no accessory muscle use Cardiovascular: RRR, no murmur, no edema Vessels: no JVD or carotid bruit Chest: normal inspection of chest Abdomen: Soft, nontender Musculoskeletal: no cyanosis or clubbing, extremities motor strength 5/5 Skin: no rashes, warm and dry normal turgor Neurologic: PERRL, EOMI, accommodation nl, no face palsy, no dysarthria CN's II- XI intact bilaterally and moves all extremities Psychiatric: A+Ox3, euthymic affect Lymphatic: no cervical or axillary lymphadenopathy : deferred Results & Data Results & Data Vital Signs (Past 12 Hours) Vital Signs Temp Pulse Pulse Resp BP Pulse Ox O2 Del Method 12/14/22 11:00 37.4 C 90 18 116/74 94 Room Air 12/14/22 08:00 96 H 12/14/22 08:46 37.0 C 104 H 19 126/75 95 Room Air 12/14/22 03:40 36.5 C 84 18 114/70 99 Room Air Laboratory Results Laboratory Results WBC 7.11 K/ul (4.8-10.8) 12/14/22 05:42 RBC 3.38 M/uL (4.70-6.10) L 12/14/22 05:42 Hgb 7.9 g/dl (14.0-18.0) L 12/14/22 05:42 Hct 27.3 % (42.0-52.0) L 12/14/22 05:42 MCV 80.8 fL (80.0-100.0) 12/14/22 05:42 MCH 23.4 pg (25.0-34.0) L 12/14/22 05:42 MCHC 28.9 g/dL (32.0-36.0) L 12/14/22 05:42 RDW Std Deviation 41.4 fL (36.4-46.3) 12/14/22 05:42 RDW Coeff of Chandra 14.1 % (11.5-14.5) 12/14/22 05:42 Plt Count 510 K/uL (130-400) H 12/14/22 05:42 MPV 8.3 fL (9.4-12.4) L 12/14/22 05:42 Immature Gran % (Auto) 0.4 % 12/14/22 05:42 Neut % (Auto) 60.9 % 12/14/22 05:42 Lymph % (Auto) 19.3 % 12/14/22 05:42 [place] % (Auto) 15.8 % 12/14/22 05:42 Eos % (Auto) 3.2 % 12/14/22 05:42 Baso % (Auto) 0.4 % 12/14/22 05:42 Neut # (Auto) 4.33 K/uL (1.40-6.50) 12/14/22 05:42 Lymph # (Auto) 1.37 K/uL (1.2-3.4) 12/14/22 05:42 [place] # (Auto) 1.12 K/uL (0.11-0.59) H 12/14/22 05:42 Eos # (Auto) 0.23 K/uL (0-0.50) 12/14/22 05:42 Baso # (Auto) 0.03 K/uL (0-0.2) 12/14/22 05:42 Immature Gran # (Auto) 0.03 K/uL (0.01-0.20) 12/14/22 05:42 Polychromasia 1+ 12/14/22 05:42 Hypochromasia Present 12/14/22 05:42 PT 11.0 Seconds (9.0-12.0) 12/12/22 15:10 INR 1.0 (0.9-1.1) 12/12/22 15:10 APTT 24.6 Seconds (21.0-31.0) 12/12/22 15:10 PTT Ratio 0.9 12/12/22 15:10 Sodium 134 mmol/L (136-145) L 12/14/22 05:42 Potassium 3.7 mmol/L (3.5-5.1) 12/14/22 05:42 Chloride 102 mmol/L (98-107) 12/14/22 05:42 Carbon Dioxide 27 mmol/L (21-32) 12/14/22 05:42 Anion Gap 5 (3-11) 12/14/22 05:42 BUN 4 mg/dl (6-23) L 12/14/22 05:42 Creatinine 0.85 mg/dl (0.6-1.4) 12/14/22 05:42 Est Cr Clr Drug Dosing 126.9 ml/min 12/14/22 05:42 Est GFR ( Amer) 116.9 ml/min 12/14/22 05:42 Est GFR (Non-Af Amer) 100.9 ml/min 12/14/22 05:42 BUN/Creatinine Ratio 4.7 (10-20) L 12/14/22 05:42 Glucose 107 mg/dl (70-99(Fasting)) H 12/14/22 05:42 Calcium 8.1 mg/dl (8.5-10.1) L 12/14/22 05:42 Phosphorus 4.1 mg/dl (2.5-4.9) 12/13/22 04:19 Magnesium 2.0 mg/dl (1.7-2.4) 12/13/22 04:19 Total Bilirubin 0.2 mg/dl (0.2-1.0) 12/14/22 05:42 AST 11 U/L (13-39) L 12/14/22 05:42 ALT 5 U/L (7-52) L 12/14/22 05:42 Alkaline Phosphatase 45 U/L (34-104) 12/14/22 05:42 Troponin I High Sens 10.2 pg/ml (0-20) 12/12/22 15:10 Total Protein 6.3 gm/dl (6.0-8.3) 12/14/22 05:42 Albumin 2.8 gm/dl (3.4-5.0) L 12/14/22 05:42 Globulin 3.5 gm/dl (2.5-4.0) 12/14/22 05:42 Albumin/Globulin Ratio 0.8 (0.9-2) L 12/14/22 05:42 Lipase 4 U/L (11-82) L 12/12/22 15:10 Urine Color Yellow 12/13/22 Unknown Urine Appearance Clear (Clear) 12/13/22 Unknown Urine pH 5.5 (4.5-7.5) 12/13/22 Unknown Ur Specific [place] 1.004 (1.000-1.030) 12/13/22 Unknown Urine Protein Negative (Negative) 12/13/22 Unknown Urine Glucose (UA) Negative (Negative) 12/13/22 Unknown Urine Ketones Negative (Negative) 12/13/22 Unknown Urine Blood Negative (Negative) 12/13/22 Unknown Urine Nitrite Negative (Negative) 12/13/22 Unknown Urine Bilirubin Negative (Negative) 12/13/22 Unknown Urine Urobilinogen Negative (Negative) 12/13/22 Unknown Ur Leukocyte Esterase Negative (Negative) 12/13/22 Unknown Nasal Screen MRSA (PCR) Negative (Negative) 12/12/22 19:30 Stl C. cayetanensis PCR Not Detected (NotDetected) 12/12/22 15:04 Stool Rotavirus A PCR Not Detected (NotDetected) 12/12/22 15:04 Stl Adenov F 40/41 PCR Not Detected (NotDetected) 12/12/22 15:04 Stool Astrovirus (PCR) Not Detected (NotDetected) 12/12/22 15:04 Stool Campylobacter PCR Not Detected (NotDetected) 12/12/22 15:04 Stl C. diff Tox B Gene Negative Cdiff Gene (Neg) 12/12/22 15:04 Stool Cryptosporidium PCR Not Detected (NotDetected) 12/12/22 15:04 Stl E.coli Shiga Tox PCR Not Detected (NotDetected) 12/12/22 15:04 Stl Enterotoxigenic E PCR Not Detected (NotDetected) 12/12/22 15:04 Stool EPEC (PCR) Not Detected (NotDetected) 12/12/22 15:04 Stool EAEC (PCR) Not Detected (NotDetected) 12/12/22 15:04 Stl E. histolytica PCR Not Detected (NotDetected) 12/12/22 15:04 Stool Giardia Lamblia PCR Not Detected (NotDetected) 12/12/22 15:04 Stool Salmonella PCR Not Detected (NotDetected) 12/12/22 15:04 Stool Sapovirus (PCR) Not Detected (NotDetected) 12/12/22 15:04 Stl P. shigelloides PCR Not Detected (NotDetected) 12/12/22 15:04 Stl Shigella/EIEC PCR Not Detected (NotDetected) 12/12/22 15:04 St Y.enterocolitica PCR Not Detected (NotDetected) 12/12/22 15:04 Stool Vibrio (PCR) Not Detected (NotDetected) 12/12/22 15:04 Stl Vibrio cholerae PCR Not Detected (NotDetected) 12/12/22 15:04 Stl Norovirus GI/GII PCR Not Detected (NotDetected) 12/12/22 15:04 SARS-CoV-2, RNA, NAAT NEGATIVE (NEGATIVE) 12/12/22 15:07 Blood Type O Positive 12/12/22 15:10 Antibody Screen NEGATIVE 12/12/22 15:10 Impressions Chest X-Ray 12/12/22 15:04 SINGLE VIEW CHEST CLINICAL HISTORY: GI bleeding. Atypical chest pain. FINDINGS: 2 AP, portable, supine chest radiographs are compared to study dated 12/11/2022 and correlated with chest CT dated 12/05/2021. The examination is degraded by portable technique and apical lordotic positioning. The heart is enlarged note atherosclerotic calcification of the thoracic aorta. The pulmonary vasculature is noncongested. Emphysema and chronic interstitial thickening is similar to previous. There is mild bibasilar scarring/atelectasis. No airspace consolidation or large pleural effusion is identified. No pneumothorax is seen. The bony thorax is grossly intact. Surgical clips are seen in the right lower neck. IMPRESSION: Cardiomegaly and emphysema with no active disease in the chest. ACT 112: Negative or not required by law. Electronically signed by: Hernán Chi M.D. 12/12/2022 4:13 PM KUB X-Ray 12/12/22 15:04 KUB CLINICAL HISTORY: GI bleeding. Generalized abdominal pain. FINDINGS: 4 AP supine abdominal radiographs are correlated with abdominal CT dated 12/05/2021. Findings the colitis seen on the 12/05/2021 CT scan are not well visualized by x-ray. There is gaseous distention of the small bowel loops which measure up to 3.4 cm in diameter. This is similar to previous. No evidence of intraperitoneal free air is seen on these supine images. There are no abnormal abdominal calcifications. The bony structures appear intact. IMPRESSION: 1. Findings of a nonspecific colitis seen by CT on 12/05/2021 are not appreciated by x-ray. 2. There is gaseous distention of the small bowel loops. This is similar to previous and likely represents ileus. Obstruction is considered less likely and clinical correlation will be required. Electronically signed by: Hernán Chi M.D. 12/12/2022 4:23 PM Abdomen/Pelvis CT 12/13/22 07:[address] WITH IV AND ORAL CONTRAST CT DOSE: 844.72 mGy.cm HISTORY: diarrhea, hx UC and C-diff TECHNIQUE: Multiaxial CT images of the abdomen and pelvis were performed following the use of intravenous and oral contrast. A dose lowering technique was utilized adhering to the principles of ALARA. COMPARISON STUDY: Abdomen and pelvis CT 12/05/2021. FINDINGS: The lung bases are clear. No pneumoperitoneum. No pneumatosis. No acute fractures identified. The liver, pancreas, spleen, gallbladder, and adrenal glands unremarkable. The main portal vein is patent. Normal caliber abdominal aorta with moderate calcified plaque. There is a 4 mm stone within the lower pole of the right kidney, unchanged. No ureteral stones. No hydronephrosis. Bilateral renal hypodense lesions remain stable and likely represent cysts. The largest in the lower pole the left kidney measures 6.2 cm. No retroperitoneal or pelvic lymphadenopathy. The bladder is unremarkable. Mo derate circumferential thickening throughout the colon with pericolonic fat stranding and engorgement of the adjacent mesenteric vessels. This has slightly progressed in the interval and is consistent with a pancolitis. No evidence for a bowel obstruction. Normal appendix. IMPRESSION: 1. Progressive circumferential wall thickening seen throughout the colon consistent with a pancolitis. This likely corresponds to the patient's known history of ulcerative colitis. A superimposed infection would be difficult to exclude. 2. Normal appendix. 3. Stable right-sided nephrolithiasis. No hydronephrosis. ACT 112: Negative or not required by law. Electronically signed by: Dewayne Contreras M.D. 12/13/2022 11:00 AM (1) Ulcerative colitis Digestive disease complication type: with rectal bleeding Ulcerative colitis location: unspecified ulcerative colitis location Qualified Code(s): K51.911 - Ulcerative colitis, unspecified with rectal bleeding
[2022-12-14] MEDS: traZODone HCL 50 MG TAB PO SCH (19:39)
[2022-12-14] MEDS: ATORVASTATIN 40 MG TAB PO SCH (19:39)
--- NOTE | 2022-12-14 23:47 | Electrocardiogram Report ---
Test Reason : Blood Pressure : / mmHG Vent. Rate : 096 BPM Atrial Rate : 096 BPM P-R Int : 164 ms QRS Dur : 088 ms QT Int : 326 ms P-R-T Axes : 029 011 060 degrees QTc Int : 411 ms Normal sinus rhythm Low voltage QRS Cannot rule out Septal infarct , age undetermined Abnormal ECG When compared with ECG of 11-DEC-2022 07:46, No significant change Confirmed by Shailesh Clayton ([id number]) on 12/14/2022 11:46:46 PM Referred By: Confirmed By:Shailesh Clayton
[2022-12-15] MEDS: methylPREDNISolone 20 MG in SYRINGE 0 ML IV SCH ×3 (05:34→22:06)
[2022-12-15 07:38] LABS: Basophils # (auto) 0.01 K/uL (0-0.2); Basophils % (auto) 0.1 %; Eosinophils # (auto) 0.01 K/uL (0-0.50); Eosinophils % (auto) 0.1 %; Hematocrit (blood only) 26.5 % (42.0-52.0); Hemoglobin 7.8 g/dl (14.0-18.0); Immature Granulocytes # (auto) 0.06 K/uL (0.01-0.20); Immature Granulocytes % (auto) 0.7 %; Lymphocytes # (auto) 0.85 K/uL (1.2-3.4); Mean Corpuscular Hemoglobin 23.7 pg (25.0-34.0); Mean Corpuscular Hgb Conc 29.4 g/dL (32.0-36.0); Mean Corpuscular Volume 80.5 fL (80.0-100.0); Mean Platelet Volume 8.2 fL (9.4-12.4); Monocytes # (auto) 0.91 K/uL (0.11-0.59); Monocytes % (auto) 10.7 %; Neutrophils # (auto) 6.65 K/uL (1.40-6.50); Neutrophils % (auto) 78.4 %; Platelet Count 547 K/uL (130-400); RDW Coefficient of Variation 14.1 % (11.5-14.5); RDW Standard Deviation 41.4 fL (36.4-46.3); Red Blood Count 3.29 M/uL (4.70-6.10); White Blood Count 8.49 K/ul (4.8-10.8)
[2022-12-15 08:04] LABS: Hypochromasia Present; Microcytosis Present; Polychromasia 1+
[2022-12-15 08:10] LABS: Albumin Globulin Ratio 0.9 (0.9-2); Albumin Level 2.9 gm/dl (3.4-5.0); BUN Creatinine Ratio 9.3 (10-20); Bilirubin,Total 0.2 mg/dl (0.2-1.0); Creatinine Clr Calc Pharmacy 142.9 ml/min; Est GFR (African American) 123.1 ml/min; Est GFR (Non-African American) 106.2 ml/min; Globulin 3.4 gm/dl (2.5-4.0); Potassium 4.1 mmol/L (3.5-5.1); Total Protein 6.3 gm/dl (6.0-8.3)
[2022-12-15] MEDS: VANCOMYCIN HCL 125 MG/2.5ML SOLN PO SCH (08:57)
[2022-12-15] MEDS: DICYCLOMINE HCL 10 MG CAP PO SCH ×3 (08:57→20:24)
[2022-12-15] MEDS: RASPBERRY SYRUP 5 ML UDP PO SCH (08:58)
[2022-12-15] MEDS: MESALAMINE 800 MG TABCR PO SCH ×3 (08:58→20:23)
[2022-12-15] MEDS: CITALOPRAM 40 MG TAB PO SCH (08:59)
[2022-12-15] MEDS: CEROVITE ADV FORMULA TAB PO SCH (08:59)
[2022-12-15] MEDS: busPIRone 5 MG TAB PO SCH ×2 (08:59→20:24)
[2022-12-15] MEDS: ADVANCED PROBIOTIC 1250 MG CAPSULE PO SCH (08:59)
[2022-12-15] MEDS: CHOLESTYRAMINE LIGHT 4 GM PKT PO SCH (09:26)
[2022-12-15] MEDS: FERROUS SULFATE 325 MG TAB PO SCH (09:58)
--- NOTE | 2022-12-15 14:15 | Hospitalist Progress Note ---
Date of Service December 15, 2022 Assessment & Plan (1) Ulcerative colitis: (2) Diarrhea: (3) Acute blood loss anemia: Plan: Past medical history of kumar ulcerative colitis diagnosed in October 2021 on Humira every other week. History of C. difficile on tapering dose of vancomycin Sent from GI clinic due to lightheadedness. Symptoms of bloody bowel movements since last 2 to 3 weeks which increased recently. Hypotensive on presentation in ED; responded to fluids downtrending hemoglobin No leukocytosis PCR panel recently positive for norovirus on 12/11; GI PCR panel currently negative. CT abdomen pelvis shows progressive circumferential wall thickening seen t hroughout the colon consistent with pancolitis Plan; Continue on on IV methylprednisolone 20 mg 3 times daily for ulcerative colitis flareup. Patient is showing slight improvement in the symptoms with decreasing diarrhea frequency. He still has 2-3 episode at night of bloody bowel movement. To be placed on tapering dose of steroid at discharge. Continue cholestyramine, mesalamine, vancomycin 125mg QD (tapering). Patient was due for Humira today. Discussed with on-call GI; okay to give Humira. Patient to bring it from home. Currently on vancomycin every other day for recent C. difficile infection. OP colonoscopy for restaging (4) Dehydration: (5) Hyponatremia: Plan: -Hyponatremia improved with IV hydration. (6) HTN (hypertension): Plan: - Hold BP medications (7) Hyperlipidemia: Plan: - Cont statin therapy (8) History of stroke: Plan: - in 2019, on baby aspirin daily which will hold in the setting of acute GI bleed DVT ppx: - teds, scds, no chemical anticoagulation in the setting of acute GI bleed CODE: Full code Dispo: From home. He continues to require hospitalization due to need for IV steroids. He still has 2-3 bowel movements at night and multiple episodes during the day. We will continue to monitor him inpatient. Discharge home after requirement IV steroid decreases. Admission and Anticipated Discharge Date Admission Date: December 12, 2022 Subjective Patient seen and examined at bedside. Patient reports improvement in the symptoms. He had to 3 episodes of bloody bowel movement overnight. Review of Systems Review of Systems: All systems reviewed & are unremarkable except as noted in Subjective Physical Exam Physical Exam: Constitutional: WD/WN, vitals as above, NAD, sitting up in bed, pleasant, conversing easily Respiratory: normal respiratory effort, lungs clear to auscultation, no wheeze, rales, rhonchi. Normal insp/exp effort, no accessory muscle use Cardiovascular: RRR, no murmur, no edema Vessels: no JVD or carotid bruit Chest: normal inspection of chest Abdomen: Soft, nontender Musculoskeletal: no cyanosis or clubbing, extremities motor strength 5/5 Skin: no rashes, warm and dry normal turgor Neurologic: PERRL, EOMI, accommodation nl, no face palsy, no dysarthria CN's II- XI intact bilaterally and moves all extremities Psychiatric: A+Ox3, euthymic affect Lymphatic: no cervical or axillary lymphadenopathy : deferred Results & Data Results & Data Vital Signs (Past 12 Hours) Vital Signs Temp Pulse Pulse Resp BP Pulse Ox O2 Del Method 12/15/22 11:23 37.1 C 89 20 137/78 92 Room Air 12/15/22 08:13 36.7 C 74 18 135/81 95 Room Air 12/15/22 07:31 78 12/15/22 03:50 36.5 C 74 18 129/78 94 Room Air Laboratory Results Laboratory Results WBC 8.49 K/ul (4.8-10.8) 12/15/22 06:54 RBC 3.29 M/uL (4.70-6.10) L 12/15/22 06:54 Hgb 7.8 g/dl (14.0-18.0) L 12/15/22 06:54 Hct 26.5 % (42.0-52.0) L 12/15/22 06:54 MCV 80.5 fL (80.0-100.0) 12/15/22 06:54 MCH 23.7 pg (25.0-34.0) L 12/15/22 06:54 MCHC 29.4 g/dL (32.0-36.0) L 12/15/22 06:54 RDW Std Deviation 41.4 fL (36.4-46.3) 12/15/22 06:54 RDW Coeff of Chandra 14.1 % (11.5-14.5) 12/15/22 06:54 Plt Count 547 K/uL (130-400) H 12/15/22 06:54 MPV 8.2 fL (9.4-12.4) L 12/15/22 06:54 Immature Gran % (Auto) 0.7 % 12/15/22 06:54 Neut % (Auto) 78.4 % 12/15/22 06:54 Lymph % (Auto) 10.0 % 12/15/22 06:54 [place] % (Auto) 10.7 % 12/15/22 06:54 Eos % (Auto) 0.1 % 12/15/22 06:54 Baso % (Auto) 0.1 % 12/15/22 06:54 Neut # (Auto) 6.65 K/uL (1.40-6.50) H 12/15/22 06:54 Lymph # (Auto) 0.85 K/uL (1.2-3.4) L 12/15/22 06:54 [place] # (Auto) 0.91 K/uL (0.11-0.59) H 12/15/22 06:54 Eos # (Auto) 0.01 K/uL (0-0.50) 12/15/22 06:54 Baso # (Auto) 0.01 K/uL (0-0.2) 12/15/22 06:54 Immature Gran # (Auto) 0.06 K/uL (0.01-0.20) 12/15/22 06:54 Polychromasia 1+ 12/15/22 06:54 Hypochromasia Present 12/15/22 06:54 Microcytosis Present 12/15/22 06:54 PT 11.0 Seconds (9.0-12.0) 12/12/22 15:10 INR 1.0 (0.9-1.1) 12/12/22 15:10 APTT 24.6 Seconds (21.0-31.0) 12/12/22 15:10 PTT Ratio 0.9 12/12/22 15:10 Sodium 136 mmol/L (136-145) 12/15/22 06:54 Potassium 4.1 mmol/L (3.5-5.1) 12/15/22 06:54 Chloride 104 mmol/L (98-107) 12/15/22 06:54 Carbon Dioxide 28 mmol/L (21-32) 12/15/22 06:54 Anion Gap 4 (3-11) 12/15/22 06:54 BUN 7 mg/dl (6-23) 12/15/22 06:54 Creatinine 0.75 mg/dl (0.6-1.4) 12/15/22 06:54 Est Cr Clr Drug Dosing 142.9 ml/min 12/15/22 06:54 Est GFR ( Amer) 123.1 ml/min 12/15/22 06:54 Est GFR (Non-Af Amer) 106.2 ml/min 12/15/22 06:54 BUN/Creatinine Ratio 9.3 (10-20) L 12/15/22 06:54 Glucose 127 mg/dl (70-99(Fasting)) H 12/15/22 06:54 Calcium 8.0 mg/dl (8.5-10.1) L 12/15/22 06:54 Phosphorus 4.1 mg/dl (2.5-4.9) 12/13/22 04:19 Magnesium 2.0 mg/dl (1.7-2.4) 12/13/22 04:19 Total Bilirubin 0.2 mg/dl (0.2-1.0) 12/15/22 06:54 AST 12 U/L (13-39) L 12/15/22 06:54 ALT 6 U/L (7-52) L 12/15/22 06:54 Alkaline Phosphatase 44 U/L (34-104) 12/15/22 06:54 Troponin I High Sens 10.2 pg/ml (0-20) 12/12/22 15:10 Total Protein 6.3 gm/dl (6.0-8.3) 12/15/22 06:54 Albumin 2.9 gm/dl (3.4-5.0) L 12/15/22 06:54 Globulin 3.4 gm/dl (2.5-4.0) 12/15/22 06:54 Albumin/Globulin Ratio 0.9 (0.9-2) 12/15/22 06:54 Lipase 4 U/L (11-82) L 12/12/22 15:10 Urine Color Yellow 12/13/22 Unknown Urine Appearance Clear (Clear) 12/13/22 Unknown Urine pH 5.5 (4.5-7.5) 12/13/22 Unknown Ur Specific [place] 1.004 (1.000-1.030) 12/13/22 Unknown Urine Protein Negative (Negative) 12/13/22 Unknown Urine Glucose (UA) Negative (Negative) 12/13/22 Unknown Urine Ketones Negative (Negative) 12/13/22 Unknown Urine Blood Negative (Negative) 12/13/22 Unknown Urine Nitrite Negative (Negative) 12/13/22 Unknown Urine Bilirubin Negative (Negative) 12/13/22 Unknown Urine Urobilinogen Negative (Negative) 12/13/22 Unknown Ur Leukocyte Esterase Negative (Negative) 12/13/22 Unknown Nasal Screen MRSA (PCR) Negative (Negative) 12/12/22 19:30 Stl C. cayetanensis PCR Not Detected (NotDetected) 12/12/22 15:04 Stool Rotavirus A PCR Not Detected (NotDetected) 12/12/22 15:04 Stl Adenov F 40/41 PCR Not Detected (NotDetected) 12/12/22 15:04 Stool Astrovirus (PCR) Not Detected (NotDetected) 12/12/22 15:04 Stool Campylobacter PCR Not Detected (NotDetected) 12/12/22 15:04 Stl C. diff Tox B Gene Negative Cdiff Gene (Neg) 12/12/22 15:04 Stool Cryptosporidium PCR Not Detected (NotDetected) 12/12/22 15:04 Stl E.coli Shiga Tox PCR Not Detected (NotDetected) 12/12/22 15:04 Stl Enterotoxigenic E PCR Not Detected (NotDetected) 12/12/22 15:04 Stool EPEC (PCR) Not Detected (NotDetected) 12/12/22 15:04 Stool EAEC (PCR) Not Detected (NotDetected) 12/12/22 15:04 Stl E. histolytica PCR Not Detected (NotDetected) 12/12/22 15:04 Stool Giardia Lamblia PCR Not Detected (NotDetected) 12/12/22 15:04 Stool Salmonella PCR Not Detected (NotDetected) 12/12/22 15:04 Stool Sapovirus (PCR) Not Detected (NotDetected) 12/12/22 15:04 Stl P. shigelloides PCR Not Detected (NotDetected) 12/12/22 15:04 Stl Shigella/EIEC PCR Not Detected (NotDetected) 12/12/22 15:04 St Y.enterocolitica PCR Not Detected (NotDetected) 12/12/22 15:04 Stool Vibrio (PCR) Not Detected (NotDetected) 12/12/22 15:04 Stl Vibrio cholerae PCR Not Detected (NotDetected) 12/12/22 15:04 Stl Norovirus GI/GII PCR Not Detected (NotDetected) 12/12/22 15:04 SARS-CoV-2, RNA, NAAT NEGATIVE (NEGATIVE) 12/12/22 15:07 Blood Type O Positive 12/12/22 15:10 Antibody Screen NEGATIVE 12/12/22 15:10 Impressions Chest X-Ray 12/12/22 15:04 SINGLE VIEW CHEST CLINICAL HISTORY: GI bleeding. Atypical chest pain. FINDINGS: 2 AP, portable, supine chest radiographs are compared to study dated 12/11/2022 and correlated with chest CT dated 12/05/2021. The examination is degraded by portable technique and apical lordotic positioning. The heart is enlarged note atherosclerotic calcification of the thoracic aorta. The pulmonary vasculature is noncongested. Emphysema and chronic interstitial thickening is similar to previous. There is mild bibasilar scarring/atelectasis. No airspace consolidation or large pleural effusion is identified. No pneumothorax is seen. The bony thorax is grossly intact. Surgical clips are seen in the right lower neck. IMPRESSION: Cardiomegaly and emphysema with no active disease in the chest. ACT 112: Negative or not required by law. Electronically signed by: Hernán Chi M.D. 12/12/2022 4:13 PM KUB X-Ray 12/12/22 15:04 KUB CLINICAL HISTORY: GI bleeding. Generalized abdominal pain. FINDINGS: 4 AP supine abdominal radiographs are correlated with abdominal CT dated 12/05/2021. Findings the colitis seen on the 12/05/2021 CT scan are not well visualized by x-ray. There is gaseous distention of the small bowel loops which measure up to 3.4 cm in diameter. This is similar to previous. No evidence of intraperitoneal free air is seen on these supine images. There are no abnormal abdominal calcifications. The bony structures appear intact. IMPRESSION: 1. Findings of a nonspecific colitis seen by CT on 12/05/2021 are not appreciated by x-ray. 2. There is gaseous distention of the small bowel loops. This is similar to previous and likely represents ileus. Obstruction is considered less likely and clinical correlation will be required. Electronically signed by: Hernán Chi M.D. 12/12/2022 4:23 PM Abdomen/Pelvis CT 12/13/22 07:[address] WITH IV AND ORAL CONTRAST CT DOSE: 844.72 mGy.cm HISTORY: diarrhea, hx UC and C-diff TECHNIQUE: Multiaxial CT images of the abdomen and pelvis were performed following the use of intravenous and oral contrast. A dose lowering technique was utilized adhering to the principles of ALARA. COMPARISON STUDY: Abdomen and pelvis CT 12/05/2021. FINDINGS: The lung bases are clear. No pneumoperitoneum. No pneumatosis. No acute fractures identified. The liver, pancreas, spleen, gallbladder, and adrenal glands unremarkable. The main portal vein is patent. Normal caliber abdominal aorta with moderate calcified plaque. There is a 4 mm stone within the lower pole of the right kidney, unchanged. No ureteral stones. No hydronephrosis. Bilateral renal hypodense lesions remain stable and likely represent cysts. The largest in the lower pole the left kidney measures 6.2 cm. No retroperitoneal or pelvic lymphadenopathy. The bladder is unremarkable. Moderate circumferential thickening throughout the colon with pericolonic fat stranding and engorgement of the adjacent mesenteric vessels. This has slightly progressed in the interval and is consistent with a pancolitis. No evidence for a bowel obstruction. Normal appendix. IMPRESSION: 1. Progressive circumferential wall thickening seen throughout the colon consistent with a pancolitis. This likely corresponds to the patient's known history of ulcerative colitis. A superimposed infection would be difficult to exclude. 2. Normal appendix. 3. Stable right-sided nephrolithiasis. No hydronephrosis. ACT 112: Negative or not required by law. Electronically signed by: Dewayne Contreras M.D. 12/13/2022 11:00 AM (1) Ulcerative colitis Digestive disease complication type: with rectal bleeding Ulcerative colitis location: unspecified ulcerative colitis location Qualified Code(s): K51.911 - Ulcerative colitis, unspecified with rectal bleeding
[2022-12-15] MEDS ORDERED: ADALIMUMAB 40 MG/0.8 ML SQ ONE (16:00)
[2022-12-15] MEDS: ATORVASTATIN 40 MG TAB PO SCH (20:24)
[2022-12-15] MEDS: traZODone HCL 50 MG TAB PO SCH (22:05)
[2022-12-16] MEDS: methylPREDNISolone 20 MG in SYRINGE 0 ML IV SCH ×3 (05:18→21:43)
[2022-12-16 07:27] LABS: Basophils # (auto) 0.03 K/uL (0-0.2); Basophils % (auto) 0.3 %; Eosinophils # (auto) 0.03 K/uL (0-0.50); Eosinophils % (auto) 0.3 %; Hematocrit (blood only) 26.3 % (42.0-52.0); Hemoglobin 7.6 g/dl (14.0-18.0); Hypochromasia Present; Immature Granulocytes # (auto) 0.08 K/uL (0.01-0.20); Immature Granulocytes % (auto) 0.7 %; Lymphocytes # (auto) 1.08 K/uL (1.2-3.4); Lymphocytes % (auto) 9.3 %; Mean Corpuscular Hemoglobin 23.3 pg (25.0-34.0); Mean Corpuscular Hgb Conc 28.9 g/dL (32.0-36.0); Mean Corpuscular Volume 80.7 fL (80.0-100.0); Mean Platelet Volume 8.1 fL (9.4-12.4); Monocytes # (auto) 1.29 K/uL (0.11-0.59); Monocytes % (auto) 11.1 %; Neutrophils # (auto) 9.14 K/uL (1.40-6.50); Neutrophils % (auto) 78.3 %; Nucleated RBC # (auto) 0.05 K/uL (0-0.12); Nucleated RBC % (auto) 0.4 %; Platelet Count 563 K/uL (130-400); Polychromasia 1+; RDW Coefficient of Variation 14.5 % (11.5-14.5); RDW Standard Deviation 42.5 fL (36.4-46.3); Red Blood Count 3.26 M/uL (4.70-6.10); White Blood Count 11.65 K/ul (4.8-10.8)
[2022-12-16 07:53] LABS: Albumin Globulin Ratio 0.9 (0.9-2); Albumin Level 2.9 gm/dl (3.4-5.0); Bilirubin,Total 0.2 mg/dl (0.2-1.0); Calcium 8.2 mg/dl (8.5-10.1); Creatinine Clr Calc Pharmacy 155.5 ml/min; Est GFR (African American) 127.4 ml/min; Est GFR (Non-African American) 109.9 ml/min; Globulin 3.3 gm/dl (2.5-4.0); Potassium 4.5 mmol/L (3.5-5.1); Total Protein 6.2 gm/dl (6.0-8.3)
[2022-12-16] MEDS: DICYCLOMINE HCL 10 MG CAP PO SCH ×3 (08:40→20:11)
[2022-12-16] MEDS: busPIRone 5 MG TAB PO SCH ×2 (08:41→20:11)
[2022-12-16] MEDS: MESALAMINE 800 MG TABCR PO SCH ×3 (08:41→20:11)
[2022-12-16] MEDS: ADVANCED PROBIOTIC 1250 MG CAPSULE PO SCH (08:41)
[2022-12-16] MEDS: CEROVITE ADV FORMULA TAB PO SCH (08:41)
[2022-12-16] MEDS: CITALOPRAM 40 MG TAB PO SCH (08:42)
[2022-12-16] MEDS: CHOLESTYRAMINE LIGHT 4 GM PKT PO SCH (09:35)
[2022-12-16] MEDS: FERROUS SULFATE 325 MG TAB PO SCH (09:35)
--- NOTE | 2022-12-16 12:40 | Hospitalist Progress Note ---
Date of Service December 16, 2022 Assessment & Plan (1) Ulcerative colitis: (2) Diarrhea: (3) Acute blood loss anemia: Plan: Past medical history of kumar ulcerative colitis diagnosed in October 2021 on Humira every other week. History of C. difficile on tapering dose of vancomycin Sent from GI clinic due to lightheadedness. Symptoms of bloody bowel movements since last 2 to 3 weeks which increased recently. Hypotensive on presentation in ED; responded to fluids downtrending hemoglobin PCR panel recently positive for norovirus on 12/11; GI PCR panel currently negative. CT abdomen pelvis shows progressive circumferential wall thickening seen throughout the colon consistent with pancolitis Plan; Continue on on IV methylprednisolone 20 mg 3 times daily for ulcerative colitis flareup. He still has 2-3 episode at night of bloody bowel movement; 8-10 episode in the last 24 hours. To be placed on tapering dose of steroid at discharge. Continue cholestyramine, mesalamine, vancomycin 125mg QD (tapering). He is currently on Humira every 2 weeks; last dose was 12/15. Currently on vancomycin every other day for recent C. difficile infection. OP colonoscopy for restaging (4) Dehydration: (5) Hyponatremia: Plan: -Hyponatremia improved with IV hydration. (6) HTN (hypertension): Plan: - Hold BP medications (7) Hyperlipidemia: Plan: - Cont statin therapy (8) History of stroke: Plan: - in 2019, on baby aspirin daily which will hold in the setting of acute GI bleed DVT ppx: - teds, scds, no chemical anticoagulation in the setting of acute GI bleed CODE: Full code Dispo: From home. He continues to require hospitalization due to need for IV steroids. He still has 2-3 bowel movements at night and 8-10 episodes during the day. We will continue to monitor him inpatient. Hemoglobin is downtrending; might need transfusion. Admission and Anticipated Discharge Date Admission Date: December 12, 2022 Subjective Patient seen and examined at bedside. He reports that he had episode of blackout when he was coughing yesterday. No episode of dizziness, nausea, vomiting, weakness/numbness of any body part. He continues to have bloody bowel movement with mucus. He reports that he continues to have incontinence. He reports 8-10 episodes of bowel movement yesterday. Review of Systems Review of Systems: All systems reviewed & are unremarkable except as noted in Subjective Physical Exam Physical Exam: Constitutional: WD/WN, vitals as above, NAD, sitting up in bed, pleasant, conversing easily Respiratory: normal respiratory effort, lungs clear to auscultation, no wheeze, rales, rhonchi. Normal insp/exp effort, no accessory muscle use Cardiovascular: RRR, no murmur, no edema Vessels: no JVD or carotid bruit Chest: normal inspection of chest Abdomen: Soft, nontender Musculoskeletal: no cyanosis or clubbing, extremities motor strength 5/5 Skin: no rashes, warm and dry normal turgor Neurologic: PERRL, EOMI, accommodation nl, no face palsy, no dysarthria CN's II- XI intact bilaterally and moves all extremities Psychiatric: A+Ox3, euthymic affect Lymphatic: no cervical or axillary lymphadenopathy : deferred Results & Data Results & Data Vital Signs (Past 12 Hours) Vital Signs Temp Pulse Pulse Resp BP Pulse Ox O2 Del Method 12/16/22 11:52 37.2 C 88 19 144/81 H 96 Room Air 12/16/22 08:31 37.1 C 84 20 126/77 96 Room Air 12/16/22 07:22 71 12/16/22 03:32 36.6 C 82 16 123/78 96 Room Air Laboratory Results Laboratory Results WBC 11.65 K/ul (4.8-10.8) H 12/16/22 06:37 RBC 3.26 M/uL (4.70-6.10) L 12/16/22 06:37 Hgb 7.6 g/dl (14.0-18.0) L 12/16/22 06:37 Hct 26.3 % (42.0-52.0) L 12/16/22 06:37 MCV 80.7 fL (80.0-100.0) 12/16/22 06:37 MCH 23.3 pg (25.0-34.0) L 12/16/22 06:37 MCHC 28.9 g/dL (32.0-36.0) L 12/16/22 06:37 RDW Std Deviation 42.5 fL (36.4-46.3) 12/16/22 06:37 RDW Coeff of Chandra 14.5 % (11.5-14.5) 12/16/22 06:37 Plt Count 563 K/uL (130-400) H 12/16/22 06:37 MPV 8.1 fL (9.4-12.4) L 12/16/22 06:37 Immature Gran % (Auto) 0.7 % 12/16/22 06:37 Neut % (Auto) 78.3 % 12/16/22 06:37 Lymph % (Auto) 9.3 % 12/16/22 06:37 [place] % (Auto) 11.1 % 12/16/22 06:37 Eos % (Auto) 0.3 % 12/16/22 06:37 Baso % (Auto) 0.3 % 12/16/22 06:37 Neut # (Auto) 9.14 K/uL (1.40-6.50) H 12/16/22 06:37 Lymph # (Auto) 1.08 K/uL (1.2-3.4) L 12/16/22 06:37 [place] # (Auto) 1.29 K/uL (0.11-0.59) H 12/16/22 06:37 Eos # (Auto) 0.03 K/uL (0-0.50) 12/16/22 06:37 Baso # (Auto) 0.03 K/uL (0-0.2) 12/16/22 06:37 Immature Gran # (Auto) 0.08 K/uL (0.01-0.20) 12/16/22 06:37 Absolute Nucleated RBC 0.05 K/uL (0-0.12) 12/16/22 06:37 Nucleated RBC % (auto) 0.4 % 12/16/22 06:37 Polychromasia 1+ 12/16/22 06:37 Hypochromasia Present 12/16/22 06:37 Microcytosis Present 12/15/22 06:54 PT 11.0 Seconds (9.0-12.0) 12/12/22 15:10 INR 1.0 (0.9-1.1) 12/12/22 15:10 APTT 24.6 Seconds (21.0-31.0) 12/12/22 15:10 PTT Ratio 0.9 12/12/22 15:10 Sodium 136 mmol/L (136-145) 12/16/22 06:37 Potassium 4.5 mmol/L (3.5-5.1) 12/16/22 06:37 Chloride 105 mmol/L (98-107) 12/16/22 06:37 Carbon Dioxide 27 mmol/L (21-32) 12/16/22 06:37 Anion Gap 4 (3-11) 12/16/22 06:37 BUN 9 mg/dl (6-23) 12/16/22 06:37 Creatinine 0.69 mg/dl (0.6-1.4) 12/16/22 06:37 Est Cr Clr Drug Dosing 155.5 ml/min 12/16/22 06:37 Est GFR ( Amer) 127.4 ml/min 12/16/22 06:37 Est GFR (Non-Af Amer) 109.9 ml/min 12/16/22 06:37 BUN/Creatinine Ratio 13.0 (10-20) 12/16/22 06:37 Glucose 108 mg/dl (70-99(Fasting)) H 12/16/22 06:37 POC Glucose 165 mg/dl (70-99) H 12/15/22 17:06 Calcium 8.2 mg/dl (8.5-10.1) L 12/16/22 06:37 Phosphorus 4.1 mg/dl (2.5-4.9) 12/13/22 04:19 Magnesium 2.0 mg/dl (1.7-2.4) 12/13/22 04:19 Total Bilirubin 0.2 mg/dl (0.2-1.0) 12/16/22 06:37 AST 9 U/L (13-39) L 12/16/22 06:37 ALT 6 U/L (7-52) L 12/16/22 06:37 Alkaline Phosphatase 43 U/L (34-104) 12/16/22 06:37 Troponin I High Sens 10.2 pg/ml (0-20) 12/12/22 15:10 Total Protein 6.2 gm/dl (6.0-8.3) 12/16/22 06:37 Albumin 2.9 gm/dl (3.4-5.0) L 12/16/22 06:37 Globulin 3.3 gm/dl (2.5-4.0) 12/16/22 06:37 Albumin/Globulin Ratio 0.9 (0.9-2) 12/16/22 06:37 Lipase 4 U/L (11-82) L 12/12/22 15:10 Urine Color Yellow 12/13/22 Unknown Urine Appearance Clear (Clear) 12/13/22 Unknown Urine pH 5.5 (4.5-7.5) 12/13/22 Unknown Ur Specific [place] 1.004 (1.000-1.030) 12/13/22 Unknown Urine Protein Negative (Negative) 12/13/22 Unknown Urine Glucose (UA) Negative (Negative) 12/13/22 Unknown Urine Ketones Negative (Negative) 12/13/22 Unknown Urine Blood Negative (Negative) 12/13/22 Unknown Urine Nitrite Negative (Negative) 12/13/22 Unknown Urine Bilirubin Negative (Negative) 12/13/22 Unknown Urine Urobilinogen Negative (Negative) 12/13/22 Unknown Ur Leukocyte Esterase Negative (Negative) 12/13/22 Unknown Nasal Screen MRSA (PCR) Negative (Negative) 12/12/22 19:30 Stl C. cayetanensis PCR Not Detected (NotDetected) 12/12/22 15:04 Stool Rotavirus A PCR Not Detected (NotDetected) 12/12/22 15:04 Stl Adenov F 40/41 PCR Not Detected (NotDetected) 12/12/22 15:04 Stool Astrovirus (PCR) Not Detected (NotDetected) 12/12/22 15:04 Stool Campylobacter PCR Not Detected (NotDetected) 12/12/22 15:04 Stl C. diff Tox B Gene Negative Cdiff Gene (Neg) 12/12/22 15:04 Stool Cryptosporidium PCR Not Detected (NotDetected) 12/12/22 15:04 Stl E.coli Shiga Tox PCR Not Detected (NotDetected) 12/12/22 15:04 Stl Enterotoxigenic E PCR Not Detected (NotDetected) 12/12/22 15:04 Stool EPEC (PCR) Not Detected (NotDetected) 12/12/22 15:04 Stool EAEC (PCR) Not Detected (NotDetected) 12/12/22 15:04 Stl E. histolytica PCR Not Detected (NotDetected) 12/12/22 15:04 Stool Giardia Lamblia PCR Not Detected (NotDetected) 12/12/22 15:04 Stool Salmonella PCR Not Detected (NotDetected) 12/12/22 15:04 Stool Sapovirus (PCR) Not Detected (NotDetected) 12/12/22 15:04 Stl P. shigelloides PCR Not Detected (NotDetected) 12/12/22 15:04 Stl Shigella/EIEC PCR Not Detected (NotDetected) 12/12/22 15:04 St Y.enterocolitica PCR Not Detected (NotDetected) 12/12/22 15:04 Stool Vibrio (PCR) Not Detected (NotDetected) 12/12/22 15:04 Stl Vibrio cholerae PCR Not Detected (NotDetected) 12/12/22 15:04 Stl Norovirus GI/GII PCR Not Detected (NotDetected) 12/12/22 15:04 SARS-CoV-2, RNA, NAAT NEGATIVE (NEGATIVE) 12/12/22 15:07 Blood Type O Positive 12/12/22 15:10 Antibody Screen NEGATIVE 12/12/22 15:10 Impressions Chest X-Ray 12/12/22 15:04 SINGLE VIEW CHEST CLINICAL HISTORY: GI bleeding. Atypical chest pain. FINDINGS: 2 AP, portable, supine chest radiographs are compared to study dated 12/11/2022 and correlated with chest CT dated 12/05/2021. The examination is degraded by portable technique and apical lordotic positioning. The heart is enlarged note atherosclerotic calcification of the thoracic aorta. The pulmonary vasculature is noncongested. Emphysema and chronic interstitial thickening is similar to previous. There is mild bibasilar scarring/atelectasis. No airspace consolidation or large pleural effusion is identified. No pneumothorax is seen. The bony thorax is grossly intact. Surgical clips are seen in the right lower neck. IMPRESSION: Cardiomegaly and emphysema with no active disease in the chest. ACT 112: Negative or not required by law. Electronically signed by: Hernán Chi M.D. 12/12/2022 4:13 PM KUB X-Ray 12/12/22 15:04 KUB CLINICAL HISTORY: GI bleeding. Generalized abdominal pain. FINDINGS: 4 AP supine abdominal radiographs are correlated with abdominal CT dated 12/05/2021. Findings the colitis seen on the 12/05/2021 CT scan are not well visualized by x-ray. There is gaseous distention of the small bowel loops which measure up to 3.4 cm in diameter. This is similar to previous. No evidence of intraperitoneal free air is seen on these supine images. There are no abnormal abdominal calcifications. The bony structures appear intact. IMPRESSION: 1. Findings of a nonspecific colitis seen by CT on 12/05/2021 are not appreciated by x-ray. 2. There is gaseous distention of the small bowel loops. This is similar to previous and likely represents ileus. Obstruction is considered less likely and clinical correlation will be required. Electronically signed by: Hernán Chi M.D. 12/12/2022 4:23 PM Abdomen/Pelvis CT 12/13/22 07:[address] WITH IV AND ORAL CONTRAST CT DOSE: 844.72 mGy.cm HISTORY: diarrhea, hx UC and C-diff TECHNIQUE: Multiaxial CT images of the abdomen and pelvis were performed following the use of intravenous and oral contrast. A dose lowering technique was utilized adhering to the principles of ALARA. COMPARISON STUDY: Abdomen and pelvis CT 12/05/2021. FINDINGS: The lung bases are clear. No pneumoperitoneum. No pneumatosis. No acute fractures identified. The liver, pancreas, spleen, gallbladder, and adrenal glands unremarkable. The main portal vein is patent. Normal caliber abdominal aorta with moderate calcified plaque. There is a 4 mm stone within the lower pole of the right kidney, unchanged. No ureteral stones. No hydronephrosis. Bilateral renal hypodense lesions remain stable and likely represent cysts. The largest in the lower pole the left kidney measures 6.2 cm. No retroperitoneal or pelvic lymphadenopathy. The bladder is unremarkable. Mod erate circumferential thickening throughout the colon with pericolonic fat stranding and engorgement of the adjacent mesenteric vessels. This has slightly progressed in the interval and is consistent with a pancolitis. No evidence for a bowel obstruction. Normal appendix. IMPRESSION: 1. Progressive circumferential wall thickening seen throughout the colon consistent with a pancolitis. This likely corresponds to the patient's known history of ulcerative colitis. A superimposed infection would be difficult to exclude. 2. Normal appendix. 3. Stable right-sided nephrolithiasis. No hydronephrosis. ACT 112: Negative or not required by law. Electronically signed by: Dewayne Contreras M.D. 12/13/2022 11:00 AM (1) Ulcerative colitis Digestive disease complication type: with rectal bleeding Ulcerative colitis location: unspecified ulcerative colitis location Qualified Code(s): K51.911 - Ulcerative colitis, unspecified with rectal bleeding
[2022-12-16] MEDS: ATORVASTATIN 40 MG TAB PO SCH (20:11)
[2022-12-16] MEDS: traZODone HCL 50 MG TAB PO SCH (21:43)
[2022-12-17] MEDS: methylPREDNISolone 20 MG in SYRINGE 0 ML IV SCH ×3 (05:14→20:47)
[2022-12-17 06:33] LABS: Albumin Globulin Ratio 0.9 (0.9-2); Albumin Level 3.2 gm/dl (3.4-5.0); BUN Creatinine Ratio 11.4 (10-20); Bilirubin,Total 0.1 mg/dl (0.2-1.0); Calcium 8.4 mg/dl (8.5-10.1); Creatinine Clr Calc Pharmacy 135.8 ml/min; Est GFR (African American) 120.5 ml/min; Globulin 3.5 gm/dl (2.5-4.0); Potassium 4.4 mmol/L (3.5-5.1); Total Protein 6.7 gm/dl (6.0-8.3)
[2022-12-17 06:59] LABS: Hematocrit (blood only) 28.7 % (42.0-52.0); Hemoglobin 8.3 g/dl (14.0-18.0); Mean Corpuscular Hemoglobin 23.2 pg (25.0-34.0); Mean Corpuscular Hgb Conc 28.9 g/dL (32.0-36.0); Mean Corpuscular Volume 80.4 fL (80.0-100.0); Mean Platelet Volume 8.4 fL (9.4-12.4); Nucleated RBC # (auto) 0.11 K/uL (0-0.12); Nucleated RBC % (auto) 0.8 %; Platelet Count 679 K/uL (130-400); RDW Coefficient of Variation 14.7 % (11.5-14.5); RDW Standard Deviation 42.8 fL (36.4-46.3); Red Blood Count 3.57 M/uL (4.70-6.10); White Blood Count 12.98 K/ul (4.8-10.8)
[2022-12-17 07:22] LABS: Basophils # (auto) 0.03 K/uL (0-0.2); Basophils % (auto) 0.2 %; Eosinophils # (auto) 0.03 K/uL (0-0.50); Eosinophils % (auto) 0.2 %; Immature Granulocytes # (auto) 0.31 K/uL (0.01-0.20); Immature Granulocytes % (auto) 2.4 %; Lymphocytes # (auto) 1.54 K/uL (1.2-3.4); Lymphocytes % (auto) 11.9 %; Monocytes # (auto) 1.73 K/uL (0.11-0.59); Monocytes % (auto) 13.3 %; Neutrophils # (auto) 9.34 K/uL (1.40-6.50); Polychromasia 1+
[2022-12-17] MEDS: CHOLESTYRAMINE LIGHT 4 GM PKT PO SCH ×2 (09:49→21:45)
[2022-12-17] MEDS: VANCOMYCIN HCL 125 MG/2.5ML SOLN PO SCH (09:49)
[2022-12-17] MEDS: busPIRone 5 MG TAB PO SCH ×2 (09:49→20:48)
[2022-12-17] MEDS: RASPBERRY SYRUP 5 ML UDP PO SCH (09:49)
[2022-12-17] MEDS: CITALOPRAM 40 MG TAB PO SCH (09:49)
[2022-12-17] MEDS: DICYCLOMINE HCL 10 MG CAP PO SCH ×3 (09:50→20:47)
[2022-12-17] MEDS: ADVANCED PROBIOTIC 1250 MG CAPSULE PO SCH (09:50)
[2022-12-17] MEDS: CEROVITE ADV FORMULA TAB PO SCH (09:50)
[2022-12-17] MEDS: MESALAMINE 800 MG TABCR PO SCH ×3 (09:50→20:48)
[2022-12-17] MEDS: FERROUS SULFATE 325 MG TAB PO SCH (10:34)
--- NOTE | 2022-12-17 12:04 | Gastroenterology Progress Note ---
Date of Service December 17, 2022 Assessment & Plan (1) Ulcerative colitis: Plan Pt is a 52 yo male w UC & norovirus colitis, having persistent diarrhea symptoms. Last Humira injection on 12/15. - Flex sigmoidscopy to r/o CMV tomorrow wo bowel prep but will keep him on CL diet today - Methylprednisolone 20mg IV q8hrs - Increase Questran to 4g BID - Mesalamine 160mg TID - Hx of Cdiff, on Vancomycin taperred dose Admission and Anticipated Discharge Date Admission Date: December 12, 2022 Supervising Physician Co-Signing Physician Notes I personally saw and evaluated the patient on 12/17/2022 with AVINASH Kline and agree with her findings and plan of care. He is a 52 y/o M with history of pancolonic UC now on Humira with history of C. diff infection, CMV, and norovirus who presented with worsening diarrhea and hematochezia. He did test + for norovirus on admission and negative for C. diff. He is still having significant diarrhea and had 6 BMs thus far today which are not formed and with blood. His last Humira injection was 12/15 and he just started this in . previously was only on mesalamine. he is currently on IV solumedrol 60/daily since the but is still not seeing any improvement. On physical exam abdomen is soft, non-tender, non-distended. At this time I am concerned for ongoing UC flare but he does not appear to be responding to steroids. Will obtain a flex sig tomorrow with biopsies to rule out CMV infection which may be why he is not responding to the steroids. Norovirus should not cause an enteroinvasive infection with bloody stools but can lead to diarrhea. Continue IV solumedrol for now for UC flare. Strict I+Os with monitoring of stool output. Trend H/H and transfuse for hgb <7. Ensure he is on DVT prophylaxis as IBD patients are hypercoagulable during time of flare. Will obtain KUB today to ensure no concern for megacolon. Rachel Rivera, DO Gastroenterology and Hepatology Subjective Pt is still having multiple loose stools up to >5x a day. Less blood per his report. Denies n/v, abd pain. Review of Systems Review of Systems: All systems reviewed & are unremarkable except as noted in HPI & below Physical Exam Constitutional: WD/WN, vitals as above well groomed, cooperative and comfortable Eyes: PERRL, conjunctivae normal, anicteric sclerae ENMT: external ear and nose normal, oropharynx normal Respiratory: normal respiratory effort, lungs clear to auscultation Cardiovascular: RRR, no murmur, no edema Gastrointestinal (Abdomen): normal bowel sounds, soft, nontender, no hepatosplenomegaly Skin: no rashes, warm and dry no jaundice Psychiatric: A+Ox3, euthymic affect Lymphatic: no lymphedema Results & Data Vital Signs (Past 12 Hours) Vital Signs Temp Pulse Pulse Resp BP Pulse Ox O2 Del Method 12/17/22 11:57 36.7 C 82 18 148/86 H 97 Room Air 12/17/22 08:00 88 12/17/22 08:08 36.7 C 79 18 123/75 97 Room Air 12/17/22 03:03 36.7 C 92 H 18 129/79 96 Room Air (1) Ulcerative colitis Digestive disease complication type: with rectal bleeding Ulcerative colitis location: unspecified ulcerative colitis location Qualified Code(s): K51.911 - Ulcerative colitis, unspecified with rectal bleeding
--- NOTE | 2022-12-17 14:13 | XRay Report ---
KUB CLINICAL HISTORY: Generalized abdominal pain. FINDINGS: An AP, portable, supine abdominal radiograph is compared to study dated 12/12/2022 and corre lated with abdominal CT dated 12/13/2022. There is a nonobstructed abdominal bowel gas pattern. No michael dence of intraperitoneal free air is seen on this supine image. There are no abnormal abdominal calci fications. The bony structures appear intact. Lumbosacral spondylosis is observed. IMPRESSION: Nonobstructed abdominal bowel gas pattern. Electronically signed by: Hernán Chi M.D. 12/17/2022 2:12 PM
--- NOTE | 2022-12-17 14:44 | Hospitalist Progress Note ---
Date of Service December 17, 2022 Assessment & Plan (1) Ulcerative colitis: (2) Diarrhea: (3) Acute blood loss anemia: Plan: Past medical history of kumar ulcerative colitis diagnosed in October 2021 on Humira every other week. History of C. difficile on tapering dose of vancomycin Sent from GI clinic due to lightheadedness. Symptoms of bloody bowel movements since last 2 to 3 weeks which increased recently. Hypotensive on presentation in ED; responded to fluids downtrending hemoglobin PCR panel recently positive for norovirus on 12/11; GI PCR panel currently negative. CT abdomen pelvis shows progressive circumferential wall thickening seen throughout the colon consistent with pancolitis Plan; Patient continues to have multiple episode of bowel movement and incontinence despite IV steroids. GI to do flexible sigmoidoscopy to rule out CMV tomorrow. Clear liquid diet today. We will continue on IV methylprednisolone for now. Continue cholestyramine, mesalamine, vancomycin 125mg QD (tapering). He is currently on Humira every 2 weeks; last dose was 12/15. Currently on vancomycin every other day for recent C. difficile infection. (4) Dehydration: (5) Hyponatremia: Plan: -Hyponatremia improved with IV hydration. (6) HTN (hypertension): Plan: - Hold BP medications (7) Hyperlipidemia: Plan: - Cont statin therapy (8) History of stroke: Plan: - in 2019, on baby aspirin daily which will hold in the setting of acute GI bleed DVT ppx: -Heparin CODE: Full code Dispo: From home. Patient continues to have multiple episode of bloody bowel movement despite IV methylprednisolone for UC flare. Patient to undergo flexible sigmoidoscopy to rule out CMV infection by GI tomorrow. Admission and Anticipated Discharge Date Admission Date: December 12, 2022 Subjective Patient continues to have multiple episode of bowel movement. He reports that they are not as bloody as before. He reports having more than a dozen bowel movement in the last 24 hours. Review of Systems Review of Systems: All systems reviewed & are unremarkable except as noted in Subjective Physical Exam Physical Exam: Constitutional: WD/WN, vitals as above, NAD, sitting up in bed, pleasant, conversing easily Respiratory: normal respiratory effort, lungs clear to auscultation, no wheeze, rales, rhonchi. Normal insp/exp effort, no accessory muscle use Cardiovascular: RRR, no murmur, no edema Vessels: no JVD or carotid bruit Chest: normal inspection of chest Abdomen: Soft, nontender Musculoskeletal: no cyanosis or clubbing, extremities motor strength 5/5 Skin: no rashes, warm and dry normal turgor Neurologic: PERRL, EOMI, accommodation nl, no face palsy, no dysarthria CN's II-XI intact bilaterally and moves all extremities Psychiatric: A+Ox3, euthymic affect Lymphatic: no cervical or axillary lymphadenopathy : deferred Results & Data Results & Data Vital Signs (Past 12 Hours) Vital Signs Temp Pulse Pulse Resp BP Pulse Ox O2 Del Method 12/17/22 11:57 36.7 C 82 18 148/86 H 97 Room Air 12/17/22 08:00 88 12/17/22 08:08 36.7 C 79 18 123/75 97 Room Air 12/17/22 03:03 36.7 C 92 H 18 129/79 96 Room Air Laboratory Results Laboratory Results WBC 12.98 K/ul (4.8-10.8) H 12/17/22 05:34 RBC 3.57 M/uL (4.70-6.10) L 12/17/22 05:34 Hgb 8.3 g/dl (14.0-18.0) L 12/17/22 05:34 Hct 28.7 % (42.0-52.0) L 12/17/22 05:34 MCV 80.4 fL (80.0-100.0) 12/17/22 05:34 MCH 23.2 pg (25.0-34.0) L 12/17/22 05:34 MCHC 28.9 g/dL (32.0-36.0) L 12/17/22 05:34 RDW Std Deviation 42.8 fL (36.4-46.3) 12/17/22 05:34 RDW Coeff of Chandra 14.7 % (11.5-14.5) H 12/17/22 05:34 Plt Count 679 K/uL (130-400) H 12/17/22 05:34 MPV 8.4 fL (9.4-12.4) L 12/17/22 05:34 Immature Gran % (Auto) 2.4 % 12/17/22 05:34 Neut % (Auto) 72.0 % 12/17/22 05:34 Lymph % (Auto) 11.9 % 12/17/22 05:34 [place] % (Auto) 13.3 % 12/17/22 05:34 Eos % (Auto) 0.2 % 12/17/22 05:34 Baso % (Auto) 0.2 % 12/17/22 05:34 Neut # (Auto) 9.34 K/uL (1.40-6.50) H 12/17/22 05:34 Lymph # (Auto) 1.54 K/uL (1.2-3.4) 12/17/22 05:34 [place] # (Auto) 1.73 K/uL (0.11-0.59) H 12/17/22 05:34 Eos # (Auto) 0.03 K/uL (0-0.50) 12/17/22 05:34 Baso # (Auto) 0.03 K/uL (0-0.2) 12/17/22 05:34 Immature Gran # (Auto) 0.31 K/uL (0.01-0.20) H 12/17/22 05:34 Absolute Nucleated RBC 0.11 K/uL (0-0.12) 12/17/22 05:34 Nucleated RBC % (auto) 0.8 % 12/17/22 05:34 Polychromasia 1+ 12/17/22 05:34 Hypochromasia Present 12/16/22 06:37 Microcytosis Present 12/15/22 06:54 PT 11.0 Seconds (9.0-12.0) 12/12/22 15:10 INR 1.0 (0.9-1.1) 12/12/22 15:10 APTT 24.6 Seconds (21.0-31.0) 12/12/22 15:10 PTT Ratio 0.9 12/12/22 15:10 Sodium 136 mmol/L (136-145) 12/17/22 05:34 Potassium 4.4 mmol/L (3.5-5.1) 12/17/22 05:34 Chloride 104 mmol/L (98-107) 12/17/22 05:34 Carbon Dioxide 26 mmol/L (21-32) 12/17/22 05:34 Anion Gap 6 (3-11) 12/17/22 05:34 BUN 9 mg/dl (6-23) 12/17/22 05:34 Creatinine 0.79 mg/dl (0.6-1.4) 12/17/22 05:34 Est Cr Clr Drug Dosing 135.8 ml/min 12/17/22 05:34 Est GFR ( Amer) 120.5 ml/min 12/17/22 05:34 Est GFR (Non-Af Amer) 104.0 ml/min 12/17/22 05:34 BUN/Creatinine Ratio 11.4 (10-20) 12/17/22 05:34 Glucose 141 mg/dl (70-99(Fasting)) H 12/17/22 05:34 POC Glucose 165 mg/dl (70-99) H 12/15/22 17:06 Calcium 8.4 mg/dl (8.5-10.1) L 12/17/22 05:34 Phosphorus 4.1 mg/dl (2.5-4.9) 12/13/22 04:19 Magnesium 2.0 mg/dl (1.7-2.4) 12/13/22 04:19 Total Bilirubin 0.1 mg/dl (0.2-1.0) L 12/17/22 05:34 AST 10 U/L (13-39) L 12/17/22 05:34 ALT 8 U/L (7-52) 12/17/22 05:34 Alkaline Phosphatase 53 U/L (34-104) 12/17/22 05:34 Troponin I High Sens 10.2 pg/ml (0-20) 12/12/22 15:10 Total Protein 6.7 gm/dl (6.0-8.3) 12/17/22 05:34 Albumin 3.2 gm/dl (3.4-5.0) L 12/17/22 05:34 Globulin 3.5 gm/dl (2.5-4.0) 12/17/22 05:34 Albumin/Globulin Ratio 0.9 (0.9-2) 12/17/22 05:34 Lipase 4 U/L (11-82) L 12/12/22 15:10 Urine Color Yellow 12/13/22 Unknown Urine Appearance Clear (Clear) 12/13/22 Unknown Urine pH 5.5 (4.5-7.5) 12/13/22 Unknown Ur Specific [place] 1.004 (1.000-1.030) 12/13/22 Unknown Urine Protein Negative (Negative) 12/13/22 Unknown Urine Glucose (UA) Negative (Negative) 12/13/22 Unknown Urine Ketones Negative (Negative) 12/13/22 Unknown Urine Blood Negative (Negative) 12/13/22 Unknown Urine Nitrite Negative (Negative) 12/13/22 Unknown Urine Bilirubin Negative (Negative) 12/13/22 Unknown Urine Urobilinogen Negative (Negative) 12/13/22 Unknown Ur Leukocyte Esterase Negative (Negative) 12/13/22 Unknown Nasal Screen MRSA (PCR) Negative (Negative) 12/12/22 19:30 Stl C. cayetanensis PCR Not Detected (NotDetected) 12/12/22 15:04 Stool Rotavirus A PCR Not Detected (NotDetected) 12/12/22 15:04 Stl Adenov F 40/41 PCR Not Detected (NotDetected) 12/12/22 15:04 Stool Astrovirus (PCR) Not Detected (NotDetected) 12/12/22 15:04 Stool Campylobacter PCR Not Detected (NotDetected) 12/12/22 15:04 Stl C. diff Tox B Gene Negative Cdiff Gene (Neg) 12/12/22 15:04 Stool Cryptosporidium PCR Not Detected (NotDetected) 12/12/22 15:04 Stl E.coli Shiga Tox PCR Not Detected (NotDetected) 12/12/22 15:04 Stl Enterotoxigenic E PCR Not Detected (NotDetected) 12/12/22 15:04 Stool EPEC (PCR) Not Detected (NotDetected) 12/12/22 15:04 Stool EAEC (PCR) Not Detected (NotDetected) 12/12/22 15:04 Stl E. histolytica PCR Not Detected (NotDetected) 12/12/22 15:04 Stool Giardia Lamblia PCR Not Detected (NotDetected) 12/12/22 15:04 Stool Salmonella PCR Not Detected (NotDetected) 12/12/22 15:04 Stool Sapovirus (PCR) Not Detected (NotDetected) 12/12/22 15:04 Stl P. shigelloides PCR Not Detected (NotDetected) 12/12/22 15:04 Stl Shigella/EIEC PCR Not Detected (NotDetected) 12/12/22 15:04 St Y.enterocolitica PCR Not Detected (NotDetected) 12/12/22 15:04 Stool Vibrio (PCR) Not Detected (NotDetected) 12/12/22 15:04 Stl Vibrio cholerae PCR Not Detected (NotDetected) 12/12/22 15:04 Stl Norovirus GI/GII PCR Not Detected (NotDetected) 12/12/22 15:04 SARS-CoV-2, RNA, NAAT NEGATIVE (NEGATIVE) 12/12/22 15:07 Blood Type O Positive 12/12/22 15:10 Antibody Screen NEGATIVE 12/12/22 15:10 Impressions Chest X-Ray 12/12/22 15:04 SINGLE VIEW CHEST CLINICAL HISTORY: GI bleeding. Atypical chest pain. FINDINGS: 2 AP, portable, supine chest radiographs are compared to study dated 12/11/2022 and correlated with chest CT dated 12/05/2021. The examination is degraded by portable technique and apical lordotic positioning. The heart is enlarged note atherosclerotic calcification of the thoracic aorta. The pulmonary vasculature is noncongested. Emphysema and chronic interstitial thickening is similar to previous. There is mild bibasilar scarring/atelectasis. No airspace consolidation or large pleural effusion is identified. No pneumothorax is seen. The bony thorax is grossly intact. Surgical clips are seen in the right lower neck. IMPRESSION: Cardiomegaly and emphysema with no active disease in the chest. ACT 112: Negative or not required by law. Electronically signed by: Hernán Chi M.D. 12/12/2022 4:13 PM Abdomen/Pelvis CT 12/13/22 07:[address] WITH IV AND ORAL CONTRAST CT DOSE: 844.72 mGy.cm HISTORY: diarrhea, hx UC and C-diff TECHNIQUE: Multiaxial CT images of the abdomen and pelvis were performed following the use of intravenous and oral contrast. A dose lowering technique was utilized adhering to the principles of ALARA. COMPARISON STUDY: Abdomen and pelvis CT 12/05/2021. FINDINGS: The lung bases are clear. No pneumoperitoneum. No pneumatosis. No acute fractures identified. The liver, pancreas, spleen, gallbladder, and adrenal glands unremarkable. The main portal vein is patent. Normal caliber abdominal aorta with moderate calcified plaque. There is a 4 mm stone within the lower pole of the right kidney, unchanged. No ureteral stones. No hydronephrosis. Bilateral renal hypodense lesions remain stable and likely represent cysts. The largest in the lower pole the left kidney measures 6.2 cm. No retroperitoneal or pelvic lymphadenopathy. The bladder is unremarkable. Moderate circumferential thickening throughout the colon with pericolonic fat stranding and engorgement of the adjacent mesenteric vessels. This has slightly progressed in the interval and is consistent with a pancolitis. No evidence for a bowel obstruction. Normal appendix. IMPRESSION: 1. Progressive circumferential wall thickening seen throughout the colon consistent with a pancolitis. This likely corresponds to the patient's known history of ulcerative colitis. A superimposed infection would be difficult to exclude. 2. Normal appendix. 3. Stable right-sided nephrolithiasis. No hydronephrosis. ACT 112: Negative or not required by law. Electronically signed by: Dewayne Contreras M.D. 12/13/2022 11:00 AM KUB X-Ray 12/17/22 12:17 KUB CLINICAL HISTORY: Generalized abdominal pain. FINDINGS: An AP, portable, supine abdominal radiograph is compared to study dated 12/12/2022 and correlated with abdominal CT dated 12/13/2022. There is a nonobstructed abdominal bowel gas pattern. No evidence of intraperitoneal free air is seen on this supine image. There are no abnormal abdominal calcifications. The bony structures appear intact. Lumbosacral spondylosis is observed. IMPRESSION: Nonobstructed abdominal bowel gas pattern. Electronically signed by: Hernán Chi M.D. 12/17/2022 2:12 PM (1) Ulcerative colitis Digestive disease complication type: with rectal bleeding Ulcerative colitis location: unspecified ulcerative colitis location Qualified Code(s): K51.911 - Ulcerative colitis, unspecified with rectal bleeding
[2022-12-17] MEDS: HEPARIN SOD 5,000 UNIT/0.5 ML VIAL SQ SCH (20:49)
[2022-12-17] MEDS: ATORVASTATIN 40 MG TAB PO SCH (20:49)
[2022-12-17] MEDS: traZODone HCL 50 MG TAB PO SCH (22:26)
[2022-12-18] MEDS: methylPREDNISolone 20 MG in SYRINGE 0 ML IV SCH ×3 (05:46→21:00)
[2022-12-18 07:09] LABS: Albumin Globulin Ratio 0.9 (0.9-2); Albumin Level 3.1 gm/dl (3.4-5.0); BUN Creatinine Ratio 11.8 (10-20); Bilirubin,Total 0.3 mg/dl (0.2-1.0); Calcium 8.7 mg/dl (8.5-10.1); Creatinine Clr Calc Pharmacy 140.9 ml/min; Est GFR (African American) 122.4 ml/min; Est GFR (Non-African American) 105.6 ml/min; Globulin 3.4 gm/dl (2.5-4.0); Potassium 4.1 mmol/L (3.5-5.1); Total Protein 6.5 gm/dl (6.0-8.3)
[2022-12-18 07:15] LABS: Basophils # (auto) 0.03 K/uL (0-0.2); Basophils % (auto) 0.2 %; Eosinophils # (auto) 0.02 K/uL (0-0.50); Eosinophils % (auto) 0.1 %; Hematocrit (blood only) 28.7 % (42.0-52.0); Hemoglobin 8.3 g/dl (14.0-18.0); Hypochromasia Present; Immature Granulocytes # (auto) 0.27 K/uL (0.01-0.20); Lymphocytes # (auto) 1.56 K/uL (1.2-3.4); Lymphocytes % (auto) 11.6 %; Mean Corpuscular Hemoglobin 23.2 pg (25.0-34.0); Mean Corpuscular Hgb Conc 28.9 g/dL (32.0-36.0); Mean Corpuscular Volume 80.2 fL (80.0-100.0); Mean Platelet Volume 8.2 fL (9.4-12.4); Monocytes # (auto) 1.54 K/uL (0.11-0.59); Monocytes % (auto) 11.4 %; Neutrophils # (auto) 10.04 K/uL (1.40-6.50); Neutrophils % (auto) 74.7 %; Nucleated RBC % (auto) 0.7 %; Platelet Count 648 K/uL (130-400); Polychromasia 1+; RDW Coefficient of Variation 14.7 % (11.5-14.5); RDW Standard Deviation 42.5 fL (36.4-46.3); Red Blood Count 3.58 M/uL (4.70-6.10); White Blood Count 13.46 K/ul (4.8-10.8)
--- NOTE | 2022-12-18 08:12 | History & Physical Report ---
Date of Service December 18, 2022 Assessment & Plan (1) Diarrhea: Plan: Proceed with planned flex sig. Admission and Anticipated Discharge Date Admission Date: December 12, 2022 History of Present Illness Chief Complaint: diarrhea Primary Care Provider: Kris Stevenson MD 52 y/o M with history of pancolonic UC now admitted with a flare and norovirus presenting for flex sig. Allergies Allergy/AdvReac Type Severity Reaction Status Date / Time No Known Allergies Allergy Mild Verified 12/12/22 16:46 Home Medications Medication Instructions Recorded Confirmed Type trazodone 150 mg tablet 150 mg PO HS 05/21/19 12/12/22 History aspirin 81 mg tablet,delayed 81 mg PO QAM 10/30/21 12/12/22 History release atorvastatin 40 mg tablet 40 mg PO HS 10/30/21 12/12/22 History lisinopril 10 mg tablet 10 mg PO QAM 10/30/21 12/12/22 History buspirone 5 mg tablet 5 mg PO AMHS 12/05/21 12/12/22 History dicyclomine 10 mg capsule 10 mg PO TID 12/05/21 12/12/22 History adalimumab 40 mg/0.8 mL 40 mg subcut .EVERY 2 WEEKS 09/16/22 12/12/22 History subcutaneous pen kit (Humira Pen) cholestyramine (with sugar) 4 gram 1 ea PO DAILY 09/16/22 12/12/22 History powder for susp in a packet [id number] acid 300 1 tab PO DAILY 09/16/22 12/12/22 History mcg-lycopene 600 mcg-lutein 300 mcg tablet (Centrum Silver Men) Lactobacillus acidophilus 10 10,000 mmu cells PO DAILY 12/12/22 12/12/22 History billion cell capsule (Probiotic) citalopram 40 mg tablet 40 mg PO QAM 12/12/22 12/12/22 History ferrous sulfate 325 mg (65 mg 325 mg PO DAILY 12/12/22 12/12/22 History iron) tablet mesalamine 800 mg tablet,delayed 1,600 mg PO TID 12/12/22 12/12/22 History release vancomycin 125 mg capsule See Rx Instructions .Route .COMPLEX 12/12/22 12/12/22 History Past Med/Surg History Medical History Anxiety Blood in stool Colitis History of COVID-19 10/17/21 AT [facility] (NO SYMPTOMS) ED FOR BLOOD IN STOOL History of stroke History of tobacco use 30 pack years, quit in 2019 HTN (hypertension) Hyperlipidemia Insomnia Norovirus Stroke X 2 IN 2019>TREATED AT [facility]>MINOR SPEECH DEFECITS Ulcerative colitis Dx in Sep 2021 Surgical History H/O carotid endarterectomy RT/LEFT History of esophagogastroduodenoscopy (EGD) History of tonsillectomy and adenoidectomy History of tooth extraction Family History Father Diabetes Coronary heart disease Stroke, Onset Age: 50 Mother Cancer Other No family history of adverse response to anesthesia Denies family history of History of blood clotting disorder Social History Smoking Status: Former smoker Tobacco Type: Cigarettes Cigarettes Per Day: 20; Second Hand Exposure: No; Hx Alcohol Use: Yes Hx Substance Use: No Preferred Language: Filipino Communication Ability: Effective Instructor Decorating Required: No Beliefs That Will Affect Care: None marital status details: Engaged Current Living Situation: Significant Other 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 occupational status: 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 Other Information That Helps Us Care for You: No Feels Safe at Home: Yes Safety Concerns: Feels Safe At This Time Assistive Devices: None Review of Systems All systems reviewed & are unremarkable except as noted in HPI & below Physical Exam Constitutional: WD/WN, vitals as above Respiratory: normal respiratory effort, lungs clear to auscultation Cardiovascular: RRR, no murmur, no edema Gastrointestinal (Abdomen): normal bowel sounds, soft, nontender, no hepatosplenomegaly Psychiatric: A+Ox3, euthymic affect Results & Data Vital Signs (Past 12 Hours) Vital Signs Temp Pulse Pulse Pulse Resp BP Pulse Ox 12/18/22 07:32 37 C 80 16 124/79 93 12/18/22 02:44 36.6 C 68 18 130/80 98 12/18/22 00:00 82 12/17/22 22:30 36.9 C 76 18 122/76 96 O2 Del Method 12/18/22 07:32 Room Air 12/18/22 02:44 Room Air 12/18/22 00:00 12/17/22 22:30 Room Air Code Status & VTE Plan VTE Prophylaxis Plan VTE Prophylaxis will be ordered: Yes
[2022-12-18] MEDS ORDERED: LIDOCAINE 2% MPF LOCAL 5 ML VIAL INFIL ONE (08:21)
[2022-12-18] MEDS ORDERED: PROPOFOL IV EMULSION 10 MG/ML 20 ML VIAL IV ONE ×2 (08:21→08:53)
[2022-12-18] MEDS ORDERED: ATROPINE SULFATE 0.1 MG/ML 10ML SYR IV PRN (08:50)
[2022-12-18] MEDS ORDERED: ePHEDrine sulfate 50 MG/ML AMP IV PRN (08:50)
--- NOTE | 2022-12-18 08:50 | Anesthesiology Consultation ---
Date of Service December 18, 2022 Assessment & Plan Chart Review Chart Review: Acceptable Risk for Surgery and Patient NOT seen in Pre Admission Testing Consults Requested none ASA ASA4 Proposed Anesthesia Anesthesia Type: MAC Risk / Benefits Reviewed With: PT / POA / Parent / Guardian, Accepts Plan and Informed Consent Obtained History Surgery Operation Date: 12/18/22 16:30 Proposed Procedures p Flexible Sigmoidoscopy Miguel Rivera, Height/Weight Height: 6 ft Weight: 100.2 kg Allergies Allergy/AdvReac Type Severity Reaction Status Date / Time No Known Allergies Allergy Mild Verified 12/12/22 16:46 Medications Home Medications Medication Instructions Recorded Confirmed Last Taken trazodone 150 mg tablet 150 mg PO HS 05/21/19 12/12/22 12/11/22 aspirin 81 mg tablet,delayed 81 mg PO QAM 10/30/21 12/12/22 12/11/22 release atorvastatin 40 mg tablet 40 mg PO HS 10/30/21 12/12/22 12/11/22 lisinopril 10 mg tablet 10 mg PO QAM 10/30/21 12/12/22 12/12/22 buspirone 5 mg tablet 5 mg PO AMHS 12/05/21 12/12/22 12/11/22 dicyclomine 10 mg capsule 10 mg PO TID 12/05/21 12/12/22 12/11/22 adalimumab 40 mg/0.8 mL 40 mg subcut .EVERY 2 WEEKS 09/16/22 12/12/22 12/01/22 subcutaneous pen kit (Humira Pen) cholestyramine (with sugar) 4 gram 1 ea PO DAILY 09/16/22 12/12/22 12/11/22 powder for susp in a packet srbkjenb-[id number] acid 300 1 tab PO DAILY 09/16/22 12/12/22 Unknown mcg-lycopene 600 mcg-lutein 300 mcg tablet (Centrum Silver Men) Lactobacillus acidophilus 10 10,000 mmu cells PO DAILY 12/12/22 12/12/22 12/11/22 billion cell capsule (Probiotic) citalopram 40 mg tablet 40 mg PO QAM 12/12/22 12/12/22 12/11/22 ferrous sulfate 325 mg (65 mg 325 mg PO DAILY 12/12/22 12/12/22 12/11/22 iron) tablet mesalamine 800 mg tablet,delayed 1,600 mg PO TID 12/12/22 12/12/22 12/12/22 release vancomycin 125 mg capsule See Rx Instructions .Route .COMPLEX 12/12/22 12/12/22 12/12/22 Active Medications Generic Name Dose Route Start Last Admin Trade Name Idalia PRN Reason Stop Dose Admin Atorvastatin Calcium 40 mg 12/12/22 21:00 12/17/22 20:49 Atorvastatin 40 Mg Tab PO 01/11/23 20:59 40 mg HS CAIO Administration Buspirone HCl 5 mg 12/12/22 21:00 12/17/22 20:48 Buspirone 5 Mg Tab PO 01/11/23 20:59 5 mg AMHS CAIO Administration Cholestyramine Resin 4 gm 12/17/22 22:00 12/17/22 21:45 Cholestyramine Light 4 Gm Pkt PO 01/16/23 21:59 4 gm BID@1000,2200 CAIO Administration Citalopram Hydrobromide 40 mg 12/13/22 09:00 12/17/22 09:49 Citalopram 40 Mg Tab PO 01/12/23 08:59 40 mg QAM CAIO Administration Dicyclomine HCl 10 mg 12/12/22 21:00 12/17/22 20:47 Dicyclomine Hcl 10 Mg Cap PO 01/11/23 20:59 10 mg TID CAIO Administration Ferrous Sulfate 325 mg 12/13/22 09:00 12/17/22 10:34 Ferrous Sulfate 325 Mg Tab PO 01/12/23 08:59 325 mg DAILY CAIO Administration Heparin Sodium (Porcine) 5,000 units 12/17/22 21:00 12/17/22 20:49 Heparin Sod 5,000 Unit/0.5 Ml Vial SQ 01/16/23 20:59 5,000 units Q12 CAIO Administration Methylprednisolone 20 mg/ 0.32 mls @ 1.5 mls/min 12/14/22 10:00 12/18/22 05:46 Syringe IV 01/13/23 09:59 1.5 mls/min Q8 CAIO Administration Lactobacillus Acidophilus 2 cap 12/13/22 09:00 12/17/22 09:50 Advanced Probiotic 1250 Mg Capsule PO 01/12/23 08:59 2 cap DAILY CAIO Administration Mesalamine 1,600 mg 12/12/22 21:00 12/17/22 20:48 Mesalamine 800 Mg Tabcr PO 01/11/23 20:59 1,600 mg TID CAIO Administration Multivitamins/Minerals 1 tab 12/13/22 09:00 12/17/22 09:50 Cerovite Adv Formula Tab PO 01/12/23 08:59 1 tab DAILY CAIO Administration Raspberry 5 ml 12/15/22 09:00 12/17/22 09:49 Raspberry Syrup 5 Ml Udp PO 12/25/22 08:59 5 ml Q2D CAIO Administration Trazodone HCl 150 mg 12/12/22 21:00 12/17/22 22:26 Trazodone Hcl 50 Mg Tab PO 01/11/23 20:59 150 mg HS CAIO Administration Vancomycin HCl 125 mg 12/15/22 09:00 12/17/22 09:49 Vancomycin Hcl 125 Mg/2.5ml Soln PO 12/27/22 09:01 125 mg Q2D CAIO Administration NPO Date Last Intake of Fluids: 12/17/22 Time Last Intake of Fluids: 11:50 Date Last Intake of Solids: 12/17/22 Time Last Intake of Solids: 07:00 Past Medical History Medical History Anxiety Blood in stool Colitis History of COVID-19 10/17/21 AT [facility] (NO SYMPTOMS) ED FOR BLOOD IN STOOL History of stroke History of tobacco use 30 pack years, quit in 2019 HTN (hypertension) Hyperlipidemia Insomnia Norovirus Stroke X 2 IN 2019>TREATED AT [facility]>MINOR SPEECH DEFECITS Ulcerative colitis Dx in Sep 2021 Exercise / Class Metabolic Activity III < 4 Walking/Shop/Light housework Past Family History Family History Father Diabetes Coronary heart disease Stroke, Onset Age: 50 Mother Cancer Other No family history of adverse response to anesthesia Denies family history of History of blood clotting disorder Past Surgical History Surgical History H/O carotid endarterectomy RT/LEFT History of esophagogastroduodenoscopy (EGD) History of tonsillectomy and adenoidectomy History of tooth extraction Past Anesthesia History No Hx of Anesthesia Complications and No Family Hx of Anesthesia Complications History of PONV No Hx of PONV and No Hx of Motion Sickness Social History Smoking Status: Former smoker tobacco type: cigarettes Smoking cigarettes per day: 20 Hx Alcohol Use: Yes Alcohol Intake Frequency Comment: Sober 16 years Hx Substance Use: No substance use type: does not use Physical Exam Vital Signs Last Vital Signs Temp 36.7 C 12/18/22 08:37 Pulse 86 12/18/22 08:37 Resp 16 12/18/22 08:37 BP 147/92 H 12/18/22 08:37 Pulse Ox 98 12/18/22 08:37 O2 Del Method Room Air 12/18/22 08:37 Constitutional no acute distress ENMT Mouth: + dentition abnormality and + edentulous Thyromental Distance: > or= 3.5 Finger Breadths Mallampati Class: II Neck normal visual inspection, trachea midline and + facial hair; neck extension not limited Respiratory normal respiratory effort Auscultation: + diminished lung sounds Cardiovascular Rate/Rhythm: regular rate and regular rhythm Heart Sounds: no murmur Vessels: no carotid bruit Musculoskeletal Spine: normal cervical ROM and no pain with cervical ROM Extremities: full ROM of extremities Neurologic moves all extremities Motor/Sensory: no sensory deficit Psychiatric Orientation: alert and oriented x 3 Testing Laboratory Results 12/18/22 05:43 12/18/22 05:43 PT 11.0 Seconds (9.0-12.0) 12/12/22 15:10 INR 1.0 (0.9-1.1) 12/12/22 15:10 APTT 24.6 Seconds (21.0-31.0) 12/12/22 15:10 Urine Color Yellow 12/13/22 Unknown Urine Appearance Clear (Clear) 12/13/22 Unknown Urine pH 5.5 (4.5-7.5) 12/13/22 Unknown Ur Specific [place] 1.004 (1.000-1.030) 12/13/22 Unknown Urine Protein Negative (Negative) 12/13/22 Unknown Urine Glucose (UA) Negative (Negative) 12/13/22 Unknown Urine Ketones Negative (Negative) 12/13/22 Unknown Urine Nitrite Negative (Negative) 12/13/22 Unknown Ur Leukocyte Esterase Negative (Negative) 12/13/22 Unknown Blood Type O Positive 12/12/22 15:10 Antibody Screen NEGATIVE 12/12/22 15:10
--- NOTE | 2022-12-18 09:27 | GI REPORT ---
Patient Name: Ed Moyer Procedure Date: 12/18/2022 8:48 AM Date of : 1970 Admit Type: Inpatient Age: 52 Gender: Male Attending MD: Rachel Rivera DO, Procedure: Flexible Sigmoidoscopy Providers: Rachel Rivera DO Referring MD: Ki Lentz Md Indications: Follow-up of ulcerative colitis Patient Profile: This is a 52 year old male. Refer to note in patient chart for documentation of history and physical. Medicines: Monitored Anesthesia Care Complications: No immediate complications. Estimated Blood Loss: Estimated blood loss was minimal. Procedure: Pre-Anesthesia Assessment: - Prior to the procedure, a History and Physical was performed, and patient medications and allergies were reviewed. The risks and benefits of the procedure and the sedation options and risks were discussed with the patient. All questions were answered and informed consent was obtained. Patient identification and proposed procedure were verified by the physician, the nurse and the case making machine operator. Mental Status Examination: alert and oriented. Airway Examination: Mallampati Class II (the uvula but not tonsillar pillars visualized). Respiratory Examination: clear to auscultation. CV Examination: RRR, no murmurs, no S3 or S4. Prophylactic Antibiotics: The patient does not require prophylactic antibiotics. Prior Anticoagulants: The patient has taken no anticoagulant or antiplatelet agents. ASA Grade Assessment: III - A patient with severe systemic disease. After reviewing the risks and benefits, the patient was deemed in satisfactory condition to undergo the procedure. The anesthesia plan was to use monitored anesthesia care (MAC). Immediately prior to administration of medications, the patient was re-assessed for adequacy to receive sedatives. The physical status of the patient was re-assessed after the procedure. After obtaining informed consent, the endoscope was passed under direct vision. Throughout the procedure, the patient's blood pressure, pulse, and oxygen saturations were monitored continuously. The Colonoscope was introduced through the anus and advanced to the sigmoid colon. The flexible sigmoidoscopy was accomplished without difficulty. The patient tolerated the procedure well. The quality of the bowel preparation was fair. Findings: The perianal and digital rectal examinations were normal. Inflammation was found in a continuous and circumferential pattern from the anus to the sigmoid colon. This was graded as Jefferson Score 3 (severe, with spontaneous bleeding, ulcerations), and when compared to the previous examination, the findings are unchanged. Biopsies were taken with a cold forceps for histology. Verification of patient identification for the specimen was done by the physician and nurse using the patient's name and date. The pathology specimen was placed into Bottle Number 1. Impression: - Preparation of the colon was fair. - Severe (Jefferson Score 3) ulcerative colitis, unchanged since the last examination. Biopsied for CMV. The colon was extremely friable and bleeding with scope contact. Recommendation: - [facility]. - Clear liquid diet - Continue present medications. - Await pathology results. - Would recommend transfer to tertiary care center such as [facility] to be evaluated by colorectal surgery. He is on day 7 of IV steroids and has had no improvement. Still with ongoing bloody bowel movements up to 10x daily and his sigmoidoscopy today shows no improvement despite Humira and steroids. He needs to be evaluated for colectomy given severe UC. Rachel Rivera, 12/18/2022 9:27:01 AM Note Initiated On: 12/18/2022 8:48 AM Number of Addenda: 0 I attest to the content of the Intraoperative Record and orders documented therein, exceptions below {[id number]}
--- NOTE | 2022-12-18 09:33 | Anesthesiology Progress Note ---
Date of Service December 18, 2022 Anesthesia Post Procedure Vital Signs Vital Signs: Temp Pulse Pulse Pulse Resp BP Pulse Ox 12/18/22 09:29 79 16 153/96 H 100 12/18/22 09:14 76 16 121/78 99 12/18/22 08:59 76 16 109/64 99 12/18/22 08:37 36.7 C 86 16 147/92 H 98 12/18/22 07:32 37 C 80 16 124/79 93 12/18/22 02:44 36.6 C 68 18 130/80 98 12/18/22 00:00 82 12/17/22 22:30 36.9 C 76 18 122/76 96 12/17/22 19:51 37.2 C 75 18 125/77 97 12/17/22 16:10 37.5 C 78 19 117/73 95 12/17/22 15:36 85 12/17/22 11:57 36.7 C 82 18 148/86 H 97 O2 Del Method 12/18/22 09:29 Room Air 12/18/22 09:14 Room Air 12/18/22 08:59 Room Air 12/18/22 08:37 Room Air 12/18/22 07:32 Room Air 12/18/22 02:44 Room Air 12/18/22 00:00 12/17/22 22:30 Room Air 12/17/22 19:51 Room Air 12/17/22 16:10 Room Air 12/17/22 15:36 12/17/22 11:57 Room Air Transfer of Care Handoff Completed per policy Notes Mental Status: alert / awake / arousable Patient Amnestic to Procedure: Yes Nausea / Vomiting: adequately controlled Pain: adequately controlled Airway Patency, RR, SpO2: stable & adequate BP & HR: stable & adequate Hydration State: stable & adequate Anesthetic Complications: no major complications apparent
[2022-12-18] MEDS: HEPARIN SOD 5,000 UNIT/0.5 ML VIAL SQ SCH ×2 (09:51→21:01)
[2022-12-18] MEDS: ADVANCED PROBIOTIC 1250 MG CAPSULE PO SCH (09:51)
[2022-12-18] MEDS: CEROVITE ADV FORMULA TAB PO SCH (09:51)
[2022-12-18] MEDS: MESALAMINE 800 MG TABCR PO SCH ×3 (09:51→21:02)
[2022-12-18] MEDS: busPIRone 5 MG TAB PO SCH ×2 (09:52→21:03)
[2022-12-18] MEDS: FERROUS SULFATE 325 MG TAB PO SCH (09:52)
[2022-12-18] MEDS: DICYCLOMINE HCL 10 MG CAP PO SCH ×3 (09:52→21:01)
[2022-12-18] MEDS: CITALOPRAM 40 MG TAB PO SCH (09:52)
[2022-12-18] MEDS: CHOLESTYRAMINE LIGHT 4 GM PKT PO SCH ×2 (09:53→21:04)
--- NOTE | 2022-12-18 16:53 | Hospitalist Progress Note ---
Date of Service December 18, 2022 Assessment & Plan (1) Ulcerative colitis: (2) Diarrhea: (3) Acute blood loss anemia: Plan: Past medical history of kumar ulcerative colitis diagnosed in October 2021 on Humira every other week. History of C. difficile on tapering dose of vancomycin Sent from GI clinic due to lightheadedness. Symptoms of bloody bowel movements since last 2 to 3 weeks which increased recently. Hypotensive on presentation in ED; responded to fluids downtrending hemoglobin PCR panel recently positive for norovirus on 12/11; GI PCR panel currently negative. CT abdomen pelvis shows progressive circumferential wall thickening seen throughout the colon consistent with pancolitis Plan; Patient continues to have multiple episode of bowel movement and incontinence despite IV steroids. Despite use of IV steroid for several days; patient has ongoing bloody bowel movement up to 10 times a day. His sigmoidoscopy today does not show any improvement. GI recommended evaluation for colectomy at a tertiary care center. Discussed with [facility] regarding transfer; patient accepted for transfer. The transfer will likely take 2 days depending on availability of the bed. We will continue IV steroid for now and continue to monitor during inpatient pending his transfer. Continue cholestyramine, mesalamine, vancomycin 125mg QD (tapering). He is currently on Humira every 2 weeks; last dose was 12/15. Currently on vancomycin every other day for recent C. difficile infection. (4) Dehydration: (5) Hyponatremia: Plan: -Hyponatremia improved with IV hydration. (6) HTN (hypertension): Plan: - Hold BP medications (7) Hyperlipidemia: Plan: - Cont statin therapy (8) History of stroke: Plan: - in 2019, on baby aspirin daily which will hold in the setting of acute GI bleed DVT ppx: -Heparin CODE: Full code Dispo: From home. Patient continues to have multiple episode of bloody bowel movement despite IV methylprednisolone for UC flare. Patient to be transferred to [facility] when bed is available. Admission and Anticipated Discharge Date Admission Date: December 12, 2022 Subjective Patient underwent Flexible Sigmoidoscopy; found to have severe UC. He continues to have several episodes of ongoing bloody bowel movement. Review of Systems Review of Systems: All systems reviewed & are unremarkable except as noted in Subjective Physical Exam Physical Exam: Constitutional: WD/WN, vitals as above, NAD, sitting up in bed, pleasant, conversing easily Respiratory: normal respiratory effort, lungs clear to auscultation, no wheeze, rales, rhonchi. Normal insp/exp effort, no accessory muscle use Cardiovascular: RRR, no murmur, no edema Vessels: no JVD or carotid bruit Chest: normal inspection of chest Abdomen: Soft, nontender Musculoskeletal: no cyanosis or clubbing, extremities motor strength 5/5 Skin: no rashes, warm and dry normal turgor Neurologic: PERRL, EOMI, accommodation nl, no face palsy, no dysarthria CN's II- XI intact bilaterally and moves all extremities Psychiatric: A+Ox3, euthymic affect Lymphatic: no cervical or axillary lymphadenopathy : deferred Results & Data Results & Data Vital Signs (Past 12 Hours) Vital Signs Temp Pulse Pulse Resp BP Pulse Ox O2 Del Method 12/18/22 15:19 36.7 C 77 18 127/81 96 Room Air 12/18/22 12:57 37.1 C 82 18 127/79 96 Room Air 12/18/22 08:00 75 12/18/22 09:29 79 16 153/96 H 100 Room Air 12/18/22 09:14 76 16 121/78 99 Room Air 12/18/22 08:59 76 16 109/64 99 Room Air 12/18/22 08:37 36.7 C 86 16 147/92 H 98 Room Air 12/18/22 07:32 37 C 80 16 124/79 93 Room Air Laboratory Results Laboratory Results WBC 13.46 K/ul (4.8-10.8) H 12/18/22 05:43 RBC 3.58 M/uL (4.70-6.10) L 12/18/22 05:43 Hgb 8.3 g/dl (14.0-18.0) L 12/18/22 05:43 Hct 28.7 % (42.0-52.0) L 12/18/22 05:43 MCV 80.2 fL (80.0-100.0) 12/18/22 05:43 MCH 23.2 pg (25.0-34.0) L 12/18/22 05:43 MCHC 28.9 g/dL (32.0-36.0) L 12/18/22 05:43 RDW Std Deviation 42.5 fL (36.4-46.3) 12/18/22 05:43 RDW Coeff of Chandra 14.7 % (11.5-14.5) H 12/18/22 05:43 Plt Count 648 K/uL (130-400) H 12/18/22 05:43 MPV 8.2 fL (9.4-12.4) L 12/18/22 05:43 Immature Gran % (Auto) 2.0 % 12/18/22 05:43 Neut % (Auto) 74.7 % 12/18/22 05:43 Lymph % (Auto) 11.6 % 12/18/22 05:43 Cottle % (Auto) 11.4 % 12/18/22 05:43 Eos % (Auto) 0.1 % 12/18/22 05:43 Baso % (Auto) 0.2 % 12/18/22 05:43 Neut # (Auto) 10.04 K/uL (1.40-6.50) H 12/18/22 05:43 Lymph # (Auto) 1.56 K/uL (1.2-3.4) 12/18/22 05:43 Cottle # (Auto) 1.54 K/uL (0.11-0.59) H 12/18/22 05:43 Eos # (Auto) 0.02 K/uL (0-0.50) 12/18/22 05:43 Baso # (Auto) 0.03 K/uL (0-0.2) 12/18/22 05:43 Immature Gran # (Auto) 0.27 K/uL (0.01-0.20) H 12/18/22 05:43 Absolute Nucleated RBC 0.10 K/uL (0-0.12) 12/18/22 05:43 Nucleated RBC % (auto) 0.7 % 12/18/22 05:43 Polychromasia 1+ 12/18/22 05:43 Hypochromasia Present 12/18/22 05:43 Microcytosis Present 12/15/22 06:54 PT 11.0 Seconds (9.0-12.0) 12/12/22 15:10 INR 1.0 (0.9-1.1) 12/12/22 15:10 APTT 24.6 Seconds (21.0-31.0) 12/12/22 15:10 PTT Ratio 0.9 12/12/22 15:10 Sodium 138 mmol/L (136-145) 12/18/22 05:43 Potassium 4.1 mmol/L (3.5-5.1) 12/18/22 05:43 Chloride 102 mmol/L (98-107) 12/18/22 05:43 Carbon Dioxide 28 mmol/L (21-32) 12/18/22 05:43 Anion Gap 8 (3-11) 12/18/22 05:43 BUN 9 mg/dl (6-23) 12/18/22 05:43 Creatinine 0.76 mg/dl (0.6-1.4) 12/18/22 05:43 Est Cr Clr Drug Dosing 140.9 ml/min 12/18/22 05:43 Est GFR ( Amer) 122.4 ml/min 12/18/22 05:43 Est GFR (Non-Af Amer) 105.6 ml/min 12/18/22 05:43 BUN/Creatinine Ratio 11.8 (10-20) 12/18/22 05:43 Glucose 90 mg/dl (70-99(Fasting)) 12/18/22 05:43 POC Glucose 165 mg/dl (70-99) H 12/15/22 17:06 Calcium 8.7 mg/dl (8.5-10.1) 12/18/22 05:43 Phosphorus 4.1 mg/dl (2.5-4.9) 12/13/22 04:19 Magnesium 2.0 mg/dl (1.7-2.4) 12/13/22 04:19 Total Bilirubin 0.3 mg/dl (0.2-1.0) 12/18/22 05:43 AST 8 U/L (13-39) L 12/18/22 05:43 ALT 8 U/L (7-52) 12/18/22 05:43 Alkaline Phosphatase 46 U/L (34-104) 12/18/22 05:43 Troponin I High Sens 10.2 pg/ml (0-20) 12/12/22 15:10 Total Protein 6.5 gm/dl (6.0-8.3) 12/18/22 05:43 Albumin 3.1 gm/dl (3.4-5.0) L 12/18/22 05:43 Globulin 3.4 gm/dl (2.5-4.0) 12/18/22 05:43 Albumin/Globulin Ratio 0.9 (0.9-2) 12/18/22 05:43 Lipase 4 U/L (11-82) L 12/12/22 15:10 Urine Color Yellow 12/13/22 Unknown Urine Appearance Clear (Clear) 12/13/22 Unknown Urine pH 5.5 (4.5-7.5) 12/13/22 Unknown Ur Specific [place] 1.004 (1.000-1.030) 12/13/22 Unknown Urine Protein Negative (Negative) 12/13/22 Unknown Urine Glucose (UA) Negative (Negative) 12/13/22 Unknown Urine Ketones Negative (Negative) 12/13/22 Unknown Urine Blood Negative (Negative) 12/13/22 Unknown Urine Nitrite Negative (Negative) 12/13/22 Unknown Urine Bilirubin Negative (Negative) 12/13/22 Unknown Urine Urobilinogen Negative (Negative) 12/13/22 Unknown Ur Leukocyte Esterase Negative (Negative) 12/13/22 Unknown Nasal Screen MRSA (PCR) Negative (Negative) 12/12/22 19:30 Stl C. cayetanensis PCR Not Detected (NotDetected) 12/12/22 15:04 Stool Rotavirus A PCR Not Detected (NotDetected) 12/12/22 15:04 Stl Adenov F 40/41 PCR Not Detected (NotDetected) 12/12/22 15:04 Stool Astrovirus (PCR) Not Detected (NotDetected) 12/12/22 15:04 Stool Campylobacter PCR Not Detected (NotDetected) 12/12/22 15:04 Stl C. diff Tox B Gene Negative Cdiff Gene (Neg) 12/12/22 15:04 Stool Cryptosporidium PCR Not Detected (NotDetected) 12/12/22 15:04 Stl E.coli Shiga Tox PCR Not Detected (NotDetected) 12/12/22 15:04 Stl Enterotoxigenic E PCR Not Detected (NotDetected) 12/12/22 15:04 Stool EPEC (PCR) Not Detected (NotDetected) 12/12/22 15:04 Stool EAEC (PCR) Not Detected (NotDetected) 12/12/22 15:04 Stl E. histolytica PCR Not Detected (NotDetected) 12/12/22 15:04 Stool Giardia Lamblia PCR Not Detected (NotDetected) 12/12/22 15:04 Stool Salmonella PCR Not Detected (NotDetected) 12/12/22 15:04 Stool Sapovirus (PCR) Not Detected (NotDetected) 12/12/22 15:04 Stl P. shigelloides PCR Not Detected (NotDetected) 12/12/22 15:04 Stl Shigella/EIEC PCR Not Detected (NotDetected) 12/12/22 15:04 St Y.enterocolitica PCR Not Detected (NotDetected) 12/12/22 15:04 Stool Vibrio (PCR) Not Detected (NotDetected) 12/12/22 15:04 Stl Vibrio cholerae PCR Not Detected (NotDetected) 12/12/22 15:04 Stl Norovirus GI/GII PCR Not Detected (NotDetected) 12/12/22 15:04 SARS-CoV-2, RNA, NAAT NEGATIVE (NEGATIVE) 12/12/22 15:07 Blood Type O Positive 12/12/22 15:10 Antibody Screen NEGATIVE 12/12/22 15:10 Impressions Chest X-Ray 12/12/22 15:04 SINGLE VIEW CHEST CLINICAL HISTORY: GI bleeding. Atypical chest pain. FINDINGS: 2 AP, portable, supine chest radiographs are compared to study dated 12/11/2022 and correlated with chest CT dated 12/05/2021. The examination is degraded by portable technique and apical lordotic positioning. The heart is enlarged note atherosclerotic calcification of the thoracic aorta. The pulmonary vasculature is noncongested. Emphysema and chronic interstitial thickening is similar to previous. There is mild bibasilar scarring/atelectasis. No airspace consolidation or large pleural effusion is identified. No pneumothorax is seen. The bony thorax is grossly intact. Surgical clips are seen in the right lower neck. IMPRESSION: Cardiomegaly and emphysema with no active disease in the chest. ACT 112: Negative or not required by law. Electronically signed by: Hernán Chi M.D. 12/12/2022 4:13 PM Abdomen/Pelvis CT 12/13/22 07:[address] WITH IV AND ORAL CONTRAST CT DOSE: 844.72 mGy.cm HISTORY: diarrhea, hx UC and C-diff TECHNIQUE: Multiaxial CT images of the abdomen and pelvis were performed following the use of intravenous and oral contrast. A dose lowering technique was utilized adhering to the principles of ALARA. COMPARISON STUDY: Abdomen and pelvis CT 12/05/2021. FINDINGS: The lung bases are clear. No pneumoperitoneum. No pneumatosis. No acute fractures identified. The liver, pancreas, spleen, gallbladder, and adrenal glands unremarkable. The main portal vein is patent. Normal caliber abdominal aorta with moderate calcified plaque. There is a 4 mm stone within the lower pole of the right kidney, unchanged. No ureteral stones. No hydronephrosis. Bilateral renal hypodense lesions remain stable and likely represent cysts. The largest in the lower pole the left kidney measures 6.2 cm. No retroperitoneal or pelvic lymphadenopathy. The bladder is unremarkable. Moderate circumferential thickening throughout the colon with pericolonic fat stranding and engorgement of the adjacent mesenteric vessels. This has slightly progressed in the interval and is consistent with a pancolitis. No evidence for a bowel obstruction. Normal appendix. IMPRESSION: 1. Progressive circumferential wall thickening seen throughout the colon consistent with a pancolitis. This likely corresponds to the patient's known history of ulcerative colitis. A superimposed infection would be difficult to exclude. 2. Normal appendix. 3. Stable right-sided nephrolithiasis. No hydronephrosis. ACT 112: Negative or not required by law. Electronically signed by: Dewayne Contreras M.D. 12/13/2022 11:00 AM KUB X-Ray 12/17/22 12:17 KUB CLINICAL HISTORY: Generalized abdominal pain. FINDINGS: An AP, portable, supine abdominal radiograph is compared to study dated 12/12/2022 and correlated with abdominal CT dated 12/13/2022. There is a nonobstructed abdominal bowel gas pattern. No evidence of intraperitoneal free air is seen on this supine image. There are no abnormal abdominal calc ifications. The bony structures appear intact. Lumbosacral spondylosis is observed. IMPRESSION: Nonobstructed abdominal bowel gas pattern. Electronically signed by: Hernán Chi M.D. 12/17/2022 2:12 PM (1) Ulcerative colitis Digestive disease complication type: with rectal bleeding Ulcerative colitis location: unspecified ulcerative colitis location Qualified Code(s): K51.911 - Ulcerative colitis, unspecified with rectal bleeding
[2022-12-18] MEDS: ATORVASTATIN 40 MG TAB PO SCH (21:01)
[2022-12-18] MEDS: traZODone HCL 50 MG TAB PO SCH (21:04)
[2022-12-19] MEDS: methylPREDNISolone 20 MG in SYRINGE 0 ML IV SCH ×3 (06:00→21:19)
[2022-12-19 06:17] LABS: Albumin Globulin Ratio 0.9 (0.9-2); Albumin Level 2.9 gm/dl (3.4-5.0); BUN Creatinine Ratio 12.9 (10-20); Bilirubin,Total 0.2 mg/dl (0.2-1.0); C Reactive Protein 1.88 mg/dl (0-0.5); Calcium 8.5 mg/dl (8.5-10.1); Est GFR (African American) 126.6 ml/min; Est GFR (Non-African American) 109.3 ml/min; Globulin 3.2 gm/dl (2.5-4.0); Potassium 4.3 mmol/L (3.5-5.1); Total Protein 6.1 gm/dl (6.0-8.3)
[2022-12-19 06:29] LABS: Basophils # (auto) 0.01 K/uL (0-0.2); Basophils % (auto) 0.1 %; Eosinophils # (auto) 0.02 K/uL (0-0.50); Eosinophils % (auto) 0.2 %; Hypochromasia Present; Immature Granulocytes # (auto) 0.16 K/uL (0.01-0.20); Immature Granulocytes % (auto) 1.3 %; Lymphocytes # (auto) 1.42 K/uL (1.2-3.4); Lymphocytes % (auto) 11.8 %; Mean Corpuscular Hemoglobin 22.6 pg (25.0-34.0); Mean Corpuscular Hgb Conc 28.6 g/dL (32.0-36.0); Mean Corpuscular Volume 79.1 fL (80.0-100.0); Mean Platelet Volume 8.1 fL (9.4-12.4); Monocytes # (auto) 1.28 K/uL (0.11-0.59); Monocytes % (auto) 10.6 %; Neutrophils # (auto) 9.13 K/uL (1.40-6.50); Nucleated RBC # (auto) 0.06 K/uL (0-0.12); Nucleated RBC % (auto) 0.5 %; Platelet Count 559 K/uL (130-400); RDW Coefficient of Variation 14.9 % (11.5-14.5); RDW Standard Deviation 42.6 fL (36.4-46.3); Red Blood Count 3.54 M/uL (4.70-6.10); White Blood Count 12.02 K/ul (4.8-10.8)
[2022-12-19] MEDS: RASPBERRY SYRUP 5 ML UDP PO SCH (09:16)
[2022-12-19] MEDS: CEROVITE ADV FORMULA TAB PO SCH (09:17)
[2022-12-19] MEDS: DICYCLOMINE HCL 10 MG CAP PO SCH ×3 (09:17→21:18)
[2022-12-19] MEDS: busPIRone 5 MG TAB PO SCH ×2 (09:17→21:19)
[2022-12-19] MEDS: VANCOMYCIN HCL 125 MG/2.5ML SOLN PO SCH (09:17)
[2022-12-19] MEDS: FERROUS SULFATE 325 MG TAB PO SCH (09:18)
[2022-12-19] MEDS: HEPARIN SOD 5,000 UNIT/0.5 ML VIAL SQ SCH ×2 (09:18→21:18)
[2022-12-19] MEDS: ADVANCED PROBIOTIC 1250 MG CAPSULE PO SCH (09:18)
[2022-12-19] MEDS: MESALAMINE 800 MG TABCR PO SCH ×3 (09:19→21:20)
[2022-12-19] MEDS: CITALOPRAM 40 MG TAB PO SCH (09:19)
[2022-12-19] MEDS: CHOLESTYRAMINE LIGHT 4 GM PKT PO SCH ×2 (10:26→21:18)
--- NOTE | 2022-12-19 11:43 | Gastroenterology Progress Note ---
Date of Service December 19, 2022 Assessment & Plan (1) Norovirus: (2) Ulcerative colitis: Plan: Pt is a 52 yo male w UC & norovirus colitis, having persistent diarrhea symptoms. Last Humira injection on 12/15. Flex sig on 12/18 w severe UC. Given no response to IV steroids, recommend possible colectomy. Anticip[place] [facility] [place] are still waiting for bed availability. - F/U sigmoidscopy path. - Methylprednisolone 20mg IV q8hrs - Questran to 4g BID - Mesalamine 1600mg TID - Hx of Cdiff, on Vancomycin taperred dose - Anticipating transfer to [facility] [place], discuss with hospitalist to check on bed availability at [facility] Admission and Anticipated Discharge Date Admission Date: December 12, 2022 Supervising Physician Co-Signing Physician Notes I personally saw and evaluated the patient on 12/19/2022 with AVINASH Kline and agree with her findings and plan of care. He is a 52 y/o M with history of pancolonic UC now on Humira with history of C. diff infection, CMV, and norovirus who presented with worsening diarrhea and hematochezia. He did test + for norovirus on admission and negative for C. diff. He is still having significant diarrhea and had 6 BMs thus far today which are not formed and with blood. His last Humira injection was 12/15 and he just started this in . previously was only on mesalamine. he is currently on IV solumedrol 60/daily since the but is still not seeing any improvement. On physical exam abdomen is soft, non-tender, non-distended. He is s/p sigmoidoscopy yesterday with severe Jefferson score 3 UC. Minimal response to steroids despite 5 days of IV. Still with ongoing bloody BMs. Biopsies for CMV were taken yesterday and are currently in process. Awaiting transfer to [place] to be evaluated by colorectal surgery for potential colectomy as he has had minimal response to steroids. Continue IV solumedrol for now for UC flare. Strict I+Os with monitoring of stool output. Trend H/H and transfuse for hgb <7. Ensure he is on DVT prophylaxis as IBD patients are hypercoagulable during time of flare. Rachel Rivera, DO Gastroenterology and Hepatology Subjective Pt still having multiple bouts of diarrhea. Less rectal bleeding, denies n/v, abd pain Review of Systems Review of Systems: All systems reviewed & are unremarkable except as noted in HPI & below Physical Exam Constitutional: WD/WN, vitals as above well groomed, cooperative and comfortable Eyes: PERRL, conjunctivae normal, anicteric sclerae ENMT: external ear and nose normal, oropharynx normal Respiratory: normal respiratory effort, lungs clear to auscultation Cardiovascular: RRR, no murmur, no edema Gastrointestinal (Abdomen): normal bowel sounds, soft, nontender, no hepatosplenomegaly Skin: no rashes, warm and dry no jaundice Psychiatric: A+Ox3, euthymic affect Lymphatic: no lymphedema Results & Data Vital Signs (Past 12 Hours) Vital Signs Temp Pulse Pulse Resp BP BP Pulse Ox 12/19/22 10:58 36.9 C 83 18 154/94 H 97 12/19/22 08:00 12/19/22 07:10 37.0 C 76 18 127/81 96 12/19/22 03:35 36.6 C 76 20 119/74 97 12/19/22 00:00 75 Pulse Ox O2 Del Method O2 Del Method 12/19/22 10:58 Room Air 12/19/22 08:00 96 Room Air 12/19/22 07:10 Room Air 12/19/22 03:35 Room Air 12/19/22 00:00 (2) Ulcerative colitis Digestive disease complication type: with rectal bleeding Ulcerative colitis location: unspecified ulcerative colitis location Qualified Code(s): K51.911 - Ulcerative colitis, unspecified with rectal bleeding
[2022-12-19 16:40] LABS: Hematocrit (blood only) 27.3 % (42.0-52.0); Hemoglobin 7.8 g/dl (14.0-18.0)
--- NOTE | 2022-12-19 17:45 | Hospitalist Progress Note ---
Date of Service December 19, 2022 Assessment & Plan (1) Ulcerative colitis: (2) Diarrhea: (3) Acute blood loss anemia: Plan: Per previous hospitalist with addendum: Past medical history of kumar ulcerative colitis diagnosed in October 2021 on Humira every other week. History of C. difficile on tapering dose of vancomycin Sent from GI clinic due to lightheadedness. Symptoms of bloody bowel movements since last 2 to 3 weeks which increased recently. Hypotensive on presentation in ED; responded to fluids downtrending hemoglobin PCR panel recently positive for norovirus on 12/11; GI PCR panel currently negative. CT abdomen pelvis shows progressive circumferential wall thickening seen throughout the colon consistent with pancolitis Plan; Patient continues to have multiple episode of bowel movement and incontinence despite IV steroids. Despite use of IV steroid for several days; patient has ongoing bloody bowel movement up to 10 times a day. His sigmoidoscopy today does not show any improvement. GI recommended evaluation for colectomy at a tertiary care center. Discussed with [facility] regarding transfer; patient accepted for transfer. The transfer will likely take 2 days depending on availability of the bed. We will continue IV steroid for now and continue to monitor during inpatient pending his transfer. Continue cholestyramine, mesalamine, vancomycin 125mg QD (tapering). He is currently on Humira every 2 weeks; last dose was 12/15. Currently on vancomycin every other day for recent C. difficile infection. 12/19 As per patient bloody diarrhea seems to be slowing down Hemoglobin remains around 8 Continue to monitor hemoglobin closely Continue present regimen Awaiting bed availability [facility]-advised waiting time for bed availability is at least 24 hours or more (4) Dehydration: (5) Hyponatremia: Plan: -Hyponatremia improved with IV hydration. (6) HTN (hypertension): Plan: - Hold BP medications BP stable overall (7) Hyperlipidemia: Plan: - Cont statin therapy (8) History of stroke: Plan: - in 2019, on baby aspirin daily which will hold in the setting of acute GI bleed DVT ppx: -Heparin CODE: Full code Dispo: From home. Patient continues to have multiple episode of bloody bowel movement despite IV methylprednisolone for UC flare. Patient to be transferred to [facility] when bed is available. Admission and Anticipated Discharge Date Admission Date: December 12, 2022 Subjective Follow-up for ulcerative colitis, with diarrhea, etc. Seen sitting up in bed, comfortable, watching TV States he has had 2 bowel movements this morning, brown, loose Reports blood in the stool seems to be slowing down No abdominal pain, nausea vomiting, fevers or chills Denies other symptoms Review of Systems Review of Systems: all noted and negative except for above Physical Exam Physical Exam: General- oriented x 3, not in distress, speaks in sentences with no effort or accessory muscle use Eyes- anicteric Neck- no JVD Lungs- clear breath sounds bilaterally, no rales/wheezes Heart- normal rate, regular rhythm; no murmurs Abdomen- normal bowel sounds, nondistended, soft, nontender Extremities- no pretibial edema, no calf tenderness Neuro- alert, oriented x 3; no gross focal neurologic deficits Skin- warm & dry Results & Data Results & Data Vital Signs (Past 12 Hours) Vital Signs Temp Pulse Resp BP BP Pulse Ox Pulse Ox 12/19/22 16:00 96 12/19/22 15:35 37.1 C 92 H 18 140/90 96 12/19/22 10:58 36.9 C 83 18 154/94 H 97 12/19/22 08:00 96 12/19/22 07:10 37.0 C 76 18 127/81 96 O2 Del Method O2 Del Method 12/19/22 16:00 Room Air 12/19/22 15:35 Room Air 12/19/22 10:58 Room Air 12/19/22 08:00 Room Air 12/19/22 07:10 Room Air all noted and reviewed including below (1) Ulcerative colitis Digestive disease complication type: with rectal bleeding Ulcerative colitis location: unspecified ulcerative colitis location Qualified Code(s): K51.911 - Ulcerative colitis, unspecified with rectal bleeding
[2022-12-19] MEDS: ATORVASTATIN 40 MG TAB PO SCH (21:19)
[2022-12-19] MEDS: traZODone HCL 50 MG TAB PO SCH (21:29)
[2022-12-20] MEDS: methylPREDNISolone 20 MG in SYRINGE 0 ML IV SCH ×3 (05:36→21:45)
[2022-12-20 06:56] LABS: Basophils # (auto) 0.01 K/uL (0-0.2); Basophils % (auto) 0.1 %; Eosinophils # (auto) 0.04 K/uL (0-0.50); Eosinophils % (auto) 0.4 %; Hypochromasia Present; Immature Granulocytes # (auto) 0.14 K/uL (0.01-0.20); Immature Granulocytes % (auto) 1.2 %; Lymphocytes # (auto) 1.48 K/uL (1.2-3.4); Lymphocytes % (auto) 13.1 %; Mean Corpuscular Hemoglobin 22.8 pg (25.0-34.0); Mean Corpuscular Hgb Conc 28.6 g/dL (32.0-36.0); Mean Corpuscular Volume 79.8 fL (80.0-100.0); Mean Platelet Volume 8.2 fL (9.4-12.4); Monocytes # (auto) 1.44 K/uL (0.11-0.59); Monocytes % (auto) 12.8 %; Neutrophils # (auto) 8.16 K/uL (1.40-6.50); Neutrophils % (auto) 72.4 %; Nucleated RBC # (auto) 0.07 K/uL (0-0.12); Nucleated RBC % (auto) 0.6 %; Platelet Count 542 K/uL (130-400); Polychromasia 2+; RDW Coefficient of Variation 14.9 % (11.5-14.5); RDW Standard Deviation 43.3 fL (36.4-46.3); Red Blood Count 3.51 M/uL (4.70-6.10); White Blood Count 11.27 K/ul (4.8-10.8)
--- NOTE | 2022-12-20 08:57 | Gastroenterology Progress Note ---
Date of Service December 20, 2022 Assessment & Plan (1) Norovirus: (2) Ulcerative colitis: Plan: Pt is a 52 yo male w UC & norovirus colitis, having persistent diarrhea symptoms. Last Humira injection on 12/15. Flex sig on 12/18 w severe UC. Given no response to IV steroids, recommend possible colectomy. Anticipating transfer to [facility] but we are still waiting for bed availability. - F/U sigmoidscopy path -> severe UC wo CMV - Methylprednisolone 20mg IV q8hrs - Questran 4g BID - Mesalamine 1600mg TID - Hx of Cdiff, on Vancomycin taperred dose - Anticipating transfer to [facility]. Admission and Anticipated Discharge Date Admission Date: December 12, 2022 Supervising Physician Co-Signing Physician Notes I personally saw and evaluated the patient on 12/20/2022 with AVINASH Kline and agree with her findings and plan of care. He is a 52 y/o M with history of pancolonic UC now on Humira with history of C. diff infection, CMV, and norovirus who presented with worsening diarrhea and hematochezia. He did test + for norovirus on admission and negative for C. diff. He is still having significant diarrhea and had 6 BMs thus far today which are not formed and with blood. His last Humira injection was 12/15 and he just started this in . previously was only on mesalamine. he is currently on IV solumedrol 60/daily since the but is still not seeing any improvement. On physical exam abdomen is soft, non-tender, non-distended. He is s/p sigmoidoscopy with severe Jefferson score 3 UC. Minimal response to ster oids despite 1 week of IV steroids. Still with ongoing bloody BMs. He reports up to 12 BMs, most with blood, in the past 24 hours. Biopsies for CMV negative. Awaiting transfer to [place] to be evaluated by colorectal surgery for potential colectomy as he has had minimal response to steroids. Continue IV solumedrol for now for UC flare. Strict I+Os with monitoring of stool output. Trend H/H and transfuse for hgb <7. Ensure he is on DVT prophylaxis as IBD patients are hypercoagulable during time of flare. Rachel Rivera, DO Gastroenterology and Hepatology Subjective Pt awaiting bed at [facility] for transfer. He is having about 12 loose BMs yesterday. Tolerating solid meals wo n/v, denies abd pain. Review of Systems Review of Systems: All systems reviewed & are unremarkable except as noted in HPI & below Physical Exam Constitutional: WD/WN, vitals as above well groomed, cooperative and comfortable Eyes: PERRL, conjunctivae normal, anicteric sclerae ENMT: external ear and nose normal, oropharynx normal Respiratory: normal respiratory effort, lungs clear to auscultation Cardiovascular: RRR, no murmur, no edema Gastrointestinal (Abdomen): normal bowel sounds, soft, nontender, no hepatosplenomegaly Skin: no rashes, warm and dry no jaundice Psychiatric: A+Ox3, euthymic affect Lymphatic: no lymphedema Results & Data Vital Signs (Past 12 Hours) Vital Signs Temp Pulse Resp BP BP Pulse Ox Pulse Ox 12/20/22 07:29 37.0 C 75 18 130/82 97 12/20/22 03:18 36.6 C 84 17 157/69 H 97 12/20/22 00:00 97 12/19/22 23:44 36.8 C 83 20 154/84 H 97 O2 Del Method O2 Del Method 12/20/22 07:29 Room Air 12/20/22 03:18 Room Air 12/20/22 00:00 Room Air 12/19/22 23:44 Room Air (2) Ulcerative colitis Digestive disease complication type: with rectal bleeding Ulcerative colitis location: unspecified ulcerative colitis location Qualified Code(s): K51.911 - Ulcerative colitis, unspecified with rectal bleeding
[2022-12-20] MEDS: ADVANCED PROBIOTIC 1250 MG CAPSULE PO SCH (09:18)
[2022-12-20] MEDS: DICYCLOMINE HCL 10 MG CAP PO SCH ×3 (09:18→20:27)
[2022-12-20] MEDS: HEPARIN SOD 5,000 UNIT/0.5 ML VIAL SQ SCH ×2 (09:18→20:28)
[2022-12-20] MEDS: FERROUS SULFATE 325 MG TAB PO SCH (09:18)
[2022-12-20] MEDS: MESALAMINE 800 MG TABCR PO SCH ×3 (09:18→20:27)
[2022-12-20] MEDS: CEROVITE ADV FORMULA TAB PO SCH (09:18)
[2022-12-20] MEDS: busPIRone 5 MG TAB PO SCH ×2 (09:18→20:27)
[2022-12-20] MEDS: CITALOPRAM 40 MG TAB PO SCH (10:41)
[2022-12-20] MEDS: CHOLESTYRAMINE LIGHT 4 GM PKT PO SCH ×2 (10:42→21:44)
--- NOTE | 2022-12-20 16:48 | Hospitalist Progress Note ---
Date of Service December 20, 2022 Assessment & Plan (1) Ulcerative colitis: (2) Diarrhea: (3) Acute blood loss anemia: (4) Dehydration: (5) Hyponatremia: (6) HTN (hypertension): (7) Hyperlipidemia: (8) History of stroke: Plan: (1) Ulcerative colitis: (2) Diarrhea: (3) Acute blood loss anemia: Plan: Per previous hospitalist with addendum: Past medical history of kumar ulcerative colitis diagnosed in October 2021 on Humira every other week. History of C. difficile on tapering dose of vancomycin Sent from GI clinic due to lightheadedness. Symptoms of bloody bowel movements since last 2 to 3 weeks which increased recently. Hypotensive on presentation in ED; responded to fluids downtrending hemoglobin PCR panel recently positive for norovirus on 12/11; GI PCR panel currently negative. CT abdomen pelvis shows progressive circumferential wall thickening seen throughout the colon consistent with pancolitis Plan; Patient continues to have multiple episode of bowel movement and incontinence despite IV steroids. Despite use of IV steroid for several days; patient has ongoing bloody bowel movement up to 10 times a day. His sigmoidoscopy today does not show any improvement. GI recommended evaluation for colectomy at a tertiary care center. Discussed with [facility] regarding transfer; patient accepted for transfer. The transfer will likely take 2 days depending on availability of the bed. We will continue IV steroid for now and continue to monitor during inpatient pending his transfer. Continue cholestyramine, mesalamine, vancomycin 125mg QD (tapering). He is currently on Humira every 2 weeks; last dose was 12/15. Currently on vancomycin every other day for recent C. difficile infection. 12/19 As per patient bloody diarrhea seems to be slowing down Hemoglobin remains around 8 Continue to monitor hemoglobin closely Continue present regimen Awaiting bed availability [facility] Called [facility]-advised waiting time for bed availability is at least 24 hours or more 3 Hg stable I followed up with [facility]- they are preparing rooms, may transfer tonight or tomorrow (4) Dehydration: (5) Hyponatremia: Plan: -Hyponatremia improved with IV hydration. (6) HTN (hypertension): Plan: - Hold BP medications BP stable overall (7) Hyperlipidemia: Plan: - Cont statin therapy (8) History of stroke: Plan: - in 2019, on baby aspirin daily which will hold in the setting of acute GI bleed DVT ppx: -Heparin CODE: Full code Dispo: From home. Patient continues to have multiple episode of bloody bowel movement despite IV methylprednisolone for UC flare. Patient to be transferred to [facility] when bed is available. Admission and Anticipated Discharge Date Admission Date: December 12, 2022 Subjective ff up for ulcerative colitis, etc seen resting in bed, comfortable watching TV states he feels ok overall no abdominal pain, nausea/vomiting still has diarrhea- occasionally blood tinged no other symptoms Review of Systems Review of Systems: all noted and negative except for above Physical Exam Physical Exam: General- oriented x 3, not in distress, speaks in sentences with no effort or accessory muscle use Eyes- anicteric Neck- no JVD Lungs- clear BS bilaterally, no rales/wheezes Heart- normal rate, regular rhythm; no murmurs Abdomen- normal bowel sounds, nondistended, soft, nontender Extremities- no pretibial edema, no calf tenderness Neuro- alert, oriented x 3; no gross focal neurologic deficits Skin- warm & dry Results & Data Results & Data Vital Signs (Past 12 Hours) Vital Signs Temp Pulse Pulse Resp BP Pulse Ox O2 Del Method 12/20/22 11:22 37.5 C 80 18 135/83 96 Room Air 12/20/22 08:00 12/20/22 08:00 82 12/20/22 07:29 37.0 C 75 18 130/82 97 Room Air O2 Del Method 12/20/22 11:22 12/20/22 08:00 Room Air 12/20/22 08:00 12/20/22 07:29 all noted and reviewed including below (1) Ulcerative colitis Digestive disease complication type: with rectal bleeding Ulcerative colitis location: unspecified ulcerative colitis location Qualified Code(s): K51.911 - Ulcerative colitis, unspecified with rectal bleeding
[2022-12-20] MEDS: ATORVASTATIN 40 MG TAB PO SCH (20:26)
[2022-12-20] MEDS: traZODone HCL 50 MG TAB PO SCH (20:28)
[2022-12-21] MEDS: methylPREDNISolone 20 MG in SYRINGE 0 ML IV SCH ×3 (06:40→22:37)
[2022-12-21 07:21] LABS: Hematocrit (blood only) 29.4 % (42.0-52.0); Hemoglobin 8.3 g/dl (14.0-18.0); Mean Corpuscular Hgb Conc 28.2 g/dL (32.0-36.0); Mean Corpuscular Volume 81.4 fL (80.0-100.0); Mean Platelet Volume 8.4 fL (9.4-12.4); Nucleated RBC # (auto) 0.09 K/uL (0-0.12); Nucleated RBC % (auto) 0.6 %; Platelet Count 607 K/uL (130-400); RDW Coefficient of Variation 15.1 % (11.5-14.5); RDW Standard Deviation 43.6 fL (36.4-46.3); Red Blood Count 3.61 M/uL (4.70-6.10); White Blood Count 13.86 K/ul (4.8-10.8)
[2022-12-21 07:44] LABS: Basophils # (auto) 0.03 K/uL (0-0.2); Basophils % (auto) 0.2 %; Eosinophils # (auto) 0.04 K/uL (0-0.50); Eosinophils % (auto) 0.3 %; Hypochromasia Present; Immature Granulocytes # (auto) 0.26 K/uL (0.01-0.20); Immature Granulocytes % (auto) 1.9 %; Lymphocytes # (auto) 1.65 K/uL (1.2-3.4); Lymphocytes % (auto) 11.9 %; Monocytes # (auto) 1.37 K/uL (0.11-0.59); Monocytes % (auto) 9.9 %; Neutrophils # (auto) 10.51 K/uL (1.40-6.50); Neutrophils % (auto) 75.8 %; Polychromasia 1+
[2022-12-21] MEDS: CEROVITE ADV FORMULA TAB PO SCH (08:30)
[2022-12-21] MEDS: HEPARIN SOD 5,000 UNIT/0.5 ML VIAL SQ SCH ×2 (08:30→20:46)
[2022-12-21] MEDS: CITALOPRAM 40 MG TAB PO SCH (08:30)
[2022-12-21] MEDS: DICYCLOMINE HCL 10 MG CAP PO SCH ×3 (08:30→20:46)
[2022-12-21] MEDS: FERROUS SULFATE 325 MG TAB PO SCH (08:30)
[2022-12-21] MEDS: busPIRone 5 MG TAB PO SCH ×2 (08:30→20:46)
[2022-12-21] MEDS: MESALAMINE 800 MG TABCR PO SCH ×3 (08:30→20:47)
[2022-12-21] MEDS: ADVANCED PROBIOTIC 1250 MG CAPSULE PO SCH (08:30)
[2022-12-21] MEDS: RASPBERRY SYRUP 5 ML UDP PO SCH (08:31)
[2022-12-21] MEDS: VANCOMYCIN HCL 125 MG/2.5ML SOLN PO SCH (08:35)
[2022-12-21] MEDS: CHOLESTYRAMINE LIGHT 4 GM PKT PO SCH ×2 (10:12→22:37)
--- NOTE | 2022-12-21 13:57 | Hospitalist Progress Note ---
Date of Service December 21, 2022 Assessment & Plan (1) Ulcerative colitis: (2) Diarrhea: (3) Acute blood loss anemia: (4) Dehydration: (5) Hyponatremia: (6) HTN (hypertension): (7) Hyperlipidemia: (8) History of stroke: Plan: (1) Ulcerative colitis: (2) Diarrhea: (3) Acute blood loss anemia: Plan: Per previous hospitalist with addendum: Past medical history of kumar ulcerative colitis diagnosed in October 2021 on Humira every other week. History of C. difficile on tapering dose of vancomycin Sent from GI clinic due to lightheadedness. Symptoms of bloody bowel movements since last 2 to 3 weeks which increased recently. Hypotensive on presentation in ED; responded to fluids downtrending hemoglobin PCR panel recently positive for norovirus on 12/11; GI PCR panel currently negative. CT abdomen pelvis shows progressive circumferential wall thickening seen throughout the colon consistent with pancolitis Plan; Patient continues to have multiple episode of bowel movement and incontinence despite IV steroids. Despite use of IV steroid for several days; patient has ongoing bloody bowel movement up to 10 times a day. His sigmoidoscopy today does not show any improvement. GI recommended evaluation for colectomy at a tertiary care center. Discussed with [facility] regarding transfer; patient accepted for transfer. The transfer will likely take 2 days depending on availability of the bed. We will continue IV steroid for now and continue to monitor during inpatient pending his transfer. Continue cholestyramine, mesalamine, vancomycin 125mg QD (tapering). He is currently on Humira every 2 weeks; last dose was 12/15. Currently on vancomycin every other day for recent C. difficile infection. 12/19 As per patient bloody diarrhea seems to be slowing down Hemoglobin remains around 8 Continue to monitor hemoglobin closely Continue present regimen Awaiting bed availability [facility]-advised waiting time for bed availability is at least 24 hours or more 3/23 Hg stable I followed up with [facility]- they are preparing rooms, may transfer tonight or tomorrow 3/24 Hg remains stable ~8 no abd pain awaiting transfer to [facility] (4) Dehydration: (5) Hyponatremia: Plan: -Hyponatremia improved with IV hydration. (6) HTN (hypertension): Plan: - Hold BP medications BP stable overall (7) Hyperlipidemia: Plan: - Cont statin therapy (8) History of stroke: Plan: - in 2020, on baby aspirin daily which will hold in the setting of acute GI bleed DVT ppx: -Heparin CODE: Full code Dispo: From home. Patient continues to have multiple episode of bloody bowel movement despite IV methylprednisolone for UC flare. Patient to be transferred to [facility] when bed is available. Admission and Anticipated Discharge Date Admission Date: December 12, 2022 Subjective ff up for ulcerative colitis, bloody diarrhea, etc seen resting in bed, comfortable watching TV states he feels fine overall no abdominal pain still has intermittent bloody stools- less no chest pain, dyspnea, palpitations, dizziness no other symptoms Review of Systems Review of Systems: all noted and negative except for above Physical Exam Physical Exam: General- oriented x 3, not in distress, speaks in sentences with no effort or accessory muscle use Eyes- anicteric Neck- no JVD Lungs- clear BS BL Heart- normal rate, regular rhythm; no murmurs Abdomen- normal bowel sounds, nondistended, soft, no tenderness Extremities- no pretibial edema, no calf tenderness Neuro- alert, oriented x 3; no gross focal neurologic deficits Skin- warm & dry Results & Data Results & Data Vital Signs (Past 12 Hours) Vital Signs Temp Pulse Pulse Resp BP Pulse Ox O2 Del Method 12/21/22 08:06 36.9 C 80 18 136/83 95 Room Air 12/21/22 07:30 81 12/21/22 04:00 36.7 C 76 20 116/79 97 Room Air all noted and reviewed including below (1) Ulcerative colitis Digestive disease complication type: with rectal bleeding Ulcerative colitis location: unspecified ulcerative colitis location Qualified Code(s): K51.911 - Ulcerative colitis, unspecified with rectal bleeding
--- NOTE | 2022-12-21 20:24 | Communication Note ---
Date of Service: December 21, 2022 750PM Notified by RN of [facility] bed availability. Patient earlier accepted for transfer by hospitalist service. Attending physician as per [facility] records documentation is Dr. Amos.
--- NOTE | 2022-12-21 20:32 | Discharge Summary ---
Date of Service December 21, 2022 Admission HPI Per Admitting Provider 52 y/o M with history of pancolonic UC now admitted with a flare and norovirus presenting for flex sig. Discharge Data Consultations 12/12/22 17:14 ED Decision to Admit Stat 12/12/22 17:26 Consult Gastroenterology Routine 12/21/22 19:56 Burn CD for patient Stat Procedures Performed Operation Date: 12/18/22 16:30 Actual Procedures p Flexible Sigmoidoscopy Biopsy - Rachel Rivera DO Hospital Course (1) Ulcerative colitis: (2) Diarrhea: (3) Acute blood loss anemia: (4) Dehydration: (5) Hyponatremia: (6) HTN (hypertension): (7) Hyperlipidemia: (8) History of stroke: (1) Ulcerative colitis: (2) Diarrhea: (3) Acute blood loss anemia: Plan: Per previous hospitalist with addendum: Past medical history of kumar ulcerative colitis diagnosed in October 2021 on Humira every other week. History of C. difficile on tapering dose of vancomycin Sent from GI clinic due to lightheadedness. Symptoms of bloody bowel movements since last 2 to 3 weeks which increased recently. Hypotensive on presentation in ED; responded to fluids downtrending hemoglobin PCR panel recently positive for norovirus on 12/11; GI PCR panel currently negative. CT abdomen pelvis shows progressive circumferential wall thickening seen throughout the colon consistent with pancolitis Plan; Patient continues to have multiple episode of bowel movement and incontinence despite IV steroids. Despite use of IV steroid for several days; patient has ongoing bloody bowel movement up to 10 times a day. His sigmoidoscopy today does not show any improvement. GI recommended evaluation for colectomy at a tertiary care center. Discussed with [facility] regarding transfer; patient accepted for transfer. The transfer will likely take 2 days depending on availability of the bed. We will continue IV steroid for now and continue to monitor during inpatient pending his transfer. Continue cholestyramine, mesalamine, vancomycin 125mg QD (tapering). He is currently on Humira every 2 weeks; last dose was 12/15. Currently on vancomycin every other day for recent C. difficile infection. 12/19 As per patient bloody diarrhea seems to be slowing down Hemoglobin remains around 8 Continue to monitor hemoglobin closely Continue present regimen Awaiting bed availability [facility] Called [facility]-advised waiting time for bed availability is at least 24 hours or more 3/23 Hg stable I followed up with [facility]- they are preparing rooms, may transfer tonight or tomorrow 3/24 Hg remains stable ~8 no abd pain awaiting transfer to [facility] (4) Dehydration: (5) Hyponatremia: Plan: -Hyponatremia improved with IV hydration. (6) HTN (hypertension): Plan: - Hold BP medications BP stable overall (7) Hyperlipidemia: Plan: - Cont statin therapy (8) History of stroke: Plan: - in 2019, on baby aspirin daily which will hold in the setting of acute GI bleed DVT ppx: -Heparin CODE: Full code Dispo: From home. Patient continues to have multiple episode of bloody bowel movement despite IV methylprednisolone for UC flare. Patient to be transferred to [facility] when bed is available. (Preceding documentation as per daytime hospitalist.) 12/21, 750PM Notified by RN of [facility] bed availability. Patient earlier accepted for transfer by hospitalist service. Attending physician as per Epic records documentation is Dr. Amos. Total time to prepare this discharge summary was less than 10 minutes. Text document was generated using [employer] voice recognition software. It may contain grammatical or spelling errors. Kindly contact undersigned for clarification of any documentation item in question.
[2022-12-21] MEDS: ATORVASTATIN 40 MG TAB PO SCH (20:46)
[2022-12-21] MEDS: traZODone HCL 50 MG TAB PO SCH (20:47)
== END 2022-12-21 23:40 | disposition short-term general hospital (02) | DRG 386 ==
LOC: ED 14:52 → SUATTDRO 17:26 → 1E 17:26 → 4W 12-13 13:34

== ENCOUNTER 2025-08-05 15:31 | Inpatient (IN) ==
[2025-08-06] MEDS ORDERED: BISMUTH SUBSALICYLATE 262 MG CHEW PO PRN (08:24)
[2025-08-06] MEDS ORDERED: SODIUM CHLORIDE 0.65% NA SOLN 45 ML (OCEAN) PRN (08:24)
[2025-08-06] MEDS ORDERED: ACETAMINOPHEN 325 MG TAB PO PRN (08:24)
[2025-08-06] MEDS ORDERED: MAGNESIUM HYDROXIDE SUSP 30 ML UDC PO PRN (08:24)
[2025-08-06] MEDS ORDERED: ALUMINUM/MAGNESIUM SUSP 30 ML UDC PO PRN (08:24)
--- NOTE | 2025-08-06 08:48 | History & Physical ---
Date of Service August 06, 2025 Impression / Recommendations Impression Patient is a 54-year-old man, nitially admitted to the medical service for monitoring after an intentional overdose on trazodone, now is medically cleared, transferred to 3 S. this morning. He is admitted on a 201. Diagnostically, consistent with major depression, and relatively mild panic disorder with some degree of agoraphobia. He also has a history of alcohol abuse, but this has been in remission. From my note yesterday: "Given his complicated medical comorbidities, and chronic pain, I discussed with him possible transition to Cymbalta. Risks/benefits/alternatives reviewed re: antidepressants for the treatment of depression and anxiety. Discussion included but was not limited to possible side effects including headache, GI upset, sexual dysfunction, and serotonin syndrome. The patient agreed to a trial of Cymbalta. Reviewed that it can cause constipation, which patient says he would prefer. He actually takes Imodium on a regular basis to try to make his stool firmer. (This is part of his recommended medications strategy). Discussed that it can also be sedating and I tend to give it at bedtime, and this could also be a benefit given he has difficulty sleeping. I did recommend against utilizing Tylenol PM consistently for sleep, since chronic use of diphenhydramine has been linked to increased risk for dementia. I am happy to continue melatonin nightly. I'll continue to hold trazodone, and we will reassess whether we need to add back in sleep aid medication once we see how he tolerates Cymbalta" I reviewed these changes again with him today, he still agreeable with this plan. No other changes were initiated last night, so I did put those orders in to start today. He had already gotten his Celexa 40 mg this a.m., so I decreased it to 20 starting tomorrow. Ordered Cymbalta 20 mg nightly, but this could of course be increased before his discharge. From a physical health standpoint, I did order bacitracin for the dry cracked skin on his hands, which can be used as needed. I also confirmed his home dose of Imodium is 4 mg in the a.m. and 12 mg nightly. He does confirm this was recommended by his GI specialist. I also confirm the rest of his home medica tions and make sure those were ordered this morning. Overall, I spent a total of 60 minutes on this patient's care, including review of chart/records, direct evaluation of the patient, ordering medication, coordination with nursing, interdisciplinary team meeting, and documentation. (1) Major depression, recurrent: (2) Suicide attempt by substance overdose: (3) Panic disorder with agoraphobia: (4) Alcohol use disorder in remission: Plan The patient was admitted to the [facility] ([facility] mental health unit) on q15 min checks (behavioral with suicide precautions) for safety. The patient will participate in group, recreational, and milieu therapies and will be offered additional individual and family sessions as clinically appropriate. New medications initiated: Cymbalta 20 mg nightly Celexa 20 mg daily Continue the following home medications: medical meds continued The following PRN medications will be started as well: hydroxyzine as needed for anxiety or sleep Tylenol as needed for pain Milk of mag, Pepto, Maalox as needed GI upset Suicide Risk Level Suicide Risk Level: Moderate (q15 min suicide checks) Suicide Risk Level Comments: moderate given recent impulsive attempt. Patient reports he feels safe on the unit, and can reach out to staff if symptoms worsen. Risk Factors Assessment Male: Yes : Yes Health Problems: Yes Mental Health Diagnoses: Yes Substance Use Disorders: Yes ( In remission) Previous Attempt: No Family History of Suicide: No Previous Psychiatric Hospitalization: No Protective Factors Assessment : Yes ( engaged) Responsible for Young Children: No Employed: No Stable Relationships: Yes Supportive Family: Yes Psychiatric History Identifying Data JESSENIA MATHEWS JR Is a 54-year-old male, with a history of hypertension, hyperlipidemia, CVA, PAD, and ulcerative colitis status post total colectomy, who presented to the ED after an intentional overdose of #12 trazodone 150mg tabs in an effort to commit suicide. He was admitted to hospitalist service for monitoring post overdose, and transferred here on 08/06/25 08:22 on a 201 voluntary commitment for suicide attempt. Chief Complaint " I was tired of dealing with all the stuff I have to deal with". History of Present Illness Patient self-presented to the emergency room along with his fiance, for evaluation after an impulsive but intentional overdose on number#12 trazodone 150 mg tabs. He said he came to the emergency room after his fianc saw him with the bottle of pills and asked him if he took too many. He did tell her that he had overdosed, she brought him in quickly for evaluation. In the emergency room, he was briefly hypoxic. He had been given bicarb and IV fluids. He was monitored overnight, In the ED, and then admitted to hospital service yesterday. Initial EKG showed a QTc of 476, and repeat this a.m. showed normal sinus rhythm with QTC 362. He had no further bouts of hypoxia. I saw the patient yesterday on consultation service. We had a long conversation about present stressors, and the events leading to the overdose. From my note yesterday, " Patient was forthcoming and cooperative. He attempted to identify potential triggers for the overdose. He reports that the overdose was intentional, but impulsive. He reflects he finds it interesting that he only took 12 of the trazodone, as there were many more pills there he could have taken, but did not. He had just had a relatively benign argument with his , but was overcome by feelings of being a burden and feeling "tired of dealing with all the stuff I have to deal with." Mostly, he is referring to his complex medical comorbidities. He deals chronically with back pain, abdominal pain and discomfort, and fecal incontinence. He says "I feel too young to be falling apart." He says it was not a particular trigger, although the argument did occur just prior to the overdose. He feels the argument was not particularly severe. Rather, he says his depression has been building for a while. He did see his rectal doctor earlier this week, who made referrals to several other specialties, and may have been overwhelmed by that. He reports decreased activity in recent months. Says "I don't do anything." This is partly due to his pain and discomfort, but partly due to decreased interest and motivation. He tends to spend a lot of time sitting in his chair, playing on his phone or watching TV. This is also worsened because he has been increasingly anxious and avoiding crowds. So, while he used to do shopping with his , he states he will more often now. He had trouble describing the feeling of anxiety that occurs, usually resorting to using the word "anxiety". No specific physical symptoms were associated with that, but he reports a feeling of needing to escape, and impending doom. He was recently started on BuSpar by his PCP, but finds has not been particularly helpful. The dose is rather low, 5 mg 3 times daily. He denies further suicidal ideation. He said that he had not been considering suicide prior to this. He does endorse ongoing intermittent helplessness and hopelessness to some degree. He is agreeable to admission on a 201 basis. He says "I do not want to be here, but I need to do what I need to do."" Patient arrived to unit this morning. He was in good spirits, up and out of bed and dressed for the day. he is continuing to have abdominal discomfort, which he says is chronic for him. He was planning to attend groups this morning. We reviewed the changes that we had planned yesterday. Those changes were not done while he was on the medical floor, so we will start them today. He is still in agreement to try Cymbalta, and understands that trazodone will be held. I reviewed his home medications as well. He continues to deny further suicidal ideation. No HI. No hallucinations or delusions. He tends to have anxiety in crowds, but the small group here is not too bad for him. He has not had a panic attack so far today. Past Psychiatric History Previous Psych History: Previous Psych History: he has been tried on Celexa, trazodone and BuSpar by his PCP. He does say trazodone is particularly helpful to help him sleep. He has chronic sleep issues mostly due to pain. Along with the trazodone, he tends to take OTC melatonin and Tylenol PM. No history of past suicide attempts no past psychiatric hospitalizations no history of outpatient therapy or psychiatry Positive history of alcohol abuse. Says "I lived with a bottle for years." Then, "I woke up 1 day and knew I could not do it anymore." He went to rehab for 28 days, and has not had a drink since. He has remained sober for 18 years. Family history positive for alcohol abuse on both sides. Current Psychiatric Diagnosis: No prior mental health diagnosis History of Previous Suicide Attempt: No Past Head Trauma/Neuro History None Allergies Allergy/AdvReac Type Severity Reaction Status Date / Time No Known Allergies Allergy Mild Verified 08/04/25 16:20 Home Medications Medication Instructions Recorded Confirmed Type atorvastatin 40 mg tablet 40 mg PO HS 10/30/21 08/06/25 History buspirone 5 mg tablet 5 mg PO AMHS 12/05/21 08/06/25 History Lactobacillus acidophilus 10 10,000 mmu cells PO BID 12/12/22 08/06/25 History billion cell capsule (Probiotic) citalopram 40 mg tablet 40 mg PO QAM 12/12/22 08/06/25 History ferrous sulfate 325 mg (65 mg 325 mg PO QDB 12/12/22 08/06/25 History iron) tablet aspirin 81 mg tablet,delayed 81 mg PO QAM 01/04/23 08/06/25 History release [id number] 1 tab PO QAM 01/22/24 08/06/25 History tablet (Multivitamin 50 Plus tablet) buspirone 5 mg tablet 5 mg PO DAILY PRN Anxiety 08/04/25 08/06/25 History lisinopril 10 mg tablet 10 mg PO QAM 08/04/25 08/06/25 History trazodone 150 mg tablet 150 mg PO AMHS 08/04/25 08/06/25 History Alcohol History Hx of Alcohol Use Over the Past 12 Months: No Smoking Use tobacco type: cigarettes Smoking Status: Former smoker Personal History Living Arrangements Comments: with fianc Childhood: parents when patient was a child. He is an only child with no siblings. Says "my mom left and drink." He does recall going to bars with his mom. He was mostly raised by his dad, but identifies "more as a latch mccray kid." Dad worked at the [employer], and would be away at different times depending on his shift that week. Patient says he did "all right in school if I had actually tried." Denies any learning disabilities or developmental delays. Said his early development was somewhat complicated by medical issues. He had significant dermatologic issues, having warts that needed frozen off, and then a bad rash on his legs that made it hard to sit in school. He also had tonsils and adenoids removed, and chickenpox as a kid. 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 He is currently trying for disability due to his physical health.) Marital Status: ( X 2) Number Of Children: 2 biological adult children and 3 stepchildren Beliefs That Will Affect Care: None Current Legal Problems: No Hx Traumatic Life Events: No Patient History Medical History History of tobacco use 30 pack years, quit in 2019 Blood in stool Colitis Anxiety Stroke X 2 IN 2020>TREATED AT [facility]>MINOR SPEECH DEFECITS History of COVID-19 10/17/21 AT [facility] (NO SYMPTOMS) ED FOR BLOOD IN STOOL Surgical History History of tooth extraction H/O carotid endarterectomy RT/LEFT Family History Father Diabetes Coronary heart disease Stroke, Onset Age: 50 Mother Cancer Other No family history of adverse response to anesthesia Denies family history of History of blood clotting disorder Social History Smoking Status: Former smoker Tobacco Type: Cigarettes and Cigars Cigarettes Per Day: 20; Second Hand Exposure: No; Do You Dip or Chew Tobacco: No; Hx Alcohol Use: No Hx Substance Use: No Preferred Language: Algerian Communication Ability: Effective Block Sawyer Required: No Beliefs That Will Affect Care: None marital status details: Engaged Current Living Situation: Other Current Living Situation Comment: [place] current occupational status: 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 + Diarrhea +fecal incontinence +abdominal discomfort Urinary: No Frequency, No Hematuria, No Urinary Incontinence, No Dysuria Musculoskeletal: No Arthralgias, No Myalgias, No Joint Stiffness, Skin: No Skin Lesions, No Pruritis, No Hair Changes, Neuro: No Weakness, No Numbness, No Paresthesias, No Dizziness, No Headache, No Coordination Changes, No Recent Falls Heme/Lymph: No Bruising, No Bleeding Endocrine: No Polyuria, No Polydipsia, No Temperature Intolerance Physical Exam Psychiatric: Orientation: alert, oriented x 3 and cooperative Apperance: appropriately dressed and appropriately groomed Eye Contact: + fair eye contact Motor Behavior: steady gait and station and no abnormal motor movements Speech: normal rate/rhythm/volume of speech Affect: + depressed affect, + anxious affect, + constricted affect and mood congruent with affect Mood: + depressed mood and + anxious mood Thought Process: goal directed thought process, linear/logical thought process, clear/coherent thought process and thought association intact Thought Content: + cognitive distortions and reality based without delusions at times struggles with feeling like a burden/worthless Suicidal Thoughts: denies suicidal thoughts, denies suicidal plan and denies suicidal intent Homicidal Thoughts: denies homicidal thoughts, denies homicidal plan and denies homicidal intent Hallucinations: no auditory hallucinations and no visual hallucinations Cognition: recent memory grossly intact, remote memory grossly intact, attention grossly intact and language grossly intact Estimated Intelligence: average estimated intelligence and consistent with education level Insight: + fair insight Judgment: + fair judgement Physical Examination: A physical exam was performed on the medical floor by Dr. Ki Lentz for the purposes of medical clearance. I accept that physical as correct and adequate for the purposes of the inpatient physical exam. Results & Data ([facility]) Current Inpatient Medications Current Inpatient Medications: Current Inpatient Medications Acetaminophen (Acetaminophen 325 Mg Tab) 650 mg PO Q4H PRN PRN Reason: Headache or Minor Fever Stop: 09/05/25 08:23 Al Hydrox/Mg Hydrox/Simethicone (Aluminum/Magnesium Susp 30 Ml Udc) 30 ml PO Q4H PRN PRN Reason: GI Upset Stop: 09/05/25 08:23 Bismuth Subsalicylate (Bismuth Subsalicylate 262 Mg Chew) 2 tab PO Q30M PRN PRN Reason: Loose Stool/Diarrhea Stop: 09/05/25 08:23 Hydroxyzine HCl (Hydroxyzine Hcl 25 Mg Tab) 50 mg PO HSZ PRN PRN Reason: Insomnia Stop: 09/05/25 08:23 Hydroxyzine HCl (Hydroxyzine Hcl 25 Mg Tab) 25 mg PO Q4H PRN PRN Reason: Anxiety Stop: 09/05/25 08:23 Magnesium Hydroxide (Magnesium Hydroxide Susp 30 Ml Udc) 30 ml PO DAILY PRN PRN Reason: Constipation Stop: 09/05/25 08:23 Sodium Chloride (Sodium Chloride 0.65% Na Soln 45 Ml ([place])) 1 - 2 sprays NA PRN PRN PRN Reason: Nasal Dryness/Congestion Stop: 09/05/25 08:23
[2025-08-06] MEDS: Patient's HEIGHT &/or WEIGHT Needed STA (09:31)
[2025-08-06] MEDS: MELATONIN 3 MG TAB PO SCH (21:08)
[2025-08-06] MEDS: ATORVASTATIN 40 MG TAB PO SCH (21:08)
[2025-08-06] MEDS: LOPERAMIDE HCL 2 MG CAP PO SCH (21:09)
[2025-08-07] MEDS: LOPERAMIDE HCL 2 MG CAP PO SCH (08:26)
[2025-08-07] MEDS: FERROUS SULFATE 325 MG TAB PO SCH (08:26)
[2025-08-07] MEDS: CITALOPRAM 20 MG TAB PO SCH (08:26)
[2025-08-07] MEDS: ASPIRIN 81 MG ECTAB PO SCH (08:26)
[2025-08-07] MEDS: ADVANCED PROBIOTIC 625 MG CAPSULE PO SCH (08:57)
--- NOTE | 2025-08-07 10:02 | Psychiatric Progress Note ---
Date of Service August 07, 2025 Impression / Recommendations Impression Patient is a 54-year-old man, nitially admitted to the medical service for monitoring after an intentional overdose on trazodone, now is medically cleared, transferred to 3 . this morning. He is admitted on a 201. Diagnostically, consistent with major depression, and relatively mild panic disorder with some degree of agoraphobia. He also has a history of alcohol use disorder in sustained remission. A: Ongoing depression but SI improving, though s/p overdose attempt. He continues to struggle with sleep and GI issues. He consents to trial of mirtazapine for sleep/depression. Reviewed risks/benefits/alternatives and side effects including but not limited to sedation, increased appetite. Continue cross-taper which he is tolerating from Celexa to Cymbalta. Overall, I spent a total of 38 minutes on this case including meeting with the patient, reviewing the chart, nursing report, multidisciplinary team meeting, orders, and documentation. (1) Major depression, recurrent: (2) Suicide attempt by substance overdose: (3) Panic disorder with agoraphobia: (4) Alcohol use disorder in remission: Plan 08/07/2025: -Decrease Celexa to 10mg daily tomorrow -Increase Cymbalta to 30mg HS -Start mirtazapine 15mg HS 08/06/2025: The patient was admitted to the [facility] ([facility] mental health unit) on q15 min checks (behavioral with suicide precautions) for safety. The patient will participate in group, recreational, and milieu therapies and will be offered additional individual and family sessions as clinically appropriate. New medications initiated: Cymbalta 20 mg nightly Celexa 20 mg daily Continue the following home medications: medical meds continued The following PRN medications will be started as well: hydroxyzine as needed for anxiety or sleep Tylenol as needed for pain Milk of mag, Pepto, Maalox as needed GI upset Suicide Risk Level Suicide Risk Level: Moderate (q15 min suicide checks) Suicide Risk Level Comments: moderate given recent impulsive attempt. Patient reports he feels safe on the unit, and can reach out to staff if symptoms worsen. Risk Factors Assessment Male: Yes : Yes Do You Have Access To A Gun?: No Health Problems: Yes Mental Health Diagnoses: Yes Substance Use Disorders: Yes ( In remission) Previous Attempt: No Family History of Suicide: No Previous Psychiatric Hospitalization: No Protective Factors Assessment : Yes ( engaged) Responsible for Young Children: No Employed: No Stable Relationships: Yes Supportive Family: Yes Interval History Identifying Information JESSENIA MTAHEWS JR Is a 54-year-old male, with a history of hypertension, hyperlipidemia, CVA, PAD, and ulcerative colitis status post total colectomy, who presented to the ED after an intentional overdose of #12 trazodone 150mg tabs in an effort to commit suicide. He was admitted to hospitalist service for monitoring post overdose, and transferred here on 08/06/25 08:22 on a 201 voluntary commitment for suicide attempt. Chief Complaint "Ok". Review of Systems Sleep Information Total Hours of Sleep: 5 Sleep Comments: was up a few times to the bathroom Meal Information Percent Meal Consumed - Breakfast: 90 Percent Meal Consumed - Lunch: 100 Percent Meal Consumed - Dinner: 100 Subjective Subjective Patient was seen & assessed and interval progress reviewed with nursing and social work. Attending groups, rated his mood as "calm". Today has been having a lot of gas pains and abdominal cramping. Incontinence overnight. Did sleep a little better last night but still struggles with sleep especially without trazodone which he had relied on for awhile. He denies any side effects except ongoing GI symptoms with cross-taper from celexa to cymbalta. He'd like to try mirtazapine at bedtime to help with sleep. Physical Exam Psychiatric Orientation: alert, oriented x 3 and cooperative Apperance: appropriately dressed and appropriately groomed Eye Contact: + fair eye contact Motor Behavior: steady gait and station and no abnormal motor movements Speech: normal rate/rhythm/volume of speech Affect: + depressed affect and + constricted affect Mood: + depressed mood and + anxious mood Thought Process: goal directed thought process Thought Content: + cognitive distortions and reality based without delusions at times struggles with feeling like a burden/worthless Suicidal Thoughts: denies suicidal thoughts, denies suicidal plan and denies suicidal intent Homicidal Thoughts: denies homicidal thoughts, denies homicidal plan and denies homicidal intent Hallucinations: no auditory hallucinations and no visual hallucinations Cognition: recent memory grossly intact, remote memory grossly intact, attention grossly intact and language grossly intact Estimated Intelligence: average estimated intelligence and consistent with education level Insight: + fair insight Judgment: + fair judgement Vital Signs (Past 24 Hours) Last Vital Signs Temp 36.7 C 08/07/25 06:00 Pulse 91 H 08/07/25 06:16 Resp 18 08/07/25 06:00 BP 111/79 08/07/25 06:16 Pulse Ox 95 08/07/25 06:00 O2 Del Method Room Air 08/07/25 06:00 Results & Data ([facility]) Current Inpatient Medications Current Inpatient Medications: Current Inpatient Medications Acetaminophen (Acetaminophen 325 Mg Tab) 650 mg PO Q4H PRN PRN Reason: Headache or Minor Fever Stop: 09/05/25 08:23 Al Hydrox/Mg Hydrox/Simethicone (Aluminum/Magnesium Susp 30 Ml Udc) 30 ml PO Q4H PRN PRN Reason: GI Upset Stop: 09/05/25 08:23 Aspirin (Aspirin 81 Mg Ectab) 81 mg PO QAM [facility] Stop: 09/06/25 08:59 Last Admin: 08/07/25 08:26 Dose: 81 mg Atorvastatin Calcium (Atorvastatin 40 Mg Tab) 40 mg PO HS [facility] Stop: 09/05/25 21:59 Last Admin: 08/06/25 21:08 Dose: 40 mg Bacitracin (Bacitracin Oint 14 Gm Tube) 1 appln EXT TID PRN PRN Reason: dry, cracked skin Stop: 09/05/25 10:26 Bismuth Subsalicylate (Bismuth Subsalicylate 262 Mg Chew) 2 tab PO Q30M PRN PRN Reason: Loose Stool/Diarrhea Stop: 09/05/25 08:23 Citalopram Hydrobromide (Citalopram 20 Mg Tab) 20 mg PO QAM [facility] Stop: 09/06/25 08:59 Last Admin: 08/07/25 08:26 Dose: 20 mg Duloxetine HCl (Duloxetine Hcl 20 Mg Cap) 20 mg PO HS [facility] Stop: 09/05/25 21:59 Last Admin: 08/06/25 21:08 Dose: 20 mg Ferrous Sulfate (Ferrous Sulfate 325 Mg Tab) 325 mg PO QAM [facility] Stop: 09/06/25 08:59 Last Admin: 08/07/25 08:26 Dose: 325 mg Hydroxyzine HCl (Hydroxyzine Hcl 25 Mg Tab) 50 mg PO HSZ PRN PRN Reason: Insomnia Stop: 09/05/25 08:23 Hydroxyzine HCl (Hydroxyzine Hcl 25 Mg Tab) 25 mg PO Q4H PRN PRN Reason: Anxiety Stop: 09/05/25 08:23 Lactobacillus Acidophilus (Advanced Probiotic 625 Mg Capsule) 1,250 mg PO DAILY [facility] Stop: 09/06/25 08:59 Last Admin: 08/07/25 08:57 Dose: 1,250 mg Lisinopril (Lisinopril 10 Mg Tab) 10 mg PO QAM [facility] Stop: 09/06/25 08:59 Last Admin: 08/07/25 08:26 Dose: 10 mg Loperamide HCl (Loperamide Hcl 2 Mg Cap) 4 mg PO QAM [facility] Stop: 09/06/25 08:59 Last Admin: 08/07/25 08:26 Dose: 4 mg Loperamide HCl (Loperamide Hcl 2 Mg Cap) 12 mg PO HS [facility] Stop: 09/05/25 21:59 Last Admin: 08/06/25 21:09 Dose: 12 mg Magnesium Hydroxide (Magnesium Hydroxide Susp 30 Ml Udc) 30 ml PO DAILY PRN PRN Reason: Constipation Stop: 09/05/25 08:23 Melatonin (Melatonin 3 Mg Tab) 6 mg PO HS [facility] Stop: 09/05/25 21:59 Last Admin: 08/06/25 21:08 Dose: 6 mg Sodium Chloride (Sodium Chloride 0.65% Na Soln 45 Ml ([place])) 1 - 2 sprays NA PRN PRN PRN Reason: Nasal Dryness/Congestion Stop: 09/05/25 08:23 Post Discharge Appointments Primary Care Physician Name Of Family Doctor/PCP: Edward Melissa
[2025-08-07] MEDS: SIMETHICONE 80 MG CHEW PO PRN (13:01)
[2025-08-07] MEDS: BACITRACIN OINT 14 GM TUBE EXT PRN (16:31)
[2025-08-07] MEDS: NON-FORMULARY PATIENT'S OWN MED PO SCH ×2 (18:00→21:17)
[2025-08-07] MEDS: MIRTAZAPINE TAB 15 MG TAB PO SCH (21:18)
[2025-08-08 06:38] VITALS: RESP 16
[2025-08-08] MEDS: CITALOPRAM 20 MG TAB PO SCH (09:04)
--- NOTE | 2025-08-08 09:24 | Psychiatric Progress Note ---
Date of Service August 08, 2025 Impression / Recommendations Impression Patient is a 54-year-old man, nitially admitted to the medical service for monitoring after an intentional overdose on trazodone, now is medically cleared, transferred to [facility] this morning. He is admitted on a 201. Diagnostically, consistent with major depression, and relatively mild panic disorder with some degree of agoraphobia. He also has a history of alcohol use disorder in sustained remission. A: Ongoing depression but feeling more hopeful. Still struggling with significant bowel incontinence which negatively impacts his mood and disrupts his sleep. He is agreeable to trying Vistaril prn for sleep issues overnight. Discontinue bacitracin due to concern for topical reaction. Start benadryl cream, Eucerin for dry skin and Vistaril as needed if itchiness worsens. Will shift Cymbalta to the morning and continue titration. Overall, I spent a total of 36 minutes on this case including meeting with the patient, reviewing the chart, nursing report, multidisciplinary team meeting, orders, and documentation. (1) Major depression, recurrent: (2) Suicide attempt by substance overdose: (3) Panic disorder with agoraphobia: (4) Alcohol use disorder in remission: Plan 08/08/2025: -Discontinue Celexa -Cymbalta to 40mg daily tomorrow AM 08/07/2025: -Decrease Celexa to 10mg daily tomorrow -Increase Cymbalta to 30mg HS -Start mirtazapine 15mg HS 08/06/2025: The patient was admitted to the [facility] ([facility] mental [facility] unit) on q15 min checks (behavioral with suicide precautions) for safety. The patient will participate in group, recreational, and milieu therapies and will be offered additional individual and family sessions as clinically appropriate. New medications initiated: Cymbalta 20 mg nightly Celexa 20 mg daily Continue the following home medications: medical meds continued The following PRN medications will be started as well: hydroxyzine as needed for anxiety or sleep Tylenol as needed for pain Milk of mag, Pepto, Maalox as needed GI upset Suicide Risk Level Suicide Risk Level: Moderate (q15 min suicide checks) Suicide Risk Level Comments: moderate given recent impulsive attempt but currently denying SI. Patient reports he feels safe on the unit, and can reach out to staff if symptoms w orsen. Risk Factors Assessment Male: Yes : Yes Do You Have Access To A Gun?: No Health Problems: Yes Mental Health Diagnoses: Yes Substance Use Disorders: Yes ( In remission) Previous Attempt: No Family History of Suicide: No Previous Psychiatric Hospitalization: No Protective Factors Assessment : Yes ( engaged) Responsible for Young Children: No Employed: No Stable Relationships: Yes Supportive Family: Yes Interval History Identifying Information JESSENIA MATHEWS JR Is a 54-year-old male, with a history of hypertension, hyperlipidemia, CVA, PAD, and ulcerative colitis status post total colectomy, who presented to the ED after an intentional overdose of #12 trazodone 150mg tabs in an effort to commit suicide. He was admitted to hospitalist service for monitoring post overdose, and transferred here on 08/06/25 08:22 on a 201 voluntary commitment for suicide attempt. Chief Complaint "Not bad". Review of Systems Sleep Information Total Hours of Sleep: 6.15 Sleep Comments: was up a few times to the bathroom Meal Information Percent Meal Consumed - Breakfast: 100 Percent Meal Consumed - Lunch: 75 Percent Meal Consumed - Dinner: 0 Subjective Subjective Patient was seen & assessed and interval progress reviewed with nursing and social work. Out of his room, attending groups. Rated his mood "hopeful" and "6/10" last evening. Broken sleep overnight. Frustration at times due to his bowel incontinence which has been worse in recent days. Today he reports sleeping ok last night but awake multiple times to use the bathroom. Reviewed option to try prn Vistaril as this may have some benefit in reducing frequency of bowel movements over night. He plans to try this if mirtazapine isn't helpful for keeping him asleep. He is agreeable to shifting Cymbalta dosing to the morning given potential this could contribute to GI symptoms overnight. He reflected on recent financial stressors and feeling like a burden since he cannot contribute to the household and that this also causes increased stress on his relationship. Discussed outpatient supports and he's agreeable to CM referral, therapy (virtual or in-person) and psychiatry. Some skin irritation today, appears dry and he reports itchiness. Possible that he had a reaction to topical bacitracin (it's a common allergic reaction). He denies any symptoms of anaphylaxis but does have topical redness. Encouraged use of Benadryl cream and Vistaril if itchiness continues. Physical Exam Psychiatric Orientation: alert, oriented x 3 and cooperative Apperance: appropriately dressed and appropriately groomed Eye Contact: + fair eye contact Motor Behavior: steady gait and station and no abnormal motor movements Speech: normal rate/rhythm/volume of speech Affect: + constricted affect Mood: + depressed mood and + anxious mood Thought Process: goal directed thought process Thought Content: + cognitive distortions and reality based without delusions at times struggles with feeling like a burden/worthless Suicidal Thoughts: denies suicidal thoughts (but s/p suicide attempt via OD), denies suicidal plan and denies suicidal intent Homicidal Thoughts: denies homicidal thoughts, denies homicidal plan and denies homicidal intent Hallucinations: no auditory hallucinations and no visual hallucinations Cognition: recent memory grossly intact, remote memory grossly intact, attention grossly intact and language grossly intact Estimated Intelligence: average estimated intelligence and consistent with education level Insight: + fair insight Judgment: + fair judgement Vital Signs (Past 24 Hours) Last Vital Signs Temp 36.8 C 08/08/25 06:36 Pulse 75 08/08/25 06:36 Resp 16 08/08/25 06:36 BP 111/81 08/08/25 06:38 Pulse Ox 95 08/08/25 06:36 O2 Del Method Room Air 08/08/25 06:36 Results & Data ([facility]) Current Inpatient Medications Current Inpatient Medications: Current Inpatient Medications Acetaminophen (Acetaminophen 325 Mg Tab) 650 mg PO Q4H PRN PRN Reason: Headache or Minor Fever Stop: 09/05/25 08:23 Al Hydrox/Mg Hydrox/Simethicone (Aluminum/Magnesium Susp 30 Ml Udc) 30 ml PO Q4H PRN PRN Reason: GI Upset Stop: 09/05/25 08:23 Aspirin (Aspirin 81 Mg Ectab) 81 mg PO QAM CAIO Stop: 09/06/25 08:59 Last Admin: 08/08/25 09:04 Dose: 81 mg Atorvastatin Calcium (Atorvastatin 40 Mg Tab) 40 mg PO HS CAIO Stop: 09/05/25 21:59 Last Admin: 08/07/25 21:18 Dose: 40 mg Bacitracin (Bacitracin Oint 14 Gm Tube) 1 appln EXT TID PRN PRN Reason: dry, cracked skin Stop: 09/05/25 10:26 Last Admin: 08/07/25 16:31 Dose: 1 appln Bismuth Subsalicylate (Bismuth Subsalicylate 262 Mg Chew) 2 tab PO Q30M PRN PRN Reason: Loose Stool/Diarrhea Stop: 09/05/25 08:23 Citalopram Hydrobromide (Citalopram 20 Mg Tab) [facility] [place] Stop: 09/07/25 08:59 Last Admin: 08/08/25 09:04 Dose: 10 mg Duloxetine HCl (Duloxetine Hcl 30 Mg Cap) 30 mg PO [facility] Stop: 09/06/25 21:59 Last Admin: 08/07/25 21:18 Dose: 30 mg Ferrous Sulfate (Ferrous Sulfate 325 Mg Tab) 325 [facility] [place] Stop: 09/06/25 08:59 Last Admin: 08/08/25 09:02 Dose: 325 mg Hydroxyzine HCl (Hydroxyzine Hcl 25 Mg Tab) 50 mg PO HSZ PRN PRN Reason: Insomnia Stop: 09/05/25 08:23 Hydroxyzine HCl (Hydroxyzine Hcl 25 Mg Tab) 25 mg PO Q4H PRN PRN Reason: Anxiety Stop: 09/05/25 08:23 Lisinopril (Lisinopril 10 Mg Tab) 10 mg PO [facility] Stop: 09/06/25 08:59 Last Admin: 08/08/25 09:03 Dose: 10 mg Loperamide HCl (Loperamide Hcl 2 Mg Cap) [facility] [place] Stop: 09/06/25 08:59 Last Admin: 08/08/25 09:03 Dose: 4 mg Loperamide HCl (Loperamide Hcl 2 Mg Cap) 12 mg PO [facility] Stop: 09/05/25 21:59 Last Admin: 08/07/25 21:18 Dose: 12 mg Magnesium Hydroxide (Magnesium Hydroxide Susp 30 Ml Udc) 30 ml PO DAILY PRN PRN Reason: Constipation Stop: 09/05/25 08:23 Melatonin (Melatonin 3 Mg Tab) 6 mg PO [facility] Stop: 09/05/25 21:59 Last Admin: 08/07/25 21:18 Dose: 6 mg Mirtazapine (Mirtazapine Tab 15 Mg Tab) 15 mg PO [facility] Stop: 09/06/25 21:59 Last Admin: 08/07/25 21:18 Dose: 15 mg Non-Formulary Medication (Non-Formulary Patient's Own Med) 1 each PO BID CAIO Stop: 09/06/25 20:59 Last Admin: 08/08/25 09:04 Dose: 1 ea Simethicone (Simethicone 80 Mg Chew) 80 mg PO Q6H PRN PRN Reason: Flatulence Stop: 09/06/25 12:20 Last Admin: 08/08/25 09:05 Dose: 80 mg Sodium Chloride (Sodium Chloride 0.65% Na Soln 45 Ml ([place])) 1 - 2 sprays NA PRN PRN PRN Reason: Nasal Dryness/Congestion Stop: 09/05/25 08:23 Post Discharge Appointments Primary Care Physician Name Of Family Doctor/PCP: Edward Melissa
[2025-08-08] MEDS: diphenhydrAMINE 2%/ZINC 0.1% CREAM 28.4GM TUBE EXT PRN (19:11)
--- NOTE | 2025-08-09 08:57 | Psychiatric Progress Note ---
Date of Service August 09, 2025 Impression / Recommendations Impression Patient is a 54-year-old man, nitially admitted to the medical service for monitoring after an intentional overdose on trazodone, now is medically cleared, transferred to [facility] this morning. He is admitted on a 201. Diagnostically, consistent with major depression, and relatively mild panic disorder with some degree of agoraphobia. He also has a history of alcohol use disorder in sustained remission. A: Ongoing depression but having some gradual improvement. Developed dizziness this morning, doesn't seem to be related to hypotension so possible response to mirtazapine. He wants to continue with mirtazapine and we'll monitor to see if it reoccurs. Will add Protonix per his request for ongoing GI issues. Tolerating initial higher dose of duloxetine today so far with some reduction in back pain. Scheduling support meeting and working on outpatient referrals. He's now not interested in therapy but agreeable to psychiatry and CM. No skin itchiness today. Overall, I spent a total of 38 minutes on this case including meeting with the patient, reviewing the chart, nursing report, multidisciplinary team meeting, orders, and documentation. (1) Major depression, recurrent: (2) Suicide attempt by substance overdose: (3) Panic disorder with agoraphobia: (4) Alcohol use disorder in remission: Plan 08/09/2025: -Add protonix 40mg daily 08/08/2025: -Discontinue Celexa -Cymbalta to 40mg daily tomorrow AM 08/07/2025: -Decrease Celexa to 10mg daily tomorrow -Increase Cymbalta to 30mg HS -Start mirtazapine 15mg HS 08/06/2025: The patient was admitted to the [facility] ([facility] mental health unit) on q15 min checks (behavioral with suicide precautions) for safety. The patient will participate in group, recreational, and milieu therapies and will be offered additional individual and family sessions as clinically appropriate. New medications initiated: Cymbalta 20 mg nightly Celexa 20 mg daily Continue the following home medications: medical meds continued The following PRN medications will be started as well: hydroxyzine as needed for anxiety or sleep Tylenol as needed for pain Milk of mag, Pepto, Maalox as needed GI upset Suicide Risk Level Suicide Risk Level: Moderate (q15 min suicide checks) Suicide Risk Level Comments: moderate given recent impulsive attempt but currently denying SI. Patient reports he feels safe on the unit, and can reach out to staff if symptoms worsen. Risk Factors Assessment Male: Yes : Yes Do You Have Access To A Gun?: No Health Problems: Yes Mental Health Diagnoses: Yes Substance Use Disorders: Yes ( In remission) Previous Attempt: No Family History of Suicide: No Previous Psychiatric Hospitalization: No Protective Factors Assessment : Yes ( engaged) Responsible for Young Children: No Employed: No Stable Relationships: Yes Supportive Family: Yes Interval History Identifying Information JESSENIA MATHEWS JR Is a 54-year-old male, with a history of hypertension, hyperlipidemia, CVA, PAD, and ulcerative colitis status post total colectomy, who presented to the ED after an intentional overdose of #12 trazodone 150mg tabs in an effort to commit suicide. He was admitted to hospitalist service for monitoring post overdose, and transferred here on 08/06/25 08:22 on a 201 voluntary commitment for suicide attempt. Chief Complaint "I realized I haven't been taking my omeprazole". Review of Systems Sleep Information Total Hours of Sleep: 8 Sleep Comments: was up a few times to the bathroom Meal Information Percent Meal Consumed - Breakfast: 100 Percent Meal Consumed - Lunch: 50 Percent Meal Consumed - Dinner: 0 Nutrition Comment: GI upset Subjective Subjective Patient was seen & assessed and interval progress reviewed with treatment team. Attending groups. Having some gas pain but felt Gas[employer] was helpful. rated his mood a "7" and hopeful. he didn't eat dinner due to GI pain. Had a good visit with his significant other and son. Had some dizziness this morning but vital signs were stable. Lasted about 2 hours then went away and hasn't come back. Today he's had more GI distress with periods of bathroom urgency. But overall he feels his bowel movements have been slightly better. Recalls he is usually on omeprazole at home and requests this be started as he takes it OTC and wonders if this is part of why his stomach has been worse in the hospital. He'd like to continue with his current psychiatric meds despite dizziness this morning as he did sleep better last night. Physical Exam Psychiatric Orientation: alert, oriented x 3 and cooperative Apperance: appropriately dressed and appropriately groomed Eye Contact: + fair eye contact Motor Behavior: steady gait and station and no abnormal motor movements Speech: normal rate/rhythm/volume of speech Affect: + constricted affect Mood: + depressed mood and + anxious mood Thought Process: goal directed thought process Thought Content: reality based without delusions Suicidal Thoughts: denies suicidal thoughts (but s/p suicide attempt via OD), denies suicidal plan and denies suicidal intent Homicidal Thoughts: denies homicidal thoughts, denies homicidal plan and denies homicidal intent Hallucinations: no auditory hallucinations and no visual hallucinations Cognition: recent memory grossly intact, remote memory grossly intact, attention grossly intact and language grossly intact Estimated Intelligence: average estimated intelligence and consistent with education level Insight: + fair insight Judgment: + fair judgement Vital Signs (Past 24 Hours) Last Vital Signs Temp 36.6 C 08/09/25 06:00 Pulse 85 08/09/25 06:18 Resp 16 08/09/25 06:00 BP 111/73 08/09/25 06:18 Pulse Ox 95 08/08/25 06:36 O2 Del Method Room Air 08/08/25 06:36 Results & Data ([facility]) Current Inpatient Medications Current Inpatient Medications: Current Inpatient Medications Acetaminophen (Acetaminophen 325 Mg Tab) 650 mg PO Q4H PRN PRN Reason: Headache or Minor Fever Stop: 09/05/25 08:23 Al Hydrox/Mg Hydrox/Simethicone (Aluminum/Magnesium Susp 30 Ml Udc) 30 ml PO Q4H PRN PRN Reason: GI Upset Stop: 09/05/25 08:23 Aspirin (Aspirin 81 Mg Ectab) 81 mg PO QAM CAIO Stop: 09/06/25 08:59 Last Admin: 08/08/25 09:04 Dose: 81 mg Atorvastatin Calcium (Atorvastatin 40 Mg Tab) 40 mg PO HS CAIO Stop: 09/05/25 21:59 Last Admin: 08/08/25 20:52 Dose: 40 mg Bismuth Subsalicylate (Bismuth Subsalicylate 262 Mg Chew) 2 tab PO Q30M PRN PRN Reason: Loose Stool/Diarrhea Stop: 09/05/25 08:23 Duloxetine HCl (Duloxetine Hcl 20 Mg Cap) 40 mg PO QAM CAIO Stop: 09/08/25 08:59 Ferrous Sulfate (Ferrous Sulfate 325 Mg Tab) 325 mg PO QAM CAIO Stop: 09/06/25 08:59 Last Admin: 08/08/25 09:02 Dose: 325 mg Hydroxyzine HCl (Hydroxyzine Hcl 25 Mg Tab) 50 mg PO HSZ PRN PRN Reason: Insomnia Stop: 09/05/25 08:23 Hydroxyzine HCl (Hydroxyzine Hcl 25 Mg Tab) 25 mg PO Q4H PRN PRN Reason: Anxiety Stop: 09/05/25 08:23 Lisinopril (Lisinopril 10 Mg Tab) 10 mg PO QAM CAIO Stop: 09/06/25 08:59 Last Admin: 08/08/25 09:03 Dose: 10 mg Loperamide HCl (Loperamide Hcl 2 Mg Cap) 4 mg PO QAM CAIO Stop: 09/06/25 08:59 Last Admin: 08/08/25 09:03 Dose: 4 mg Loperamide HCl (Loperamide Hcl 2 Mg Cap) 12 mg PO HS CAIO Stop: 09/05/25 21:59 Last Admin: 08/08/25 20:51 Dose: 12 mg Magnesium Hydroxide (Magnesium Hydroxide Susp 30 Ml Udc) 30 ml PO DAILY PRN PRN Reason: Constipation Stop: 09/05/25 08:23 Melatonin (Melatonin 3 Mg Tab) 6 mg PO HS CAIO Stop: 09/05/25 21:59 Last Admin: 08/08/25 20:52 Dose: 6 mg Mirtazapine (Mirtazapine Tab 15 Mg Tab) 15 mg PO HS CAIO Stop: 09/06/25 21:59 Last Admin: 08/08/25 20:52 Dose: 15 mg Non-Formulary Medication (Non-Formulary Patient's Own Med) 1 each PO BID CAIO Stop: 09/06/25 20:59 Last Admin: 08/08/25 20:51 Dose: 1 ea Simethicone (Simethicone 80 Mg Chew) 80 mg PO Q6H PRN PRN Reason: Flatulence Stop: 09/06/25 12:20 Last Admin: 08/08/25 20:52 Dose: 80 mg Sodium Chloride (Sodium Chloride 0.65% Na Soln 45 Ml ([place])) 1 - 2 sprays NA PRN PRN PRN Reason: Nasal Dryness/Congestion Stop: 09/05/25 08:23 Zinc Acetate/Diphenhydramine (Diphenhydramine 2%/Zinc 0.1% Cream 28.4gm Tube) 1 appln EXT BID PRN PRN Reason: itching Stop: 09/07/25 09:41 Last Admin: 08/08/25 19:11 Dose: 1 appln Post Discharge Appointments Primary Care Physician Name Of Family Doctor/PCP: Edward Melissa
[2025-08-09] MEDS ORDERED: EUCERIN CR 120 GM JAR EXT PRN (15:29)
--- NOTE | 2025-08-10 08:48 | Psychiatric Progress Note ---
Date of Service August 10, 2025 Impression / Recommendations Impression Patient is a 54-year-old man, intially admitted to the medical service for monitoring after an intentional overdose on trazodone, now is medically cleared, transferred to [facility] this morning. He is admitted on a 201. Diagnostically, consistent with major depression, and relatively mild panic disorder with some degree of agoraphobia. He also has a history of alcohol use disorder in sustained remission. A: Mood improving. Had dizziness again overnight so suspect a side effect from the mirtazapine. Discussed options for sleep including doxepin vs Ambien vs clonidine vs Vistaril. He'd like to try clonidine as off-label for sleep. Reviewed side effects including but not limited to syncope and low BP. MNPR due to need for private bathroom Overall, I spent a total of 35 minutes on this case including meeting with the patient, reviewing the chart, nursing report, multidisciplinary team meeting, orders, and documentation. (1) Major depression, recurrent: (2) Suicide attempt by substance overdose: (3) Panic disorder with agoraphobia: (4) Alcohol use disorder in remission: Plan 08/10/2025: -Discontinue mirtazapine -Start clonidine 0.1mg HS 08/09/2025: -Add protonix 40mg daily 08/08/2025: -Discontinue Celexa -Cymbalta to 40mg daily tomorrow AM 08/07/2025: -Decrease Celexa to 10mg daily tomorrow -Increase Cymbalta to 30mg HS -Start mirtazapine 15mg HS 08/06/2025: The patient was admitted to the [facility] on q15 min checks (behavioral with suicide precautions) for safety. The patient will participate in group, recreational, and milieu therapies and will be offered additional individual and family sessions as clinically appropriate. New medications initiated: Cymbalta 20 mg nightly Celexa 20 mg daily Continue the following home medications: medical meds continued The following PRN medications will be started as well: hydroxyzine as needed for anxiety or sleep Tylenol as needed for pain Milk of mag, Pepto, Maalox as needed GI upset Suicide Risk Level Suicide Risk Level: Moderate (q15 min suicide checks) Suicide Risk Level Comments: moderate given recent impulsive attempt but mood improving, consistently denying SI, and engaging with outpatient referrals for additional support. Patient reports he feels safe on the unit, and can reach out to staff if symptoms worsen. Risk Factors Assessment Male: Yes : Yes Do You Have Access To A Gun?: No Health Problems: Yes Mental Health Diagnoses: Yes Substance Use Disorders: Yes ( In remission) Previous Attempt: No Family History of Suicide: No Previous Psychiatric Hospitalization: No Protective Factors Assessment : Yes ( engaged) Responsible for Young Children: No Employed: No Stable Relationships: Yes Supportive Family: Yes Interval History Identifying Information JESSENIA MATHEWS JR Is a 54-year-old male, with a history of hypertension, hyperlipidemia, CVA, PAD, and ulcerative colitis status post total colectomy, who presented to the ED after an intentional overdose of #12 trazodone 150mg tabs in an effort to commit suicide. He was admitted to hospitalist service for monitoring post overdose, and transferred here on 08/06/25 08:22 on a 201 voluntary commitment for suicide attempt. Chief Complaint "Ok". Review of Systems Sleep Information Total Hours of Sleep: 7 Sleep Comments: was up a few times to the bathroom Meal Information Percent Meal Consumed - Breakfast: 100 Percent Meal Consumed - Lunch: 100 Percent Meal Consumed - Dinner: 100 Nutrition Comment: GI upset Subjective Subjective Patient was seen & assessed and interval progress reviewed with nursing and social work. Had dizziness again this morning, vital signs were stable. Ongoing periods of gas pain. Overall he feels his mood is rated as "7" and "hopeful". Attending all groups. He experienced the dizziness again while lying in bed throughout the night so prefers to stop the mirtazapine. Denies SI. No other medication side effects. His stomach/GI symptoms are showing "some improvement". Physical Exam Psychiatric Orientation: alert, oriented x 3 and cooperative Apperance: appropriately dressed and appropriately groomed Eye Contact: good eye contact Motor Behavior: steady gait and station and no abnormal motor movements Speech: normal rate/rhythm/volume of speech Affect: euthymic affect Mood: + anxious mood Thought Process: goal directed thought process Thought Content: reality based without delusions Suicidal Thoughts: denies suicidal thoughts (but s/p suicide attempt via OD), denies suicidal plan and denies suicidal intent Homicidal Thoughts: denies homicidal thoughts, denies homicidal plan and denies homicidal intent Hallucinations: no auditory hallucinations and no visual hallucinations Cognition: recent memory grossly intact, remote memory grossly intact, attention grossly intact and language grossly intact Estimated Intelligence: average estimated intelligence and consistent with education level Insight: + fair insight Judgment: + fair judgement Vital Signs (Past 24 Hours) Last Vital Signs Temp 36.5 C 08/10/25 06:00 Pulse 86 08/10/25 06:00 Resp 16 08/10/25 06:00 BP 132/86 08/10/25 06:38 Pulse Ox 95 08/10/25 06:00 O2 Del Method Room Air 08/10/25 06:00 Results & Data ([facility]) Current Inpatient Medications Current Inpatient Medications: Current Inpatient Medications Acetaminophen (Acetaminophen 325 Mg Tab) 650 mg PO Q4H PRN PRN Reason: Headache or Minor Fever Stop: 09/05/25 08:23 Al Hydrox/Mg Hydrox/Simethicone (Aluminum/Magnesium Susp 30 Ml Udc) 30 ml PO Q4H PRN PRN Reason: GI Upset Stop: 09/05/25 08:23 Aspirin (Aspirin 81 Mg Ectab) 81 mg PO QAM [facility] Stop: 09/06/25 08:59 Last Admin: 08/10/25 08:07 Dose: 81 mg Atorvastatin Calcium (Atorvastatin 40 Mg Tab) 40 mg PO HS CAIO Stop: 09/05/25 21:59 Last Admin: 08/09/25 21:21 Dose: 40 mg Bismuth Subsalicylate (Bismuth Subsalicylate 262 Mg Chew) 2 tab PO Q30M PRN PRN Reason: Loose Stool/Diarrhea Stop: 09/05/25 08:23 Duloxetine HCl (Duloxetine Hcl 20 Mg Cap) 40 mg PO QAM [facility] Stop: 09/08/25 08:59 Last Admin: 08/10/25 08:07 Dose: 40 mg Ferrous Sulfate (Ferrous Sulfate 325 Mg Tab) 325 mg PO QAM [facility] Stop: 09/06/25 08:59 Last Admin: 08/10/25 08:08 Dose: 325 mg Hydroxyzine HCl (Hydroxyzine Hcl 25 Mg Tab) 50 mg PO HSZ PRN PRN Reason: Insomnia Stop: 09/05/25 08:23 Hydroxyzine HCl (Hydroxyzine Hcl 25 Mg Tab) 25 mg PO Q4H PRN PRN Reason: Anxiety Stop: 09/05/25 08:23 Lisinopril (Lisinopril 10 Mg Tab) 10 mg PO QAM [facility] Stop: 09/06/25 08:59 Last Admin: 08/10/25 08:08 Dose: 10 mg Loperamide HCl (Loperamide Hcl 2 Mg Cap) 4 mg PO QAM [facility] Stop: 09/06/25 08:59 Last Admin: 08/10/25 08:10 Dose: 4 mg Loperamide HCl (Loperamide Hcl 2 Mg Cap) 12 mg PO [facility] Stop: 09/05/25 21:59 Last Admin: 08/09/25 21:22 Dose: 12 mg Magnesium Hydroxide (Magnesium Hydroxide Susp 30 Ml Udc) 30 ml PO DAILY PRN PRN Reason: Constipation Stop: 09/05/25 08:23 Melatonin (Melatonin 3 Mg Tab) 6 mg PO [facility] Stop: 09/05/25 21:59 Last Admin: 08/09/25 21:21 Dose: 6 mg Mirtazapine (Mirtazapine Tab 15 Mg Tab) 15 mg PO [facility] Stop: 09/06/25 21:59 Last Admin: 08/09/25 21:21 Dose: 15 mg Multi-Ingredient Cream (Eucerin Cr 120 Gm Jar) 1 appln EXT BID PRN PRN Reason: dry skin Stop: 09/08/25 15:28 Non-Formulary Medication (Non-Formulary Patient's Own Med) 1 each PO BID [facility] Stop: 09/06/25 20:59 Last Admin: 08/10/25 08:09 Dose: 1 ea Pantoprazole Sodium (Pantoprazole 40 Mg Tab) [facility] Stop: 09/08/25 15:29 Last Admin: 08/10/25 08:09 Dose: 40 mg Simethicone (Simethicone 80 Mg Chew) 80 mg PO Q6H PRN PRN Reason: Flatulence Stop: 09/06/25 12:20 Last Admin: 08/09/25 16:06 Dose: 80 mg Sodium Chloride (Sodium Chloride 0.65% Na Soln 45 Ml ([place])) 1 - 2 sprays NA PRN PRN PRN Reason: Nasal Dryness/Congestion Stop: 09/05/25 08:23 Zinc Acetate/Diphenhydramine (Diphenhydramine 2%/Zinc 0.1% Cream 28.4gm Tube) 1 appln EXT BID PRN PRN Reason: itching Stop: 09/07/25 09:41 Last Admin: 08/08/25 19:11 Dose: 1 appln Post Discharge Appointments Primary Care Physician Name Of Family Doctor/PCP: Edward Melissa-Dr. Stevenson Primary Care Date of Future Appointment with PCP: 08/16 Time of Appointment with PCP: 9am Provider Appointment Comment: You will be seeing Dr. Serna Contact Information Discharge Discharge Address: [address] [place], [place] [id number]
[2025-08-11 06:32] VITALS: BP 119/81; PULSE 81; TEMP 98.3; O2SAT 96
--- NOTE | 2025-08-11 08:38 | Discharge Summary ---
Date of Service August 11, 2025 History of Present Illness Patient self-presented to the emergency room along with his fiance, for evaluation after an impulsive but intentional overdose on number#12 trazodone 150 mg tabs. He said he came to the emergency room after his fianc saw him with the bottle of pills and asked him if he took too many. He did tell her that he had overdosed, she brought him in quickly for evaluation. In the emergency room, he was briefly hypoxic. He had been given bicarb and IV fluids. He was monitored overnight, In the ED, and then admitted to hospital service yesterday. Initial EKG showed a QTc of 476, and repeat this a.m. showed normal sinus rhythm with QTC 362. He had no further bouts of hypoxia. I saw the patient yesterday on consultation service. We had a long conversation about present stressors, and the events leading to the overdose. From my note yesterday, " Patient was forthcoming and cooperative. He attempted to identify potential triggers for the overdose. He reports that the overdose was intentional, but impulsive. He reflects he finds it interesting that he only took 12 of the trazodone, as there were many more pills there he could have taken, but did not. He had just had a relatively benign argument with his , but was overcome by feelings of being a burden and feeling "tired of dealing with all the stuff I have to deal with." Mostly, he is referring to his complex medical comorbidities. He deals chronically with back pain, abdominal pain and discomfort, and fecal incontinence. He says "I feel too young to be falling apart." He says it was not a particular trigger, although the argument did occur just prior to the overdose. He feels the argument was not particularly severe. Rather, he says his depression has been building for a while. He did see his rectal doctor earlier this week, who made referrals to several other specialties, and may have been overwhelmed by that. He reports decreased activity in recent months. Says "I don't do anything." This is partly due to his pain and discomfort, but partly due to decreased interest and motivation. He tends to spend a lot of time sitting in his chair, playing on his phone or watching TV. This is also worsened because he has been increasingly anxious and avoiding crowds. So, while he used to do shopping with his , he states he will more often now. He had trouble describing the feeling of anxiety that occurs, usually resorting to using the word "anxiety". No specific physical symptoms were associated with that, but he reports a feeling of needing to escape, and impending doom. He was recently started on BuSpar by his PCP, but finds has not been particularly helpful. The dose is rather low, 5 mg 3 times daily. He denies further suicidal ideation. He said that he had not been considering suicide prior to this. He does endorse ongoing intermittent helplessness and hopelessness to some degree. He is agreeable to admission on a 201 basis. He says "I do not want to be here, but I need to do what I need to do."" Patient arrived to unit this morning. He was in good spirits, up and out of bed and dressed for the day. he is continuing to have abdominal discomfort, which he says is chronic for him. He was planning to attend groups this morning. We reviewed the changes that we had planned yesterday. Those changes were not done while he was on the medical floor, so we will start them today. He is still in agreement to try Cymbalta, and understands that trazodone will be held. I reviewed his home medications as well. He continues to deny further suicidal ideation. No HI. No hallucinations or delusions. He tends to have anxiety in crowds, but the small group here is not too bad for him. He has not had a panic attack so far today. Physical Exam Vital Signs (Past 24 Hours) Last Vital Signs Temp 36.8 C 08/11/25 06:00 Pulse 81 08/11/25 06:00 Resp 16 08/11/25 06:00 BP 119/81 08/11/25 06:00 Pulse Ox 96 08/11/25 06:00 O2 Del Method Room Air 08/11/25 06:00 Principal Diagnosis Major Depressive Disorder Psychiatric Data See daily stay summary. In short, patient was engaged with the social/therapeutic milieu of the unit, safety was maintained and the patient was cooperative with care. Medication changes included initiation of clonidine as off-label for insomnia and duloxetine for depression and chronic pain and they tolerated this well. A support session was held and safety plan was completed prior to discharge. He continued to have some sleep difficulties during his admission after developing side effects to mirtazapine. If sleep issues persist after discharge with return to his home environment and despite sleep hygiene practices would consider CBT-I referral and/or trial of Ambien, doxepin or Seroquel for insomnia. Trazodone could be considered in the future if necessary but generally would recommend trying to avoid this given potential psychological impact from association with the overdose. They participated in safety planning and in discussions about ways to seek support and recognizing warning signs and utilizing coping skills. Reviewed ways to have their safety plan and contacts easily available should thoughts of SI re-emerge in the future. Reviewed importance of seeking emergency care should SI intensify, worsen or should they feel unsafe in the future which they agree to do. On the day of discharge they stated their mood was "hopeful" and remained future-oriented including spending time with his significant other and family, being outside, going to surgery appointment and engaging in aftercare appointments for psychiatry, primary care and case management. Day of Discharge Assessment Today the patient voices readiness for discharge. They note improvement in mood and anxiety. They deny thoughts of harm to self or others. Thoughts remain organized and they are clinically improved from admission. There is no evidence of psychosis. They improved in the hospital with support [and medication ad justments]. They agree to take medications as prescribed and keep follow-up appointments. At the time of the discharge they are deemed to be stable and appropriate for outpatient level of care. They are not deemed to be at imminent risk of harm to self or others. They are aware of emergency and crisis services. Knows to call 911 or go to nearest emergency care center if in a crisis which cannot be handled as an outpatient. Suicide risk assessment: Acute risk is low given improvement in mood and denial of SI, lack of access to lethal means, some improvement in sleep but still variable, hopefulness. Chronic risk is moderate given some non-modifiable risk factors: psychiatric co-morbid diagnoses, periods of impulsivity, prior attempt, chronic illness, but also with protective factors including good social support, sense of responsibility to family and social supports, outpatient care in place, positive coping skills, positive problem solving, willingness to engage with treatment and self- observation. Counseled on ways to reduce acute and chronic risk including engaging with outpatient providers, using safety plan if needed, utilizing supports, taking medication, and using coping skills. Modifiable risk factors of SI and depression were addressed during hospitalization through development of new coping skills, support meeting, safety planning, and medication adjustments. Discharge physical exam: See admission H&P, MSE per above and day of discharge summary. Overall, I spent a total of 35 minutes on this case including meeting with the patient, reviewing the chart, nursing report, multidisciplinary team meeting, discharge orders, anticipatory planning, safety planning, risk assessment and documentation. Transition of Care Transition Of Care Record: was reviewed with the patient Advance Directives Advance Directives Information Provided: No Advance Directives: No Mental Health Advance Directive: No Advance Directives on File: No Living Will: No Power of Facility Manager Histology: No Advance Directives Reason:: Declines as Mental Health Visit. Suicide Risk Level Suicide Risk Level Comments: see assessment above Risk Factors Assessment Male: Yes : Yes Do You Have Access To A Gun?: No Health Problems: Yes Mental Health Diagnoses: Yes Substance Use Disorders: Yes ( In sustained remission) Previous Attempt: No Family History of Suicide: No Previous Psychiatric Hospitalization: No Hopelessness: No Protective Factors Assessment : Yes ( engaged) Responsible for Young Children: No Employed: No Stable Relationships: Yes Supportive Family: Yes Hospital Course (1) Major depression, recurrent: (2) Suicide attempt by substance overdose: (3) Panic disorder with agoraphobia: (4) Alcohol use disorder in remission: Plan 08/11/2025: -He feels safe and ready for discharge today 08/10/2025: -Discontinue mirtazapine -Start clonidine 0.1mg HS 08/09/2025: -Add protonix 40mg daily 08/08/2025: -Discontinue Celexa -Cymbalta to 40mg daily tomorrow AM 08/07/2025: -Decrease Celexa to 10mg daily tomorrow -Increase Cymbalta to 30mg HS -Start mirtazapine 15mg HS 08/06/2025: The patient was admitted to the [facility] ([facility] inpatient mental health unit) on q15 min checks (behavioral with suicide precautions) for safety. The patient will participate in group, recreational, and milieu therapies and will be offered additional individual and family sessions as clinically appropriate. New medications initiated: Cymbalta 20 mg nightly Celexa 20 mg daily Continue the following home medications: medical meds continued The following PRN medications will be started as well: hydroxyzine as needed for anxiety or sleep Tylenol as needed for pain Milk of mag, Pepto, Maalox as needed GI upset Mental Health & Subst Abuse Tx Psychiatrist Name of Psychiatrist: Rashid Chavez PA-C Psychiatrist's Date Of Appointment With Psychiatric Provider: 10/21/25 Time of Appointment with Psychiatrist: 08:10 AM Post Discharge Appointments Primary Care Physician Name Of Family Doctor/PCP: Edward Melissa-Dr. Stevenson Primary Care Date of Future Appointment with PCP: 08/16 Time of Appointment with PCP: 9am Provider Appointment Comment: You will be seeing Dr. Serna Contact Information Discharge Discharge Address: [address] [place] [id number] Discharge Plan Discharge Items Patient Disposition: Home - Self-Care Reason For Visit: MAJOR DEPRESSIVE DISORDER Discharge Diagnosis: Major Depressive Disorder Activity: Resume your previous activity Non-emergency contact: Primary Care Provider, Therapist and Orthopedic Specialist Call non-emergency contact if: you have any medication questions and your symptoms worsen Follow-up/Referrals: Kris Stevenson MD [Primary Care Provider] - Diet: Regular Addtl Attending Provider Instructions: Optional mobile apps we discussed: -Virtual Hope Box -Suicide safety plan SPECIAL CARE INSTRUCTIONS: 1. Follow through with your scheduled aftercare appointments. If unable to keep an appointment, please call to reschedule. 2. Take your medication only as prescribed. Medication should not be changed or stopped without the approval of your doctor. In the event of worsening symptoms or concerns about side effects, contact your doctor immediately. 3. Utilize new healthy coping skills, anger management skills, and stress management skills learned during your hospitalization. Journal feelings and process them with a support person. Identify stressors or situations that may result in relapse, deterioration or inappropriate behaviors and develop a plan to deal with those issues. 4. If your coping skills are ineffective and you are in crisis, contact your outpatient providers for direction. If unable to reach your providers, please call the [facility] CRISIS LINE AT , go to the [facility] walk-in center at [address], [address], [place], or go to the closest Emergency Room. 5. Avoid alcohol and un-prescribed drugs. 6. You have been provided with the Mental Health Advance Directives Pamphlet for your review. 7. Your condition is stable for discharge to outpatient level of care, but recovery is an ongoing process. Ifthoughts to harm yourself or others return, follow the safety plan developed during your stay. Planning for a safe return home includes securing weapons. Our treatment team recommends weaponsbe removed from the home until your outpatient provider reassesses your progress. In rare cases where the items themselvescannot be removed, guns and ammunitionshould be secured separatelyand keys stored by a reliable personoutside of the home. If you were admitted on an involuntary commitment, the police or other legal authorities may be involved in this process. AFTERCARE APPOINTMENTS: * Please call your insurance company prior to your scheduled appointment to confirm your aftercare providers are covered. Take your insurance information to your appointments. WHO TO CALL AND WHEN: Medical Emergencies: For questions or emergencies related to your hospital stay, please contact the Inpatient Behavioral Health Unit at [phone]. A activities therapist is on-call 22/04 for the Behavioral Health Unit for emergencies At any time you feel your situation is an emergency, you may also call 911 immediately. National Crisis Hotline: 988 Pending Studies at Discharge: No Stand-Alone Forms: My [facility] Medications and DC Order Prescriptions: New clonidine HCl 0.1 mg Tablet 0.1 mg PO HS 30 Days Qty: 30 0RF duloxetine 40 mg capsule,delayed release(DR/EC) 40 mg PO DAILY 30 Days Qty: 30 0RF hydroxyzine HCl 50 mg tablet 50 mg PO HS PRN (Reason: insomnia/anxiety) 30 Days Qty: 30 0RF loperamide 2 mg Capsule 4 mg PO QAM 30 Days Qty: 60 0RF loperamide 2 mg Capsule 12 mg PO HS 30 Days Qty: 180 0RF melatonin 3 mg Tablet 6 mg PO HS 30 Days Qty: 60 0RF pantoprazole 40 mg Tablet,Delayed Release (Dr/Ec) 40 mg PO QAM 30 Days Qty: 30 0RF simethicone [Gas Relief (simethicone)] 80 mg Tablet,Chewable 80 mg PO Q6H PRN (Reason: flatulence) 30 Days Qty: 30 0RF Continued atorvastatin 40 mg tablet 40 mg PO HS ferrous sulfate 325 mg (65 mg iron) Tablet 325 mg PO QDB Probiotic 10 billion cell Capsule 10,000 mmu cells PO BID aspirin 81 mg Tablet,Delayed Release (Dr/Ec) 81 mg PO QAM Multivitamin 50 Plus Tablet 1 tab PO QAM lisinopril 10 mg tablet 10 mg PO QAM Discontinued buspirone 5 mg tablet 5 mg PO [facility] Rx Instructions: PER PT "MAY TAKE ADDITIONAL DOSE IF NEEDED". citalopram 40 mg tablet 40 mg PO QAM trazodone 150 mg tablet 150 mg PO [facility] buspirone 5 mg tablet 5 mg PO DAILY PRN (Reason: Anxiety) Discharge Orders: Discharge Order (Routine); Ordered 08/11/25 Ordered By: Serenity Gonzalez Admission Data Admit Date/Time: 08/06/25 08:22 Attending Provider: Serenity Gonzalez Admit Provider: Nani Iraheta Primary Care Provider: Kris Stevenson Other Interventions: Discharge Summary Assessment (RN) Last Done: 08/11/25 09:47 Coding Level of Care Code 59119 D/C day mgmt > 30 min Diagnoses Major depression, recurrent F33.9 Suicide attempt by substance overdose T65.92XA Panic disorder with agoraphobia F40.01 Alcohol use disorder in remission F10.91
== END 2025-08-11 10:20 | disposition home or self-care (01) | DRG 885 ==
LOC: SUATTDRO 08-06 08:22 → 3S 08-06 08:22